=== PATIENT | female | born 1975 | race Caucasian/White ===

== ENCOUNTER 2016-07-14 13:02 | Inpatient (IN) | payer OTHER ==
[~2016-07-14] VITALS: Ht 170.2 cm; Wt 59.0 kg
[~2016-07-14 13:02] MED LIST: CALCTAB68 PO; CARA1TAB2 PO; COLA100C PO; KLON0.5T PO; MULTCAP PO; OXYC1TAB23 PO; OXYC30TA84 PO; PEPC1TAB2 PO; PERC10TA17 PO; PERC5TAB6 PO; PHEN1SUP6 PO; PRENTAB9 PO; PROT1TAB2 PO; VITA10002 PO; VITAMIN B12 INJ; ZOFR20TA PO; percocet
[2016-07-14 14:23] LABS: CONTROL LINE HCG INT CTR LINE PRESENT
[2016-07-14 14:31] LABS: ALBUMIN 3.7 GM/DL (3.2-5.2); ALBUMIN/GLOBULIN RATIO 1.42 (1.00-1.93); ALKALINE PHOSPHATASE 66 U/L (45-117); ALT/SGPT 23 U/L (12-78); ANION GAP 6 MEQ/L (8-16); AST/SGOT 17 U/L (15-37); BASO % 0.5 % (0.0-1.0); BILIRUBIN,DIRECT < 0.1 MG/DL (0.0-0.2); BILIRUBIN,TOTAL 0.3 MG/DL (0.2-1.0); BLOOD UREA NITROGEN 10 MG/DL (7-18); CALCIUM LEVEL 8.8 MG/DL (8.5-10.1); CARBON DIOXIDE LEVEL 28 MEQ/L (21-32); CHLORIDE LEVEL 107 MEQ/L (98-107); CREATININE FOR GFR 0.51 MG/DL (0.55-1.02); EOS # 0.1 K/mm3 (0.0-0.50); EOS % 1.5 % (0.0-3.0); GLOMERULAR FILTRATION RATE > 60.0 (>58); GLUCOSE, FASTING 102 MG/DL (70-105); LARGE UNSTAINED CELL # 0.1 K/mm3 (0.0-0.4); LARGE UNSTAINED CELL % 1.5 % (0.0-4.0); LYMPH # 1.3 K/mm3 (1.5-4.5); LYMPH % 22.8 % (24.0-44.0); MEAN CORPUSCULAR HEMOGLOBIN 29.4 pg (27.0-33.0); MEAN CORPUSCULAR HGB CONC 33.1 g/dl (32.0-36.5); MEAN CORPUSCULAR VOLUME 88.9 fl (80.0-96.0); MONO # 0.3 K/mm3 (0.0-0.8); MONO % 4.8 % (0.0-5.0); NEUTROPHILS # 3.6 K/mm3 (1.8-7.7); NEUTROPHILS % 68.8 % (36.0-66.0); PLATELET COUNT, AUTOMATED 277 k/mm3 (150-450); RED CELL DISTRIBUTION WIDTH 14.7 % (11.5-14.5); SODIUM LEVEL 141 MEQ/L (136-145); TOTAL PROTEIN 6.3 GM/DL (6.4-8.2); WHITE BLOOD COUNT 5.2 K/mm3 (4.0-10.0)
[2016-07-14] MEDS ORDERED: MORPHINE 2 MG/ML 1ML SYRINGE As Ordered ONE ×5 (14:36→19:56)
[2016-07-14] MEDS ORDERED: ONDANSETRON 4MG/2ML VIAL (J2405) As Ordered ONE ×2 (14:36→15:33)
--- NOTE | 2016-07-14 14:48 | REP ---
PA and lateral chest: Comparisons 05/03/2016. The lung lehman are clear. The cardiac size is normal The layne, mediastinum, and bony thorax are unremarkable. Impression: Negative PA and lateral chest. Signed by Harvey Willis MD 07/14/2016 02:39 P
[2016-07-14] MEDS ORDERED: GASTROGRAFIN SOLUTION 30ML (Q9963) As Ordered ONE (15:08)
[2016-07-14] MEDS ORDERED: ISOVUE-370 76% 100ML VIAL (Q9967) As Ordered ONE (17:11)
[2016-07-14] MEDS ORDERED: diphenhydrAMINE INJ 50MG/ML VIAL (J1200) As Ordered ONE (17:23)
[2016-07-14] MEDS ORDERED: methylPREDNISolone INJ 125 MG/2 ML VIAL (J2930) As Ordered ONE (17:23)
--- NOTE | 2016-07-14 19:50 | REPUSA ---
CLINICAL HISTORY: Abdominal pain. TECHNIQUE: Multiple axial, sagittal and coronal CT images were obtained through the abdomen and pelvi s after administration of oral and intravenous contrast material. COMMENTS: The liver is of uniform attenuation without mass or defect. There is no intra or extrahepatic biliary ductal dilatation. The spleen is normal. The gallbladder is surgically absent.. The pancreas is of n ormal contour and attenuation characteristics. There is no evidence of adrenal mass. Both kidneys demonstrate prompt and equal nephrograms. The kidneys are normal in size, shape and conf iguration. There is no evidence of renal or ureteral mass. No renal or ureteral calculi are identifie d. There is no hydroureter or hydronephrosis. Status post appendectomy. History of gastric bypass. There is no bowel wall thickening. No evidence for small or large bowel obstruction. There is no evidence of abdominal ascites or lymphadenopathy. There is no evidence of intrinsic or extrinsic bladder mass. There is no pelvic ascites or lymphadeno franck. Images of the lung bases show no evidence of pleural or parenchymal mass. There are no pleural effusi ons. The bony structures are free of lytic or blastic lesions. IMPRESSION: No evidence of acute abdominal or pelvic pathology. Thank you for your kind referral of this patient.
[2016-07-14] MEDS ORDERED: HYDROmorphone HCL 1 MG/ML SYRINGE (J1170) As Ordered ONE (20:00)
[2016-07-14] MEDS ORDERED: KLON0.5T PO (20:06)
[2016-07-14] MEDS ORDERED: BENA25CA4 PO (20:06)
[2016-07-14] MEDS ORDERED: HYDROmorphone HCL 1 MG/ML SYRINGE (J1170) IV PRN (22:15)
[2016-07-14] MEDS ORDERED: ACETAMINOPHEN TAB 650MG DOSE (2X325MG) PO PRN (22:15)
[2016-07-14] MEDS ORDERED: ONDANSETRON 4MG/2ML VIAL (J2405) IV PRN (22:15)
[2016-07-14] MEDS ORDERED: PERCOCET 5MG/325MG TAB PO PRN ×2 (22:15)
--- NOTE | 2016-07-14 22:33 | HPEPDOC ---
Medical History and Physical Date of Admission 07/14/16 History and Physical DATE OF SERVICE: 07/14/16 PRIMARY CARE PROVIDER: Elizabeth Ferrer CHIEF COMPLAINT: Abdominal pain HISTORY OF PRESENT ILLNESS: Patient is a 41-year-old female who presents with a chief complaint of abdominal pain. Patient states that she had a gastric bypass performed 2-1/2 years ago in [place] and has had multiple complications since that time. She had revision done in 09/17. She presents today complaining of losing weight, inability to eat, passing out and abdominal pain. Patient says that she has been passing out over the last 2 weeks and has been found on the floor a few times. She is complaining of epigastric abdominal pain without radiation, currently rates her pain 7-8/10 and describes pain as stabbing. She is complaining of nausea, vomiting, vomit is described as "very little, more like dry heaves," denies hematemesis. Patient tells me that she saw gastroenterology yesterday in [place] and that she was scheduled to have further evaluation with endoscopy tomorrow. ALLERGIES: BenGay, NSAIDs (secondary to gastric bypass), IV dye (hives) PAST MEDICAL HISTORY: None PAST SURGICAL HISTORY: Appendectomy, gastric bypass, cholecystectomy, , gastric bypass revision SOCIAL HISTORY: Patient smokes approximately 1 to 2 packs of cigarettes per week, denies any alcohol or recreational drug use. She lives at home with her fianc and children REVIEW OF SYSTEMS: Constitutional: Positive for recent weight loss, denies fevers, chills, night sweats. HEENT: Head: Positive for headaches, dizziness, passing out Eyes: denies blurry vision, double vision. Ears: Positive for tinnitus for episodes of syncope. Nose : denies sinus pain, pressure, rhinorrhea, postnasal drip. Throat: denies sore throat, cough, difficulty swallowing Cardiovascular: denies chest discomfort/pain, palpitations Respiratory: denies shortness of breath, difficulty breathing Gastrointestinal: Positive for abdominal pain, nausea, vomiting as described above, irregular bowel movements status post gastric bypass : Positive for vaginal bleeding (patient two and a half months ) Musculoskeletal: Positive for diffuse weakness Neurological: denies numbness, tingling, paresthesias Integumentary: Positive for bruising in the legs from a passing out Endocrine: Positive for cold intolerance, denies polyuria, polydipsia. Psychiatric: Positive for history of anxiety and depression PHYSICAL EXAMINATION: Vitals: Temperature 97.0, pulse 48, respiratory rate 18, blood pressure 133/62, pulse ox 98% on room air General: Patient awake and stretcher, alert and oriented, verbal and able to answer questions appropriately. HEENT: Head: normocephalic, atraumatic. Eyes: pupils equally reactive to light , conjunctiva are pink, sclera are nonicteric. Throat: buccal mucosa is pink and moist with no lesions in the oropharynx Respiratory: clear to auscultation bilaterally with no wheezes, rales, or rhonchi. Cardiovascular: Bradycardic. No murmurs, rubs, clicks or gallops Abdomen: Active bowel sounds, soft, epigastric tenderness to palpation, no masses to palpation Extremities: 5/5 strength in upper and lower extremities bilaterally, no swelling in either lower extremity bilaterally Neurological: sensation intact and symmetrical in upper and lower extremities bilaterally Integumentary: One bruise present over right knee, one bruise present over left knee, one bruise present over the left altamirano. All bruises are small measuring approximately 1 x 1 cm Vascular: pulses palpable and symmetrical in upper and lower extremities bilaterally LABORATORY DATA: CBC: White blood cells 5.2, H&H 12.8/38.7, platelets 277 Chemistry: Sodium 141, potassium 4.0, chloride 107, carbon dioxide 28, BUN is 10 , creatinine 0.51, glucose 102, calcium 8.8 Liver profile: AST 17, ALT 23, alkaline phosphatase 66, total protein 6.3, albumin 3.7, total bilirubin 0.3, direct bilirubin <0.1 Lipase 125 HCG negative ELECTROCARDIOGRAM: Sinus bradycardia at rate of 56 bpm RADIOLOGY: Chest x-ray: Negative PA and lateral chest Abdomen and pelvis CT with contrast: No evidence of acute abdominal or pelvic pathology ASSESSMENT: Patient is a 41-year-old female with uncontrolled abdominal pain. Patient will require admission for pain control PLAN: #1: Abdominal pain: Admit patient to PCU under hospitalist service. Orders placed for pain medication: Hydromorphone 1 mg IV every 6 hours when necessary, Percocet 1-2 tabs every 4 hours by mouth when necessary. Order placed for Zofran 4 mg IV every 6 hours when necessary. Patient's emergency department evaluation was unremarkable including CBC, BMP, lipase, CT of abdomen and pelvis. At this time it is uncertain the cause of the patient's abdominal pain. Patient will likely require outpatient follow-up for further evaluation. Endurance to patient's outpatient workup will be pain management, patient will likely require pain management consult for further evaluation and assistance with pain control. #2: Reported syncope: Etiology unknown at this time. Patient will be admitted to PCU for telemetry monitoring. #3: : Order placed for home dose of vitamin 1 tablet by mouth twice a day #4: DVT prophylaxis: Order placed for Lovenox 40 mg subcutaneously daily My preceptor for this patient encounter was physically present in the building during the encounter and was fully available. As needed, all aspects of the patient interview, examination, medical decision making process, and medical care plan development were reviewed and approved by the preceptor. Preceptor is aware and concurs with the plan as stated in the body of this note and will attest to such by his/her cosignature. Vital Signs Temperature 97.0, pulse 48, respiratory rate 18, blood pressure 133/62, pulse ox 98% on room air Home Medications Scheduled Multivitamins/ ( 27-0.8 mg) 1 Tab Tab 1 TAB PO BID Scheduled PRN Clonazepam (Klonopin) 0.5 Mg Tab 0.5 MG PO PRN ANXIETY Diphenhydramine HCl (Benadryl Allergy) 25 Mg Cap 25 MG PO PRN SLEEP Allergies Coded Allergies: Camphor (Verified Allergy, Unknown, 09/20/13) TOPICAL PAIN MEDS Carboxymethylcellulose (Verified Allergy, Unknown, 09/20/13) TOPICAL PAIN MEDS Contrast Media (Unverified Allergy, Unknown, RASH, 07/14/16) Iodine (Verified Allergy, Unknown, 09/20/13) Menthol (Verified Allergy, Unknown, 09/20/13) TOPICAL PAIN MEDS Methyl Salicylate (Verified Allergy, Unknown, 09/20/13) TOPICAL PAIN MEDS NSAIDs (Unverified Adverse Reaction, Unknown, AVOIDS, GASTRIC BYPASS, ) INES ALEXANDER DO Jul 14, 2016 22:33
--- NOTE | 2016-07-14 23:08 | EDDOCDS ---
Physician Documentation [facility] Name: Nathalie Retana Age: 41 yrs Sex: Female : 1975 Arrival Date: 07/14/2016 Time: 13:02 Bed 13 Private MD: Elizabeth [facility] [place] Disposition: 07/14/16 22:52 Hospitalization ordered by Gordo Robledo for Inpatient Admission. Preliminary diagnosis is Generalized abdominal pain. - Bed requested for M PCU. - Status is Inpatient Admission. titi - Condition is Stable. - Problem is new. - Symptoms are unchanged. - Notes: You were seen in the ED for abdominal pain and were admitted for further care by Dr. Robledo of [facility]. You have now elected to leave against medical advice before receiving counselling on this decision by your admitting doctor and before receivng instructions on further care. Please seek care with a doctor of your choosing as soon as possible and return to the ED at any time if you change your mind or your symptoms worsen. Historical: - Allergies: bengay; NSAIDS (due to gastric bypass); IV Dye (Hives); - Home Meds: 1. Vitamin Oral once daily (Last dose: 07/13/2016) - PMHx: none; - PSHx: Appendectomy; Gastric Bypass; Cholecystectomy (August 14, 2014); ; - Social history: Smoking status: Patient uses tobacco products, current every day smoker. No barriers to communication noted, Speaks appropriately for age. - Family history: Not pertinent. - : The pt / caregiver states he / she is not on anticoagulants. Home medication list is obtained from the patient. - Exposure Risk Screening:: None identified. 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 7 in. (170.18 cm) (R); Pain 10/10; 14:07 BP 120 / 73 RA Supine (auto/); Pulse 60; srm 14:07 BP 109 / 65 RA Sitting (auto/); Pulse 73; srm 14:07 BP 107 / 75 RA Standing (auto/); Pulse 83; srm 14:23 Pulse 56 MON; Pulse Ox 97% ; srm 14:24 BP 128 / 65 (auto/); srm 14:40 Pulse 52 MON; Pulse Ox 98% ; srm 14:40 BP 123 / 70 (auto/); srm 15:10 BP 114 / 66 (auto/); srm 15:10 Pulse 50 MON; Resp 18; Pulse Ox 97% ; srm 15:34 Pulse 46 MON; Pulse Ox 99% ; srm 15:34 BP 117 / 76 (auto/); srm 15:40 Pulse 46 MON; Pulse Ox 98% ; srm 15:40 BP 128 / 73 (auto/); srm 16:06 BP 143 / 79 (auto/); srm 16:08 Pulse 48 MON; Resp 18; Pulse Ox 100% ; srm 16:10 Pulse 50 MON; Pulse Ox 99% ; srm 16:10 BP 143 / 67 (auto/); srm 16:40 BP 122 / 57 (auto/); srm 16:40 Pulse 44 MON; Pulse Ox 99% ; srm 17:10 Pulse 50 MON; Pulse Ox 100% ; srm 17:10 BP 131 / 70 (auto/); srm 17:40 Pulse 44 MON; Pulse Ox 98% ; srm 17:40 BP 130 / 60 (auto/); srm 18:16 BP 134 / 63 (auto/); srm 18:17 Pulse 48 MON; Pulse Ox 100% ; srm 18:40 Pulse 48 MON; Pulse Ox 96% ; srm 18:40 BP 130 / 60 (auto/); srm 19:01 Pulse 48 MON; Resp 18; Pulse Ox 98% ; srm 19:07 BP 133 / 62 (auto/); af2 19:09 Pulse 48 MON; Resp 18 S; Pulse Ox 98% on R/A; af2 20:15 BP 139 / 65 Sitting (auto/); Pulse 51; Resp 18 S; Pulse Ox 97% on R/A; Pain 5/10; af2 13:05 Body Mass Index 20.36 (58.97 kg, 170.18 cm) gr2 MDM: 13:37 ECG WITH READING ER PHYS+CARDIAG ordered. EDMS 13:47 IV Saline Lock ordered. br1 13:48 Orthostatic VS ordered. br1 13:48 Pharmacy Technician Trainee/Pulse Ox/q 30 min VS ordered. br1 13:48 CBC with Diff Ordered. EDMS 13:48 BMP Ordered. EDMS 13:48 Liver Profile Ordered. EDMS 13:48 Lipase Ordered. EDMS 13:50 HCG,Serum Qualitative Ordered. EDMS 14:23 NS 0.9% 1000 ml IV at 150 mL/hr continuous ordered. br1 14:23 morphine 2 mg IVP once ordered. br1 14:23 Ondansetron 4 mg IVP once ordered. br1 14:25 Chest, 2 View (pa\E\lat) Ordered. EDMS 14:49 Financial registration complete. lg 15:02 morphine 2 mg IVP once ordered. br1 15:02 CBC with Diff Reviewed. br1 15:02 HCG,Serum Qualitative Reviewed. br1 15:02 Chest, 2 View (pa\E\lat) Reviewed. br1 15:03 [facility] Payment Agreement was scanned into [employer] and attached to record. lg 15:03 CT ABD & PELVIS: IV and Oral Contrast Ordered. EDMS 15:04 BMP Reviewed. br1 15:04 Liver Profile Reviewed. br1 15:04 Lipase Reviewed. br1 15:04 TROPONIN Reviewed. br1 15:08 Ondansetron 4 mg IVP once ordered. br1 15:18 Diatrizoate Meglumine & Sodium Liquid 10 ml PO once; mix in 290cc of water ordered. srm 15:18 Diatrizoate Meglumine & Sodium Liquid 10 ml PO once; mix in 290cc of water ordered. srm 16:03 morphine 2 mg IVP once ordered. br1 17:19 Solu-MEDROL 125 mg IVP once ordered. br1 17:19 diphenhydrAMINE 50 mg IVP once ordered. br1 18:18 morphine 2 mg IVP once ordered. srm 19:45 morphine 2 mg IVP once ordered. br1 19:53 BED REQUEST+ADM ordered. EDMS 19:59 Dilaudid - HYDROmorphone 1 mg IVP once ordered. br1 22:08 Admission / Observation Status ordered. EDMS 22:13 REGULAR DIET ordered. EDMS 22:13 COMPLETE BLOOD COUNT Ordered. EDMS 22:13 BASIC METABOLIC PROFILE Ordered. EDMS 22:44 ED course: Patient was seen and admitted by hospitalist service. Inpatient orders were br1 written and patient is holding in ED for bed. Informed by nursing staff patient has now signed out AMA as an inpatient lan. Nursing has made inpatient team aware. Patient has chosen to leave prior to be counseled on further care by her admitting physician. Disposition changed to AMA for software logistics reasons only (patient was admitted from the ED).. Administered Medications: 14:40 Drug: NS 0.9% 1000 ml [sodium chloride 0.9 % intravenous solution] Route: IV; Rate: 150 srm mL/hr; Site: right antecubital; 14:40 Drug: Ondansetron 4 mg [ondansetron HCl 2 mg/mL intravenous solution (2 mL)] Route: srm IVP; Site: right antecubital; 14:41 Drug: morphine 2 mg [morphine 2 mg/mL intravenous cartridge (1 mL)] Route: IVP; Site: [facility] right antecubital; 20:17 Follow up: Response: No significant change. af2 15:13 Drug: morphine 2 mg [morphine 2 mg/mL intravenous cartridge (1 mL)] Route: IVP; Site: [facility] right antecubital; 15:18 Drug: Diatrizoate Meglumine & Sodium 10 ml [diatrizoate meglumine and diat.sodium 66 srm %-10 % oral solution (10 mL)] Route: PO; 20:16 Follow up: Response: No significant change. af2 15:35 Drug: Ondansetron 4 mg [ondansetron HCl 2 mg/mL intravenous solution (2 mL)] Route: srm IVP; Site: right antecubital; 20:16 Follow up: Response: No Adverse Reaction af2 16:00 Drug: Diatrizoate Meglumine & Sodium 10 ml [diatrizoate meglumine and diat.sodium 66 srm %-10 % oral solution (10 mL)] Route: PO; 20:16 Follow up: Response: No significant change. af2 16:08 Drug: morphine 2 mg [morphine 2 mg/mL intravenous cartridge (1 mL)] Route: IVP; Site: [facility] right antecubital; 16:43 Follow up: Response: No significant change.; see trends for vs srm 17:26 Drug: Solu-MEDROL 125 mg [Solu-Medrol 500 mg intravenous solution (125 mg)] Route: IVP; srm Site: right antecubital; 20:16 Follow up: Response: No significant change. af2 17:28 Drug: diphenhydrAMINE 50 mg [diphenhydramine 50 mg/mL injection solution (1 mL)] Route: srm IVP; Site: right antecubital; 20:15 Follow up: Response: No significant change. af2 18:22 Drug: morphine 2 mg [morphine 2 mg/mL intravenous cartridge (1 mL)] Route: IVP; Site: srm right antecubital; 20:15 Follow up: Response: Pain is unchanged, physician notified af2 19:59 Not Given (Patient Refused): morphine 2 mg IVP once br1 20:05 Drug: Dilaudid - HYDROmorphone 1 mg [hydromorphone 1 mg/mL injection syringe (1 mL)] af2 Route: IVP; Site: right antecubital; 20:15 Follow up: BP 139 / 65 Sitting Left Arm Auto; Pulse 51 bpm; Resp 18 bpm Spontaneous; af2 Pulse Ox 97% RA; Pain 5/10 Adult; Response: Pain is decreased Signatures: Dispatcher [employer] EDMS Daniela Christine RN RN [facility] [place], Ritu Wright, RN Richard Billings, Reg Reg lg Herbert Nash MD MD br1 Donna Vargas RN RN dsf Dorinda Moyer RN RN [id number] Cherise Roach RN af2 The chart was reviewed and I authenticate all verbal orders and agree with the evaluation and treatment provided.Corrections: (The following items were deleted from the chart) 14:47 14:44 TROPONIN+LAB ordered. EDMS EDMS 18:37 13:26 Allergies: NSAIDS; dsf [facility] Attachments: 15:03 [facility] [place] Payment Agreement lg MTDD
--- NOTE | 2016-07-14 23:09 | EDDOCDS ---
Nurse's Notes [employer] Name: Nathalie Retana Age: 41 yrs Sex: Female : 1975 Arrival Date: 07/14/2016 Time: 13:02 Bed 13 Private MD: Elizabeth [facility] Diagnosis: Generalized abdominal pain Presentation: 07/14 13:23 Presenting complaint: Patient states: abdominal pain that started 1 week ago and the dsf pain is getting worse. Pt reports passing out through out the week. Pt reports loosing weight and having no energy. Pt is suppose to have an endoscopy tomorrow in [place]. pt has had gastric bypass 2 years ago. Risk factors: the patient reports no vaginal bleeding. Adult Sepsis Screening: The patient does not have new or worsening altered mentation. Patient's respiratory rate is less than 22. Systolic blood pressure is greater than 100. Patient has a qSOFA score of 0- Negative Sepsis Screen. Suicide/Homicide risk assessment- the patient denies having any suicidal and/or homicidal ideations and does not present with any other emotional, behavioral or mental health complaints. Status: The patient is a dependent. Transition of care: patient was not received from another setting of care. 13:23 Method Of Arrival: Walkin/Carried/Asstd dsf 13:23 Acuity: JEAN Level 2 dsf Triage Assessment: 13:26 General: Appears uncomfortable, Behavior is appropriate for age, cooperative. Pain: dsf Location: epigastric area Pain currently is 10 out of 10 on a pain scale. Pain does not radiate. Quality of pain is described as sharp, Pain began 7 days ago. HIV screening NA for this visit Offered previously. GI: Reports epigastric pain, nausea, vomiting. 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 Vitamin Oral once daily (Last dose: 07/13/2016) - PMHx: none; - PSHx: Appendectomy; Gastric Bypass; Cholecystectomy (August 14, 2014); ; - Social history: Smoking status: Patient uses tobacco products, current every day smoker. No barriers to communication noted, Speaks appropriately for age. - Family history: Not pertinent. - : The pt / caregiver states he / she is not on anticoagulants. Home medication list is obtained from the patient. - Exposure Risk Screening:: None identified. Screenin:26 Screening information is obtained from the patient. Fall risk: No risks identified. af2 Assistance ADL's: requires no assistance with activities of daily living. Abuse/DV Screen: The patient / caregiver reports he/she is: not in a situation that causes fear, pain or injury. Nutritional screening: No deficits noted. Advance Directives: Currently, there is no health care proxy. home support is adequate. Assessment: 13:46 General: Appears distressed, uncomfortable. General: pt states she had a C section 2 mk4 1/2 months ago for twins , felt "pretty good" for about 2 weeks then started to not feel well, has been anorexic , states "severe" weight loss, the past 2 months with the abd pain starting within the past few days , pt states she has " woken up on the floor" several times states " passing out" . Pain: Location: abdomen, upper mid abdomen, pt states in "her pouch". Neurological: Level of Consciousness is awake, Oriented to person, place, time. Respiratory: Airway is patent Respiratory effort is even, unlabored, Respiratory pattern is regular. GI: Abdomen is obese, Abd is soft and non tender X 4 quads. Derm: Skin is intact, is healthy with good turgor, Skin is pale. 14:07 General: Appears uncomfortable, Behavior is appropriate for age, cooperative. GI: Bowel srm sounds present X 4 quads. Abd is soft and non tender X 4 quads. Reports epigastric pain. 15:19 General: pt took one sip of contrast and spit it out. denies nausea but she states she srm wont be ABLE to drink it and doesn't want the pain to return. ND aware. 15:42 General: pt drank first cup of contrast then c/o nausea- zofran given. pt states " that srm pain medicine didn't do kvng shit". . 16:01 General: pt oob to br gait steady. c/o mid upper abd pain still MD aware. srm 16:46 General: pt states morphine doesn't take care of the pain but " makes my stomach feel srm empty like" . 17:30 General: Appears in no apparent distress, Behavior is appropriate for age, cooperative. srm Cardiovascular: No deficits noted. Rhythm is sinus bradycardia. Respiratory: No deficits noted. GI: Reports epigastric pain. 19:16 General: Appears in no apparent distress, Behavior is cooperative, assumed care of pt af2 at this time, pt lying on stretcher and states "how long will all this take?" pt updated regarding plan of care at this time. . Neurological: Level of Consciousness is awake, Oriented to person, place, time. Cardiovascular: Rhythm is sinus bradycardia No ectopy. Respiratory: Airway is patent Respiratory effort is even, unlabored. Derm: Skin is intact, is healthy with good turgor, Skin is pink, warm & dry. 20:17 General: Appears in no apparent distress, Behavior is appropriate for age, cooperative, af2 fluids infusing per order. pt lying on stretcher resting quietly. reports pain is now tolerable, 5/10 after receiving pain medication. will continue to monitor. pt awaiting exam from hospitalist.. GI: Reports upper abdominal pain. Derm: Skin is pink, warm & dry. 21:13 General: Appears in no apparent distress, Behavior is anxious, cooperative, pt states af2 anxiety and that pain is increasing. resp easy and unlabored. updated regarding plan of care on admission. skin w/d/i. . 22:00 General: Appears in no apparent distress, Behavior is fussy, uncooperative, pt requests af2 additional pain medication, this ticket writer informed pt that pain medication ordered- Dilaudid 1mg- can only be given every six hours and pt has only reached about 2 hour vishal and cannot have medication again at this time. pt becomes angry and begins shouting and rips monitor off. pt requests to speak with hospitalist at bedside, states "this isn't gonna cut it for me, I need him down here right now." this ticket writer paged hospitalist and let him know pt would like him to come down and speak with her. hospitalist to come down when he is available.. 22:15 General: Appears in no apparent distress, Behavior is uncooperative, this ticket writer af2 updated pt that hospitalist will be down when he is available, pt angry that hospitalist is not coming down immediately and she does not have an exact time for when he will be down. pt states to "I am going to punch somebody in the face." pt informed that this is unacceptable, charge nurse to bedside. pt requests information regarding hospitalist resident care supervisor to call, provided information for pt advocate. . 22:48 General: Appears in no apparent distress, Behavior is uncooperative, this ticket writer and af2 charge nurse entered room to have pt sign AMA paperwork. pt seated in upright position on chair completely dressed, hospital gown and PIV and monitor equipment found lying on the floor. this ticket writer provided pt with bandaid. pt signed AMA paperwork, spouse at bedside. pt encouraged to keep appointment in [place] tomorrow as previously scheduled. . Vital Signs: 13:05 BP 107 / 73; Pulse 79; Resp 18 S; Temp 97.7(O); Pulse Ox 99% on R/A; Weight 58.97 kg gr2 (R); Height 5 ft. 7 in. (170.18 cm) (R); Pain 10/10; 14:07 BP 120 / 73 RA Supine (auto/); Pulse 60; srm 14:07 BP 109 / 65 RA Sitting (auto/); Pulse 73; srm 14:07 BP 107 / 75 RA Standing (auto/); Pulse 83; srm 14:23 Pulse 56 MON; Pulse Ox 97% ; srm 14:24 BP 128 / 65 (auto/); srm 14:40 Pulse 52 MON; Pulse Ox 98% ; srm 14:40 BP 123 / 70 (auto/); srm 15:10 BP 114 / 66 (auto/); srm 15:10 Pulse 50 MON; Resp 18; Pulse Ox 97% ; srm 15:34 Pulse 46 MON; Pulse Ox 99% ; srm 15:34 BP 117 / 76 (auto/); srm 15:40 Pulse 46 MON; Pulse Ox 98% ; srm 15:40 BP 128 / 73 (auto/); srm 16:06 BP 143 / 79 (auto/); srm 16:08 Pulse 48 MON; Resp 18; Pulse Ox 100% ; srm 16:10 Pulse 50 MON; Pulse Ox 99% ; srm 16:10 BP 143 / 67 (auto/); srm 16:40 BP 122 / 57 (auto/); srm 16:40 Pulse 44 MON; Pulse Ox 99% ; srm 17:10 Pulse 50 MON; Pulse Ox 100% ; srm 17:10 BP 131 / 70 (auto/); srm 17:40 Pulse 44 MON; Pulse Ox 98% ; srm 17:40 BP 130 / 60 (auto/); srm 18:16 BP 134 / 63 (auto/); srm 18:17 Pulse 48 MON; Pulse Ox 100% ; srm 18:40 Pulse 48 MON; Pulse Ox 96% ; srm 18:40 BP 130 / 60 (auto/); srm 19:01 Pulse 48 MON; Resp 18; Pulse Ox 98% ; srm 19:07 BP 133 / 62 (auto/); af2 19:09 Pulse 48 MON; Resp 18 S; Pulse Ox 98% on R/A; af2 20:15 BP 139 / 65 Sitting (auto/); Pulse 51; Resp 18 S; Pulse Ox 97% on R/A; Pain 5/10; af2 13:05 Body Mass Index 20.36 (58.97 kg, 170.18 cm) gr2 Vitals: 13:05 Log In Time: July 14, 2016 at 13:05. gr2 ED Course: 13:04 Patient visited by Kerri Cohen. gr2 13:04 [facility] is Private Physician. gr2 13:04 Patient moved to Waiting gr2 13:06 Patient visited by Kerri Cohen. gr2 13:06 Patient moved to Pre RCE gr2 13:26 Triage Initiated dsf 13:30 Patient moved to 13 mdr 13:39 Patient visited by Dorinda Moyer RN. mk4 13:47 Herbert Nash MD is Attending Physician. br1 13:47 Patient visited by Madison Nava. dem1 13:47 EKG done. (by ED staff). Reviewed by Herbert Nash MD. dem1 14:06 HCG,Serum Qualitative Sent. srm 14:06 Lipase Sent. srm 14:06 Liver Profile Sent. srm 14:06 BMP Sent. srm 14:06 CBC with Diff Sent. srm 14:07 The patient / caregiver is instructed regarding the plan of care and ED course. srm Accompanied by Significant Other, Patient has correct armband on for positive identification. Placed in gown. Bed in low position. Call light in reach. solar electric/photovoltaic installer on. Pulse ox on. NIBP on. 14:07 Inserted saline lock: 20 gauge in right antecubital area and blood collected. The [facility] patient tolerated the procedure well. 14:09 Patient visited by Daniela Christine RN. srm 14:20 Patient visited by Herbert Nash MD. br1 14:43 Patient visited by Daniela Christine RN. srm 14:55 Chest, 2 View (pa\\E\\lat) Returned. EDMS 15:03 [facility] Payment Agreement was scanned into [employer] and attached to record. lg 15:19 Patient visited by Daniela Christine RN. srm 16:02 Patient visited by Daniela Christine RN. srm 16:17 Patient visited by Daniela Christine RN. srm 16:47 Patient visited by Daniela Christine RN. srm 17:31 Patient visited by Daniela Christine RN. srm 18:32 Patient visited by Daniela Christine RN. srm 18:37 Patient visited by Daniela Christine RN. srm 19:03 Report given to a Nivia ALVAREZ. srm 19:15 Cherise Roach RN is Primary Nurse. af2 19:16 Patient visited by Cherise Roach RN. af2 19:26 Patient visited by Cherise Roach RN. af2 20:05 Patient visited by Cherise Roach RN. af2 20:14 CT ABD & PELVIS: IV and Oral Contrast Returned. EDMS 20:18 Patient visited by Cherise Raoch RN. af2 21:03 Patient visited by Cherise Roach RN. af2 21:04 Gordo Robledo is Hospitalizing Provider. br1 22:52 Gordo Robledo is Hospitalizing Provider. br1 Administered Medications: 14:40 Drug: NS 0.9% 1000 ml [sodium chloride 0.9 % intravenous solution] Route: IV; Rate: 150 srm mL/hr; Site: right antecubital; 14:40 Drug: Ondansetron 4 mg [ondansetron HCl 2 mg/mL intravenous solution (2 mL)] Route: srm IVP; Site: right antecubital; 14:41 Drug: morphine 2 mg [morphine 2 mg/mL intravenous cartridge (1 mL)] Route: IVP; Site: [facility] right antecubital; 20:17 Follow up: Response: No significant change. af2 15:13 Drug: morphine 2 mg [morphine 2 mg/mL intravenous cartridge (1 mL)] Route: IVP; Site: [facility] right antecubital; 15:18 Drug: Diatrizoate Meglumine & Sodium 10 ml [diatrizoate meglumine and diat.sodium 66 srm %-10 % oral solution (10 mL)] Route: PO; 20:16 Follow up: Response: No significant change. af2 15:35 Drug: Ondansetron 4 mg [ondansetron HCl 2 mg/mL intravenous solution (2 mL)] Route: srm IVP; Site: right antecubital; 20:16 Follow up: Response: No Adverse Reaction af2 16:00 Drug: Diatrizoate Meglumine & Sodium 10 ml [diatrizoate meglumine and diat.sodium 66 srm %-10 % oral solution (10 mL)] Route: PO; 20:16 Follow up: Response: No significant change. af2 16:08 Drug: morphine 2 mg [morphine 2 mg/mL intravenous cartridge (1 mL)] Route: IVP; Site: [facility] right antecubital; 16:43 Follow up: Response: No significant change.; see trends for vs srm 17:26 Drug: Solu-MEDROL 125 mg [Solu-Medrol 500 mg intravenous solution (125 mg)] Route: IVP; srm Site: right antecubital; 20:16 Follow up: Response: No significant change. af2 17:28 Drug: diphenhydrAMINE 50 mg [diphenhydramine 50 mg/mL injection solution (1 mL)] Route: srm IVP; Site: right antecubital; 20:15 Follow up: Response: No significant change. af2 18:22 Drug: morphine 2 mg [morphine 2 mg/mL intravenous cartridge (1 mL)] Route: IVP; Site: srm right antecubital; 20:15 Follow up: Response: Pain is unchanged, physician notified af2 19:59 Not Given (Patient Refused): morphine 2 mg IVP once br1 20:05 Drug: Dilaudid - HYDROmorphone 1 mg [hydromorphone 1 mg/mL injection syringe (1 mL)] af2 Route: IVP; Site: right antecubital; 20:15 Follow up: BP 139 / 65 Sitting Left Arm Auto; Pulse 51 bpm; Resp 18 bpm Spontaneous; af2 Pulse Ox 97% RA; Pain 5/10 Adult; Response: Pain is decreased Intake: Order Results: Lab Order: CBC with Diff; SPEC'M 07/14/16 14:04 Test: WHITE BLOOD COUNT; Value: 5.2; Range: 4.0-10.0; Units: K/mm3; Status: F Test: RED BLOOD COUNT; Value: 4.35; Range: 4.00-5.40; Units: M/mm3; Status: F Test: HEMOGLOBIN; Value: 12.8; Range: 12.0-16.0; Units: g/dl; Status: F Test: HEMATOCRIT; Value: 38.7; Range: 36.0-47.0; Units: %; Status: F Test: MEAN CORPUSCULAR VOLUME; Value: 88.9; Range: 80.0-96.0; Units: fl; Status: F Test: MEAN CORPUSCULAR HEMOGLOBIN; Value: 29.4; Range: 27.0-33.0; Units: pg; Status: F Test: MEAN CORPUSCULAR HGB CONC; Value: 33.1; Range: 32.0-36.5; Units: g/dl; Status: F Test: RED CELL DISTRIBUTION WIDTH; Value: 14.7; Range: 11.5-14.5; Abnormal: Above high normal; Units: %; Status: F Test: PLATELET COUNT, AUTOMATED; Value: 277; Range: 150-450; Units: k/mm3; Status: F Test: NEUTROPHILS %; Value: 68.8; Range: 36.0-66.0; Abnormal: Above high normal; Units: %; Status: F Test: LYMPH %; Value: 22.8; Range: 24.0-44.0; Abnormal: Below low normal; Units: %; Status: F Test: MONO %; Value: 4.8; Range: 0.0-5.0; Units: %; Status: F Test: EOS %; Value: 1.5; Range: 0.0-3.0; Units: %; Status: F Test: BASO %; Value: 0.5; Range: 0.0-1.0; Units: %; Status: F Test: LARGE UNSTAINED CELL %; Value: 1.5; Range: 0.0-4.0; Units: %; Status: F Test: NEUTROPHILS #; Value: 3.6; Range: 1.8-7.7; Units: K/mm3; Status: F Test: LYMPH #; Value: 1.3; Range: 1.5-4.5; Abnormal: Below low normal; Units: K/mm3; Status: F Test: MONO #; Value: 0.3; Range: 0.0-0.8; Units: K/mm3; Status: F Test: EOS #; Value: 0.1; Range: 0.0-0.50; Units: K/mm3; Status: F Test: BASO #; Value: 0.0; Range: 0.0-0.2; Units: K/mm3; Status: F Test: LARGE UNSTAINED CELL #; Value: 0.1; Range: 0.0-0.4; Units: K/mm3; Status: F Lab Order: [facility]; SPEC'M 07/14/16 14:04 Test: GLUCOSE, FASTING; Value: 102; Range: 70-105; Units: MG/DL; Status: F Test: BLOOD UREA NITROGEN; Value: 10; Range: 7-18; Units: MG/DL; Status: F Test: CREATININE FOR GFR; Value: 0.51; Range: 0.55-1.02; Abnormal: Below low normal; Units: MG/DL; Status: F Test: GLOMERULAR FILTRATION RATE; Value: > 60.0; Range: >58; Status: F Test: SODIUM LEVEL; Value: 141; Range: 136-145; Units: MEQ/L; Status: F Test: POTASSIUM SERUM; Value: 4.0; Range: 3.5-5.1; Units: MEQ/L; Status: F Test: CHLORIDE LEVEL; Value: 107; Range: 98-107; Units: MEQ/L; Status: F Test: CARBON DIOXIDE LEVEL; Value: 28; Range: 21-32; Units: MEQ/L; Status: F Test: ANION GAP; Value: 6; Range: 8-16; Abnormal: Below low normal; Units: MEQ/L; Status: F Test: CALCIUM LEVEL; Value: 8.8; Range: 8.5-10.1; Units: MG/DL; Status: F Test Note: ; Units are mL/min/1.73 m2 Chronic Kidney Disease Staging per NKF: Stage I & II GFR >=60 Normal to Mildly Decreased Stage III GFR 30-59 Moderately Decreased Stage IV GFR 15-29 Severely Decreased Stage V GFR <15 Very Little GFR Left ESRD GFR <15 on SERVICENOW ADMINISTRATOR Lab Order: Liver Profile; SPEC'M 07/14/16 14:04 Test: AST/SGOT; Value: 17; Range: 15-37; Units: U/L; Status: F Test: ALT/SGPT; Value: 23; Range: 12-78; Units: U/L; Status: F Test: ALKALINE PHOSPHATASE; Value: 66; Range: 45-117; Units: U/L; Status: F Test: BILIRUBIN,TOTAL; Value: 0.3; Range: 0.2-1.0; Units: MG/DL; Status: F Test: BILIRUBIN,DIRECT; Value: < 0.1; Range: 0.0-0.2; Units: MG/DL; Status: F Test: TOTAL PROTEIN; Value: 6.3; Range: 6.4-8.2; Abnormal: Below low normal; Units: GM/DL; Status: F Test: ALBUMIN; Value: 3.7; Range: 3.2-5.2; Units: GM/DL; Status: F Test: ALBUMIN/GLOBULIN RATIO; Value: 1.42; Range: 1.00-1.93; Status: F Lab Order: Lipase; [facility] 07/14/16 14:04 Test: LIPASE; Value: 125; Range: 73-393; Units: U/L; Status: F Lab Order: HCG,Serum Qualitative; SPEC' 07/14/16 14:04 Test: HCG, SERUM QUALITATIVE; Value: NEGATIVE; Range: NEGATIVE; Status: F Lab Order: TROPONIN; [facility] 07/14/16 14:04 Test: TROPONIN I; Value: < 0.02; Range: < 0.10; Units: NG/ML; Status: F Test Note: ; Troponin I Reference Interval for [employer] LOCI: 99th Percentile= 0.00-0.045 ng/ml Risk Stratification: <= 0.10 ng/ml Decreased Risk for Adverse Clinical Events. 0.10-1.50 ng/ml Increased Risk for Adverse Clinical Events. Evaluation of additional criterion and/or repeat testing in 2-6 hours is suggested to rule out myocardial damage. >= 1.50 ng/ml Indicative of Myocardial Injury. Radiology Order: Chest, 2 View (pa\\E\\lat) Test: Chest, 2 View (pa\\E\\lat) REASON FOR EXAMINATION: Syncope; PA and lateral chest:; ; Comparisons 05/03/2016.; ; The lung lehman are clear. The cardiac size is normal; ; The layne, mediastinum, and bony thorax are unremarkable.; ; Impression:; ; Negative PA and lateral chest.; ; ; Signed by; Harvey Willis MD 07/14/2016 02:39 P; Radiology Order: CT ABD & PELVIS: IV and Oral Contrast Test: CT ABD & PELVIS: IV and Oral Contrast REASON FOR EXAMINATION: Abdomen Pain; ; CLINICAL HISTORY: Abdominal pain.; TECHNIQUE: Multiple axial, sagittal and coronal CT images were obtained through the abdomen and pelvi; s after administration of oral and intravenous contrast material.; COMMENTS:; The liver is of uniform attenuation without mass or defect. There is no intra or extrahepatic biliary; ductal dilatation. The spleen is normal. The gallbladder is surgically absent.. The pancreas is of n; ormal contour and attenuation characteristics. There is no evidence of adrenal mass.; Both kidneys demonstrate prompt and equal nephrograms. The kidneys are normal in size, shape and conf; iguration. There is no evidence of renal or ureteral mass. No renal or ureteral calculi are identifie; d. There is no hydroureter or hydronephrosis.; Status post appendectomy. History of gastric bypass. There is no bowel wall thickening. No evidence; for small or large bowel obstruction. There is no evidence of abdominal ascites or lymphadenopathy.; There is no evidence of intrinsic or extrinsic bladder mass. There is no pelvic ascites or lymphadeno; franck.; Images of the lung bases show no evidence of pleural or parenchymal mass. There are no pleural effusi; ons.; The bony structures are free of lytic or blastic lesions.; IMPRESSION:; No evidence of acute abdominal or pelvic pathology.; Thank you for your kind referral of this patient.; ; Outcome: 21:04 Decision to Hospitalize by Provider. br1 22:44 The patient is leaving AMA: Other patient has chosen to leave AMA at this time, pt not titi willing to stay for Dr Robledo to come to this department to explain risks and benefits of staying. Dr Robledo has been notified of patient request to speak with him. 22:48 Patient left against medical advice. br1 22:52 Decision to Hospitalize by Provider. br1 23:04 Admitted to PCU Other patient was admitted to PCU status and decided to leave AMA titi before transfer to floor. 23:08 Patient left the ED. titi Signatures: Dispatcher [employer] EDMS Daniela Christine, RN RN comfort Limon, ANTONIO Gutierrez RN, LoriLee, Reg Reg lg Herbert Nash MD MD br1 Donna Vargas RN RN Madison Black1 Kerri Cohen gr2 Dorinda Moyer RN RN latha4 Chreise RoachRN RN af2 Maximo Tsai PCA TREE PLANTER mdr Corrections: (The following items were deleted from the chart) 13:31 13:23 Acuity: JEAN Level 3 dsf dsf 18:37 13:26 Allergies: NSAIDS; dsf srm MTDD
[2016-07-15] MEDS ORDERED: ENOXAPARIN 40 MG/0.4 ML SYRINGE (J1650) SC SCH (09:00)
[2016-07-15] MEDS ORDERED: PRENATAL VITAMIN TAB PO SCH (09:00)
--- NOTE | 2016-07-15 21:05 | ECGEPIP ---
Stationary ECG Study [facility] - ED Test Date: 2016-07-14 Pat Name: THOMAS COOK Department: Room: - Gender: F [address]: ginger : 1975 Requested By: CARMEL Martin Order Number: [id number] Reading MD: Cara Augustine Measurements Intervals [place] Rate: 56 P: 52 ID: [id number] QRS: 73 QRSD: 97 T: 66 QT: 407 QTc: 394 Interpretive Statements SINUS BRADYCARDIA WITH SHORT ID INTERVAL NSTTW ABNORMALITY DECREASED RATE 10/07/14 Electronically Signed On 07-15-2016 21:05:12 EST by Caar Augustine
--- NOTE | 2016-07-17 00:09 | EDDOCDS ---
Physician Documentation [facility] Name: Nathalie Retana Age: 41 yrs Sex: Female : 1975 Arrival Date: 07/14/2016 Time: 13:02 Bed 13 Private MD: [place] [facility] [place]: 07/14/16 22:52 Hospitalization ordered by Gorod Robledo for Inpatient Admission. Preliminary diagnosis is Generalized abdominal pain. - Bed requested for M PCU. - Status is Inpatient Admission. titi - Condition is Stable. - Problem is new. - Symptoms are unchanged. - Notes: You were seen in the ED for abdominal pain and were admitted for further care by Dr. Robledo of [facility]. You have now elected to leave against medical advice before receiving counselling on this decision by your admitting doctor and before receivng instructions on further care. Please seek care with a doctor of your choosing as soon as possible and return to the ED at any time if you change your mind or your symptoms worsen. Historical: - Allergies: bengay; NSAIDS (due to gastric bypass); IV Dye (Hives); - Home Meds: 1. Vitamin Oral once daily (Last dose: 07/13/2016) - PMHx: none; - PSHx: Appendectomy; Gastric Bypass; Cholecystectomy (August 14, 2014); ; - Social history: Smoking status: Patient uses tobacco products, current every day smoker. No barriers to communication noted, Speaks appropriately for age. - Family history: Not pertinent. - : The pt / caregiver states he / she is not on anticoagulants. Home medication list is obtained from the patient. - Exposure Risk Screening:: None identified. 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 7 in. (170.18 cm) (R); Pain 10/10; 14:07 BP 120 / 73 RA Supine (auto/); Pulse 60; srm 14:07 BP 109 / 65 RA Sitting (auto/); Pulse 73; srm 14:07 BP 107 / 75 RA Standing (auto/); Pulse 83; srm 14:23 Pulse 56 MON; Pulse Ox 97% ; srm 14:24 BP 128 / 65 (auto/); srm 14:40 Pulse 52 MON; Pulse Ox 98% ; srm 14:40 BP 123 / 70 (auto/); srm 15:10 BP 114 / 66 (auto/); srm 15:10 Pulse 50 MON; Resp 18; Pulse Ox 97% ; srm 15:34 Pulse 46 MON; Pulse Ox 99% ; srm 15:34 BP 117 / 76 (auto/); srm 15:40 Pulse 46 MON; Pulse Ox 98% ; srm 15:40 BP 128 / 73 (auto/); srm 16:06 BP 143 / 79 (auto/); srm 16:08 Pulse 48 MON; Resp 18; Pulse Ox 100% ; srm 16:10 Pulse 50 MON; Pulse Ox 99% ; srm 16:10 BP 143 / 67 (auto/); srm 16:40 BP 122 / 57 (auto/); srm 16:40 Pulse 44 MON; Pulse Ox 99% ; srm 17:10 Pulse 50 MON; Pulse Ox 100% ; srm 17:10 BP 131 / 70 (auto/); srm 17:40 Pulse 44 MON; Pulse Ox 98% ; srm 17:40 BP 130 / 60 (auto/); srm 18:16 BP 134 / 63 (auto/); srm 18:17 Pulse 48 MON; Pulse Ox 100% ; srm 18:40 Pulse 48 MON; Pulse Ox 96% ; srm 18:40 BP 130 / 60 (auto/); srm 19:01 Pulse 48 MON; Resp 18; Pulse Ox 98% ; srm 19:07 BP 133 / 62 (auto/); af2 19:09 Pulse 48 MON; Resp 18 S; Pulse Ox 98% on R/A; af2 20:15 BP 139 / 65 Sitting (auto/); Pulse 51; Resp 18 S; Pulse Ox 97% on R/A; Pain 5/10; af2 13:05 Body Mass Index 20.36 (58.97 kg, 170.18 cm) gr2 MDM: 13:37 ECG WITH READING ER PHYS+CARDIAG ordered. EDMS 13:47 IV Saline Lock ordered. br1 13:48 Orthostatic VS ordered. 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 br1 13:48 CBC with Diff Ordered. EDMS 13:48 BMP Ordered. EDMS 13:48 Liver Profile Ordered. EDMS 13:48 Lipase Ordered. EDMS 13:50 HCG,Serum Qualitative Ordered. EDMS 14:23 NS 0.9% 1000 ml IV at 150 mL/hr continuous ordered. br1 14:23 morphine 2 mg IVP once ordered. br1 14:23 Ondansetron 4 mg IVP once ordered. br1 14:25 Chest, 2 View (pa\E\lat) Ordered. EDMS 14:49 Financial registration complete. lg 15:02 morphine 2 mg IVP once ordered. br1 15:02 CBC with Diff Reviewed. br1 15:02 HCG,Serum Qualitative Reviewed. br1 15:02 Chest, 2 View (pa\E\lat) Reviewed. br1 15:03 [facility] Payment Agreement was scanned into [employer] and attached to record. lg 15:03 CT ABD & PELVIS: IV and Oral Contrast Ordered. EDMS 15:04 BMP Reviewed. br1 15:04 Liver Profile Reviewed. br1 15:04 Lipase Reviewed. br1 15:04 TROPONIN Reviewed. br1 15:08 Ondansetron 4 mg IVP once ordered. br1 15:18 Diatrizoate Meglumine & Sodium Liquid 10 ml PO once; mix in 290cc of water ordered. srm 15:18 Diatrizoate Meglumine & Sodium Liquid 10 ml PO once; mix in 290cc of water ordered. srm 16:03 morphine 2 mg IVP once ordered. br1 17:19 Solu-MEDROL 125 mg IVP once ordered. br1 17:19 diphenhydrAMINE 50 mg IVP once ordered. br1 18:18 morphine 2 mg IVP once ordered. srm 19:45 morphine 2 mg IVP once ordered. br1 19:53 BED REQUEST+ADM ordered. EDMS 19:59 Dilaudid - HYDROmorphone 1 mg IVP once ordered. br1 22:08 Admission / Observation Status ordered. EDMS 22:13 REGULAR DIET ordered. EDMS 22:13 COMPLETE BLOOD COUNT Ordered. EDMS 22:13 BASIC METABOLIC PROFILE Ordered. EDMS 22:44 ED course: Patient was seen and admitted by hospitalist service. Inpatient orders were br1 written and patient is holding in ED for bed. Informed by nursing staff patient has now signed out AMA as an inpatient lan. Nursing has made inpatient team aware. Patient has chosen to leave prior to be counseled on further care by her admitting physician. Disposition changed to AMA for software logistics reasons only (patient was admitted from the ED).. 07/15 10:54 Refusal of Services was scanned into [employer] and attached to record. gb 10:54 T-Sheet-- Draft Copy was scanned into [employer] and attached to record. gb 10:54 ECG/EKG was scanned into [employer] and attached to record. gb 10:55 Radiology Report was scanned into [employer] and attached to record. gb 19:31 COMPLETE BLOOD COUNT Ordered. EDMS 19:32 BASIC METABOLIC PROFILE Ordered. EDMS 07/16 19:30 COMPLETE BLOOD COUNT Ordered. EDMS 19:30 BASIC METABOLIC PROFILE Ordered. EDMS Administered Medications: 07/14 14:40 Drug: NS 0.9% 1000 ml [sodium chloride 0.9 % intravenous solution] Route: IV; Rate: 150 srm mL/hr; Site: right antecubital; 14:40 Drug: Ondansetron 4 mg [ondansetron HCl 2 mg/mL intravenous solution (2 mL)] Route: srm IVP; Site: right antecubital; 14:41 Drug: morphine 2 mg [morphine 2 mg/mL intravenous cartridge (1 mL)] Route: IVP; Site: [facility] right antecubital; 20:17 Follow up: Response: No significant change. af2 15:13 Drug: morphine 2 mg [morphine 2 mg/mL intravenous cartridge (1 mL)] Route: IVP; Site: [facility] right antecubital; 15:18 Drug: Diatrizoate Meglumine & Sodium 10 ml [diatrizoate meglumine and diat.sodium 66 srm %-10 % oral solution (10 mL)] Route: PO; 20:16 Follow up: Response: No significant change. af2 15:35 Drug: Ondansetron 4 mg [ondansetron HCl 2 mg/mL intravenous solution (2 mL)] Route: srm IVP; Site: right antecubital; 20:16 Follow up: Response: No Adverse Reaction af2 16:00 Drug: Diatrizoate Meglumine & Sodium 10 ml [diatrizoate meglumine and diat.sodium 66 srm %-10 % oral solution (10 mL)] Route: PO; 20:16 Follow up: Response: No significant change. af2 16:08 Drug: morphine 2 mg [morphine 2 mg/mL intravenous cartridge (1 mL)] Route: IVP; Site: srm right antecubital; 16:43 Follow up: Response: No significant change.; see trends for vs srm 17:26 Drug: Solu-MEDROL 125 mg [Solu-Medrol 500 mg intravenous solution (125 mg)] Route: IVP; srm Site: right antecubital; 20:16 Follow up: Response: No significant change. af2 17:28 Drug: diphenhydrAMINE 50 mg [diphenhydramine 50 mg/mL injection solution (1 mL)] Route: srm IVP; Site: right antecubital; 20:15 Follow up: Response: No significant change. af2 18:22 Drug: morphine 2 mg [morphine 2 mg/mL intravenous cartridge (1 mL)] Route: IVP; Site: srm right antecubital; 20:15 Follow up: Response: Pain is unchanged, physician notified af2 19:59 Not Given (Patient Refused): morphine 2 mg IVP once br1 20:05 Drug: Dilaudid - HYDROmorphone 1 mg [hydromorphone 1 mg/mL injection syringe (1 mL)] af2 Route: IVP; Site: right antecubital; 20:15 Follow up: BP 139 / 65 Sitting Left Arm Auto; Pulse 51 bpm; Resp 18 bpm Spontaneous; af2 Pulse Ox 97% RA; Pain 5/10 Adult; Response: Pain is decreased Signatures: Dispatcher [employer] EDMS Daniela Christine RN RN [facility] Braxton, Ritu Wright RN Mary Barrios, Reg Reg Richard Curry, Reg Reg lg Herbert Nash MD MD br1 Donna Vargas RN RN dsf Dorinda Moyer RN RN [id number] [place], Amber RN af2 The chart was reviewed and I authenticate all verbal orders and agree with the evaluation and treatment provided.Corrections: (The following items were deleted from the chart) 14:47 14:44 TROPONIN+LAB ordered. EDMS EDMS 18:37 13:26 Allergies: NSAIDS; dsf srm Attachments: 15:03 [facility] [place] Payment Agreement lg 10:54 T-Sheet-- Draft Copy gb 10:54 ECG/EKG gb Chart Complete MTDD
--- NOTE | 2016-07-17 00:09 | EDDOCDS ---
Nurse's Notes [facility] Name: Thomas Retana Age: 41 yrs Sex: Female : 1975 Arrival Date: 07/14/2016 Time: 13:02 Bed 13 Private MD: Elizabeth [facility] Diagnosis: Generalized abdominal pain Presentation: 07/14 13:23 Presenting complaint: Patient states: abdominal pain that started 1 week ago and the dsf pain is getting worse. Pt reports passing out through out the week. Pt reports loosing weight and having no energy. Pt is suppose to have an endoscopy tomorrow in [place]. pt has had gastric bypass 2 years ago. Risk factors: the patient reports no vaginal bleeding. Adult Sepsis Screening: The patient does not have new or worsening altered mentation. Patient's respiratory rate is less than 22. Systolic blood pressure is greater than 100. Patient has a qSOFA score of 0- Negative Sepsis Screen. Suicide/Homicide risk assessment- the patient denies having any suicidal and/or homicidal ideations and does not present with any other emotional, behavioral or mental health complaints. Status: The patient is a dependent. Transition of care: patient was not received from another setting of care. 13:23 Method Of Arrival: Walkin/Carried/Asstd dsf 13:23 Acuity: JEAN Level 2 dsf Triage Assessment: 13:26 General: Appears uncomfortable, Behavior is appropriate for age, cooperative. Pain: dsf Location: epigastric area Pain currently is 10 out of 10 on a pain scale. Pain does not radiate. Quality of pain is described as sharp, Pain began 7 days ago. HIV screening NA for this visit Offered previously. GI: Reports epigastric pain, nausea, vomiting. 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 Vitamin Oral once daily (Last dose: 07/13/2016) - PMHx: none; - PSHx: Appendectomy; Gastric Bypass; Cholecystectomy (August 14, 2014); ; - Social history: Smoking status: Patient uses tobacco products, current every day smoker. No barriers to communication noted, Speaks appropriately for age. - Family history: Not pertinent. - : The pt / caregiver states he / she is not on anticoagulants. Home medication list is obtained from the patient. - Exposure Risk Screening:: None identified. Screenin:26 Screening information is obtained from the patient. Fall risk: No risks identified. af2 Assistance ADL's: requires no assistance with activities of daily living. Abuse/DV Screen: The patient / caregiver reports he/she is: not in a situation that causes fear, pain or injury. Nutritional screening: No deficits noted. Advance Directives: Currently, there is no health care proxy. home support is adequate. Assessment: 13:46 General: Appears distressed, uncomfortable. General: pt states she had a C section 2 mk4 1/2 months ago for twins , felt "pretty good" for about 2 weeks then started to not feel well, has been anorexic , states "severe" weight loss, the past 2 months with the abd pain starting within the past few days , pt states she has " woken up on the floor" several times states " passing out" . Pain: Location: abdomen, upper mid abdomen, pt states in "her pouch". Neurological: Level of Consciousness is awake, Oriented to person, place, time. Respiratory: Airway is patent Respiratory effort is even, unlabored, Respiratory pattern is regular. GI: Abdomen is obese, Abd is soft and non tender X 4 quads. Derm: Skin is intact, is healthy with good turgor, Skin is pale. 14:07 General: Appears uncomfortable, Behavior is appropriate for age, cooperative. GI: Bowel srm sounds present X 4 quads. Abd is soft and non tender X 4 quads. Reports epigastric pain. 15:19 General: pt took one sip of contrast and spit it out. denies nausea but she states she srm wont be ABLE to drink it and doesn't want the pain to return. ND aware. 15:42 General: pt drank first cup of contrast then c/o nausea- zofran given. pt states " that srm pain medicine didn't do kvng shit". . 16:01 General: pt oob to br gait steady. c/o mid upper abd pain still MD aware. srm 16:46 General: pt states morphine doesn't take care of the pain but " makes my stomach feel srm empty like" . 17:30 General: Appears in no apparent distress, Behavior is appropriate for age, cooperative. srm Cardiovascular: No deficits noted. Rhythm is sinus bradycardia. Respiratory: No deficits noted. GI: Reports epigastric pain. 19:16 General: Appears in no apparent distress, Behavior is cooperative, assumed care of pt af2 at this time, pt lying on stretcher and states "how long will all this take?" pt updated regarding plan of care at this time. . Neurological: Level of Consciousness is awake, Oriented to person, place, time. Cardiovascular: Rhythm is sinus bradycardia No ectopy. Respiratory: Airway is patent Respiratory effort is even, unlabored. Derm: Skin is intact, is healthy with good turgor, Skin is pink, warm & dry. 20:17 General: Appears in no apparent distress, Behavior is appropriate for age, cooperative, af2 fluids infusing per order. pt lying on stretcher resting quietly. reports pain is now tolerable, 5/10 after receiving pain medication. will continue to monitor. pt awaiting exam from hospitalist.. GI: Reports upper abdominal pain. Derm: Skin is pink, warm & dry. 21:13 General: Appears in no apparent distress, Behavior is anxious, cooperative, pt states af2 anxiety and that pain is increasing. resp easy and unlabored. updated regarding plan of care on admission. skin w/d/i. . 22:00 General: Appears in no apparent distress, Behavior is fussy, uncooperative, pt requests af2 additional pain medication, this typewriter aligner informed pt that pain medication ordered- Dilaudid 1mg- can only be given every six hours and pt has only reached about 2 hour vishal and cannot have medication again at this time. pt becomes angry and begins shouting and rips monitor off. pt requests to speak with hospitalist at bedside, states "this isn't gonna cut it for me, I need him down here right now." this typewriter aligner paged hospitalist and let him know pt would like him to come down and speak with her. hospitalist to come down when he is available.. 22:15 General: Appears in no apparent distress, Behavior is uncooperative, this typewriter aligner af2 updated pt that hospitalist will be down when he is available, pt angry that hospitalist is not coming down immediately and she does not have an exact time for when he will be down. pt states to "I am going to punch somebody in the face." pt informed that this is unacceptable, charge nurse to bedside. pt requests information regarding hospitalist want ad supervisor to call, provided information for pt advocate. . 22:48 General: Appears in no apparent distress, Behavior is uncooperative, this typewriter aligner and af2 charge nurse entered room to have pt sign AMA paperwork. pt seated in upright position on chair completely dressed, hospital gown and PIV and monitor equipment found lying on the floor. this typewriter aligner provided pt with bandaid. pt signed AMA paperwork, spouse at bedside. pt encouraged to keep appointment in [place] tomorrow as previously scheduled. . Vital Signs: 13:05 BP 107 / 73; Pulse 79; Resp 18 S; Temp 97.7(O); Pulse Ox 99% on R/A; Weight 58.97 kg gr2 (R); Height 5 ft. 7 in. (170.18 cm) (R); Pain 10/10; 14:07 BP 120 / 73 RA Supine (auto/); Pulse 60; srm 14:07 BP 109 / 65 RA Sitting (auto/); Pulse 73; srm 14:07 BP 107 / 75 RA Standing (auto/); Pulse 83; srm 14:23 Pulse 56 MON; Pulse Ox 97% ; srm 14:24 BP 128 / 65 (auto/); srm 14:40 Pulse 52 MON; Pulse Ox 98% ; srm 14:40 BP 123 / 70 (auto/); srm 15:10 BP 114 / 66 (auto/); srm 15:10 Pulse 50 MON; Resp 18; Pulse Ox 97% ; srm 15:34 Pulse 46 MON; Pulse Ox 99% ; srm 15:34 BP 117 / 76 (auto/); srm 15:40 Pulse 46 MON; Pulse Ox 98% ; srm 15:40 BP 128 / 73 (auto/); srm 16:06 BP 143 / 79 (auto/); srm 16:08 Pulse 48 MON; Resp 18; Pulse Ox 100% ; srm 16:10 Pulse 50 MON; Pulse Ox 99% ; srm 16:10 BP 143 / 67 (auto/); srm 16:40 BP 122 / 57 (auto/); srm 16:40 Pulse 44 MON; Pulse Ox 99% ; srm 17:10 Pulse 50 MON; Pulse Ox 100% ; srm 17:10 BP 131 / 70 (auto/); srm 17:40 Pulse 44 MON; Pulse Ox 98% ; srm 17:40 BP 130 / 60 (auto/); srm 18:16 BP 134 / 63 (auto/); srm 18:17 Pulse 48 MON; Pulse Ox 100% ; srm 18:40 Pulse 48 MON; Pulse Ox 96% ; srm 18:40 BP 130 / 60 (auto/); srm 19:01 Pulse 48 MON; Resp 18; Pulse Ox 98% ; srm 19:07 BP 133 / 62 (auto/); af2 19:09 Pulse 48 MON; Resp 18 S; Pulse Ox 98% on R/A; af2 20:15 BP 139 / 65 Sitting (auto/); Pulse 51; Resp 18 S; Pulse Ox 97% on R/A; Pain 5/10; af2 13:05 Body Mass Index 20.36 (58.97 kg, 170.18 cm) gr2 Vitals: 13:05 Log In Time: July 14, 2016 at 13:05. gr2 ED Course: 13:04 Patient visited by Kerri Cohen. gr2 13:04 Elizabeth [facility] is Private Physician. gr2 13:04 Patient moved to Waiting gr2 13:06 Patient visited by Kerri Cohen. gr2 13:06 Patient moved to Pre RCE gr2 13:26 Triage Initiated dsf 13:30 Patient moved to 13 mdr 13:39 Patient visited by Dorinda Moyer RN. mk4 13:47 Carmel Nash MD is Attending Physician. br1 13:47 Patient visited by Madison Nava. dem1 13:47 EKG done. (by ED staff). Reviewed by Carmel Nash MD. dem1 14:06 HCG,Serum Qualitative Sent. srm 14:06 Lipase Sent. srm 14:06 Liver Profile Sent. srm 14:06 BMP Sent. srm 14:06 CBC with Diff Sent. srm 14:07 The patient / caregiver is instructed regarding the plan of care and ED course. srm Accompanied by Significant Other, Patient has correct armband on for positive identification. Placed in gown. Bed in low position. Call light in reach. satellite project site monitor on. Pulse ox on. NIBP on. 14:07 Inserted saline lock: 20 gauge in right antecubital area and blood collected. The [facility] patient tolerated the procedure well. 14:09 Patient visited by Emmett, Daniela, RN. srm 14:20 Patient visited by Carmel Nash MD. br1 14:43 Patient visited by Daniela Christine RN. srm 14:55 Chest, 2 View (pa\\E\\lat) Returned. EDMS 15:03 [facility] Payment Agreement was scanned into [employer] and attached to record. lg 15:19 Patient visited by Daniela Christine RN. srm 16:02 Patient visited by Daniela Christine RN. srm 16:17 Patient visited by Daniela Christine RN. srm 16:47 Patient visited by Daniela Christine RN. srm 17:31 Patient visited by Daniela Christine RN. srm 18:32 Patient visited by Daniela Christine RN. srm 18:37 Patient visited by Daniela Christine RN. srm 19:03 Report given to a Nivia ALVAREZ. srm 19:15 Cherise Roach RN is Primary Nurse. af2 19:16 Patient visited by Cherise Roach RN. af2 19:26 Patient visited by Cherise Roach RN. af2 20:05 Patient visited by Cherise Roach RN. af2 20:14 CT ABD & PELVIS: IV and Oral Contrast Returned. EDMS 20:18 Patient visited by Cherise Roach RN. af2 21:03 Patient visited by Cherise Roach RN. af2 21:04 Gordo Robledo is Hospitalizing Provider. br1 22:52 Gordo Robledo is Hospitalizing Provider. br1 07/15 10:54 Refusal of Services was scanned into [employer] and attached to record. gb 10:54 T-Sheet-- Draft Copy was scanned into [employer] and attached to record. gb 10:54 ECG/EKG was scanned into [employer] and attached to record. gb 10:55 Radiology Report was scanned into [employer] and attached to record. gb 21:17 EKG-ADULT Returned. EDMS Administered Medications: 07/14 14:40 Drug: NS 0.9% 1000 ml [sodium chloride 0.9 % intravenous solution] Route: IV; Rate: 150 srm mL/hr; Site: right antecubital; 14:40 Drug: Ondansetron 4 mg [ondansetron HCl 2 mg/mL intravenous solution (2 mL)] Route: srm IVP; Site: right antecubital; 14:41 Drug: morphine 2 mg [morphine 2 mg/mL intravenous cartridge (1 mL)] Route: IVP; Site: [facility] right antecubital; 20:17 Follow up: Response: No significant change. af2 15:13 Drug: morphine 2 mg [morphine 2 mg/mL intravenous cartridge (1 mL)] Route: IVP; Site: [facility] right antecubital; 15:18 Drug: Diatrizoate Meglumine & Sodium 10 ml [diatrizoate meglumine and diat.sodium 66 srm %-10 % oral solution (10 mL)] Route: PO; 20:16 Follow up: Response: No significant change. af2 15:35 Drug: Ondansetron 4 mg [ondansetron HCl 2 mg/mL intravenous solution (2 mL)] Route: srm IVP; Site: right antecubital; 20:16 Follow up: Response: No Adverse Reaction af2 16:00 Drug: Diatrizoate Meglumine & Sodium 10 ml [diatrizoate meglumine and diat.sodium 66 srm %-10 % oral solution (10 mL)] Route: PO; 20:16 Follow up: Response: No significant change. af2 16:08 Drug: morphine 2 mg [morphine 2 mg/mL intravenous cartridge (1 mL)] Route: IVP; Site: [facility] right antecubital; 16:43 Follow up: Response: No significant change.; see trends for vs srm 17:26 Drug: Solu-MEDROL 125 mg [Solu-Medrol 500 mg intravenous solution (125 mg)] Route: IVP; srm Site: right antecubital; 20:16 Follow up: Response: No significant change. af2 17:28 Drug: diphenhydrAMINE 50 mg [diphenhydramine 50 mg/mL injection solution (1 mL)] Route: srm IVP; Site: right antecubital; 20:15 Follow up: Response: No significant change. af2 18:22 Drug: morphine 2 mg [morphine 2 mg/mL intravenous cartridge (1 mL)] Route: IVP; Site: [facility] right antecubital; 20:15 Follow up: Response: Pain is unchanged, physician notified af2 19:59 Not Given (Patient Refused): morphine 2 mg IVP once br1 20:05 Drug: Dilaudid - HYDROmorphone 1 mg [hydromorphone 1 mg/mL injection syringe (1 mL)] af2 Route: IVP; Site: right antecubital; 20:15 Follow up: BP 139 / 65 Sitting Left Arm Auto; Pulse 51 bpm; Resp 18 bpm Spontaneous; af2 Pulse Ox 97% RA; Pain 10/12 Adult; Response: Pain is decreased Attachments: 07/15 10:54 Refusal of Services gb Intake: Order Results: Lab Order: CBC with Diff; SPEC'M 07/14/16 14:04 Test: WHITE BLOOD COUNT; Value: 5.2; Range: 4.0-10.0; Units: K/mm3; Status: F Test: RED BLOOD COUNT; Value: 4.35; Range: 4.00-5.40; Units: M/mm3; Status: F Test: HEMOGLOBIN; Value: 12.8; Range: 12.0-16.0; Units: g/dl; Status: F Test: HEMATOCRIT; Value: 38.7; Range: 36.0-47.0; Units: %; Status: F Test: MEAN CORPUSCULAR VOLUME; Value: 88.9; Range: 80.0-96.0; Units: fl; Status: F Test: MEAN CORPUSCULAR HEMOGLOBIN; Value: 29.4; Range: 27.0-33.0; Units: pg; Status: F Test: MEAN CORPUSCULAR HGB CONC; Value: 33.1; Range: 32.0-36.5; Units: g/dl; Status: F Test: RED CELL DISTRIBUTION WIDTH; Value: 14.7; Range: 11.5-14.5; Abnormal: Above high normal; Units: %; Status: F Test: PLATELET COUNT, AUTOMATED; Value: 277; Range: 150-450; Units: k/mm3; Status: F Test: NEUTROPHILS %; Value: 68.8; Range: 36.0-66.0; Abnormal: Above high normal; Units: %; Status: F Test: LYMPH %; Value: 22.8; Range: 24.0-44.0; Abnormal: Below low normal; Units: %; Status: F Test: MONO %; Value: 4.8; Range: 0.0-5.0; Units: %; Status: F Test: EOS %; Value: 1.5; Range: 0.0-3.0; Units: %; Status: F Test: BASO %; Value: 0.5; Range: 0.0-1.0; Units: %; Status: F Test: LARGE UNSTAINED CELL %; Value: 1.5; Range: 0.0-4.0; Units: %; Status: F Test: NEUTROPHILS #; Value: 3.6; Range: 1.8-7.7; Units: K/mm3; Status: F Test: LYMPH #; Value: 1.3; Range: 1.5-4.5; Abnormal: Below low normal; Units: K/mm3; Status: F Test: MONO #; Value: 0.3; Range: 0.0-0.8; Units: K/mm3; Status: F Test: EOS #; Value: 0.1; Range: 0.0-0.50; Units: K/mm3; Status: F Test: BASO #; Value: 0.0; Range: 0.0-0.2; Units: K/mm3; Status: F Test: LARGE UNSTAINED CELL #; Value: 0.1; Range: 0.0-0.4; Units: K/mm3; Status: F Lab Order: [facility]; SPEC'M 07/14/16 14:04 Test: GLUCOSE, FASTING; Value: 102; Range: 70-105; Units: MG/DL; Status: F Test: BLOOD UREA NITROGEN; Value: 10; Range: 7-18; Units: MG/DL; Status: F Test: CREATININE FOR GFR; Value: 0.51; Range: 0.55-1.02; Abnormal: Below low normal; Units: MG/DL; Status: F Test: GLOMERULAR FILTRATION RATE; Value: > 60.0; Range: >58; Status: F Test: SODIUM LEVEL; Value: 141; Range: 136-145; Units: MEQ/L; Status: F Test: POTASSIUM SERUM; Value: 4.0; Range: 3.5-5.1; Units: MEQ/L; Status: F Test: CHLORIDE LEVEL; Value: 107; Range: 98-107; Units: MEQ/L; Status: F Test: CARBON DIOXIDE LEVEL; Value: 28; Range: 21-32; Units: MEQ/L; Status: F Test: ANION GAP; Value: 6; Range: 8-16; Abnormal: Below low normal; Units: MEQ/L; Status: F Test: CALCIUM LEVEL; Value: 8.8; Range: 8.5-10.1; Units: MG/DL; Status: F Test Note: ; Units are mL/min/1.73 m2 Chronic Kidney Disease Staging per NKF: Stage I & II GFR >=60 Normal to Mildly Decreased Stage III GFR 30-59 Moderately Decreased Stage IV GFR 15-29 Severely Decreased Stage V GFR <15 Very Little GFR Left ESRD GFR <15 on SOFTWARE ANALYST Lab Order: Liver Profile; 07/14/16 14:04 Test: AST/SGOT; Value: 17; Range: 15-37; Units: U/L; Status: F Test: ALT/SGPT; Value: 23; Range: 12-78; Units: U/L; Status: F Test: ALKALINE PHOSPHATASE; Value: 66; Range: 45-117; Units: U/L; Status: F Test: BILIRUBIN,TOTAL; Value: 0.3; Range: 0.2-1.0; Units: MG/DL; Status: F Test: BILIRUBIN,DIRECT; Value: < 0.1; Range: 0.0-0.2; Units: MG/DL; Status: F Test: TOTAL PROTEIN; Value: 6.3; Range: 6.4-8.2; Abnormal: Below low normal; Units: GM/DL; Status: F Test: ALBUMIN; Value: 3.7; Range: 3.2-5.2; Units: GM/DL; Status: F Test: ALBUMIN/GLOBULIN RATIO; Value: 1.42; Range: 1.00-1.93; Status: F Lab Order: Lipase; 07/14/16 14:04 Test: LIPASE; Value: 125; Range: 73-393; Units: U/L; Status: F Lab Order: HCG,Serum Qualitative; 07/14/16 14:04 Test: HCG, SERUM QUALITATIVE; Value: NEGATIVE; Range: NEGATIVE; Status: F Lab Order: TROPONIN; 07/14/16 14:04 Test: TROPONIN I; Value: < 0.02; Range: < 0.10; Units: NG/ML; Status: F Test Note: ; Troponin I Reference Interval for [employer] LOCI: 99th Percentile= 0.00-0.045 ng/ml Risk Stratification: <= 0.10 ng/ml Decreased Risk for Adverse Clinical Events. 0.10-1.50 ng/ml Increased Risk for Adverse Clinical Events. Evaluation of additional criterion and/or repeat testing in 2-6 hours is suggested to rule out myocardial damage. >= 1.50 ng/ml Indicative of Myocardial Injury. 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 The cardiac size is normal; ; The layne, mediastinum, and bony thorax are unremarkable.; ; Impression:; ; Negative PA and lateral chest.; ; ; Signed by; Harvey Willis MD 07/14/2016 02:39 P; Radiology Order: CT ABD & PELVIS: IV and Oral Contrast Test: CT ABD & PELVIS: IV and Oral Contrast REASON FOR EXAMINATION: Abdomen Pain; ; CLINICAL HISTORY: Abdominal pain.; TECHNIQUE: Multiple axial, sagittal and coronal CT images were obtained through the abdomen and pelvi; s after administration of oral and intravenous contrast material.; COMMENTS:; The liver is of uniform attenuation without mass or defect. There is no intra or extrahepatic biliary; ductal dilatation. The spleen is normal. The gallbladder is surgically absent.. The pancreas is of n; ormal contour and attenuation characteristics. There is no evidence of adrenal mass.; Both kidneys demonstrate prompt and equal nephrograms. The kidneys are normal in size, shape and conf; iguration. There is no evidence of renal or ureteral mass. No renal or ureteral calculi are identifie; d. There is no hydroureter or hydronephrosis.; Status post appendectomy. History of gastric bypass. There is no bowel wall thickening. No evidence; for small or large bowel obstruction. There is no evidence of abdominal ascites or lymphadenopathy.; There is no evidence of intrinsic or extrinsic bladder mass. There is no pelvic ascites or lymphadeno; franck.; Images of the lung bases show no evidence of pleural or parenchymal mass. There are no pleural effusi; ons.; The bony structures are free of lytic or blastic lesions.; IMPRESSION:; No evidence of acute abdominal or pelvic pathology.; Thank you for your kind referral of this patient.; ; Outcome: 07/14 21:04 Decision to Hospitalize by Provider. br1 22:44 The patient is leaving AMA: Other patient has chosen to leave AMA at this time, pt not titi willing to stay for Dr Robledo to come to this department to explain risks and benefits of staying. Dr Robledo has been notified of patient request to speak with him. 22:48 Patient left against medical advice. br1 22:52 Decision to Hospitalize by Provider. br1 23:04 Admitted to PCU Other patient was admitted to PCU status and decided to leave AMA titi before transfer to floor. 23:08 Patient left the ED. titi Signatures: Dispatcher [employer] EDMS Daniela Christine, RN Ritu Alanis RN RN jan Barnhardt, Gloria, Reg Reg gb Richard Zambrano, Reg Reg lg Carmel Nash MD MD br1 Donna Vargas RN RN dsf Madison Nava dem1 Kerri Cohen gr2 Dorinda Moyer RN RN mk4 Cherise Roach RN RN af2 Maximo Tsai, STEPHAN MASTER PILOT mdr Corrections: (The following items were deleted from the chart) 13:31 13:23 Acuity: JEAN Level 3 dsf dsf 18:37 13:26 Allergies: NSAIDS; dsf srm Chart Complete MTDD
--- NOTE | 2016-07-17 00:09 | EDDOCDS ---
Physician Documentation [facility] Name: Nathalie Retana Age: 41 yrs Sex: Female : 1975 Arrival Date: 07/14/2016 Time: 13:02 Bed 13 Private MD: [place] [facility] [place]: 07/14/16 22:52 Hospitalization ordered by Gordo Robledo for Inpatient Admission. Preliminary diagnosis is Generalized abdominal pain. - Bed requested for M PCU. - Status is Inpatient Admission. titi - Condition is Stable. - Problem is new. - Symptoms are unchanged. - Notes: You were seen in the ED for abdominal pain and were admitted for further care by Dr. Robledo of [facility]. You have now elected to leave against medical advice before receiving counselling on this decision by your admitting doctor and before receivng instructions on further care. Please seek care with a doctor of your choosing as soon as possible and return to the ED at any time if you change your mind or your symptoms worsen. Historical: - Allergies: bengay; NSAIDS (due to gastric bypass); IV Dye (Hives); - Home Meds: 1. Vitamin Oral once daily (Last dose: 07/13/2016) - PMHx: none; - PSHx: Appendectomy; Gastric Bypass; Cholecystectomy (August 14, 2014); ; - Social history: Smoking status: Patient uses tobacco products, current every day smoker. No barriers to communication noted, Speaks appropriately for age. - Family history: Not pertinent. - : The pt / caregiver states he / she is not on anticoagulants. Home medication list is obtained from the patient. - Exposure Risk Screening:: None identified. 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 7 in. (170.18 cm) (R); Pain 10/10; 14:07 BP 120 / 73 RA Supine (auto/); Pulse 60; srm 14:07 BP 109 / 65 RA Sitting (auto/); Pulse 73; srm 14:07 BP 107 / 75 RA Standing (auto/); Pulse 83; srm 14:23 Pulse 56 MON; Pulse Ox 97% ; srm 14:24 BP 128 / 65 (auto/); srm 14:40 Pulse 52 MON; Pulse Ox 98% ; srm 14:40 BP 123 / 70 (auto/); srm 15:10 BP 114 / 66 (auto/); srm 15:10 Pulse 50 MON; Resp 18; Pulse Ox 97% ; srm 15:34 Pulse 46 MON; Pulse Ox 99% ; srm 15:34 BP 117 / 76 (auto/); srm 15:40 Pulse 46 MON; Pulse Ox 98% ; srm 15:40 BP 128 / 73 (auto/); srm 16:06 BP 143 / 79 (auto/); srm 16:08 Pulse 48 MON; Resp 18; Pulse Ox 100% ; srm 16:10 Pulse 50 MON; Pulse Ox 99% ; srm 16:10 BP 143 / 67 (auto/); srm 16:40 BP 122 / 57 (auto/); srm 16:40 Pulse 44 MON; Pulse Ox 99% ; srm 17:10 Pulse 50 MON; Pulse Ox 100% ; srm 17:10 BP 131 / 70 (auto/); srm 17:40 Pulse 44 MON; Pulse Ox 98% ; srm 17:40 BP 130 / 60 (auto/); srm 18:16 BP 134 / 63 (auto/); srm 18:17 Pulse 48 MON; Pulse Ox 100% ; srm 18:40 Pulse 48 MON; Pulse Ox 96% ; srm 18:40 BP 130 / 60 (auto/); srm 19:01 Pulse 48 MON; Resp 18; Pulse Ox 98% ; srm 19:07 BP 133 / 62 (auto/); af2 19:09 Pulse 48 MON; Resp 18 S; Pulse Ox 98% on R/A; af2 20:15 BP 139 / 65 Sitting (auto/); Pulse 51; Resp 18 S; Pulse Ox 97% on R/A; Pain 5/10; af2 13:05 Body Mass Index 20.36 (58.97 kg, 170.18 cm) gr2 MDM: 13:37 ECG WITH READING ER PHYS+CARDIAG ordered. EDMS 13:47 IV Saline Lock ordered. br1 13:48 Orthostatic VS ordered. br1 13:48 Senior Net Developer/Pulse Ox/q 30 min VS ordered. br1 13:48 CBC with Diff Ordered. EDMS 13:48 BMP Ordered. EDMS 13:48 Liver Profile Ordered. EDMS 13:48 Lipase Ordered. EDMS 13:50 HCG,Serum Qualitative Ordered. EDMS 14:23 NS 0.9% 1000 ml IV at 150 mL/hr continuous ordered. br1 14:23 morphine 2 mg IVP once ordered. br1 14:23 Ondansetron 4 mg IVP once ordered. br1 14:25 Chest, 2 View (pa\E\lat) Ordered. EDMS 14:49 Financial registration complete. lg 15:02 morphine 2 mg IVP once ordered. br1 15:02 CBC with Diff Reviewed. br1 15:02 HCG,Serum Qualitative Reviewed. br1 15:02 Chest, 2 View (pa\E\lat) Reviewed. br1 15:03 [facility] Payment Agreement was scanned into [employer] and attached to record. lg 15:03 CT ABD & PELVIS: IV and Oral Contrast Ordered. EDMS 15:04 BMP Reviewed. br1 15:04 Liver Profile Reviewed. br1 15:04 Lipase Reviewed. br1 15:04 TROPONIN Reviewed. br1 15:08 Ondansetron 4 mg IVP once ordered. br1 15:18 Diatrizoate Meglumine & Sodium Liquid 10 ml PO once; mix in 290cc of water ordered. srm 15:18 Diatrizoate Meglumine & Sodium Liquid 10 ml PO once; mix in 290cc of water ordered. srm 16:03 morphine 2 mg IVP once ordered. br1 17:19 Solu-MEDROL 125 mg IVP once ordered. br1 17:19 diphenhydrAMINE 50 mg IVP once ordered. br1 18:18 morphine 2 mg IVP once ordered. srm 19:45 morphine 2 mg IVP once ordered. br1 19:53 BED REQUEST+ADM ordered. EDMS 19:59 Dilaudid - HYDROmorphone 1 mg IVP once ordered. br1 22:08 Admission / Observation Status ordered. EDMS 22:13 REGULAR DIET ordered. EDMS 22:13 COMPLETE BLOOD COUNT Ordered. EDMS 22:13 BASIC METABOLIC PROFILE Ordered. EDMS 22:44 ED course: Patient was seen and admitted by hospitalist service. Inpatient orders were br1 written and patient is holding in ED for bed. Informed by nursing staff patient has now signed out AMA as an inpatient lan. Nursing has made inpatient team aware. Patient has chosen to leave prior to be counseled on further care by her admitting physician. Disposition changed to AMA for software logistics reasons only (patient was admitted from the ED).. 07/15 10:54 Refusal of Services was scanned into [employer] and attached to record. gb 10:54 T-Sheet-- Draft Copy was scanned into [employer] and attached to record. gb 10:54 ECG/EKG was scanned into [employer] and attached to record. gb 10:55 Radiology Report was scanned into [employer] and attached to record. gb 19:31 COMPLETE BLOOD COUNT Ordered. EDMS 19:32 BASIC METABOLIC PROFILE Ordered. EDMS 07/16 19:30 COMPLETE BLOOD COUNT Ordered. EDMS 19:30 BASIC METABOLIC PROFILE Ordered. EDMS Administered Medications: 07/14 14:40 Drug: NS 0.9% 1000 ml [sodium chloride 0.9 % intravenous solution] Route: IV; Rate: 150 srm mL/hr; Site: right antecubital; 14:40 Drug: Ondansetron 4 mg [ondansetron HCl 2 mg/mL intravenous solution (2 mL)] Route: srm IVP; Site: right antecubital; 14:41 Drug: morphine 2 mg [morphine 2 mg/mL intravenous cartridge (1 mL)] Route: IVP; Site: [facility] right antecubital; 20:17 Follow up: Response: No significant change. af2 15:13 Drug: morphine 2 mg [morphine 2 mg/mL intravenous cartridge (1 mL)] Route: IVP; Site: [facility] right antecubital; 15:18 Drug: Diatrizoate Meglumine & Sodium 10 ml [diatrizoate meglumine and diat.sodium 66 srm %-10 % oral solution (10 mL)] Route: PO; 20:16 Follow up: Response: No significant change. af2 15:35 Drug: Ondansetron 4 mg [ondansetron HCl 2 mg/mL intravenous solution (2 mL)] Route: srm IVP; Site: right antecubital; 20:16 Follow up: Response: No Adverse Reaction af2 16:00 Drug: Diatrizoate Meglumine & Sodium 10 ml [diatrizoate meglumine and diat.sodium 66 srm %-10 % oral solution (10 mL)] Route: PO; 20:16 Follow up: Response: No significant change. af2 16:08 Drug: morphine 2 mg [morphine 2 mg/mL intravenous cartridge (1 mL)] Route: IVP; Site: srm right antecubital; 16:43 Follow up: Response: No significant change.; see trends for vs srm 17:26 Drug: Solu-MEDROL 125 mg [Solu-Medrol 500 mg intravenous solution (125 mg)] Route: IVP; srm Site: right antecubital; 20:16 Follow up: Response: No significant change. af2 17:28 Drug: diphenhydrAMINE 50 mg [diphenhydramine 50 mg/mL injection solution (1 mL)] Route: srm IVP; Site: right antecubital; 20:15 Follow up: Response: No significant change. af2 18:22 Drug: morphine 2 mg [morphine 2 mg/mL intravenous cartridge (1 mL)] Route: IVP; Site: srm right antecubital; 20:15 Follow up: Response: Pain is unchanged, physician notified af2 19:59 Not Given (Patient Refused): morphine 2 mg IVP once br1 20:05 Drug: Dilaudid - HYDROmorphone 1 mg [hydromorphone 1 mg/mL injection syringe (1 mL)] af2 Route: IVP; Site: right antecubital; 20:15 Follow up: BP 139 / 65 Sitting Left Arm Auto; Pulse 51 bpm; Resp 18 bpm Spontaneous; af2 Pulse Ox 97% RA; Pain 5/10 Adult; Response: Pain is decreased Signatures: Dispatcher [employer] EDMS Daniela Christine RN RN [facility] Braxton, Ritu Wright RN Mary Barrios, Reg Reg Richard Curry, Reg Reg lg Herbert Nash MD MD br1 Donna Vargas RN RN dsf Dorinda Moyre RN RN mk4 [place], Amber RN af2 The chart was reviewed and I authenticate all verbal orders and agree with the evaluation and treatment provided.Corrections: (The following items were deleted from the chart) 14:47 14:44 TROPONIN+LAB ordered. EDMS EDMS 18:37 13:26 Allergies: NSAIDS; dsf srm Attachments: 15:03 [place] [place] Payment Agreement lg 10:54 T-Sheet-- Draft Copy gb 10:54 ECG/EKG gb Chart Complete MTDD
== END 2016-07-14 23:08 | disposition left against medical advice (07) | DRG 392 ==
LOC: M ED 13:02 → M ED INP 22:06
PROVIDERS: ADMIT Internal Medicine; ATTEND Internal Medicine
DX: R10.13 Epigastric pain (principal); F17.210 Nicotine dependence, cigarettes, uncomplicated; Z79.899 Other long term (current) drug therapy; Z88.8 Allergy status to other drugs, medicaments and biological substances; Z91.041 Radiographic dye allergy status

== ENCOUNTER → 2016-07-22 | Outpatient (CLI) | payer OTHER ==
[~2016-07-22] MED LIST changes: +BENA25CA4 PO; +E-Z PAQUE 60% w/v SUSP 355ML BOTTLE As Ordered ONE; +E-Z-GAS II EFFERVESCENT PACKET (SODIUM BICARB./CITRIC ACID/SIMETHICONE) As Ordered ONE; +E-Z-HD 98% w/w 340GM SUSP BTL As Ordered ONE
--- NOTE | 2016-07-25 07:52 | REP ---
Clinical: Epigastric pain. Technique: Single contrast examination using barium substrates. Findings: The esophagus demonstrates normal mucosal outline and motility without polyps, ulcerations, phasic or extrinsic abnormalities and no evidence for stricture or stenosis. No gastric reflux was noted during examination. The patient is status post gastric bypass and contrast flows normally through the residual gastric pouch into small bowel in the left upper quadrant. There is no evidence for stenosis, delayed transit time or obvious motility abnormality. Total fluoroscopic time 2 minutes. Impression: Normal esophagram and modified upper GI demonstrating prior gastric bypass surgery. Signed by Alonzo Collins MD 07/25/2016 07:43 A
== END ==
LOC: M RAD 09:37
PROVIDERS: ATTEND Student in an Organized Health Care Education/Training Program
DX: R10.13 Epigastric pain (principal)

== ENCOUNTER 2016-11-21 09:41 | Emergency (ER) | payer OTHER ==
[2016-11-21 09:41] VITALS: BP 108/67
[~2016-11-21 09:41] MED LIST changes: -COLA100C PO; +COLA100C3 PO; -E-Z PAQUE 60% w/v SUSP 355ML BOTTLE As Ordered ONE; -E-Z-GAS II EFFERVESCENT PACKET (SODIUM BICARB./CITRIC ACID/SIMETHICONE) As Ordered ONE; -E-Z-HD 98% w/w 340GM SUSP BTL As Ordered ONE
== END 2016-11-21 10:39 | disposition left against medical advice (07) ==
LOC: M ED 10:36
DX: R10.9 Unspecified abdominal pain (principal); Z53.21 Procedure and treatment not carried out due to patient leaving prior to being seen by health care provider

== ENCOUNTER 2017-01-10 06:06 | Inpatient (IN) | payer OTHER ==
[2017-01-10] VITALS (7 sets, daily range): BP systolic 101–138; BP diastolic 56–96
[~2017-01-10] VITALS: Ht 165.1 cm; Wt 58.5 kg
[~2017-01-10 06:06] MED LIST changes: -CARA1TAB2 PO; +CARA1TAB6 PO; -COLA100C3 PO; +COLA100C5 PO; -PERC10TA17 PO; +PERC10TA26 PO; +PERC5TAB12 PO; -PERC5TAB6 PO
[2017-01-10] MEDS ORDERED: LR 1,000 ML IV SCH ×2 (06:30→10:45)
[2017-01-10] MEDS ORDERED: LR 1,000 ML IV ONE (06:30)
[2017-01-10 06:33] LABS: MEAN CORPUSCULAR HGB CONC 33.6 g/dl (32.0-36.5); MEAN CORPUSCULAR VOLUME 92.2 fl (80.0-96.0); RED CELL DISTRIBUTION WIDTH 14.1 % (11.5-14.5); WHITE BLOOD COUNT 4.2 K/mm3 (4.0-10.0)
[2017-01-10 06:49] LABS: CONTROL LINE HCG INT CTR LINE PRESENT
[2017-01-10] MEDS ORDERED: MIDAZOLAM INJ 2 MG/2 ML VIAL (J2250) As Ordered ONE (07:03)
[2017-01-10] MEDS ORDERED: fentaNYL 100 MCG/2 ML INJECTION (J3010) As Ordered ONE ×3 (07:04→08:23)
[2017-01-10] MEDS ORDERED: dexameTHASONE 4 MG/ML 1ML VIAL (J1100) As Ordered ONE ×2 (07:53→11:12)
[2017-01-10] MEDS ORDERED: ONDANSETRON 4MG/2ML VIAL (J2405) As Ordered ONE ×2 (07:53→11:17)
[2017-01-10] MEDS ORDERED: BUPIVACAINE/EPIN 0.5% 30 ML VIAL As Ordered ONE (07:56)
[2017-01-10] MEDS ORDERED: GLYCOPYRROLATE INJ 0.2 MG/ML 2 ML VIAL As Ordered ONE (08:10)
[2017-01-10] MEDS ORDERED: ROCURONIUM BROMIDE 50 MG/5 ML VIAL/SYRINGE As Ordered ONE ×2 (08:16→11:16)
[2017-01-10] MEDS ORDERED: ePHEDrine SULFATE 25 MG/5 ML(5MG/ML) SYRINGE As Ordered ONE (08:16)
[2017-01-10] MEDS ORDERED: PROPOFOL 200 MG/20 ML VIAL As Ordered ONE ×2 (08:16→11:16)
[2017-01-10] MEDS ORDERED: KETOROLAC 60 MG/2 ML VIAL (J1885) As Ordered ONE ×2 (08:17→11:17)
[2017-01-10] MEDS ORDERED: LIDOCAINE 2% INJ 100 MG/5 ML SDV (FOR ANES.) As Ordered ONE ×2 (08:17→11:17)
[2017-01-10] MEDS ORDERED: VECURONIUM BROMIDE 10 MG VIAL As Ordered ONE (08:18)
[2017-01-10] MEDS ORDERED: NEOSTIGMINE 1MG/ML 5 ML SYRINGE (J2710) As Ordered ONE (09:56)
[2017-01-10] MEDS ORDERED: HYDROmorphone HCL 2 MG/ML 1ML VIAL (J1170) As Ordered ONE (10:02)
[2017-01-10] MEDS ORDERED: MORPHINE 10 MG/ML 1ML VIAL As Ordered ONE (10:24)
[2017-01-10] MEDS: MORPHINE 2 MG/ML 1ML SYRINGE IV PRN ×5 (10:27→10:48)
[2017-01-10] MEDS ORDERED: ONDANSETRON 4MG/2ML VIAL (J2405) IV PRN ×4 (10:30→17:00)
[2017-01-10] MEDS ORDERED: MORPHINE 1MG/ML IN 0.9% NACL 100ML IV BAG As Ordered ONE (10:40)
[2017-01-10] MEDS ORDERED: fentaNYL 100 MCG/2 ML INJECTION (J3010) IV PRN (10:45)
[2017-01-10] MEDS ORDERED: NALOXONE INJ 0.4 MG/1 ML VIAL (J2310) IV PRN ×2 (11:00→17:00)
[2017-01-10] MEDS ORDERED: EPIDURAL/PCA KEYS XX PRN ×2 (11:00→17:00)
[2017-01-10] MEDS ORDERED: diphenhydrAMINE INJ 50MG/ML VIAL (J1200) IV PRN ×2 (11:00→17:00)
[2017-01-10] MEDS ORDERED: NALBUPHINE HCL 10 MG/ML AMP (J2300) IV PRN ×2 (11:00→17:00)
[2017-01-10] MEDS ORDERED: MORPHINE 1MG/ML IN 0.9% NACL 100ML IV BAG IV PRN ×2 (11:00→17:00)
[2017-01-10] MEDS ORDERED: HYDROmorphone HCL 1 MG/ML SYRINGE (J1170) As Ordered ONE (11:10)
[2017-01-10] MEDS: HYDROmorphone HCL 1 MG/ML SYRINGE (J1170) IV PRN ×5 (11:10→11:30)
[2017-01-10] MEDS ORDERED: KETOROLAC 30 MG/ML VIAL (J1885) IV SCH (14:00)
[2017-01-10] MEDS: LR 1,000 ML IV SCH ×2 (14:52→21:14)
[2017-01-10] MEDS: NICOTINE 21MG/24HR 1 EA TRANSDERMAL TD SCH (14:52)
[2017-01-10] MEDS: KETOROLAC 30 MG/ML VIAL (J1885) IV SCH ×2 (16:10→23:34)
[2017-01-10] MEDS ORDERED: HYDROmorphone HCL 1 MG/ML SYRINGE (J1170) IV PRN (16:15)
--- NOTE | 2017-01-10 16:32 | IPNPDOC ---
Text Note Date of Service The patient was seen on 01/10/17. NOTE S/P LAVH, bilat salpingectomy Vitals stable all afternoon Significant issues with pain control all afternoon needing 2 doses 4 mg IV Morphine and most recent plans for PRN IV Dilaudid, however after we started to institute this, now wants to stick with the IV MAGAZINE KEEPER morphine, getting relief now which she could not get prior. Also in the PACU urine was dark perry colored and she has been leaking around her Lopez. Lopez was changed by myself in case of malplacement, it seemed normal and the second lopez went in w/o issues. Throughout the afternoon her urine has also become normal colored, is now yellow with no significant heme noted. Has had no N/V, will adv diet to reg for dinner. If tolerates her dinner can transition to PO Percocet, up to her. She may want to stick with the MAGAZINE KEEPER overnight, up to her. She will let her nursing team know. Small hematoma noted in the midline (uncommon), leaking from her infraumbilical incision, no significant induration noted, tissue is not taut. Placed a few ABD pads and an abdominal wall binder, pt states this actually helps her pain as well. Plan d/w nursing team Sessions VS,Hilda, I+O Hilda SPICER I+O Laboratory Tests 01/10/17 06:19 Red Blood Count 4.00, Mean Corpuscular Volume 92.2, Mean Corpuscular Hemoglobin 31.0, Mean Corpuscular Hemoglobin Concent 33.6, Red Cell Distribution Width 14.1 Vital Signs Date Time Temp Pulse Resp B/P (MAP) Pulse Ox O2 Delivery O2 Flow Rate FiO2 01/10/17 15:00 98.3 64 20 101/56 (71) 98 Room Air 01/10/17 11:45 2 SESSIONS,ELISSA Nazario MD Jan 10, 2017 16:32
[2017-01-10] MEDS ORDERED: PERCOCET 5MG/325MG TAB PO PRN ×2 (16:45)
[2017-01-10] MEDS: DOCUSATE SODIUM 100 MG CAP PO SCH (21:13)
--- NOTE | 2017-01-10 23:57 | RO ---
DATE OF PROCEDURE: 01/10/2017 PREOPERATIVE DIAGNOSIS: Dyspareunia and heavy regular bleeding. POSTOPERATIVE DIAGNOSIS: Dyspareunia and heavy regular bleeding. OPERATIVE PROCEDURE: Laparoscopic bilateral salpingectomy followed by laparoscopic-assisted vaginal hysterectomy. SURGEON: Dr. Harvey Meade TELECOMMUNICATIONS CONSULTANT: Dr. Jordan Gonzalez ANESTHESIA: General endotracheal. ESTIMATED BLOOD LOSS: 400 mL. DRAINS: 200 in the Smith catheter. FLUID REPLACED: 2 liters of lactated Ringer's. PREOPERATIVE ANTIBIOTICS: Ancef 2 grams IV. SPECIMENS REMOVED: Bilateral fallopian tubes and uterus/cervix. INDICATIONS: Please see the history and physical. DESCRIPTION OF PROCEDURE: Patient was taken to the operating room with an IV in place where she was induced with general anesthesia without difficulty. She was then placed in the low lithotomy position without difficulty. I did an exam under anesthesia, which was unremarkable. She was then prepped and draped in normal sterile fashion. A speculum was placed into the vagina. A tenaculum was placed at the anterior lip of the cervix. Patient was dilated just enough to fit the VCare uterine manipulator, which was placed into the uterus to the fundus with the balloon insufflated, and a stitch was placed at 11- o'clock position on the cervix, passed through the green cervical cup of the VCare uterine manipulator, which was advanced to cup the entire cervix and fastened in place. With 0.5% Marcaine, I injected just under the umbilicus. Made a 5 mm incision, and placed an Optiview trocar into the abdomen under direct visualization. CO2 gas was started after intra-abdominal access was confirmed visually, and the pneumoperitoneum was easily obtained. We then placed a right lower quadrant and left lower quadrant trocar in exactly the same fashion under direct visualization. The right fallopian was addressed primarily with a grasper placed through the left port. We easily removed the right entire fallopian tube using the Harmonic scalpel. This was then repeated in exactly the same fashion contralaterally. There was no significant scar tissue at the anterior uterus, and the vesicouterine peritoneum was normal. Therefore, we decided to do simply a laparoscopic-assisted vaginal hysterectomy. The utero-ovarian ligaments were then transected bilaterally down to just above the uterine arteries. A quick look at the upper abdomen revealed normal appearing liver edge and stomach edge. Just prior to moving to the vaginal procedure, I grasped both fallopian tubes with a Wave grasper and retracted the laparoscopic instrument to the level of the trocar. This was done so we would be able to advance it and place the tubes through the vaginal cuff after the uterus was removed. Dr. Gonzalez and I both then moved vaginally and grasped the cervix anteriorly with the tenaculum and posteriorly with the tenaculum. I then injected 10 mL of Marcaine with epinephrine circumferentially at the cervix, avoiding any intravascular injection. I circumferentially incised the cervix, identified the posterior peritoneal cavity, incised this with Billings scissors, and placed an Auvard weighted retractor into the posterior cul-de-sac. I then took one single bite with the Marge clamp on the patient's left, which was then cut medially and Marge suture ligated without difficulty. This was repeated on the patient's right without difficulty. We then isolated the anterior reflection of the anterior cul-de-sac, grasped it with pickups with teeth and incised it with Metzenbaum scissors, gaining access anteriorly without difficulty. A retractor was then placed into this space as well. With successive Marge clamps, cutting with the Billings, and suture ligating with a Marge stitch, we then marched up both sides of the uterus, including the cardinal ligament, uterine artery, and uterosacral ligament bilaterally. The uterus was then removed without difficulty, and the vaginal cuff was closed with a series of interrupted figure-of-8 stitches, starting from the patient's left and moving to the patient's right, incorporating peritoneum whenever possible. After the cuff was closed, good union of vaginal mucosa was noted with no sources of granulation in between the sutures. I then changed my other gloves and re-insufflated the abdomen, inserting the camera, and confirming a normal closure of the vaginal cuff. There was a small area of bleeding peritoneal edge, which I cauterized with the LigaSure. Copious irrigation was performed, and each pedicle was followed bilaterally to ensure hemostasis of all surgical edges. Both ureters were noted to be vermiculating in a normal fashion, both prior to starting the procedure and after the uterus was removed. Dr. Gonzalez then inserted a cystoscope into the bladder, at which time there was a small amount of trauma noted to the trigone from the cystoscope proper. Both ureteral orifices were noted to be normal and both noted to have normal ureteral jets bilaterally. The cystoscope was removed, Smith catheter was replaced, and as much of the perry-colored cystoscopy fluid as possible was allowed to be drained through the Smith, which was then emptied in the operating room so this did not count with her intake and output. Of note, the fluid remained perry colored until approximately 2 hours after the procedure in the postanesthesia care unit (PACU), at which time the urine was noted to be clearing to straw color. My suspicion for a bladder injury was very, very low throughout, and I believe that she was bleeding simply from the traumatic entry of the cystoscope. All counts were correct, and the patient was awakened from general anesthesia and transferred to the PACU in stable condition. VITALIY
[2017-01-11] VITALS (8 sets, daily range): BP systolic 86–135; BP diastolic 49–69
[2017-01-11] MEDS ORDERED: LORazepam 0.5 MG TAB PO ONE ×2 (05:30→06:00)
[2017-01-11] MEDS: KETOROLAC 30 MG/ML VIAL (J1885) IV SCH ×2 (05:31→10:05)
[2017-01-11] MEDS ORDERED: oxyCODONE 5MG TAB PO PRN ×2 (06:00)
--- NOTE | 2017-01-11 06:49 | IPNPDOC ---
Text Note Date of Service The patient was seen on 01/11/17. NOTE POD1 LAVH/bilat salpingectomy/cystoscopy c/b a small hematoma noted yest afternoon at her midline umbilical incision treated with an abdominal binder/ abd pad and also resolving hematuria as of yest evening when I left. This AM, Nathalie continues to c/o pain 8-03/14. 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 Also self d/c'd her nicotine patch yesterday due to burning/ skin irritation. Refuses nicotine gum as well. No other options per Pharmacy. No VB/LP/SOB/CP. Refuses to wear her SCD's. VSSAF overnight UO adequate, 650 since 0100 Lower inc's X2 both OK, upper inc with expanded hematoma present, now under slight tension that was not present yesterday, abd o/w soft with approp tenderness Hermaturia also noted to be not alexander blood/clot but heme definitely present, worse than when I left yesterday Signed out AMA just now to go smoke, is wheeling her to the curb and they will come right back (IV d/c'd and will get a new IV on return with 125/ hr LR) a/p: Plan is NPO with plans for return to the OR this AM (ate at 0400) to address the hematoma and also a laparoscopy/cystoscopy to find a bladder/ureter injury if it is present, although I do not have a high suspicion of a urinary tract injury. Prior to going to the OR will get a CT cystogram with IV contrast and will be premedicated with steroids/benadryl, d/w Dr Thapa, Urology general surgeon, who will be happy to assist in the OR if a urinary tract injury is present. Sessions Hilda VELIZ, I+O Hilda SPICER I+O Laboratory Tests 01/10/17 06:19 Red Blood Count 4.00, Mean Corpuscular Volume 92.2, Mean Corpuscular Hemoglobin 31.0, Mean Corpuscular Hemoglobin Concent 33.6, Red Cell Distribution Width 14.1 Vital Signs Date Time Temp Pulse Resp B/P (MAP) Pulse Ox O2 Delivery O2 Flow Rate FiO2 8/9/17 05:44 98.9 69 20 128/68 (88) 96 Room Air 01/10/17 11:45 2 I&O- Last 24 Hours up to 6 AM 01/11/17 06:00 Intake Total 5520 ml Output Total 4275 ml Balance 1245 ml DAYANA,ELISSA Nazario MD Jan 11, 2017 06:49
[2017-01-11 07:02] LABS: BASO % 0.2 % (0.0-1.0); EOS # 0.1 K/mm3 (0.0-0.50); EOS % 2.6 % (0.0-3.0); LARGE UNSTAINED CELL # 0.1 K/mm3 (0.0-0.4); LARGE UNSTAINED CELL % 1.5 % (0.0-4.0); LYMPH # 1.1 K/mm3 (1.5-4.5); LYMPH % 19.9 % (24.0-44.0); MEAN CORPUSCULAR HEMOGLOBIN 31.2 pg (27.0-33.0); MEAN CORPUSCULAR HGB CONC 33.6 g/dl (32.0-36.5); MONO # 0.3 K/mm3 (0.0-0.8); MONO % 5.3 % (0.0-5.0); NEUTROPHILS # 3.7 K/mm3 (1.8-7.7); NEUTROPHILS % 70.5 % (36.0-66.0); PLATELET COUNT, AUTOMATED 200 k/mm3 (150-450); RED CELL DISTRIBUTION WIDTH 14.1 % (11.5-14.5); WHITE BLOOD COUNT 5.3 K/mm3 (4.0-10.0)
[2017-01-11] MEDS ORDERED: predniSONE 50 MG TAB PO ONE ×3 (08:00→13:00)
[2017-01-11] MEDS: DOCUSATE SODIUM 100 MG CAP PO SCH ×2 (08:04→21:00)
[2017-01-11] MEDS: NICOTINE 21MG/24HR 1 EA TRANSDERMAL TD SCH (08:04)
[2017-01-11] MEDS: LR 1,000 ML IV SCH ×2 (08:37→16:30)
[2017-01-11] MEDS ORDERED: ONDANSETRON 4MG/2ML VIAL (J2405) IV PRN (11:00)
[2017-01-11] MEDS ORDERED: MORPHINE 1MG/ML IN 0.9% NACL 100ML IV BAG IV PRN (11:00)
[2017-01-11] MEDS ORDERED: NALOXONE INJ 0.4 MG/1 ML VIAL (J2310) IV PRN (11:00)
[2017-01-11] MEDS ORDERED: NALBUPHINE HCL 10 MG/ML AMP (J2300) IV PRN (11:00)
[2017-01-11] MEDS ORDERED: EPIDURAL/PCA KEYS XX PRN (11:00)
[2017-01-11] MEDS ORDERED: diphenhydrAMINE INJ 50MG/ML VIAL (J1200) IV PRN (11:00)
[2017-01-11] MEDS ORDERED: diphenhydrAMINE INJ 50MG/ML VIAL (J1200) IV ONE (13:00)
[2017-01-11] MEDS ORDERED: ISOVUE-370 76% 100ML VIAL (Q9967) As Ordered ONE ×2 (13:55→16:27)
[2017-01-11] MEDS ORDERED: diphenhydrAMINE 50 MG CAP As Ordered ONE (16:06)
[2017-01-11] MEDS ORDERED: diphenhydrAMINE 50 MG CAP PO ONE (16:15)
[2017-01-11] MEDS ORDERED: CYSTO-CONRAY II 17.2% 250ML VIAL (Q9958) As Ordered ONE (16:59)
--- NOTE | 2017-01-11 17:03 | REP ---
CT ABDOMEN AND PELVIS WITH AND WITHOUT IV CONTRAST: TECHNIQUE: Axial noncontrast images through the abdomen followed by contrast-enhanced images through the abdomen and pelvis using 100 mL Isovue 370 intravenous contrast material, with coronal and sagittal reformations. The patient is one day status post hysterectomy. A small amount of scattered free intraperitoneal air is present as expected. There appears to be mild left basilar atelectasis. Tiny cyst is seen in the liver. The patient appears to have had a prior cholecystectomy. There are also surgical sutures in the left upper quadrant of the abdomen. The spleen, adrenals, pancreas, and kidneys appear essentially normal. Symmetrical nephrograms are seen without hydronephrosis bilaterally. Abdominal aorta is normal in caliber. I see no adenopathy. No definite bowel abnormality is seen. Delayed images of the abdomen and pelvis are performed with the bladder filled with contrast material. There does appear to be extraluminal contrast along the posterior wall of the bladder compatible with bladder wall disruption. That portion of the bladder wall is somewhat irregular. There are somewhat curvilinear filling defects in the right side of the bladder probably representing blood clots. Small amount of air is also seen in the bladder as well as a Smith catheter. Distal left ureter inserts normally into the bladder. The distal right ureter is not opacified or visualized, but again, there are symmetrical nephrograms with no hydronephrosis and therefore ureteral injury is unlikely. IMPRESSION: Small amount of extraluminal contrast just posterior to the bladder on delayed postcontrast imaging is compatible with an area of disruption of the posterior bladder wall. There is no evidence for ureteral injury. Simth catheter is seen in the bladder. Signed by Harvey Eason MD 01/12/2017 01:28 P
--- NOTE | 2017-01-11 18:30 | REP ---
CYSTOGRAM: Upon my arrival to the fluoroscopy suite, the patient's urinary bladder was already catheterized with a Smith balloon. Installation of approximately 200 mL of Cysto-Conray showed a rent in the posterior urinary bladder wall possibly just to the left of midline. Contrast was seen extravasating into the pelvis. 1 minute 19 seconds of fluoroscopy time was utilized for the exam. IMPRESSION: Urinary bladder rent as described above. Signed by Seymour Dasilva DO 01/11/2017 06:59 P
--- NOTE | 2017-01-11 19:24 | IPNPDOC ---
Text Note Date of Service The patient was seen on 01/11/17. NOTE PM note: The pt has been maintained all day on NPO status and in the late AM was transitioned to IV LINEN CHECKER for purposes of oncall to OR status. Pain has been intermittently controlled with her biggest complaint intermittent pain from the lopez catheter. Her hematoma has resolved since this AM and is no longer palpable nor does the pt have any pt tenderness over this specific area and there is also no longer any drainage on her abd pad since this AM, therefore will not address this surgically. Has smoked X2 outside, both times with AMA paperwork signed (this AM and a few hours ago). The pt demands to go outside to do so, with her and also with a staff member due to the pt having a saline lock in place. Dr Thapa reviewed the images of the CT as per below and also wanted a cystogram, both reads are below. Plan is to go to the OR within a few hours and primarily repair the cystotomy through a miniPfannensteil then d/c when appropriate with a legbag for minimum 10 days with f/u with myself and Dr Thapa. Vitals have been stable throughout the day. CT ABDOMEN AND PELVIS WITH AND WITHOUT IV CONTRAST: TECHNIQUE: Axial noncontrast images through the abdomen followed by contrast-enhanced images through the abdomen and pelvis using 100 mL Isovue 370 intravenous contrast material, with coronal and sagittal reformations. The patient is one day status post hysterectomy. A small amount of scattered free intraperitoneal air is present as expected. There appears to be mild left basilar atelectasis. Tiny cyst is seen in the liver. The patient appears to have had a prior cholecystectomy. There are also surgical sutures in the left upper quadrant of the abdomen. The spleen, adrenals, pancreas, and kidneys appear essentially normal. Symmetrical nephrograms are seen without hydronephrosis bilaterally. Abdominal aorta is normal in caliber. I see no adenopathy. No definite bowel abnormality is seen. Delayed images of the abdomen and pelvis are performed with the bladder filled with contrast material. There does appear to be extraluminal contrast along the posterior wall of the bladder compatible with bladder wall disruption. That portion of the bladder wall is somewhat irregular. There are somewhat curvilinear filling defects in the right side of the bladder probably representing blood clots. Small amount of air is also seen in the bladder as well as a Lopez catheter. Distal left ureter inserts normally into the bladder. The distal right ureter is not opacified or visualized, but again, there are symmetrical nephrograms with no hydronephrosis and therefore ureteral injury is unlikely. IMPRESSION: Small amount of extraluminal contrast just posterior to the bladder on delayed postcontrast imaging is compatible with an area of disruption of the posterior bladder wall. There is no evidence for ureteral injury. Lopez catheter is seen in the bladder. CYSTOGRAM: Upon my arrival to the fluoroscopy suite, the patient's urinary bladder was already catheterized with a Lopez balloon. Installation of approximately 200 mL of Cysto-Conray showed a rent in the posterior urinary bladder wall possibly just to the left of midline. Contrast was seen extravasating into the pelvis. 1 minute 19 seconds of fluoroscopy time was utilized for the exam. IMPRESSION: Urinary bladder rent as described above. Sessions VS,Hilda, I+O VS, Hilda I+O Laboratory Tests 01/11/17 06:41 Red Blood Count 3.26 L, Mean Corpuscular Volume 93.0, Mean Corpuscular Hemoglobin 31.2, Mean Corpuscular Hemoglobin Concent 33.6, Red Cell Distribution Width 14.1, Neutrophils (%) (Auto) 70.5 H, Lymphocytes (%) (Auto) 19.9 L, Monocytes (%) (Auto) 5.3 H, Eosinophils (%) (Auto) 2.6, Basophils (%) ( Auto) 0.2, Neutrophils # (Auto) 3.7, Lymphocytes # (Auto) 1.1 L, Monocytes # ( Auto) 0.3, Eosinophils # (Auto) 0.1, Basophils # (Auto) 0.0 Vital Signs Date Time Temp Pulse Resp B/P (MAP) Pulse Ox O2 Delivery O2 Flow Rate FiO2 01/11/17 13:57 98.4 67 18 109/55 (73) 01/11/17 12:57 99 Room Air 01/10/17 11:45 2 I&O- Last 24 Hours up to 6 AM 01/11/17 06:00 Intake Total 5520 ml Output Total 4275 ml Balance 1245 ml SESSIONS,ELISSA Nazario MD Jan 11, 2017 19:24
[2017-01-11] MEDS ORDERED: ceFAZolin 2 GM/D5W 50 ML IV BAG (J0690) As Ordered ONE (19:53)
[2017-01-11] MEDS ORDERED: MIDAZOLAM INJ 2 MG/2 ML VIAL (J2250) As Ordered ONE (20:20)
[2017-01-11] MEDS ORDERED: ONDANSETRON 4MG/2ML VIAL (J2405) As Ordered ONE (20:20)
[2017-01-11] MEDS ORDERED: fentaNYL 100 MCG/2 ML INJECTION (J3010) As Ordered ONE (20:20)
[2017-01-11] MEDS ORDERED: PROPOFOL 200 MG/20 ML VIAL As Ordered ONE (20:20)
[2017-01-11] MEDS ORDERED: LIDOCAINE 2% INJ 100 MG/5 ML SDV (FOR ANES.) As Ordered ONE (20:20)
[2017-01-11] MEDS ORDERED: CONRAY-60 60% 50ML VIAL (Q9961) As Ordered ONE (20:54)
[2017-01-11] MEDS ORDERED: BUPIVACAINE HCL 0.25% 10 ML VIAL As Ordered ONE (20:54)
[2017-01-11] MEDS ORDERED: ROCURONIUM BROMIDE 50 MG/5 ML VIAL/SYRINGE As Ordered ONE (22:04)
[2017-01-11] MEDS ORDERED: HYDROmorphone HCL 2 MG/ML 1ML VIAL (J1170) As Ordered ONE (22:55)
[2017-01-11] MEDS ORDERED: NEOSTIGMINE 1MG/ML 5 ML SYRINGE (J2710) As Ordered ONE (23:26)
[2017-01-11] MEDS ORDERED: GLYCOPYRROLATE INJ 0.2 MG/ML 2 ML VIAL As Ordered ONE (23:26)
[2017-01-11] MEDS ORDERED: LR 1,000 ML IV SCH (23:48)
[2017-01-12] MEDS ORDERED: HYDROmorphone HCL 1 MG/ML SYRINGE (J1170) As Ordered ONE (00:06)
[2017-01-12] MEDS ORDERED: MORPHINE 1MG/ML IN 0.9% NACL 100ML IV BAG As Ordered ONE (00:06)
[2017-01-12] MEDS: HYDROmorphone HCL 1 MG/ML SYRINGE (J1170) IV PRN ×2 (00:09→00:15)
[2017-01-12] MEDS ORDERED: fentaNYL 100 MCG/2 ML INJECTION (J3010) IV PRN (00:30)
[2017-01-12] MEDS ORDERED: NALOXONE INJ 0.4 MG/1 ML VIAL (J2310) IV PRN (00:30)
[2017-01-12] MEDS ORDERED: LR 1,000 ML IV SCH (00:30)
[2017-01-12] MEDS ORDERED: MORPHINE 1MG/ML IN 0.9% NACL 100ML IV BAG IV PRN (00:30)
[2017-01-12] MEDS ORDERED: NALBUPHINE HCL 10 MG/ML AMP (J2300) IV PRN (00:30)
[2017-01-12] MEDS ORDERED: ONDANSETRON 4MG/2ML VIAL (J2405) IV PRN ×3 (00:30)
[2017-01-12] MEDS ORDERED: diphenhydrAMINE INJ 50MG/ML VIAL (J1200) IV PRN (00:30)
[2017-01-12] MEDS ORDERED: EPIDURAL/PCA KEYS XX PRN (00:30)
[2017-01-12 01:00] VITALS: BP 123/63
[2017-01-12 01:30] VITALS: BP 120/61
[2017-01-12 02:46] VITALS: BP 104/57
[2017-01-12 04:00] VITALS: BP 107/55
[2017-01-12 05:48] VITALS: BP 109/57
[2017-01-12 07:05] LABS: MEAN CORPUSCULAR HEMOGLOBIN 31.4 pg (27.0-33.0); MEAN CORPUSCULAR HGB CONC 33.6 g/dl (32.0-36.5); MEAN CORPUSCULAR VOLUME 93.5 fl (80.0-96.0); RED CELL DISTRIBUTION WIDTH 13.7 % (11.5-14.5); WHITE BLOOD COUNT 9.4 K/mm3 (4.0-10.0)
[2017-01-12] MEDS ORDERED: oxyCODONE 5MG TAB PO PRN ×2 (07:15)
[2017-01-12] MEDS ORDERED: PERCOCET 5MG/325MG TAB PO PRN (07:15)
[2017-01-12 07:34] LABS: ANION GAP 6 MEQ/L (8-16); BLOOD UREA NITROGEN 5 MG/DL (7-18); CALCIUM LEVEL 8.1 MG/DL (8.5-10.1); CARBON DIOXIDE LEVEL 28 MEQ/L (21-32); CHLORIDE LEVEL 107 MEQ/L (98-107); CREATININE FOR GFR 0.64 MG/DL (0.55-1.02); GLOMERULAR FILTRATION RATE > 60.0 (>58); GLUCOSE, FASTING 151 MG/DL (70-105); POTASSIUM SERUM 3.2 MEQ/L (3.5-5.1); SODIUM LEVEL 141 MEQ/L (136-145)
--- NOTE | 2017-01-12 07:34 | IPNPDOC ---
Text Note Date of Service The patient was seen on 01/12/17. 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 No N/V/CP/LP/SOB, has tolerated a slow diet advance w/o issues. Passing gas. VSS LUCIA o/p was negligible overnight due to no suction and a significant amt leakage from the drain site noted, therefore a very small amt suction placed on the LUCIA and has drained/emptied 50 thus far UOP 850 since surgery, straw colored (nl) Pfannensteil inc CDI with steri's, abd soft almost no tenderness comparative to yest's exam LUCIA drain in place with abd pads surrounding, a loose abd binder holding these in place. CTAB RRR Ext no CCE CBC and Chem pending from this AM a/p: Doing much better and is very motivated to go home this afternoon. Leg bag ordered to be in the room, if transitions to PO pain meds successfully (D/C TRACER BULLET SECTION SUPERVISOR) today will be able to go home as is already meeting other d/c criteria ( ambulatory and tolerating food/liquids) with the LUCIA and leg bag in place, if d/c 'd I will see her on MON for likely LUCIA removal. Will also d/w Dr Thapa. Sessions Hilda VELIZ, I+O Hilda SPICER I+O Laboratory Tests 01/12/17 06:38 Red Blood Count 3.25 L, Mean Corpuscular Volume 93.5, Mean Corpuscular Hemoglobin 31.4, Mean Corpuscular Hemoglobin Concent 33.6, Red Cell Distribution Width 13.7 Vital Signs Date Time Temp Pulse Resp B/P (MAP) Pulse Ox O2 Delivery O2 Flow Rate FiO2 01/12/17 05:48 99.0 71 18 109/57 (74) 01/12/17 02:46 99 Room Air 01/10/17 11:45 2 I&O- Last 24 Hours up to 6 AM 01/12/17 06:00 Intake Total 2950 ml Output Total 3650 ml Balance -700 ml SESSIONS,ELISSA Nazario MD Jan 12, 2017 07:34
[2017-01-12] MEDS: PERCOCET 5MG/325MG TAB PO PRN ×2 (08:00→12:12)
[2017-01-12] MEDS ORDERED: DOCUSATE SODIUM 100 MG CAP PO SCH (09:00)
[2017-01-12 10:23] VITALS: BP 104/59
--- NOTE | 2017-01-12 17:10 | DS.PDOC ---
Discharge Summary General Date of Admission Jan 10, 2017 at 06:06 Date of Discharge [id number] Discharge Summary PROCEDURES PERFORMED DURING STAY: Day 1: Laparsocopic-assisted vaginal hysterectomy and bilateral salpingectomy with cystoscopy Day 2: CT A/P with and w/o IV contrast, Cystogram, all followed by open bladder repair of a posterior bladder wall rent with the assistance of Dr Thapa, Urology ADMITTING DIAGNOSIS: 1. See H&P DISCHARGE DIAGNOSES: 1. S/P LAVH/salpingectomy complicated by a posterior bladder wall rent which was closed primarily HOSPITAL COURSE: Underwent an at the time uncomplicated and straight forward hysterectomy followed by a routine normal cystoscopy which confirmed normal ureteral jets bilat, see op note. Had persistent hematuria throughout the day which had cleared significantly but returned the next morning. Underwent the above procedures which showed normal ureters but an abnormal posterior bladder. After consultation with Dr Thapa she agreed to assist me in closure of the bladder rent. This was done through a Pfannensteil incision and completed without incident, see op note. Of note, the patient was very rude to the nursing and hospital staff throughout her stay and also checked herself out AMA X3 to go smoke. She also required a significantly higher than normal amount of pain medicines throughout her stay. On HD3 she met discharge criteria other than my and Dr Thapa's recommendation that she stay one more night to watch for fever, post-operative infections, etc but she demanded to be discharged from the hospital. She was sent home with a leg bag lopez and a RLQ LUCIA drain with instructions on how to empty both and strict return precautions (fever, pain, drain issues, etc) with plans for close followup in 3-4 days to likely remove the LUCIA drain. The lopez will remain in place for 10 days postop at which time if a Cystogram confirms bladder integrity the Lopez will be removed. DISCHARGE MEDICATIONS: Colace, Percocet, Zofran, Bactrim Physical exam: see note from this morning LABORATORY DATA: Please see below. ACTIVITY: as tolerated. Nothing in vagina for 6 weeks. DIET: regular DISPOSITION:stable TIME SPENT ON DISCHARGE: Greater than 15 minutes. Sessions Vital Signs/I&Os Vital Signs Date Time Temp Pulse Resp B/P (MAP) Pulse Ox O2 Delivery O2 Flow Rate FiO2 01/12/17 10:23 98.5 68 16 104/59 (74) 98 Room Air 01/10/17 11:45 2 I&O- Last 24 Hours up to 6 AM 01/12/17 06:00 Intake Total 2950 ml Output Total 3650 ml Balance -700 ml Laboratory Data Labs 24H Laboratory Tests 2 01/12/17 06:39: Anion Gap 6L, Glomerular Filtration Rate > 60.0, Blood Urea Nitrogen 5L, Creatinine 0.64, Sodium Level 141, Potassium Level 3.2L, Chloride Level 107, Carbon Dioxide Level 28, Calcium Level 8.1L CBC/BMP Laboratory Tests 01/12/17 06:38 Red Blood Count 3.25 L, Mean Corpuscular Volume 93.5, Mean Corpuscular Hemoglobin 31.4, Mean Corpuscular Hemoglobin Concent 33.6, Red Cell Distribution Width 13.7 01/12/17 06:39 Calcium Level 8.1 L Discharge Medications Scheduled Multivitamins/ ( 27-0.8 mg) 1 Tab Tab, 1 TAB PO BID, (Reported) Scheduled PRN Clonazepam (Klonopin) 0.5 Mg Tab, 0.5 MG PO for ANXIETY, (Reported) Diphenhydramine HCl (Benadryl Allergy) 25 Mg Cap, 25 MG PO for SLEEP, (Reported) Allergies Coded Allergies: Contrast Media (Unverified Allergy, Unknown, RASH/hives, 01/06/17) Iodine (Verified Allergy, Unknown, 01/06/17) Camphor (Verified Adverse Reaction, Unknown, chemical burn, 01/06/17) topical analgesic Carboxymethylcellulose (Verified Adverse Reaction, Unknown, 01/06/17) TOPICAL PAIN MEDS Menthol (Verified Adverse Reaction, Unknown, 01/06/17) TOPICAL PAIN MEDS Methyl Salicylate (Verified Adverse Reaction, Unknown, 01/06/17) TOPICAL PAIN MEDS NSAIDs (Unverified Adverse Reaction, Unknown, AVOIDS, GASTRIC BYPASS, ) SESSIONS,ELISSA Nazario MD Jan 12, 2017 17:10
--- NOTE | 2017-01-12 20:45 | IPN ---
DATE: 01/12/2017 Ms. Retana is feeling much better this morning and all she talks about from the time I walk into the room is that she is leaving now. She did not want to answer any questions and just told me that Dr. Meade said it is fine for her to go home. PHYSICAL EXAMINATION: She was afebrile at 04:00 a.m. at 99.6 and is now 98.5. Her abdomen had a binder on with the LUCIA drain in place and it had drained 50 mL overnight. She has Steri-Strips over her Pfannenstiel incision and her abdomen was soft and diffusely tender. Her extremities showed no significant cyanosis, clubbing or edema. LABORATORY DATA: White blood count is 9.1, her hemoglobin and hematocrit is 10.2 over 30.4 which is stable from yesterday. Her creatinine is 0.64 and her potassium is slightly low at 3.2. DISCUSSION: I discussed with Ms. Retana that my recommendations were that she stay at least 24 hours post procedurally to make sure that there is no breakdown of any of her incisions, to watch for septicemia, to watch for blood clots, and to provide support. She refused to stay and also did not want to listen to what I had to say about post-procedurally what things she should look for, if she issues in order to give us a call. IMPRESSION: 1. Postoperative day #1 major repair of a bladder leakage and exploratory mini laparotomy last night. 2. Postoperative day #2 laparoscopic-assisted vaginal hysterectomy. PLAN: 1. Recommend continuing Smith catheter for a minimum of 10 days and doing a cystogram before it is removed. 2. Recommend continuing LUCIA drainage until at 30 mL or less and I would prefer that she stay in the hospital until this is removed. 3. Continue sequential compression devices and ambulation. 4. Watch the patient's bowel movements and laboratory data.
--- NOTE | 2017-01-12 21:17 | CR ---
DATE OF CONSULTATION: 01/11/2017 Ms. Retana is a 41-year-old female who had a laparoscopic assisted vaginal hysterectomy done yesterday by Dr. Meade for abnormal vaginal bleeding and dyspareunia. I was called because there is gross hematuria and a hematoma. My recommendations were a CT urogram and CT cystogram prior to the patient going to the OR to have some idea of the injuries. The CT urogram showed no ureteral injury with good nephrograms but on delayed images of the abdomen and pelvis, the bladder filled with contrast and there was extraluminal contrast compatible with a bladder wall disruption. A cystogram was also done and this showed extravasation of contrast in the pelvis consistent with a bladder injury. Nathalie denies any history of gross hematuria or kidney stones. She did have chronic urinary tract infections (UTIs) since childhood and had been hospitalized with fever but had never been diagnosed with vesicoureteral reflux as far as she knows and never had any previous genitourinary () intervention. She does get a few infections yearly now and her complaints are pain with urination, low grade fever, and urgency. She did have a recent Escherichia (E) coli infection. She normally feels like she empties her bladder completely and denies any significant urinary urgency or frequency. PAST MEDICAL HISTORY: Dyspareunia and abnormal bleeding. PAST SURGICAL HISTORY: Gastric bypass surgery, appendectomy, cholecystectomy, section and removal of a right ganglion cyst. MEDICATIONS: vitamins. ALLERGIES: She is allergic to nonsteroidal anti-inflammatory drugs (NSAIDs). SOCIAL HISTORY: She is . She does smoke one-third of a pack of cigarettes a day. She denies any significant drug or alcohol use. FAMILY HISTORY: She has an aunt with blood cancer. REVIEW OF SYSTEMS: Prior to her surgery yesterday, this seemed fairly noncontributory. She did have twins 8 months ago. PHYSICAL EXAMINATION: This is a woman who I am meeting for the first time in the preoperative area and she is writhing in a hospital bed in pain. She is alert and oriented times three, although she is not very happy about answering questions. Her head is normocephalic, atraumatic. She is wearing dentures. Her eyes are pupils equal, round, and reactive to light and extraocular movements are intact. Her neck is supple, there is no significant supraclavicular adenopathy. Heart has a regular rate and rhythm, but she is quite tachycardiac right now. Her lungs are clear to auscultation and percussion, but she does have some decreased breath sounds at the bases and may be some very minimal rales. She has no CVA tenderness. Her abdomen is exquisitely tender with some rebound and guarding. Her extremities show no cyanosis, clubbing or edema. Smith catheter is in place now draining fairly clear urine. DISCUSSION: I have discussed these findings at length with Nathalie and her significant other at the bedside. Dr. Meade is going to plan on doing an exploratory laparotomy and I will explore the bladder and fix any abnormalities seen. We will also plan on looking at the ureters, although the CT scan appears to have no ureteral injuries. We discussed exactly how we were going to do things and that a Smith catheter would need to be left in for a minimum of 10 days post procedurally until a repeat cystogram could be done. All different options, alternatives, risks, and benefits were discussed and informed consent was obtained in both verbal and written form. LABORATORY DATA: Her white blood count today was 5.3 and her hemoglobin and hematocrit was 10.2 over 30.3. IMPRESSION: Most likely a bladder perforation status post a laparoscopic assisted vaginal hysterectomy yesterday for dyspareunia and abnormal menstrual bleeding. PLAN: Exploratory laparotomy now with Dr. Meade and most likely a bladder repair.
--- NOTE | 2017-01-12 21:36 | RO ---
DATE OF PROCEDURE: 01/11/2017 PREOPERATIVE DIAGNOSIS: Bladder injury during a laparoscopic assisted vaginal hysterectomy. POSTOPERATIVE DIAGNOSIS: Bladder injury during a laparoscopic assisted vaginal hysterectomy. PROCEDURE: Open repair of bladder injury. SURGEON: Dr. Karley Thapa PSYCHIATRIC TECHNICIAN ASSISTANT: Dr. Meade ANESTHESIA: General. MEDICATIONS: Ancef 2 grams preoperatively. DRAINS: 10-Ukrainian LUCIA tube and 20-Ukrainian Smith catheter. FINDINGS: Large perforation and the posterior bladder with both ureteral orifices intact with good efflux of urine. ESTIMATED BLOOD LOSS: 50 mL INDICATIONS FOR PROCEDURE: The patient is postop day #1 a laparoscopic-assisted vaginal hysterectomy for heavy bleeding and dyspareunia. Post procedurally the patient was noted to have a unusual suprapubic hematoma and also gross hematuria in the catheter. Dr. Meade called to discuss this and I have recommended a CT urogram and cystogram which showed extraluminal contrast posteriorly in the pelvis from the bladder and there was no evidence of ureteral injury. It was decided to bring the patient emergently to the operating room for a combined surgical procedure. PROCEDURE: The patient was in the operating room and sequential compression devices were in place. Preoperative antibiotics had been given and general anesthesia was induced. She was placed in the frog-leg position and a full vaginal prep and abdominal prep was done. She was then prepped and draped in the usual fashion. Dr. Meade then began with a Pfannenstiel incision and when we opened the peritoneum there was a significant amount of urine and fluid which was drained. He did an exploration and there was no significant hematoma appreciated and no evidence of bowel injury. At this point we saw that the bladder, had been completely sewn to the posterior bladder wall. I opened the bladder at the dome and there was a large suture and structure from the hysterectomy inside of the bladder lumen. At this point that suture was cut and the cuff of the bladder was also cut off of the posterior bladder, but unfortunately this was attached the entire wall so there was a large defect measuring at least 4 cm. Both ureteral orifices were seen and there was excellent efflux through both of them. I was able to place a open-ended ureteral catheter easily through the right orifice all the way up but the left orifice was smaller and I was unable to position it to go up but it did not appear to have any injury since there was such go Efflux. At this point the posterior bladder wall was closed to in a three layer closure with mucosa detrusor and then the overlying fascia. Where I opened the bladder at the dome was also closed in three layer closure. At this point a 20-Ukrainian Smith catheter was placed from below and this was filled with 300 mL of normal saline and there was no leakage seen through the bladder and there was excellent expansion of the bladder which appeared to be completely normal. At this point to 20-Ukrainian Smith catheter was left in place with 10 mL in the balloon. A 10-Ukrainian LUCIA drain was placed posterior to the bladder and brought through a separate incision on the patient's right side. Dr. Meade then put a few sutures into the vaginal cuff and completed closure which he will dictate separately. The patient was returned to the recovery room in stable condition.
--- NOTE | 2017-01-12 21:53 | RO ---
DATE OF PROCEDURE: 01/11/2017 PREPROCEDURE DIAGNOSIS: Bladder defect status post hysterectomy the day prior based on persistent hematuria and a CT of the abdomen and pelvis with and without intravenous (IV) contrast and a retrograde cystogram. POSTPROCEDURE DIAGNOSIS: Bladder defect status post hysterectomy the day prior based on persistent hematuria and a CT of the abdomen and pelvis with and without intravenous (IV) contrast and a retrograde cystogram. FINDINGS: Posterior defect approximately 3-4 cm in the midline, which was repaired primarily after the bladder dome was opened, which was also repaired. Normal ureteral floor/trigone/ureters bilaterally. PROCEDURE: Primary bladder repair via Pfannenstiel incision skin incision. SURGEON: Dr. Harvey Meade MEAT SERVICE TEAM MEMBER: Dr. Karley Thapa, Urology ANESTHESIA: General endotracheal. ESTIMATED BLOOD LOSS: 50 mL. DRAINS: Smith catheter and LUCIA drain. FLUIDS REPLACED: 1700 mL of lactated Ringer's. PREOPERATIVE ANTIBIOTICS: Ancef 2 grams IV. SPECIMENS A small portion of what looked like possible ureter sent to pathology ; however, confident it is not ureter, likely just a loose pedicle. DESCRIPTION OF PROCEDURE: The patient was taken to the operating room from the brito after persistent hematuria noted and both imaging studies as above showed a posterior wall bladder defect. Informed consent was obtained on the brito, and the patient agreed to the procedure. The hematoma that we had been previously worried about earlier in the day has disappeared and now stabilized. However, we retained the possibility of needing to surgically repair this; therefore, see below for exam intraoperatively for the specific finding. The patient underwent anesthesia induction without difficulty via general endotracheal anesthesia after being positioned in the supine position with the legs frogged only. No Trevon stirrups were used. She was prepped and draped in the normal sterile fashion, including a vaginal prep. A Pfannenstiel skin incision over her prior Pfannenstiel from her 9 months ago was carried down to the layer of fascia, which was then nicked in the midline and extended bilaterally. Tess clamps were used to grasp the superior aspect of the fascial incision and the underlying rectus muscles were dissected off sharply. This was repeated inferiorly without difficulty. The rectus muscles were in the midline, the peritoneum was found, tented up and entered sharply with Metzenbaum scissors. This was extended superiorly and inferiorly to create an adequate peritoneal window. The bowel was packed away and a Kyleigh self-retaining retractor was used to obtain excellent visualization. Please see Dr. Thapa's dictation for the findings of the posterior bladder wall , the primary repair and the testing of the repair. After the bladder repair was performed to its satisfactory completion, the peritoneum was grasped with three Kellys, tented up and sewn shut with a #2-0 Vicryl from inferior to superior. All rectus bellies were noted to be hemostatic. The fascia was then closed from right to left without difficulty with a running suture of #0 Vicryl. The subcutaneous tissue was copiously irrigated, made to be hemostatic, although there was very little bleeding noted and #2-0 Vicryl was used to close off this potential space. Monocryl was then used to close the skin from right to left without difficulty using a subcuticular stitch. Steri-Strips were placed over the incision and a speculum was used to inspect the vaginal cuff, which closure was noted to be intact despite the few stitches that were removed internally that were obviously involving the posterior bladder wall. See Dr. Thapa's dictation for that portion of the procedure. The patient was awakened from general anesthesia, taken to the post-anesthesia care unit (PACU) in stable condition at which time her pain was controlled and the urine in the Smith was noted to be normal yellow color. All counts were correct during the case, all done prior to any closure of any cavity and at the end of the case including sponge, needle and instruments. Please see Dr. Thapa's dictation for the bladder repair portion of the surgery. VITALIY
== END 2017-01-12 13:00 | disposition home or self-care (01) | DRG 742 ==
LOC: M OR 06:06 → M PED 12:20 → M OBS 01-11 00:09
PROVIDERS: ADMIT Obstetrics & Gynecology; ATTEND Obstetrics & Gynecology
PROC: 0UT74ZZ Resection of Bilateral Fallopian Tubes, Percutaneous Endoscopic Approach (ICD-10-PCS; 2017-01-10)
PROC: 0UTC8ZZ Resection of Cervix, Via Natural or Artificial Opening Endoscopic (ICD-10-PCS; 2017-01-10)
PROC: 0TJB8ZZ Inspection of Bladder, Via Natural or Artificial Opening Endoscopic (ICD-10-PCS; 2017-01-10)
PROC: 0UT98ZZ Resection of Uterus, Via Natural or Artificial Opening Endoscopic (ICD-10-PCS; principal; 2017-01-10 07:30)
PROC: 0TQB0ZZ Repair Bladder, Open Approach (ICD-10-PCS; 2017-01-11)
DX: N94.10 Unspecified dyspareunia (principal); N99.71 Accidental puncture and laceration of a genitourinary system organ or structure during a genitourinary system procedure; N92.0 Excessive and frequent menstruation with regular cycle; Z98.84 Bariatric surgery status; Z88.6 Allergy status to analgesic agent; F17.210 Nicotine dependence, cigarettes, uncomplicated; Y73.3 Surgical instruments, materials and gastroenterology and urology devices (including sutures) associated with adverse incidents

== ENCOUNTER 2017-01-14 12:22 | Emergency (ER) | payer OTHER ==
[~2017-01-14] VITALS: Ht 170.2 cm; Wt 56.8 kg
[2017-01-14] MEDS ORDERED: PERC10TA26 (12:32)
[2017-01-14] MEDS ORDERED: PERC10TA26 PO ×2 (12:32→17:35)
[2017-01-14] MEDS ORDERED: SULFAMETHOXAZOLE-TMP (12:32)
[2017-01-14] MEDS ORDERED: NS 1,000 ML IV SCH (12:50)
[2017-01-14] MEDS ORDERED: NS 1,000 ML IV ONE (13:00)
[2017-01-14] MEDS: MORPHINE 2 MG/ML 1ML SYRINGE IV PRN ×4 (13:12→14:33)
[2017-01-14 13:24] LABS: CALCIUM OXALATE CRYSTALS SMALL; INR 0.89
[2017-01-14 13:29] LABS: BASO % 0.4 % (0.0-1.0); EOS # 0.1 K/mm3 (0.0-0.50); EOS % 3.2 % (0.0-3.0); LARGE UNSTAINED CELL # 0.1 K/mm3 (0.0-0.4); LARGE UNSTAINED CELL % 1.4 % (0.0-4.0); LYMPH # 0.7 K/mm3 (1.5-4.5); MEAN CORPUSCULAR HEMOGLOBIN 30.8 pg (27.0-33.0); MEAN CORPUSCULAR HGB CONC 33.1 g/dl (32.0-36.5); MEAN CORPUSCULAR VOLUME 93.1 fl (80.0-96.0); MONO # 0.3 K/mm3 (0.0-0.8); MONO % 6.7 % (0.0-5.0); NEUTROPHILS # 3.3 K/mm3 (1.8-7.7); NEUTROPHILS % 73.4 % (36.0-66.0); PLATELET COUNT, AUTOMATED 282 k/mm3 (150-450); RED CELL DISTRIBUTION WIDTH 14.1 % (11.5-14.5); WHITE BLOOD COUNT 4.5 K/mm3 (4.0-10.0)
[2017-01-14 13:39] LABS: ALBUMIN/GLOBULIN RATIO 0.94 (1.00-1.93); ALKALINE PHOSPHATASE 58 U/L (45-117); ALT/SGPT 17 U/L (12-78); AMYLASE 16 U/L (25-115); ANION GAP 5 MEQ/L (8-16); AST/SGOT 11 U/L (15-37); BILIRUBIN,DIRECT 0.2 MG/DL (0.0-0.2); BILIRUBIN,TOTAL 0.5 MG/DL (0.2-1.0); BLOOD UREA NITROGEN 7 MG/DL (7-18); CALCIUM LEVEL 8.5 MG/DL (8.5-10.1); CARBON DIOXIDE LEVEL 29 MEQ/L (21-32); CHLORIDE LEVEL 105 MEQ/L (98-107); CREATININE FOR GFR 0.53 MG/DL (0.55-1.02); GLOMERULAR FILTRATION RATE > 60.0 (>58); GLUCOSE, FASTING 93 MG/DL (70-105); MAGNESIUM LEVEL 2.2 MG/DL (1.8-2.4); TOTAL PROTEIN 6.2 GM/DL (6.4-8.2)
[2017-01-14 13:50] LABS: POTASSIUM SERUM 3.8 MEQ/L (3.5-5.1); SODIUM LEVEL 140 MEQ/L (136-145)
--- NOTE | 2017-01-14 13:59 | REP ---
CT abdomen pelvis without IV and oral contrast: Comparison is 01/11/2017. On the comparison study, the patient was 1 day post hysterectomy. The patient is approximate 4 days post hysterectomy today. There has been interval placement of a pelvic surgical drain. There are bubbles of free air in the pelvis anterior to the bladder. The number of free air bubbles has increased. There are bubbles of free air in the anterior abdominal wall of the pelvis. This has also increased. There is edema throughout the pelvic fat planes. I do not identify a focal fluid collection to suggest abscess. The kennedy of the bladder are poorly defined. There is a Smith catheter in the bladder. The visualized lung lehman are unremarkable. The unenhanced hepatic parenchyma, gallbladder, pancreas and spleen are unremarkable. There are left upper quadrant surgical staple lines compatible with bariatric surgery, unchanged. The adrenals are unremarkable. No hydronephrosis. No ascites or bowel distension. The margins of the vaginal cuff are poorly defined. There are phleboliths in the pelvis. Impression: The number of air bubbles indicating free intraperitoneal air anterior to the bladder have increased. The number of free air bubbles in the anterior abdominal wall and increase. There has been interim placement of a pelvic surgical drain. The pelvic fat planes are edematous. No focal fluid collection is identified to suggest abscess. Signed by Harvey Willis MD 01/14/2017 01:51 P
[2017-01-14] MEDS ORDERED: HYDROmorphone HCL 1 MG/ML SYRINGE (J1170) IV ONE (14:30)
[2017-01-14] MEDS ORDERED: FLEET OIL RETENTION ENEMA PR ONE (14:30)
[2017-01-14] MEDS ORDERED: MAGNESIUM CITRATE 300 ML BTL PO ONE (14:30)
[2017-01-14] MEDS ORDERED: MIRALAX *UNIT DOSE* 17GM PACKET PO ONE (14:30)
[2017-01-14] MEDS ORDERED: PIPERACILLIN/TAZOBACTAM SOD 4.5 GM in D5W MINI-BAG PLUS 50 ML IV ONE (15:00)
[2017-01-14 17:34] VITALS: BP 113/70
[2017-01-14] MEDS ORDERED: SENN1TAB2 PO (17:35)
== END 2017-01-14 17:41 | disposition home or self-care (01) ==
LOC: M ED 12:22
DX: K59.00 Constipation, unspecified (principal); Z72.0 Tobacco use; Z98.84 Bariatric surgery status
CPT/HCPCS: 74176; 80048; 80076; 81001; 82150; 83605; 83690; 83735; 85025; 85610; 85730; 86140; 86850; 86900; 86901; 87040; 87086; 93041; 96361; 96365; 96375; 99285; J2543

== ENCOUNTER → 2017-01-23 | Outpatient (CLI) | payer OTHER ==
[~2017-01-23] MED LIST changes: +CYSTO-CONRAY II 17.2% 250ML VIAL (Q9958) As Ordered ONE; +PERC10TA26; +SENN1TAB2 PO; +SULFAMETHOXAZOLE-TMP
--- NOTE | 2017-01-23 12:14 | REP ---
Cystogram: Six views. History: Hysterectomy with bladder cystotomy. Question bladder disruption. Smith catheter in place. 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 Bowel gas pattern is normal. 100 ml of Cysto-Conray was initially infused and AP and lateral views of the bladder were obtained. These views demonstrate no evidence of bladder disruption or extravasation. An additional 100 ml was instilled and the views were repeated. The patient relayed that she could not tolerate any more filling. No evidence of extravasation or rupture. Bladder kennedy are fairly smooth. Postvoid image with Smith catheter in place shows complete emptying and still no evidence of extravasation. Impression: The urinary bladder appears intact. Signed by Aaron De Leon MD 01/23/2017 12:39 P
== END | disposition home or self-care (01) ==
LOC: M RADPRO 10:22
PROVIDERS: ATTEND Obstetrics & Gynecology
DX: S37.20XD Unspecified injury of bladder, subsequent encounter (principal); X58.XXXA Exposure to other specified factors, initial encounter; Y92.89 Other specified places as the place of occurrence of the external cause; Y93.89 Activity, other specified; Y99.8 Other external cause status; Z96.0 Presence of urogenital implants; Z90.710 Acquired absence of both cervix and uterus
CPT/HCPCS: 51600; 74430; Q9958

== ENCOUNTER → 2017-02-25 | Outpatient (REF) | payer OTHER ==
[~2017-02-25] MED LIST changes: -CYSTO-CONRAY II 17.2% 250ML VIAL (Q9958) As Ordered ONE
== END ==
LOC: M SFHCLERA 17:09
PROVIDERS: ATTEND Physician Assistant
DX: J06.9 Acute upper respiratory infection, unspecified (principal)

== ENCOUNTER → 2017-02-27 | Outpatient (REF) | payer OTHER ==
[2017-02-27 21:40] LABS: BACTERIA, URINE MOD AMOUNT; CALCIUM OXALATE CRYSTALS,URINE LARGE AMOUNT /hpf; RBC, URINE 0-1 /hpf (0-3); SQUAMOUS EPITHELIAL CELL URINE MOD AMOUNT /hpf (SMALL AMT)
[2017-02-27 21:41] LABS: HYALINE CAST, URINE NONE SEEN /lpf (0-1); MICROSCOPIC EXAM PERFORMED
[2017-03-02 10:14] LABS: Candida species Negative (Negative); Gardnerella vaginalis Positive (Negative); Trichamonas vaginalis Negative (Negative)
== END ==
LOC: M SMT 17:09
PROVIDERS: ATTEND Specialist
DX: N89.8 Other specified noninflammatory disorders of vagina (principal); N32.89 Other specified disorders of bladder

== ENCOUNTER → 2017-08-02 | Outpatient (CLI) | payer OTHER ==
[2017-08-02 09:28] LABS: HEMATOCRIT 36.5 % (36.0-47.0); HEMOGLOBIN 11.8 g/dl (12.0-16.0); MEAN CORPUSCULAR HEMOGLOBIN 29.3 pg (27.0-33.0); MEAN CORPUSCULAR HGB CONC 32.3 g/dl (32.0-36.5); MEAN CORPUSCULAR VOLUME 90.6 fl (80.0-96.0); PLATELET COUNT, AUTOMATED 398 10^3/uL (150-450); RED BLOOD COUNT 4.03 10^6/uL (4.00-5.40); RED CELL DISTRIBUTION WIDTH 12.9 % (11.5-14.5); WHITE BLOOD COUNT 4.5 10^3/uL (4.0-10.0)
[2017-08-02 09:48] LABS: ALBUMIN 4.1 GM/DL (3.2-5.2); ALBUMIN/GLOBULIN RATIO 1.52 (1.00-1.93); ALKALINE PHOSPHATASE 76 U/L (45-117); ALT/SGPT 22 U/L (12-78); ANION GAP 5 MEQ/L (8-16); AST/SGOT 15 U/L (7-37); BILIRUBIN,TOTAL 0.4 MG/DL (0.2-1.0); BLOOD UREA NITROGEN 13 MG/DL (7-18); CARBON DIOXIDE LEVEL 30 MEQ/L (21-32); CHLORIDE LEVEL 106 MEQ/L (98-107); CHOLESTEROL LEVEL 164 MG/DL (<200); CHOLESTEROL RISK RATIO 2.376 (<5); CREATININE FOR GFR 0.59 MG/DL (0.55-1.30); GLOMERULAR FILTRATION RATE > 60.0 (>58); GLUCOSE, FASTING 90 MG/DL (70-100); HDL CHOLESTEROL 69 MG/DL (>40); IRON (FE) 66 UG/DL (50-170); LDL CHOLESTEROL 78.4 MG/DL (<100); MAGNESIUM LEVEL 2.2 MG/DL (1.8-2.4); NON-HDL-C 95 MG/DL; PERCENT SATURATION 15.5 % (13.2-45.0); POTASSIUM SERUM 4.2 MEQ/L (3.5-5.1); SODIUM LEVEL 141 MEQ/L (136-145); THYROID STIMULATING HORMONE 0.102 uIU/ML (0.358-3.740); TOTAL IRON BINDING CAPACITY 425 UG/DL (250-450); TOTAL PROTEIN 6.8 GM/DL (6.4-8.2); TRIGLYCERIDES LEVEL 83 MG/DL (<150)
[2017-08-02 09:58] LABS: TOTAL 25(OH) VITAMIN D 21.5 NG/ML (30.0-100.0); VITAMIN B12 LEVEL 309 PG/ML (247-911)
[2017-08-02 10:07] LABS: ESTIMATED AVERAGE GLUCOSE 100 MG/DL (60-110); HEMOGLOBIN A1c 5.1 %
== END ==
LOC: M LAB 08:37
DX: D64.9 Anemia, unspecified (principal); R53.83 Other fatigue

== ENCOUNTER → 2017-08-30 | Outpatient (CLI) | payer OTHER ==
[~2017-08-30] MED LIST changes: -BENA25CA4 PO; -CALCTAB68 PO; -CARA1TAB6 PO; -COLA100C5 PO; +E-Z-GAS II EFFERVESCENT PACKET (SODIUM BICARB./CITRIC ACID/SIMETHICONE) As Ordered; +E-Z-HD 98% w/w 340GM SUSP BTL As Ordered; +E-Z-PAQUE 96% w/w SUSP 176GM BTL As Ordered; -KLON0.5T PO; -MULTCAP PO; -OXYC1TAB23 PO; -OXYC30TA84 PO; -PEPC1TAB2 PO; -PERC10TA26; -PERC10TA26 PO; -PERC5TAB12 PO; -PHEN1SUP6 PO; -PRENTAB9 PO; -PROT1TAB2 PO; -SENN1TAB2 PO; -SULFAMETHOXAZOLE-TMP; -VITA10002 PO; -VITAMIN B12 INJ; -ZOFR20TA PO; -percocet
== END ==
LOC: M RAD 10:34
DX: R10.13 Epigastric pain (principal); R22.2 Localized swelling, mass and lump, trunk
CPT/HCPCS: 76536

== ENCOUNTER → 2017-09-22 | Outpatient (REF) | payer OTHER ==
[2017-09-22 13:48] LABS: APPEARANCE, URINE CLEAR (CLEAR); BACTERIA, URINE AUTO NEGATIVE (NEGATIVE); BILIRUBIN, URINE AUTO NEGATIVE (NEGATIVE); BLOOD, URINE BLOOD NEGATIVE (NEGATIVE); COLOR, URINE YELLOW (YELLOW); GLUCOSE, URINE (UA) AUTO NEGATIVE (NEGATIVE); KETONE, URINE AUTO NEGATIVE (NEGATIVE); LEUKOCYTE ESTERASE, URINE AUTO NEGATIVE (NEGATIVE); MUCUS, URINE SMALL (NEGATIVE); NITRITE, URINE AUTO NEGATIVE (NEGATIVE); PROTEIN, URINE AUTO NEGATIVE (NEGATIVE); RBC, URINE AUTO 1 /HPF (0-3); SPECIFIC GRAVITY URINE AUTO 1.017 (1.002-1.035); SQUAMOUS EPITHELIAL CELL UR AU 1 /HPF (0-6); UROBILINOGEN, URINE AUTO 0.2 mg/dL (0.0-2.0); WBC, URINE AUTO 2 /HPF (0-3)
== END ==
LOC: M SMT 13:12
DX: R30.0 Dysuria (principal)

== ENCOUNTER → 2017-09-22 | Outpatient (REF) | payer OTHER ==
[2017-09-24 00:06] LABS: Candida species Negative (Negative); Gardnerella vaginalis Positive (Negative); Trichamonas vaginalis Negative (Negative)
== END ==
LOC: M SMT 13:17
DX: R30.0 Dysuria (principal)

== ENCOUNTER → 2017-12-04 | Outpatient (REF) | payer OTHER ==
[2017-12-04 16:12] LABS: THYROID PEROXIDASE ANTIBODY < 28.0 U/ML (<60.0)
[2017-12-04 16:15] LABS: TOTAL T3 79.4 NG/DL (60.0-181.0)
[2017-12-05 16:02] LABS: FREE T4 0.88 NG/DL (0.76-1.46)
[2017-12-08 00:09] LABS: THYROID STIMULATING IMMUNOGLOB <0.10 IU/L (0.00-0.55)
== END ==
LOC: M LABDRAW1 14:18
DX: E05.90 Thyrotoxicosis, unspecified without thyrotoxic crisis or storm (principal)

== ENCOUNTER → 2018-03-19 | Outpatient (REF) | payer OTHER ==
[2018-03-19 22:07] LABS: APPEARANCE, URINE HAZY (CLEAR); BACTERIA, URINE AUTO NEGATIVE (NEGATIVE); BILIRUBIN, URINE AUTO NEGATIVE (NEGATIVE); BLOOD, URINE BLOOD NEGATIVE (NEGATIVE); CALCIUM OXALATE CRYSTALS LARGE; COLOR, URINE YELLOW (YELLOW); GLUCOSE, URINE (UA) AUTO NEGATIVE (NEGATIVE); KETONE, URINE AUTO NEGATIVE (NEGATIVE); LEUKOCYTE ESTERASE, URINE AUTO TRACE (NEGATIVE); MUCUS, URINE SMALL (NEGATIVE); NITRITE, URINE AUTO NEGATIVE (NEGATIVE); PROTEIN, URINE AUTO NEGATIVE (NEGATIVE); RBC, URINE AUTO 1 /HPF (0-3); SPECIFIC GRAVITY URINE AUTO 1.021 (1.002-1.035); SQUAMOUS EPITHELIAL CELL UR AU 2 /HPF (0-6); WBC, URINE AUTO 11 /HPF (0-3)
== END ==
LOC: M LAB REF 21:41
DX: N39.0 Urinary tract infection, site not specified (principal)

== ENCOUNTER 2018-09-12 22:33 | Emergency (ER) | payer OTHER ==
[~2018-09-12] VITALS: Ht 170.2 cm; Wt 80.9 kg
[~2018-09-12 22:33] MED LIST changes: +BENA25CA4 PO; +CALCTAB68 PO; +CARA1TAB6 PO; +COLA100C5 PO; -E-Z-GAS II EFFERVESCENT PACKET (SODIUM BICARB./CITRIC ACID/SIMETHICONE) As Ordered; -E-Z-HD 98% w/w 340GM SUSP BTL As Ordered; -E-Z-PAQUE 96% w/w SUSP 176GM BTL As Ordered; +KLON0.5T PO; +MULTCAP PO; +OXYC1TAB23 PO; +OXYC30TA84 PO; +PEPC40TA12 PO; +PERC10TA26; +PERC10TA26 PO; +PERC5TAB12 PO; +PHEN1SUP6 PO; +PRENTAB9 PO; +PROT1TAB2 PO; +SENN1TAB40 PO; +SULFAMETHOXAZOLE-TMP; +VITA10002 PO; +VITAMIN B12 INJ; +ZOFR4TAB16 PO; +percocet
[2018-09-12] MEDS ORDERED: diphenhydrAMINE INJ 50MG/ML VIAL (J1200) IM ONE (23:15)
[2018-09-12] MEDS ORDERED: HALOPERIDOL 5 MG/ML VIAL (J1630) IM ONE (23:15)
[2018-09-12] MEDS ORDERED: LORazepam 2 MG/ML VIAL (J2060) IM ONE (23:15)
[2018-09-13 00:31] LABS: HEMATOCRIT 36.4 % (36.0-47.0); HEMOGLOBIN 12.1 g/dl (12.0-15.5); MEAN CORPUSCULAR HEMOGLOBIN 31.6 pg (27.0-33.0); MEAN CORPUSCULAR HGB CONC 33.2 g/dl (32.0-36.5); PLATELET COUNT, AUTOMATED 290 10^3/uL (150-450); RED BLOOD COUNT 3.83 10^6/uL (4.00-5.40); WHITE BLOOD COUNT 10.2 10^3/uL (4.0-10.0)
[2018-09-13 00:54] LABS: HCG, SERUM QUALITATIVE NEGATIVE (NEGATIVE)
[2018-09-13 00:56] LABS: AMPHETAMINES LEVEL URINE NEGATIVE (NEGATIVE); BARBITURATES URINE NEGATIVE (NEGATIVE); BENZODIAZEPINES URINE NEGATIVE (NEGATIVE); CANNABINOIDS URINE NEGATIVE (NEGATIVE); COCAINE METABOLITE URINE POSITIVE (NEGATIVE); METHADONE URINE NEGATIVE (NEGATIVE); OPIATES URINE NEGATIVE (NEGATIVE); PHENCYCLIDINE URINE NEGATIVE (NEGATIVE)
[2018-09-13 01:08] LABS: ACETAMINOPHEN LEVEL < 2.0 UG/ML (10.0-30.0); ALBUMIN 3.9 GM/DL (3.2-5.2); ALT/SGPT 23 U/L (12-78); BILIRUBIN,DIRECT 0.1 MG/DL (0.0-0.2); BILIRUBIN,TOTAL 0.3 MG/DL (0.2-1.0); BLOOD UREA NITROGEN 9 MG/DL (7-18); CALCIUM LEVEL 8.4 MG/DL (8.5-10.1); CARBON DIOXIDE LEVEL 25 MEQ/L (21-32); CHLORIDE LEVEL 109 MEQ/L (98-107); CREATININE FOR GFR 0.41 MG/DL (0.55-1.30); ETHYL ALCOHOL (ETHANOL) 0.101 % (0.000-0.010); GLOMERULAR FILTRATION RATE > 60.0 (>58); GLUCOSE, FASTING 70 MG/DL (70-100); POTASSIUM SERUM 3.6 MEQ/L (3.5-5.1); SALICYLATE LEVEL 3.1 MG/DL (5.0-30.0); SODIUM LEVEL 144 MEQ/L (136-145); THYROID STIMULATING HORMONE 0.354 uIU/ML (0.358-3.740); TOTAL PROTEIN 6.7 GM/DL (6.4-8.2)
[2018-09-13 09:36] VITALS: BP 91/53
== END 2018-09-13 09:38 | disposition home or self-care (01) ==
LOC: M ED 22:33
DX: F10.10 Alcohol abuse, uncomplicated (principal); F14.10 Cocaine abuse, uncomplicated; Y90.0 Blood alcohol level of less than 20 mg/100 ml; Z87.19 Personal history of other diseases of the digestive system; Z98.84 Bariatric surgery status
CPT/HCPCS: 36415; 80048; 80076; 80307; 84443; 84703; 85027; 96372; 99285; G0480; J1200; J1630; J2060

== ENCOUNTER 2019-01-21 02:16 | Emergency (ER) | payer OTHER ==
[~2019-01-21] VITALS: Ht 170.2 cm; Wt 61.4 kg
[2019-01-21 02:16] VITALS: BP 163/90
[~2019-01-21 02:16] MED LIST changes: +CYAN100049 PO; -VITA10002 PO
[2019-01-21] MEDS ORDERED: GABA-843 PO (02:49)
--- NOTE | 2019-01-21 04:29 | ED PDOC ---
Post-Departure Follow-Up I WENT TO SEE PATIENT AND SHE HAD ELOPED. PATIENT LEFT WITHOUT BEING SEEN. KAILEY COOL, DO Jan 21, 2019 04:29
[2019-01-21] MEDS ORDERED: TRUVTAB PO (08:06)
[2019-01-21] MEDS ORDERED: RALT40TA PO (08:06)
== END 2019-01-21 04:30 | disposition left against medical advice (07) ==
LOC: M ED 02:16
DX: Z53.21 Procedure and treatment not carried out due to patient leaving prior to being seen by health care provider (principal)

== ENCOUNTER 2019-01-21 04:39 | Emergency (ER) | payer OTHER ==
[~2019-01-21] VITALS: Ht 170.2 cm; Wt 61.4 kg
[~2019-01-21 04:39] MED LIST changes: +GABA-843 PO; +SENN-53 PO; -SENN1TAB40 PO
[2019-01-21] MEDS ORDERED: cefTRIAXone SOD 250 MG VIAL (J0696) IM ONE (06:00)
[2019-01-21] MEDS ORDERED: PERCOCET 5MG/325MG TAB PO ONE (06:00)
[2019-01-21] MEDS ORDERED: EXPOSURE KIT-ADULT 7 DAY SUPPLY PO ONE (06:00)
[2019-01-21] MEDS ORDERED: metroNIDAZOLE (FLAGYL) 500 MG TAB PO ONE (06:00)
[2019-01-21] MEDS ORDERED: LIDOCAINE 1% SDV 5 ML VIAL DILUENT ONE (06:00)
[2019-01-21] MEDS ORDERED: AZITHROMYCIN 250 MG TAB PO ONE (06:00)
[2019-01-21] MEDS ORDERED: ONDANSETRON 4 MG ORAL DISINTEGRATING TAB (Q0162 PER 1MG) PO ONE (06:15)
[2019-01-21 07:33] LABS: BASO % 0.5 % (0.0-1.0); EOS # 0.1 10^3/uL (0.0-0.50); EOS % 1.1 % (0.0-3.0); HEMOGLOBIN 12.7 g/dl (12.0-15.5); LYMPH # 1.4 10^3/uL (1.5-4.5); LYMPH % 15.8 % (24.0-44.0); MEAN CORPUSCULAR HEMOGLOBIN 30.6 pg (27.0-33.0); MEAN CORPUSCULAR HGB CONC 32.6 g/dl (32.0-36.5); MONO # 0.5 10^3/uL (0.0-0.8); MONO % 5.8 % (0.0-5.0); NEUTROPHILS # 6.5 10^3/uL (1.8-7.7); NEUTROPHILS % 76.7 % (36.0-66.0); PLATELET COUNT, AUTOMATED 372 10^3/uL (150-450); RED BLOOD COUNT 4.15 10^6/uL (4.00-5.40); WHITE BLOOD COUNT 8.5 10^3/uL (4.0-10.0)
[2019-01-21 07:35] VITALS: BP 159/85
[2019-01-21 07:40] LABS: CHLAMYDIA DNA AMPLIFICATION NEGATIVE (NEGATIVE); GC DNA AMPLIFICATION NEGATIVE (NEGATIVE)
[2019-01-21 07:57] LABS: ALBUMIN 3.7 GM/DL (3.2-5.2); ALT/SGPT 54 U/L (12-78); BILIRUBIN,TOTAL 0.2 MG/DL (0.2-1.0); BLOOD UREA NITROGEN 9 MG/DL (7-18); CALCIUM LEVEL 9.1 MG/DL (8.5-10.1); CARBON DIOXIDE LEVEL 30 MEQ/L (21-32); CHLORIDE LEVEL 104 MEQ/L (98-107); CREATININE FOR GFR 0.59 MG/DL (0.55-1.30); GLOMERULAR FILTRATION RATE > 60.0 (>58); GLUCOSE, FASTING 135 MG/DL (70-100); POTASSIUM SERUM 3.8 MEQ/L (3.5-5.1); SODIUM LEVEL 138 MEQ/L (136-145); TOTAL PROTEIN 7.1 GM/DL (6.4-8.2)
[2019-01-21] MEDS ORDERED: TRUVTAB PO (08:06)
[2019-01-21] MEDS ORDERED: RALT40TA PO (08:06)
--- NOTE | 2019-01-21 08:14 | REP ---
Right ribs four views: No rib fracture or other rib abnormality are identified. PA chest: Comparison is 07/14/2016. There is no pneumothorax, hemothorax or pulmonary contusion. There is no pleural thickening. The lung lehman are clear. Cardiac size is normal. The layne, mediastinum, skeletal structures are unremarkable. Impression: Negative PA chest. There is no interval change. Electronically Signed by Harvey Willis MD 01/21/2019 08:06 A
[2019-01-21 11:04] LABS: HEPATITIS B SURFACE ANTIBODY NEGATIVE (POSITIVE)
[2019-01-21 11:07] LABS: HEPATITIS B SURFACE ANTIGEN NEGATIVE (NEGATIVE)
[2019-01-21 11:43] LABS: HIV 1&2 SCREEN CENTAUR NEGATIVE (NEGATIVE)
[2019-03-11] MEDS ORDERED: OMEP40CA97 PO (09:51)
[2019-04-29] MEDS ORDERED: OMEP1CAP73 PO (18:22)
== END 2019-01-21 08:18 | disposition home or self-care (01) ==
LOC: M ED 04:39
DX: T76.21XA Adult sexual abuse, suspected, initial encounter (principal); Z79.899 Other long term (current) drug therapy; Z88.5 Allergy status to narcotic agent; Z88.8 Allergy status to other drugs, medicaments and biological substances; Z91.041 Radiographic dye allergy status; Z91.048 Other nonmedicinal substance allergy status
CPT/HCPCS: 71101; 80053; 85025; 86706; 86803; 87340; 87389; 87491; 87591; 96372; 99283; J0696; Q0162

== ENCOUNTER → 2019-03-05 | Outpatient (REF) | payer OTHER ==
[~2019-03-05] MED LIST changes: +ABIL1TAB11 PO; +C 50TAB PO; +GABA600T4 PO; +NICO21PAT TD; +OMEP40CA2 PO; +RALT40TA PO; -SENN-53 PO; +SENN1TAB40 PO; +SUCR1TAB56 PO; +TRUVTAB PO; +VITA100018 PO
[2019-03-05 22:52] LABS: CHLAMYDIA DNA AMPLIFICATION NEGATIVE (NEGATIVE); GC DNA AMPLIFICATION NEGATIVE (NEGATIVE)
== END ==
LOC: M LAB REF 09:59
PROVIDERS: ATTEND Physician Assistant
DX: R30.0 Dysuria (principal)

== ENCOUNTER 2019-03-10 20:42 | Inpatient (IN) | payer OTHER ==
[~2019-03-10] VITALS: Ht 170.2 cm; Wt 64.8 kg
[~2019-03-10 20:42] MED LIST changes: -ABIL1TAB11 PO; -C 50TAB PO; -GABA600T4 PO; -NICO21PAT TD; -OMEP40CA2 PO; -SUCR1TAB56 PO; -VITA100018 PO
[2019-03-10] MEDS ORDERED: NICOTINE 21MG/24HR 1 EA TRANSDERMAL TD ONE (21:00)
[2019-03-10 21:05] LABS: HEMATOCRIT 43.1 % (36.0-47.0); HEMOGLOBIN 13.9 g/dl (12.0-15.5); MEAN CORPUSCULAR HEMOGLOBIN 29.2 pg (27.0-33.0); MEAN CORPUSCULAR HGB CONC 32.3 g/dl (32.0-36.5); MEAN CORPUSCULAR VOLUME 90.5 fl (80.0-96.0); PLATELET COUNT, AUTOMATED 383 10^3/uL (150-450); RED BLOOD COUNT 4.76 10^6/uL (4.00-5.40)
[2019-03-10] MEDS ORDERED: NS 1,000 ML IV ONE (21:15)
[2019-03-10 21:32] LABS: HCG, SERUM QUALITATIVE NEGATIVE (NEGATIVE)
[2019-03-10 21:36] LABS: ACETAMINOPHEN LEVEL 32.3 UG/ML (10.0-30.0); ALBUMIN 4.1 GM/DL (3.2-5.2); ALT/SGPT 25 U/L (12-78); BILIRUBIN,DIRECT 0.1 MG/DL (0.0-0.2); BILIRUBIN,TOTAL 0.3 MG/DL (0.2-1.0); BLOOD UREA NITROGEN 8 MG/DL (7-18); CALCIUM LEVEL 8.8 MG/DL (8.5-10.1); CARBON DIOXIDE LEVEL 30 MEQ/L (21-32); CHLORIDE LEVEL 106 MEQ/L (98-107); ETHYL ALCOHOL (ETHANOL) 0.243 % (0.000-0.010); GLOMERULAR FILTRATION RATE > 60.0 (>58); GLUCOSE, FASTING 85 MG/DL (70-100); POTASSIUM SERUM 3.7 MEQ/L (3.5-5.1); SALICYLATE LEVEL 3.4 MG/DL (5.0-30.0); SODIUM LEVEL 141 MEQ/L (136-145); TOTAL PROTEIN 7.7 GM/DL (6.4-8.2)
[2019-03-10 21:40] LABS: AMPHETAMINES LEVEL URINE NEGATIVE (NEGATIVE); BARBITURATES URINE NEGATIVE (NEGATIVE); BENZODIAZEPINES URINE NEGATIVE (NEGATIVE); CANNABINOIDS URINE NEGATIVE (NEGATIVE); COCAINE METABOLITE URINE POSITIVE (NEGATIVE); METHADONE URINE NEGATIVE (NEGATIVE); OPIATES URINE POSITIVE (NEGATIVE); PHENCYCLIDINE URINE NEGATIVE (NEGATIVE)
[2019-03-10] MEDS ORDERED: diphenhydrAMINE INJ 50MG/ML VIAL (J1200) IM ONE (22:15)
[2019-03-10] MEDS ORDERED: HALOPERIDOL 5 MG/ML VIAL (J1630) IM ONE (22:15)
[2019-03-10] MEDS ORDERED: LORazepam 2 MG/ML VIAL (J2060) IM ONE (22:15)
--- NOTE | 2019-03-11 00:24 | ECGEPIP ---
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
[2019-03-11] MEDS ORDERED: GABA600T4 PO (09:51)
[2019-03-11] MEDS ORDERED: VITA100018 PO (09:51)
[2019-03-11] MEDS ORDERED: C 50TAB PO (09:51)
[2019-03-11] MEDS ORDERED: OMEP40CA2 PO (09:51)
[2019-03-11] MEDS ORDERED: SUCR1TAB56 PO (09:51)
[2019-03-11] MEDS ORDERED: LORazepam 2 MG TAB PO STA (10:47)
[2019-03-11] MEDS ORDERED: MAALOX 30 ML SUSP *UDC PO PRN (15:00)
[2019-03-11] MEDS ORDERED: MOM 30ML SUSPENSION UDC PO PRN (15:00)
[2019-03-11] MEDS ORDERED: IBUPROFEN 400 MG TAB PO PRN (15:00)
[2019-03-11] MEDS ORDERED: MULTIVITAMINS/MINERALS THERAP 1 TAB PO SCH (16:00)
[2019-03-11] MEDS ORDERED: GABAPENTIN 300 MG CAP PO SCH (16:00)
[2019-03-11] MEDS: FOLIC ACID 1 MG TAB PO SCH (17:57)
[2019-03-11] MEDS: THIAMINE 100 MG TAB PO SCH ×2 (17:57→19:36)
[2019-03-11] MEDS: NICOTINE 21MG/24HR 1 EA TRANSDERMAL TD SCH (18:05)
[2019-03-11] MEDS: ACETAMINOPHEN TAB 650MG DOSE (2X325MG) PO PRN ×2 (18:05→19:38)
[2019-03-11] MEDS: OMEPRAZOLE 20 MG CAP PO SCH (19:35)
[2019-03-11] MEDS: SUCRALFATE 1 GM TAB PO SCH (19:36)
[2019-03-11] MEDS: GABAPENTIN 300 MG CAP PO SCH (19:36)
[2019-03-11] MEDS: NITROFURANTOIN (MACROBID) 100 MG CAP PO SCH (19:36)
[2019-03-11] MEDS: QUEtiapine FUMARATE 100 MG TAB PO SCH (19:36)
[2019-03-11] MEDS: traZODone 50 MG TAB PO PRN (20:49)
[2019-03-11 21:30] VITALS: BP 112/63
[2019-03-11] MEDS: LORazepam 2 MG TAB PO PRN (21:37)
[2019-03-12] MEDS: NITROFURANTOIN (MACROBID) 100 MG CAP PO SCH ×2 (08:20→20:06)
[2019-03-12] MEDS: PRENATAL VITAMINS CHEWABLE TABLET PO SCH (08:20)
[2019-03-12] MEDS: NICOTINE 21MG/24HR 1 EA TRANSDERMAL TD SCH (08:20)
[2019-03-12] MEDS: GABAPENTIN 300 MG CAP PO SCH ×4 (08:20→20:06)
[2019-03-12] MEDS: ASCORBIC ACID 500 MG TAB PO SCH (08:20)
[2019-03-12] MEDS: CYANOCOBALAMIN 500 MCG TAB PO SCH (08:20)
[2019-03-12] MEDS: THIAMINE 100 MG TAB PO SCH ×2 (08:20→20:07)
[2019-03-12] MEDS: FOLIC ACID 1 MG TAB PO SCH (08:20)
[2019-03-12 08:45] VITALS: BP 122/78
[2019-03-12] MEDS: LORazepam 2 MG TAB PO PRN ×2 (08:47→12:42)
[2019-03-12] MEDS ORDERED: NITROFURANTOIN (MACROBID) 100 MG CAP PO SCH (09:00)
[2019-03-12 10:35] VITALS: BP 114/79
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
[2019-03-12] MEDS: cloNIDine 0.1 MG TAB PO PRN ×2 (12:43→21:30)
[2019-03-12 12:44] VITALS: BP 143/85
--- NOTE | 2019-03-12 14:25 | HPEPDOC ---
General Date of Admission Mar 11, 2019 at 14:54 Date of Service: Mar 12, 2019 Attending Physician: JEFF PRINCE MD Chief Complaint The patient is a 43-year-old female admitted with a reason for visit of Unspecified Depressive Disorder. Source: Patient, RN/, Old records Exam Limitations: No limitations Timing/Duration: Changing over time Severity: Mild Associated Symptoms: Headaches, Nausea, Other (Anxiety) History of Present Illness Medical Consultation 43 year old female is being seen today for medical clearance as she was brought into [facility] for SI tendency, ETOH intoxication with polysubstance abuse. She has complaints of anxiety, nausea, back pain, weakness, insomnia and depression today and recent infection for trichomonas for which she was taking Metronidazole 500 mg po twice a day.She has significant medical history of gastric bypass with recent revision, bipolar disorder, hypoglycemia, anxiety, depression, homelessness. Her urine toxicology was positive for cocaine and ethyl alcohol. She reports she is a mother of 5 with one 10 year son who has bipolar disorder, ODD, OCD in CPS custody and 3 year old twins who are with their biological dad. She is concerned about where she will live when she is discharged from [facility] as she has no place to live but wants go gain possession of her son from [facility]. Home Medications Scheduled Aripiprazole (Aripiprazole) 10 Mg Tablet, 0.5 TAB PO DAILY for mood Ascorbic Acid (Vitamin C) 500 Mg Tablet, 1,000 MG PO DAILY, (Reported) Ascorbic Acid (Vitamin C) 500 Mg Tablet, 1,000 MG PO DAILY for vitamin Cyanocobalamin (Vitamin B-12) (Vitamin B-12) 1,000 Mcg Tablet, 1,000 MCG PO DAILY, (Reported) Cyanocobalamin (Vitamin B-12) (Vitamin B-12) 500 Mcg Tablet, 1,000 MCG PO DAILY for vitamin Folic Acid (Folic Acid) 1 Mg Tablet, 1 MG PO DAILY for vitamin Gabapentin (Gabapentin) 600 Mg Tablet, 600 MG PO TID, (Reported) Gabapentin (Gabapentin) 300 Mg Capsule, 600 MG PO QID for pain Nicotine (Nicotine Patch) 21 Mg Patch.td24, 1 PATCH TD DAILY for tobacco Omeprazole (Omeprazole) 40 Mg Capsule.dr, 40 MG PO QHS, (Reported) Omeprazole (Omeprazole) 20 Mg Capsule.dr, 40 MG PO QHS for GERD Pnv No.118/Iron Fumarate/FA ( 19 Chewable Tablet) 1 Each Tab.chew, 2 TAB PO DAILY for vitamin Sucralfate (Sucralfate) 1 Gm Tablet, 1 GM PO QHS, (Reported) Sucralfate (Sucralfate) 1 Gm Tablet, 1 GM PO QHS for Gi Thiamine Hcl (Vitamin B-1) 100 Mg Tablet, 100 MG PO BID for vitamin Scheduled PRN Clonidine Hcl (Clonidine HCl) 0.1 Mg Tablet, 0.5 MG PO TIDP PRN for WITHDRAWAL SYMPTOMS Allergies Coded Allergies: Contrast Media (Unverified Allergy, Unknown, RASH/hives, 01/21/19) codeine (Verified Allergy, Unknown, RASH, 01/21/19) RASH iodine (Verified Allergy, Unknown, 01/21/19) menthol (Verified Allergy, Unknown, chemical burn, 01/21/19) methyl salicylate (Verified Allergy, Unknown, chemical burn, 01/21/19) NSAIDS (Non-Steroidal Anti-Inflamma (Unverified Adverse Reaction, Unknown, avoids, gastric bypass, 01/21/19) camphor (Verified Adverse Reaction, Unknown, from bengay patch, chemical burn, 01/21/19) carboxymethylcellulose sodium (Verified Adverse Reaction, Unknown, carboxymethylcellulose listed as having an adverse reaction, 01/21/19) Past Medical History Medical History See HPI Surgical History Gastric bypass with recent revision, Hysterectomy, Bladder resection Family History Significant Family History: Diabetes, Hypertension Social History * Smoker: current smoker, greater than 1 pack/day Alcohol: heavy Drugs: cocaine, prescription drugs (not taking as she has no insurance, was taking abilify, seroquel, gabapentin) Recent Travel/Sick Contacts: Denies: Recent travel, Recent sick contacts Psychosocial History: Anxiety, Bipolar, Decreased mood, Jay SI and HI, Depression, Emotional problems, PTSD (?), Loose associations A-FIB/CHADSVASC A-FIB History Current/History of A-Fib/PAF?: No Review of Systems Constitutional: Reports: Weakness, Fatigue, Weight Loss Eyes: Reports: Pain (back) ENT: Reports: Head Aches Skin: Denies: Rash, Lesions, Jaundice, Bruising, Itching, Dry, Breakdown, Nail Changes, Other Pulmonary: Denies: Dyspnea, Cough, Pleuritic Chest Pain, Other Symptoms Cardiovascular: Reports: Palpitations Gastrointestinal: Reports: Nausea (compazine working) Genitourinary: Reports: Dysuria, Frequency, Other Symptoms (finished medication for STD Trich on Monday) Hematologic: Denies: Bruising, Bleeding Excessively, Petecchia, Purpura, Enla rged Lymph Nodes, Other Hematologic Endocrine: Reports: Polyuria (on macrobid) Musculoskeletal: Reports: Back Pain, Joint Pain Neurological: Reports: Weakness, Incoordination (stumble gait intermittently) Psych: Reports: Anxiety, Depression Physical Examination General Exam: Positive: Alert, Cooperative, Moderate Distress (when discussing her health, son, ) Eye Exam: Positive: PERRLA, Conjunctiva & lids normal ENT Exam: Positive: Atraumatic, Mucous membr. moist/pink, Pharynx Normal, Tongue Midline, Other ENT (teeth missing, dentures not in) Neck Exam: Positive: Supple, +2 carotid pulse wo bruit Chest Exam: Positive: Clear to auscultation, Normal air movement Heart Exam: Positive: Rate Normal, Normal S1, Normal S2 Abdomen Exam: Positive: Normal bowel sounds, Soft Extremity Exam: Positive: Normal pulses Neuro Exam: Positive: Normal Gait, Strength at 5/5 X4 ext, Cranial Nerves 3-12 NL Psych Exam: Positive: Anxiety, Oriented x 3 (Mood fluctuates from anxiety to depression, intermittently cryiing during physical examination questions, ) Vital Signs Vital Signs Date Time Temp Pulse Resp B/P (MAP) Pulse Ox O2 Delivery O2 Flow Rate FiO2 03/12/19 12:43 148/90 03/12/19 10:35 97.6 76 16 99 03/11/19 17:37 Room Air Laboratory Data Labs 24H Laboratory Tests 2 03/11/19 19:52: Bedside Glucose (Misc Panel) 75 03/12/19 09:35: Bedside Glucose (Misc Panel) 86 Assessment/Plan 43 year old female who was admitted to [facility] Inpatient Mental Health Unit for ETOH Intoxication presents today for medical consult with complaints of weakness, palpations, recurrent episodes of hypoglycemia, multiple episodes of nausea, back pain that is worsening and not controlled on her current medication of Gabapentin. She is admitted in patient at [facility] for SI. She has past medical history of Gastric Bypass with recent revision needing to consume food and or liquids every 2 hours due to her protein requirements, smaller stomach size, increase nausea, a dietary consult/manage is needed. She has a significant medical history of Plan Check labs: Vitamins A, B6, B12, Folate, Iron Panel Complete, Vitamin D Iron Deficiency Anemia-Acute Ferrous Sulfate-325 mg 1 po daily with Cloud Juice Follow up with PCP upon discharge Outpatient Vitamin D Deficiency-Acute Vitamin D-22.4 -Start Cholecalciferol+ Calcium 400-600mg 1 po bid Chronic Back Pain-Chronic X-ray: Thoracic-Stable, no changes Lumbar: normal, no fractures or stenosis Sacral-normal, no fractures or stenosis SI/Depression/Bipolar-Chronic Continue to follow up with Mental Health Unit Prognosis: Fair DVT Prophylaxis: low patient ambulatory Discharge: Pending Inpatient Mental Health Unit Problems (1) Anemia Status: Acute Response to Treatment: Uncontrolled Discussed With: Patient Problem Specific Plan: Monitor Clinically (2) Thoracic spinal stenosis Permanent Comment: Pain management Last Edited By: NAE Payne on Mar 13, 2019 13:28 Status: Chronic Response to Treatment: Stable Discussed With: Patient Problem Specific Plan: Monitor Clinically Plan / VTE VTE Prophylaxis Ordered?: No VTE Exclusion Mechanical Proph: Low Risk for VTE VTE Exclusion Pharmacological: At Low Risk for VTE Plan Diet: Continue Current Activity: Continue Current Medications: Increase Pain Meds (increase gabapentin), Other Med: (Referr to pain managment) Diagnostics: Check Labs NICK BAL Mar 12, 2019 14:25
[2019-03-12] MEDS ORDERED: ABIL1TAB11 PO (14:28)
[2019-03-12] MEDS ORDERED: NICO21PAT TD (14:28)
[2019-03-12] MEDS ORDERED: BUPRENORPHINE/NALOXONE 2-0.5MG SUBLINGUAL TABLET(SUBOXONE) SL ONE (15:00)
[2019-03-12 15:17] LABS: BASO # 0.1 10^3/uL (0.0-0.2); BASO % 1.1 % (0.0-1.0); EOS # 0.1 10^3/uL (0.0-0.5); EOS % 1.1 % (0.0-3.0); HEMATOCRIT 34.8 % (36.0-47.0); LYMPH # 1.1 10^3/uL (1.5-5.0); LYMPH % 25.1 % (24.0-44.0); MEAN CORPUSCULAR HEMOGLOBIN 30.5 pg (27.0-33.0); MEAN CORPUSCULAR VOLUME 92.3 fl (80.0-96.0); MONO # 0.5 10^3/uL (0.0-0.8); MONO % 10.8 % (0.0-5.0); NEUTROPHILS # 2.8 10^3/uL (1.5-8.5); NEUTROPHILS % 61.7 % (36.0-66.0); PLATELET COUNT, AUTOMATED 238 10^3/uL (150-450); RED BLOOD COUNT 3.77 10^6/uL (4.00-5.40); WHITE BLOOD COUNT 4.6 10^3/uL (4.0-10.0)
[2019-03-12 15:32] LABS: HEMOGLOBIN 11.5 g/dl (12.0-15.5)
[2019-03-12 15:43] LABS: PERCENT SATURATION 6.1 % (13.2-45.0)
[2019-03-12 15:52] LABS: TOTAL 25(OH) VITAMIN D 22.4 NG/ML (30.0-100.0)
[2019-03-12] MEDS: NICOTINE POLACRILEX 2 MG GUM PO PRN ×3 (17:11→23:42)
--- NOTE | 2019-03-12 17:29 | REP ---
Sacrum and coccyx: Three views. History: Pain. Comparison radiographs January 23, 2017. Comparison CT study January 23, 2017. Findings: Sacroiliac joints and symphysis pubis are intact. No bony destructive lesion is seen. Presacral soft tissues are not widened. No sacral or coccygeal displacement is appreciated. No fracture is seen. Impression: Negative radiographs of the sacrum and coccyx. Electronically Signed by Aaron De Leon MD 03/13/2019 09:16 A
--- NOTE | 2019-03-12 17:30 | REP ---
Lumbar spine series: Five views. History: Pain. Comparison radiographs May 14, 2013. Findings: There are bilateral pars interarticularis defects again noted at L5 with subtle 2 to 3 mm grade 1 L5-S1 spondylolisthesis, unchanged. Pedicles and posterior elements are otherwise intact. There is minimal narrowing of the L4-5 disc. Disc spaces are otherwise preserved. Psoas margins are symmetric. Facet joints are unremarkable. Impression: Bilateral L5 pars defects with 2-3 mm grade 1 stable spondylolisthesis at L5-S1. Minimal disc space narrowing at L4-5. Otherwise negative. Electronically Signed by Aaron De Leon MD 03/13/2019 09:17 A
--- NOTE | 2019-03-12 17:33 | REP ---
Thoracic spine series: Three views. History: Pain. Findings: Thoracic vertebral body heights are preserved. Disc spaces are maintained. Alignment is normal. Pedicles and posterior elements appear intact. No paravertebral soft-tissue mass is seen. There are surgical sutures in the left upper quadrant of the abdomen. Impression: Negative radiographs of the thoracic spine. Electronically Signed by Aaron De Leon MD 03/13/2019 09:17 A
[2019-03-12 17:59] VITALS: BP 107/67
[2019-03-12 20:00] VITALS: BP 89/50
[2019-03-12] MEDS ORDERED: LORazepam 1 MG TAB PO ONE (20:00)
[2019-03-12] MEDS: OMEPRAZOLE 20 MG CAP PO SCH (20:06)
[2019-03-12] MEDS: SUCRALFATE 1 GM TAB PO SCH (20:06)
[2019-03-12] MEDS: QUEtiapine FUMARATE 100 MG TAB PO SCH (20:07)
[2019-03-12] MEDS: traZODone 50 MG TAB PO PRN (23:10)
[2019-03-12] MEDS: PROCHLORPERAZINE 5 MG TAB (S0183) PO PRN (23:12)
[2019-03-13 06:30] VITALS: BP 102/55
[2019-03-13 06:41] VITALS: BP 102/55
[2019-03-13] MEDS: THIAMINE 100 MG TAB PO SCH (08:07)
[2019-03-13] MEDS: GABAPENTIN 300 MG CAP PO SCH ×2 (08:07→12:45)
[2019-03-13] MEDS: NICOTINE 21MG/24HR 1 EA TRANSDERMAL TD SCH (08:08)
[2019-03-13] MEDS: CYANOCOBALAMIN 500 MCG TAB PO SCH (08:08)
[2019-03-13] MEDS: NITROFURANTOIN (MACROBID) 100 MG CAP PO SCH (08:08)
[2019-03-13] MEDS: ASCORBIC ACID 500 MG TAB PO SCH (08:08)
[2019-03-13] MEDS: PRENATAL VITAMINS CHEWABLE TABLET PO SCH (08:08)
[2019-03-13] MEDS: FOLIC ACID 1 MG TAB PO SCH (08:08)
[2019-03-13] MEDS: PROCHLORPERAZINE 5 MG TAB (S0183) PO PRN (08:09)
[2019-03-13] MEDS: LORazepam 2 MG TAB PO PRN (08:44)
[2019-03-13] MEDS ORDERED: INFLUENZA QUADRIVALENT PF VACCINE 0.5ML SYRINGE (90686) IM ONE (09:00)
[2019-03-13 12:51] VITALS: BP 105/59
[2019-03-13] MEDS: cloNIDine 0.1 MG TAB PO PRN (12:51)
[2019-03-13] MEDS ORDERED: LIDOCAINE 5% (LIDODERM) PATCH TD ONE (13:00)
[2019-03-13] MEDS ORDERED: FOLI1TAB11 PO (13:10)
[2019-03-13] MEDS ORDERED: PRENCHW PO (13:10)
[2019-03-13] MEDS ORDERED: VITA500T40 PO (13:10)
[2019-03-13] MEDS ORDERED: ASCO50TA PO (13:10)
[2019-03-13] MEDS ORDERED: ARIP1TAB PO (13:10)
[2019-03-13] MEDS ORDERED: OMEP-218 PO (13:10)
[2019-03-13] MEDS ORDERED: SUCR1TA PO (13:10)
[2019-03-13] MEDS ORDERED: THIA100TA PO (13:10)
[2019-03-13] MEDS ORDERED: GABA-843 PO (13:10)
[2019-03-13] MEDS ORDERED: CLONI1TA PO (13:10)
--- NOTE | 2019-03-13 13:11 | MHDSPDOC ---
[facility] Discharge Summary Discharge Summary DATE OF ADMISSION: Mar 11, 2019 at 14:54 DATE OF DISCHARGE: 03/13/19 Discharge Nathalie Retana MRN: N/[id number] Date of : N/A Date of Service: 03/13/2019 Diagnoses Unspecified depressive disorder. Highly likely to be substance induced. Alcohol use disorder, severe. Opioid use disorder, severe. Tobacco use disorder, severe. Unspecified trauma stress-related disorder. Rule out substance induced. Unspecified bipolar disorder. Rule out substance induced from stimulant misuse, which is highly likely. Borderline personality disorder. History of Present Illness The patient, a 43-year-old woman with significant polysubstance use, presents to [facility]. She reports significant depression in the context of multiple psychosocial stressors, but had denied any suicidality. She reported being amenable to inpatient admission and thus was admitted for further workup and clarification. Per the original assessment notes in the ER, she reportedly was brought in by the [place] [employer], as she was highly intoxicated, reporting suicidal ideation with a friend at that time. When the patient was met with, she states that she is not suicidal at this time and would never commit suicide. She does report having a low mood, difficulty with anxiety and erratic appetite, and feeling hopeless at times, as well as having poor sleep. She reports being addicted to alcohol, opioids, and a number of other substances. She denied any daily use of alcohol; however, she does report self-medicating with it. She reports that she's had multiple stressors and that her stressors have gotten worse and that she is currently homeless. Consultants Involved Hospitalist/PCP screening Treatment and Progress On The Unit The patient was met with on the unit. She was very med seeking and attempted to have opioids, gabapentin, and other addictive medications increased. She generally was difficult to interview as she consistently focused on housing and generally demonstrated traits of being severely addicted. She was given a short buprenorphine detox about one tablet of 2 mg of which she then attempted to split staff to get more of. Over the evening on the day of discharge she had requested to go as she "want to smoke a cigarette." She did not meet involuntary criteria for extension of her admission as she was not demonstrating any suicidal or homicidal ideation throughout her stay and had been able to advocate and attend to her needs on the unit, not impaired by any significant mental illness, thus not wanting to be further on a voluntary admission, the patient was discharged. Discharge Assessment The patient, a 43-year-old woman with past trauma, as well as, significant substance use presents after reportedly making statements while intoxicated. Mental Status Examination General: Well dressed with good hygiene Speech: Spontaneous and fluid Thought processes: Linear and logical MSK: Smooth and coordinated gait, no signs of tremors or involuntary orofacial movements Thought content: Future orientated Abstract reasoning, and computation: Intact Description of associations: Intact Description of abnormal or psychotic thoughts: Denies any suicidal or homicidal ideation. Denies any auditory or visual hallucinations. Does not appear to be responding to internal stimuli. Does not appear to be endorsing any bizarre or paranoid ideation. Judgment: Limited. Insight: Limited. Orientation: Alert and orientated 3 Cognition: Grossly normal Recent and remote memory: Intact Attention span and concentration: Intact Fund of knowledge: Adequate Mood: "okay" Affect: Euthymic with a full range Follow Up The social work team worked during the predischarge meeting in order to evaluate for further issues of lethality address them fully before discharge. They worked on safety planning with the patient's family members in order to ensure that the patient will have a safe and effective discharge. Time Spent The amount of time spent in the coordination of care for this patient was approximately 30 minutes. Monday Vital Signs/I&Os Vital Signs Date Time Temp Pulse Resp B/P (MAP) Pulse Ox O2 Delivery O2 Flow Rate FiO2 03/13/19 12:51 105/59 03/13/19 06:41 71 03/13/19 06:30 98.4 12 03/12/19 12:44 100 03/11/19 17:37 Room Air Laboratory Data Labs 24H Laboratory Tests 2 03/12/19 14:32: Immature Granulocyte % (Auto) 0.2, White Blood Count 4.6, Red Blood Count 3.77L, Hemoglobin 11.5#L, Hematocrit 34.8L, Mean Corpuscular Volume 92.3, Mean Corpuscular Hemoglobin 30.5, Mean Corpuscular Hemoglobin Concent 33.0, Red Cell Distribution Width 14.0, Platelet Count 238, Neutrophils (%) (Auto) 61.7, Lymphocytes (%) (Auto) 25.1, Monocytes (%) (Auto) 10.8H, Eosinophils (%) (Auto) 1.1, Basophils (%) (Auto) 1.1H, Neutrophils # (Auto) 2.8, Lymphocytes # (Auto) 1.1L, Monocytes # (Auto) 0.5, Eosinophils # (Auto) 0.1, Basophils # (Auto) 0.1, Nucleated Red Blood Cells % (auto) 0.0, Iron Level 24L, Total Iron Binding Capacity 394, Transferrin % Saturation 6.1L, Ferritin 19, Vitamin B12 Level 346, 25-Hydroxy Vitamin D Total 22.4L 03/13/19 08:28: CBC/BMP Laboratory Tests 03/12/19 14:32 Red Blood Count 3.77 L, Mean Corpuscular Volume 92.3, Mean Corpuscular Hemoglobin 30.5, Mean Corpuscular Hemoglobin Concent 33.0, Red Cell Distribution Width 14.0, Neutrophils (%) (Auto) 61.7, Lymphocytes (%) (Auto) 25.1, Monocytes (%) (Auto) 10.8 H, Eosinophils (%) (Auto) 1.1, Basophils (%) (Auto) 1.1 H, Neutrophils # (Auto) 2.8, Lymphocytes # (Auto) 1.1 L, Monocytes # (Auto) 0.5, Eosinophils # (Auto) 0.1, Basophils # (Auto) 0.1 Medications Scheduled Aripiprazole (Aripiprazole) 10 Mg Tablet, 0.5 TAB PO DAILY for mood for 7 Days, #7 Ascorbic Acid (Vitamin C) 500 Mg Tablet, 1,000 MG PO DAILY, (Reported) Ascorbic Acid (Vitamin C) 500 Mg Tablet, 1,000 MG PO DAILY for vitamin for 30 Days, #30 Calcium Carbonate/Vitamin D3 (Calcium 600 + Vit D 400 Softgl) 1 Each Capsule, 1 CAP PO BID for Vitamin D for 30 Days, #60 Cyanocobalamin (Vitamin B-12) (Vitamin B-12) 1,000 Mcg Tablet, 1,000 MCG PO DAILY, (Reported) Cyanocobalamin (Vitamin B-12) (Vitamin B-12) 500 Mcg Tablet, 1,000 MCG PO DAILY for vitamin for 30 Days, #30 Ferrous Sulfate (Ferrous Sulfate) 325 Mg Tablet, 1 TAB PO DAILY for iron deficiency anemia for 30 Days, #30 Folic Acid (Folic Acid) 1 Mg Tablet, 1 MG PO DAILY for vitamin for 30 Days, #30 Gabapentin (Gabapentin) 600 Mg Tablet, 600 MG PO TID, (Reported) Gabapentin (Gabapentin) 300 Mg Capsule, 600 MG PO QID for pain for 7 Days, #56 Nicotine (Nicotine Patch) 21 Mg Patch.td24, 1 PATCH TD DAILY for tobacco for 30 Days, #30 Omeprazole (Omeprazole) 40 Mg Capsule.dr, 40 MG PO QHS, (Reported) Omeprazole (Omeprazole) 20 Mg Capsule.dr, 40 MG PO QHS for GERD for 30 Days, #60 Pnv No.118/Iron Fumarate/FA ( 19 Chewable Tablet) 1 Each Tab.chew, 2 TAB PO DAILY for vitamin for 30 Days, #60 Sucralfate (Sucralfate) 1 Gm Tablet, 1 GM PO QHS, (Reported) Sucralfate (Sucralfate) 1 Gm Tablet, 1 GM PO QHS for Gi for 30 Days, #30 Thiamine Hcl (Vitamin B-1) 100 Mg Tablet, 100 MG PO BID for vitamin for 30 Days, #30 Scheduled PRN Aluminum/Magnesium/Simeth (Mag-Al Plus Suspension) 30 Ml Oral.susp, 30 ML PO Q4HP PRN for HEARTBURN/INDIGESTION for 30 Days, #30 Clonidine Hcl (Clonidine HCl) 0.1 Mg Tablet, 0.5 MG PO TIDP PRN for WITHDRAWAL SYMPTOMS for 7 Days, #7 Allergies Coded Allergies: Contrast Media (Unverified Allergy, Unknown, RASH/hives, 01/21/19) codeine (Verified Allergy, Unknown, RASH, 01/21/19) RASH iodine (Verified Allergy, Unknown, 01/21/19) menthol (Verified Allergy, Unknown, chemical burn, 01/21/19) methyl salicylate (Verified Allergy, Unknown, chemical burn, 01/21/19) NSAIDS (Non-Steroidal Anti-Inflamma (Unverified Adverse Reaction, Unknown, avoids, gastric bypass, 01/21/19) camphor (Verified Adverse Reaction, Unknown, from bengay patch, chemical burn, 01/21/19) carboxymethylcellulose sodium (Verified Adverse Reaction, Unknown, carboxymethylcellulose listed as having an adverse reaction, 01/21/19) VERITO CONNOLLY DO Mar 13, 2019 13:11
[2019-03-13] MEDS ORDERED: MYLASSUD PO (13:33)
[2019-03-13] MEDS ORDERED: CALCCAP4 PO (13:33)
[2019-03-13] MEDS ORDERED: FERR1TAB8 PO (13:35)
--- NOTE | 2019-03-13 19:53 | IPNPDOC ---
Subjective Date Seen The patient was seen on 03/13/19 for follow-up on her complaints of back pain, lab test and imaging results. Subjective Chief Complaint/HPI Back pain, Plan for success and review lab & imaging results General: Reports: Fatigue, Malaise Constitutional: Denies: Chills, Fever, Malaise, Night Sweats, Weakness, Fatigue, Weight Loss, Lethargy, Other Eyes: Reports: Pain ENT: Denies: Head Aches, Ear Pain, Dysphagia, Sinus Congestion, Post Nasal Drip, Sore Throat, Epistaxis, Other Symptoms Skin: Denies: Rash, Lesions, Jaundice, Bruising, Itching, Dry, Breakdown, Nail Changes, Other Pulmonary: Denies: Dyspnea, Cough, Pleuritic Chest Pain, Other Symptoms Cardiovascular: Denies: Chest Pain, Palpitations, Orthopnea, Paroxysmal Noc. Dyspnea, Edema, Lt Headedness, Other Symptoms Gastrointestinal: Denies: Nausea, Vomiting, Abdominal Pain, Diarrhea, Constipation, Melena, Hematochezia, Other Symptoms Genitourinary: Denies: Dysuria, Frequency, Incontinence, Hematuria, Retention, Other Symptoms Hematologic: Denies: Bruising, Bleeding Excessively, Petecchia, Purpura, Enlarged Lymph Nodes, Other Hematologic Endocrine: Denies: Polydipsia, Polyphagia, Polyuria, Heat Intolerance, Cold Intolerance, Other Endocrine Sx Musculoskeletal: Reports: Back Pain Neurological: Denies: Weakness, Numbness, Incoordination, Change in speech, Con fusion, Seizures, Other Symptoms Psych: Reports: Depression (wanting to do better when getting out, increase medication gabapentin, get increase of Suboxone) Objective Physical Examination General Exam: Positive: Alert, Cooperative, Moderate Distress (when discussing her health, son, ) Eye Exam: Positive: PERRLA, Conjunctiva & lids normal ENT Exam: Positive: Atraumatic, Mucous membr. moist/pink, Pharynx Normal, Tongue Midline, Other ENT (teeth missing, dentures not in) Neck Exam: Positive: Supple, +2 carotid pulse wo bruit Chest Exam: Positive: Clear to auscultation, Normal air movement Heart Exam: Positive: Rate Normal, Normal S1, Normal S2 Abdomen Exam: Positive: Normal bowel sounds, Soft Extremity Exam: Positive: Normal pulses Neuro Exam: Positive: Normal Gait, Strength at 5/5 X4 ext, Cranial Nerves 3-12 NL Psych Exam: Positive: Anxiety, Oriented x 3 (Mood fluctuates from anxiety to depression, intermittently cryiing during physical examination questions, ) Assessment /Plan Problems (1) Thoracic spinal stenosis Permanent Comment: Pain management Last Edited By: NAE Payne on Mar 13, 2019 13:28 Status: Chronic Response to Treatment: Stable (stenosis is not worsening on x ray filmed, need MRI to determine further in outpatient setting with PCP), Uncontrolled (pain is uncontrolled) Discussed With: Patient Problem Text: Continue taking Gabapentin. Follow up with Pain management. Patient referred yesterday and will see pain management latter today. (2) Anemia Status: Acute Discussed With: Patient Problem Specific Plan: Monitor Clinically Problem Text: 43 year old female is being seen today for medical clearance as she was brought into [facility] for SI tendency, ETOH intoxication with polysubstance abuse. She has complaints of anxiety, nausea, back pain, weakness, insomnia and depression today. Reviewed lab results with patient and discussed medications she will be receiving upon her discharge from In patient mental health unit. Anemia Plan Vitamin D Deficiency-Acute on Chronic Vitamin D 25-OH 22.4 (normal 30-100) Take Vitamin D with Calcium 400-600 mg 1 tab by mouth twice a day (do not take with Iron supplements as it blocks the absorption). Iron Deficiency Anemia-Acute Ferrous Sulfate 325 mg po Daily take with orange juice Indigestion/GERD-Acute on Chronic Chronic Low Back Pain-Chronic Continue taking Gabapentin 600 mg TID Follow up with PCP in 1-2 weeks and Substance abuse clinic. Find a sponsor (3) Anemia, iron deficiency Status: Acute Response to Treatment: Worse Discussed With: Patient (4) Vitamin D deficiency Status: Acute Response to Treatment: Worse Discussed With: Patient Problem Specific Plan: Monitor Clinically (5) Heartburn Status: Acute Response to Treatment: Improving Discussed With: Patient Problem Specific Plan: Monitor Clinically Plan/VTE VTE Prophylaxis Ordered?: No VTE Exclusion Mechanical Proph: Other (Beind discharged) VTE Exclusion Pharmacological: Other (Being discharged) Plan Diet: Continue Current Activity: Continue Current Medications: Other Med: (Medications discussed for discharged (to outpatient facility)) Diagnostics: Check Labs, Xrays (Reviewed with patient) Anticipated Discharge: Psych Disposition PCP to follow up on anemia. Need inpatient care and drug rehab/detox. She is in active detox/withdrawal Patient is homeless VS, I&O, 24H, Fishbone Vital Signs/I&O Laboratory Tests 03/12/19 14:32 Red Blood Count 3.77 L, Mean Corpuscular Volume 92.3, Mean Corpuscular Hemoglobin 30.5, Mean Corpuscular Hemoglobin Concent 33.0, Red Cell Distribution Width 14.0, Neutrophils (%) (Auto) 61.7, Lymphocytes (%) (Auto) 25.1, Monocytes (%) (Auto) 10.8 H, Eosinophils (%) (Auto) 1.1, Basophils (%) (Auto) 1.1 H, Neutrophils # (Auto) 2.8, Lymphocytes # (Auto) 1.1 L, Monocytes # (Auto) 0.5, Eosinophils # (Auto) 0.1, Basophils # (Auto) 0.1 Vital Signs Date Time Temp Pulse Resp B/P (MAP) Pulse Ox O2 Delivery O2 Flow Rate FiO2 03/13/19 12:51 105/59 03/13/19 06:41 71 03/13/19 06:30 98.4 12 03/12/19 12:44 100 03/11/19 17:37 Room Air Laboratory Data 24H LABS Laboratory Tests 2 03/13/19 08:28: CBC/BMP Laboratory Tests 03/12/19 14:32 Red Blood Count 3.77 L, Mean Corpuscular Volume 92.3, Mean Corpuscular Hemoglobin 30.5, Mean Corpuscular Hemoglobin Concent 33.0, Red Cell Distribution Width 14.0, Neutrophils (%) (Auto) 61.7, Lymphocytes (%) (Auto) 25.1, Monocytes (%) (Auto) 10.8 H, Eosinophils (%) (Auto) 1.1, Basophils (%) (Auto) 1.1 H, Neutrophils # (Auto) 2.8, Lymphocytes # (Auto) 1.1 L, Monocytes # (Auto) 0.5, E osinophils # (Auto) 0.1, Basophils # (Auto) 0.1 [facility] Mar 13, 2019 19:53
[2019-03-14] MEDS ORDERED: **NOTE PATIENT COMMENT** MISC XX SCH (01:00)
[2019-03-18 00:06] LABS: VITAMIN B6,PYRIDOXAL PHOSPHATE 53.4 ug/L (2.0-32.8)
== END 2019-03-13 14:10 | disposition home or self-care (01) | DRG 881 ==
LOC: M ED 20:42 → M ED INP 03-11 14:54 → M PSY 03-11 17:15
PROVIDERS: ADMIT Psychiatry & Neurology Addiction Medicine; ATTEND Psychiatry & Neurology Addiction Medicine
DX: F32.9 Major depressive disorder, single episode, unspecified (principal); F10.220 Alcohol dependence with intoxication, uncomplicated; F11.24 Opioid dependence with opioid-induced mood disorder; F17.200 Nicotine dependence, unspecified, uncomplicated; F15.14 Other stimulant abuse with stimulant-induced mood disorder; F43.9 Reaction to severe stress, unspecified; F60.3 Borderline personality disorder; Z79.899 Other long term (current) drug therapy; Z88.4 Allergy status to anesthetic agent; Z88.5 Allergy status to narcotic agent; Z88.8 Allergy status to other drugs, medicaments and biological substances; Z98.84 Bariatric surgery status; Z90.79 Acquired absence of other genital organ(s); M54.5 Low back pain; D50.9 Iron deficiency anemia, unspecified; E55.9 Vitamin D deficiency, unspecified; M48.04 Spinal stenosis, thoracic region; K21.9 Gastro-esophageal reflux disease without esophagitis; Z59.0 Homelessness; Z63.0 Problems in relationship with spouse or partner

== ENCOUNTER 2019-04-29 11:16 | Inpatient (IN) | payer OTHER ==
[~2019-04-29] VITALS: Ht 170.2 cm; Wt 54.5 kg
[~2019-04-29 11:16] MED LIST changes: +ABIL1TAB11 PO; +ARIP1TAB PO; +ASCO50TA PO; +C 50TAB PO; +CALCCAP4 PO; +CLONI1TA PO; +FERR1TAB8 PO; +FOLI1TAB11 PO; +GABA600T4 PO; +MYLASSUD PO; +NICO21PAT TD; +OMEP-218 PO; +OMEP40CA97 PO; +PRENCHW PO; +SENN-53 PO; -SENN1TAB40 PO; +SUCR1TA PO; +SUCR1TAB56 PO; +THIA100TA PO; +VITA100018 PO; +VITA500T40 PO
[2019-04-29 12:33] LABS: HEMATOCRIT 38.8 % (36.0-47.0); HEMOGLOBIN 12.3 g/dl (12.0-15.5); MEAN CORPUSCULAR HEMOGLOBIN 28.6 pg (27.0-33.0); MEAN CORPUSCULAR HGB CONC 31.7 g/dl (32.0-36.5); MEAN CORPUSCULAR VOLUME 90.2 fl (80.0-96.0); PLATELET COUNT, AUTOMATED 301 10^3/uL (150-450); WHITE BLOOD COUNT 6.5 10^3/uL (4.0-10.0)
[2019-04-29] MEDS ORDERED: ONDANSETRON 4MG/2ML VIAL (J2405) As Ordered ONE (12:42)
[2019-04-29] MEDS ORDERED: ONDANSETRON 4MG/2ML VIAL (J2405) IV ONE (12:45)
[2019-04-29 12:57] LABS: HCG, SERUM QUALITATIVE NEGATIVE (NEGATIVE)
[2019-04-29 13:12] LABS: ACETAMINOPHEN LEVEL < 2.0 UG/ML (10.0-30.0); ALBUMIN 3.2 GM/DL (3.2-5.2); ALT/SGPT 19 U/L (12-78); AMYLASE 53 U/L (25-115); BILIRUBIN,DIRECT < 0.1 MG/DL (0.0-0.2); BILIRUBIN,TOTAL 0.3 MG/DL (0.2-1.0); BLOOD UREA NITROGEN 12 MG/DL (7-18); CALCIUM LEVEL 8.1 MG/DL (8.5-10.1); CARBON DIOXIDE LEVEL 27 MEQ/L (21-32); CHLORIDE LEVEL 107 MEQ/L (98-107); CK-MB VALUE MASS < 1.0 NG/ML (<3.6); CPK CREATINE PHOSPHOKINASE 35 U/L (26-192); CREATININE FOR GFR 0.53 MG/DL (0.55-1.30); ETHYL ALCOHOL (ETHANOL) < 0.003 % (0.000-0.010); GLOMERULAR FILTRATION RATE > 60.0 (>58); GLUCOSE, FASTING 70 MG/DL (70-100); LIPASE 308 U/L (73-393); MB/CK RELATIVE INDEX 2.86 (< OR =4); POTASSIUM SERUM 4.4 MEQ/L (3.5-5.1); SODIUM LEVEL 139 MEQ/L (136-145); THYROID STIMULATING HORMONE 0.234 uIU/ML (0.358-3.740); TOTAL PROTEIN 6.2 GM/DL (6.4-8.2); TROPONIN I < 0.02 NG/ML (< 0.10)
[2019-04-29] MEDS ORDERED: ACETAMINOPHEN TAB 650MG DOSE (2X325MG) PO PRN (16:15)
[2019-04-29] MEDS ORDERED: MAALOX 30 ML SUSP *UDC PO PRN (16:15)
[2019-04-29] MEDS ORDERED: MOM 30ML SUSPENSION UDC PO PRN (16:15)
[2019-04-29 18:14] LABS: AMPHETAMINES LEVEL URINE NEGATIVE (NEGATIVE); BARBITURATES URINE NEGATIVE (NEGATIVE); BENZODIAZEPINES URINE NEGATIVE (NEGATIVE); CANNABINOIDS URINE NEGATIVE (NEGATIVE); COCAINE METABOLITE URINE POSITIVE (NEGATIVE); METHADONE URINE NEGATIVE (NEGATIVE); OPIATES URINE NEGATIVE (NEGATIVE); PHENCYCLIDINE URINE NEGATIVE (NEGATIVE)
[2019-04-29] MEDS ORDERED: SUCR1TAB56 PO (18:22)
[2019-04-29] MEDS ORDERED: NICO21DI38 TOP (18:22)
[2019-04-29] MEDS ORDERED: CALC600T18 PO (18:22)
[2019-04-29] MEDS ORDERED: VITA-158 PO (18:22)
[2019-04-29] MEDS ORDERED: FERR1TAB8 PO (18:22)
[2019-04-29] MEDS ORDERED: OMEP20CA4 PO (18:22)
[2019-04-29] MEDS ORDERED: TRUVTAB PO (18:22)
[2019-04-29] MEDS ORDERED: VITA500T41 PO (18:22)
[2019-04-29] MEDS ORDERED: CLON-412 PO (18:22)
[2019-04-29] MEDS ORDERED: VITA100T89 PO (18:22)
[2019-04-29] MEDS ORDERED: FOLI1TAB11 PO (18:22)
[2019-04-29] MEDS ORDERED: PREN1TAB11 PO (18:22)
[2019-04-29] MEDS ORDERED: GABA600T4 PO (18:22)
[2019-04-29] MEDS ORDERED: PATIENT COMMENT (18:24)
--- NOTE | 2019-04-29 19:48 | ECGEPIP ---
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
[2019-04-29 19:56] VITALS: BP 112/65
[2019-04-29] MEDS: SUCRALFATE 1 GM TAB PO SCH (21:00)
[2019-04-29] MEDS ORDERED: OLANZapine ORAL DISINTEGRATING TAB 5MG PO STA (21:01)
[2019-04-29] MEDS: traZODone 50 MG TAB PO PRN (21:30)
[2019-04-29] MEDS ORDERED: diphenhydrAMINE 50 MG CAP PO ONE (22:00)
[2019-04-29] MEDS ORDERED: cloNIDine 0.05MG PER 1/2 TABLET PO PRN (22:15)
[2019-04-29] MEDS ORDERED: GABAPENTIN 300 MG CAP PO ONE (22:30)
[2019-04-29] MEDS: OMEPRAZOLE 20 MG CAP PO SCH (22:38)
[2019-04-29] MEDS ORDERED: LORazepam 0.5 MG TAB PO ONE (23:00)
[2019-04-30 06:31] VITALS: BP 135/76
[2019-04-30] MEDS: PRENATAL VITAMINS CHEWABLE TABLET PO SCH ×2 (09:00→12:05)
[2019-04-30] MEDS: CYANOCOBALAMIN 500 MCG TAB PO SCH ×2 (09:00→12:05)
[2019-04-30] MEDS: FERROUS SULFATE 325MG TAB PO SCH ×2 (09:00→12:05)
[2019-04-30] MEDS: GABAPENTIN 300 MG CAP PO SCH ×4 (09:00→20:52)
[2019-04-30] MEDS: ASCORBIC ACID 500 MG TAB PO SCH ×2 (09:00→12:05)
[2019-04-30] MEDS: CALCIUM/VITAMIN D 500 MG TAB PO SCH ×3 (09:00→20:52)
[2019-04-30] MEDS: THIAMINE 100 MG TAB PO SCH ×3 (09:00→20:52)
[2019-04-30] MEDS: FOLIC ACID 1 MG TAB PO SCH ×2 (09:00→12:08)
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
[2019-04-30] MEDS: OLANZapine ORAL DISINTEGRATING TAB 5MG PO PRN ×2 (12:05→20:54)
[2019-04-30 16:29] VITALS: BP 102/63
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
[2019-04-30] MEDS: SUCRALFATE 1 GM TAB PO SCH (20:52)
[2019-04-30] MEDS: OMEPRAZOLE 20 MG CAP PO SCH (20:52)
[2019-04-30] MEDS: traZODone 50 MG TAB PO PRN (20:53)
[2019-05-01 07:04] VITALS: BP 108/69
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
[2019-05-01] MEDS: CYANOCOBALAMIN 500 MCG TAB PO SCH (09:00)
[2019-05-01] MEDS: FOLIC ACID 1 MG TAB PO SCH (09:00)
[2019-05-01] MEDS: FERROUS SULFATE 325MG TAB PO SCH (09:00)
[2019-05-01] MEDS: CALCIUM/VITAMIN D 500 MG TAB PO SCH (09:00)
[2019-05-01] MEDS: THIAMINE 100 MG TAB PO SCH (09:00)
[2019-05-01] MEDS: ASCORBIC ACID 500 MG TAB PO SCH (09:00)
[2019-05-01] MEDS: PRENATAL VITAMINS CHEWABLE TABLET PO SCH (09:00)
[2019-05-01] MEDS: GABAPENTIN 300 MG CAP PO SCH (09:29)
== END 2019-05-01 11:14 | disposition home or self-care (01) | DRG 898 ==
LOC: M ED 11:16 → M ED INP 16:08 → M PSY 19:49
PROVIDERS: ADMIT Psychiatry & Neurology Psychiatry; ATTEND Psychiatry & Neurology Psychiatry
DX: F14.24 Cocaine dependence with cocaine-induced mood disorder (principal); F11.21 Opioid dependence, in remission; F10.20 Alcohol dependence, uncomplicated; Z76.5 Malingerer [conscious simulation]; Z59.0 Homelessness; F60.3 Borderline personality disorder; Z91.410 Personal history of adult physical and sexual abuse; G89.29 Other chronic pain; M54.9 Dorsalgia, unspecified; Z98.84 Bariatric surgery status; Z90.49 Acquired absence of other specified parts of digestive tract; Z81.8 Family history of other mental and behavioral disorders; F17.210 Nicotine dependence, cigarettes, uncomplicated; Z62.810 Personal history of physical and sexual abuse in childhood; Z62.811 Personal history of psychological abuse in childhood; Z79.899 Other long term (current) drug therapy; K21.9 Gastro-esophageal reflux disease without esophagitis; Z88.6 Allergy status to analgesic agent; Z91.041 Radiographic dye allergy status; Z88.8 Allergy status to other drugs, medicaments and biological substances; Z91.09 Other allergy status, other than to drugs and biological substances

== ENCOUNTER 2019-07-03 14:47 | Inpatient (IN) | payer OTHER, MEDICAID ==
[~2019-07-03] VITALS: Ht 170.2 cm; Wt 65.1 kg
[2019-07-03] MEDS: THIAMINE 100 MG TAB PO SCH (00:05)
[~2019-07-03 14:47] MED LIST changes: +CALC600T18 PO; +CLON-412 PO; +NICO21DI38 TOP; +OMEP1CAP73 PO; +PATIENT COMMENT; +PREN1TAB11 PO; +VITA-158 PO; +VITA100T89 PO; +VITA500T41 PO
[2019-07-03] MEDS ORDERED: VENL1TAB35 PO (14:58)
[2019-07-03] MEDS ORDERED: QUET5TAB PO (14:58)
[2019-07-03 15:44] LABS: BASO # 0.1 10^3/uL (0.0-0.2); BASO % 2.2 % (0.0-1.0); EOS # 0.1 10^3/uL (0.0-0.5); EOS % 1.6 % (0.0-3.0); HEMATOCRIT 37.2 % (36.0-47.0); LYMPH % 32.7 % (24.0-44.0); MEAN CORPUSCULAR HEMOGLOBIN 28.2 pg (27.0-33.0); MEAN CORPUSCULAR HGB CONC 32.3 g/dl (32.0-36.5); MEAN CORPUSCULAR VOLUME 87.3 fl (80.0-96.0); MONO # 0.3 10^3/uL (0.0-0.8); MONO % 9.7 % (0.0-5.0); NEUTROPHILS # 1.7 10^3/uL (1.5-8.5); NEUTROPHILS % 53.5 % (36.0-66.0); PLATELET COUNT, AUTOMATED 437 10^3/uL (150-450); RED BLOOD COUNT 4.26 10^6/uL (4.00-5.40); WHITE BLOOD COUNT 3.2 10^3/uL (4.0-10.0)
[2019-07-03] MEDS ORDERED: ONDANSETRON 4MG/2ML VIAL (J2405) IV ONE (15:45)
[2019-07-03] MEDS ORDERED: MORPHINE 4 MG/ML 1ML VIAL/SYRINGE (J2270) IV ONE ×2 (15:45→16:45)
--- NOTE | 2019-07-03 15:46 | REP ---
CHEST, SINGLE VIEW: There is no evidence of acute infiltrate. No pleural effusion is seen. The heart is normal in size. The mediastinal silhouette is unremarkable. The visualized osseous structures are intact. IMPRESSION: No acute pulmonary disease. Electronically Signed by Harvey Eason MD 07/04/2019 07:57 P
[2019-07-03 15:55] LABS: INR 0.99; PROTHROMBIN TIME 12.8 SECONDS (11.8-14.0)
[2019-07-03 15:57] LABS: D-DIMER QUANT 630.74 ng/ml (<500)
[2019-07-03 16:23] LABS: ALBUMIN 3.3 GM/DL (3.2-5.2); ALT/SGPT 42 U/L (12-78); BILIRUBIN,DIRECT 0.2 MG/DL (0.0-0.2); BILIRUBIN,TOTAL 0.4 MG/DL (0.2-1.0); BLOOD UREA NITROGEN 9 MG/DL (7-18); CALCIUM LEVEL 8.5 MG/DL (8.5-10.1); CARBON DIOXIDE LEVEL 28 MEQ/L (21-32); CHLORIDE LEVEL 108 MEQ/L (98-107); CK-MB VALUE MASS < 1.0 NG/ML (<3.6); CPK CREATINE PHOSPHOKINASE 31 U/L (26-192); CREATININE FOR GFR 0.59 MG/DL (0.55-1.30); GLOMERULAR FILTRATION RATE > 60.0 (>58); GLUCOSE, FASTING 89 MG/DL (70-100); LIPASE 131 U/L (73-393); MAGNESIUM LEVEL 2.4 MG/DL (1.8-2.4); MB/CK RELATIVE INDEX 3.23 (< OR =4); NT-PRO BNP 43 PG/ML (<125); POTASSIUM SERUM 4.6 MEQ/L (3.5-5.1); SODIUM LEVEL 140 MEQ/L (136-145); THYROID STIMULATING HORMONE 0.091 uIU/ML (0.358-3.740); TOTAL PROTEIN 6.3 GM/DL (6.4-8.2); TROPONIN I < 0.02 NG/ML (< 0.10)
--- NOTE | 2019-07-03 18:03 | REPVR ---
PROCEDURE INFORMATION: Exam: US Duplex Lower Extremity Veins Exam date and time: 07/03/2019 5:48 PM Age: 44 years old Clinical indication: Condition or disease; Other: H/o pe; Additional info: Sob/ HX of pe; R/O dvt TECHNIQUE: Imaging protocol: Real-time duplex ultrasound of the Lower Extremities with 2-D sebastian scale, color Doppler flow and spectral waveform analysis with image documentation. Complete exam focused on the bilateral lower extremity veins. COMPARISON: No relevant prior studies available. FINDINGS: Right deep veins: Unremarkable. The common femoral, femoral, proximal profunda femoral and popliteal veins are patent without thrombus. Normal Doppler waveforms. Normal compressibility and/or augmentation response. Right superficial veins: Saphenofemoral junction is patent without thrombus. Left deep veins: Unremarkable. The common femoral, femoral, proximal profunda femoral and popliteal veins are patent without thrombus. Normal Doppler waveforms. Normal compressibility and/or augmentation response. Left superficial veins: Saphenofemoral junction is patent without thrombus. Soft tissues: Unremarkable. IMPRESSION: No acute findings. No evidence of deep vein thrombosis. Electronically signed by: Flaco Andrews On 07/03/2019 18:03:14 PM
[2019-07-03] MEDS ORDERED: oxyCODONE 5MG TAB PO ONE (18:30)
[2019-07-03] MEDS ORDERED: MAALOX 30 ML SUSP *UDC PO PRN (19:30)
[2019-07-03] MEDS ORDERED: ACETAMINOPHEN TAB 650MG DOSE (2X325MG) PO PRN (19:30)
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
[2019-07-03] MEDS ORDERED: ENOXAPARIN 60 MG/0.6 ML SYR (J1650) SC SCH (20:00)
[2019-07-03 20:35] LABS: HEMOGLOBIN A1c 5.6 %
[2019-07-03] MEDS ORDERED: VITA500T41 PO (20:45)
[2019-07-03] MEDS ORDERED: NIGH1CAP PO (20:45)
[2019-07-03] MEDS ORDERED: PRENTAB55 PO (20:45)
[2019-07-03] MEDS ORDERED: IRON325T9 PO (20:45)
[2019-07-03] MEDS ORDERED: VITA-158 PO (20:45)
[2019-07-03] MEDS ORDERED: VITA100054 PO (20:45)
[2019-07-03] MEDS ORDERED: ASCORBIC ACID 500 MG TAB PO SCH (21:00)
[2019-07-03] MEDS ORDERED: VENLAFAXINE 25 MG TAB PO SCH (21:00)
[2019-07-03] MEDS ORDERED: VITAMIN D 1,000 INTERNATIONAL UNITS TABLET PO SCH (21:00)
[2019-07-03] MEDS ORDERED: QUEtiapine FUMARATE 50 MG TAB PO SCH (21:00)
[2019-07-03] MEDS ORDERED: QUEtiapine FUMARATE 200 MG TAB PO SCH (21:00)
[2019-07-03] MEDS ORDERED: FERROUS SULFATE 325MG TAB PO SCH (21:00)
[2019-07-03] MEDS ORDERED: PRENATAL VITAMINS CHEWABLE TABLET PO SCH (21:00)
[2019-07-03] MEDS ORDERED: RAMELTEON 8 MG TAB (ROZEREM) PO SCH (21:00)
[2019-07-03 21:18] VITALS: BP 107/59
[2019-07-03 22:20] LABS: CHOLESTEROL LEVEL 147 MG/DL (<200); HDL CHOLESTEROL 44 MG/DL (>40); LDL CHOLESTEROL 76 MG/DL (<100); NON-HDL-C 103 MG/DL; NT-PRO BNP 35 PG/ML (<125); TRIGLYCERIDES LEVEL 133 MG/DL (<150); TROPONIN I < 0.02 NG/ML (< 0.10)
[2019-07-03] MEDS: ENOXAPARIN 80 MG/0.8 ML SYRINGE (J1650) SC SCH (22:39)
[2019-07-03] MEDS ORDERED: diphenhydrAMINE 25 MG CAP PO ONE (22:45)
[2019-07-03] MEDS: traMADol 50 MG TAB PO PRN (22:48)
[2019-07-03] MEDS ORDERED: LORazepam 2 MG TAB PO PRN (23:30)
[2019-07-04] MEDS ORDERED: CYANOCOBALAMIN 500 MCG TAB PO SCH (09:00)
[2019-07-04] MEDS ORDERED: MULTIVITAMINS/MINERALS THERAP 1 TAB PO SCH (09:00)
[2019-07-04] MEDS ORDERED: FOLIC ACID 1 MG TAB PO SCH (09:00)
[2019-07-04] MEDS ORDERED: GABAPENTIN 300 MG CAP PO ONE (10:00)
[2019-07-04] MEDS: THIAMINE 100 MG TAB PO SCH (10:09)
[2019-07-04] MEDS: ENOXAPARIN 80 MG/0.8 ML SYRINGE (J1650) SC SCH (10:09)
[2019-07-04] MEDS: traMADol 50 MG TAB PO PRN (10:11)
[2019-07-04] MEDS ORDERED: diphenhydrAMINE INJ 50MG/ML VIAL (J1200) IV ONE (10:15)
[2019-07-04] MEDS ORDERED: ONDANSETRON 4MG/2ML VIAL (J2405) IV PRN (10:15)
[2019-07-04] MEDS ORDERED: ONDANSETRON 4 MG ORAL DISINTEGRATING TAB (Q0162 PER 1MG) PO PRN ×2 (10:45→12:00)
--- NOTE | 2019-07-04 11:43 | REP ---
The attempted radionuclide pulmonary ventilation and perfusion scan: Comparison is the portable plain film study of the chest of 07/03/2019. Imaging is performed at with 1 mCi of technetium DTPA aerosol for the ventilation phase of the study. At the conclusion of the ventilation phase the patient refused further testing because of back pain, therefore, the perfusion phase of the study could not be performed. On the ventilation phase. There are no ventilation defects. There is precipitation radiotracer in the central airways compatible with chronic lung disease. Electronically Signed by Harvey Willis MD 07/04/2019 11:34 A
[2019-07-04] MEDS ORDERED: PERCOCET 5MG/325MG TAB PO ONE (12:45)
[2019-07-04 14:00] VITALS: BP_SYST 102; BP_SYST 120; BP_DIAS 59; BP_DIAS 80
[2019-07-04 14:00] LABS: HEMATOCRIT 37.4 % (36.0-47.0); HEMOGLOBIN 11.6 g/dl (12.0-15.5); MEAN CORPUSCULAR HEMOGLOBIN 27.5 pg (27.0-33.0); MEAN CORPUSCULAR VOLUME 88.6 fl (80.0-96.0); PLATELET COUNT, AUTOMATED 404 10^3/uL (150-450); RED BLOOD COUNT 4.22 10^6/uL (4.00-5.40); WHITE BLOOD COUNT 3.9 10^3/uL (4.0-10.0)
[2019-07-04] MEDS ORDERED: diphenhydrAMINE 25 MG CAP PO PRN (14:00)
[2019-07-04 14:07] VITALS: BP_SYST 102; BP_SYST 120; BP_DIAS 59; BP_DIAS 80
[2019-07-04 14:41] LABS: ALBUMIN 3.2 GM/DL (3.2-5.2); ALT/SGPT 38 U/L (12-78); BILIRUBIN,TOTAL 0.4 MG/DL (0.2-1.0); BLOOD UREA NITROGEN 10 MG/DL (7-18); CALCIUM LEVEL 8.1 MG/DL (8.5-10.1); CARBON DIOXIDE LEVEL 27 MEQ/L (21-32); CHLORIDE LEVEL 107 MEQ/L (98-107); CREATININE FOR GFR 0.54 MG/DL (0.55-1.30); FREE T3 1.9 PG/ML (2.2-4.0); FREE T4 1.02 NG/DL (0.76-1.46); GLOMERULAR FILTRATION RATE > 60.0 (>58); GLUCOSE, FASTING 116 MG/DL (70-100); POTASSIUM SERUM 4.5 MEQ/L (3.5-5.1); SODIUM LEVEL 138 MEQ/L (136-145); TOTAL PROTEIN 5.9 GM/DL (6.4-8.2); TOTAL T3 96.8 NG/DL (60.0-181.0); TROPONIN I < 0.02 NG/ML (< 0.10)
--- NOTE | 2019-07-04 16:25 | REP ---
Radionuclide lung perfusion scan: The study is correlated with the radionuclide lung ventilation scan earlier today. The perfusion scan cannot be performed at the time of the ventilation scan because of patient back pain. The patient has been medicated and returns for the perfusion phase of the study. The study is performed with 5.5 mCi of technetium 99m MAA intravenously. There are no perfusion defects. On the previous ventilation scan there were no ventilation defects. Impression: There are no perfusion defects. There are no ventilation defects. Normal radionuclide pulmonary ventilation / perfusion scan. No evidence of pulmonary emboli. Electronically Signed by Harvey Willis MD 07/04/2019 04:17 P
--- NOTE | 2019-07-04 16:29 | IPNPDOC ---
Subjective Date Seen The patient was seen on 07/04/19. Subjective Chief Complaint/HPI Nathalie has been very difficult to deal with as a patient, she has been vulgar to the staff, and her roomate who promptly asked to be discharged this morning. She's c/o chest pain, and wanting to take percocets only, she refused tramadol + tylenol. She only completed the ventilation portion of her vq scan before deciding not to proceed further with testing. Objective Physical Examination General Exam: Positive: Alert, Cooperative, No Acute Distress Eye Exam: Negative: Sclera icteric Neck Exam: Positive: Supple Chest Exam: Positive: Clear to auscultation Heart Exam: Positive: Rate Normal, Regular Rhythm Telemetry: Positive: No significant arrhythmia Abdomen Exam: Positive: Normal bowel sounds Extremity Exam: Negative: Clubbing, Cyanosis, Edema Psych Exam: Positive: Other (angry) Assessment /Plan Assessment # Atypical chest pain - trops x 2 negative - recommend stress test as outpatient - added Neurontin 600 mg x 1 # Elevated d-dimer - IV contrast dye allergy - awaiting VQ test results for discharge disposition - continue empiric Lovenox # Polysubstance abuse - urine drug screen pending - will not prescribe narcotics for her at discharge # Dispo: Home once vq scan results back Plan/VTE VTE Prophylaxis Ordered?: Yes VS, I&O, 24H, Fishbone Vital Signs/I&O Vital Signs Date Time Temp Pulse Resp B/P (MAP) Pulse Ox O2 Delivery O2 Flow Rate FiO2 07/04/19 14:07 70 102/59 07/04/19 14:06 16 07/04/19 14:00 98 Room Air 07/03/19 21:18 99.0 I&O- Last 24 Hours up to 6 AM 07/04/19 06:00 Intake Total 0 ml Output Total 0 ml Balance 0 ml Laboratory Data 24H LABS Laboratory Tests 2 07/03/19 21:46: Troponin I < 0.02, DL-Vgs-W-Type Natriuretic Peptide 35, Triglycerides Level 133, Total Cholesterol 147, LDL Cholesterol 76, Non-HDL Cholesterol (LDL + VLDL) 103, Total HDL Cholesterol 44, Cholesterol/HDL Ratio 3.340 07/04/19 13:41: Troponin I < 0.02, Nucleated Red Blood Cells % (auto) 0.0, Anion Gap 4L, Glomerular Filtration Rate > 60.0, Calcium Level 8.1L, Total Bilirubin 0.4, Aspartate Amino Transf (AST/SGOT) 27, Alanine Aminotransferase (ALT/SGPT) 38, Alkaline Phosphatase 118H, Total Protein 5.9L, Albumin 3.2, Albumin/Globulin Ratio 1.19, Free Thyroxine 1.02, Free Triiodothyronine 1.9L, Total Triiodothyronine 96.8 CBC/BMP Laboratory Tests 07/04/19 13:41 OSMAN SLADE MD Jul 04, 2019 16:29
[2019-07-04] MEDS ORDERED: NEUR600T PO (17:15)
[2019-07-05 10:26] LABS: HEPATITIS B SURFACE ANTIGEN NEGATIVE (NEGATIVE)
[2019-07-05 10:53] LABS: HEPATITIS C VIRUS ABY INDEX < 0.0 INDEX (<0.8)
[2019-07-05 10:54] LABS: HEPATITIS B CORE ANTIBODY IGM NEGATIVE (NEGATIVE)
[2019-07-05 10:56] LABS: HEPATITIS A ANTIBODY IGM NEGATIVE (NEGATIVE)
--- NOTE | 2019-07-05 13:01 | ECGEPIP ---
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
--- NOTE | 2019-07-05 23:23 | DSES ---
DATE OF ADMISSION: 07/03/2019 DATE OF DISCHARGE: 07/04/2019 DISCHARGE DIAGNOSES: 1. Atypical chest pain. 2. Elevated D-dimer of unclear significance. 3. Polysubstance abuse. 4. Pain medication seeking behavior. PROCEDURES PERFORMED DURING THIS HOSPITALIZATION: None. CONSULTANTS ON THE CASE: None. DISPOSITION: The patient was discharged home with instructions to followup with her primary care provider (PCP). IMAGING: Imaging studies completed during this hospital stay were a chest x-ray, which showed no acute pathology, bilateral lower extremity venous Duplex ultrasound did not show any evidence of deep venous thromboses. The V/Q scan was low probability for pulmonary embolism. LABORATORY: Relevant labs were the following: White count 3.2, hemoglobin was 12, hematocrit 37.2, platelet count was 437. D-dimer was 630. Sodium was 138, potassium 4.5, chloride 107, bicarbonate was 27, anion gap was 4, BUN was 10, creatinine 0.54, glucose was 116, alkaline phosphatase was 118, total protein 5.9, TSH was 0.09 with a free T4 of 1.02, free T3 of 1.9 and a total T3 of 96.8, cholesterol was 147, LDL was 76, non-HDL was 103, lipase was 131. Troponin markers times two were negative. Hemoglobin A1c was 5.6%. Urine drug screen is still pending at the time of discharge. Hepatitis panel was negative. HOSPITAL COURSE: Ms. Retana is a 44-year-old woman who has a history of polysubstance abuse. She had presented to the hospital with atypical chest pain described as stabbing involving her left side, which was ongoing for the last 2 days and 10/10 in severity. The symptoms were worsened by movement. In the emergency room (ER) department, she was found to have a slightly elevated D-Dimer for age adjusted value. The patient has an allergy to contrast media. Therefore, she was admitted to the hospitalist service for rule out atypical chest pain and pulmonary embolism. She was empirically placed on weight-based dosing for Lovenox. Serial troponin markers were negative. She was noted to have mildly elevated liver enzymes on admission. Hepatitis panel was checked, which was negative. The patient was very difficult to deal with in this hospital; she was demanding pain medications and was quite nasty to the staff, as well as her roommate who decided to abruptly leave the hospital. A V/Q scan was ordered for the patient; however, she initially refused unless she got pain medication. She was started on Neurontin. She went down for her study and only completed the initial ventilatory phase and declined to proceed any further. She was subsequently brought back to her room where she was agreeable to going back down for the perfusion portion of her V/Q scan, which she completed. This did not show any evidence of mismatch, and the patient was subsequently discharged home in stable condition. A total of 30 minutes was spent completing all the discharge paperwork.
== END 2019-07-04 17:45 | disposition home or self-care (01) | DRG 313 ==
LOC: M ED 14:47 → M ED INP 19:27 → ENRESERV 20:24 → M MSPAV 21:15
PROVIDERS: ADMIT Internal Medicine; ATTEND Internal Medicine
DX: R07.89 Other chest pain (principal); F32.9 Major depressive disorder, single episode, unspecified; D72.819 Decreased white blood cell count, unspecified; M54.9 Dorsalgia, unspecified; R74.8 Abnormal levels of other serum enzymes; Z98.84 Bariatric surgery status; Z90.49 Acquired absence of other specified parts of digestive tract; Z79.899 Other long term (current) drug therapy; Z88.6 Allergy status to analgesic agent; Z88.8 Allergy status to other drugs, medicaments and biological substances; Z76.5 Malingerer [conscious simulation]

== ENCOUNTER 2019-07-18 12:20 | Emergency (ER) | payer OTHER, MEDICAID ==
[~2019-07-18] VITALS: Ht 170.2 cm; Wt 66.2 kg
[~2019-07-18 12:20] MED LIST changes: +IRON325T9 PO; +NEUR600T PO; +NIGH1CAP PO; +PRENTAB55 PO; +QUET5TAB PO; +VENL1TAB35 PO; +VITA100054 PO
[2019-07-18 12:21] VITALS: BP 157/96
[2019-07-18] MEDS ORDERED: ONDANSETRON 4 MG ORAL DISINTEGRATING TAB (Q0162 PER 1MG) PO ONE (13:00)
[2019-07-18 14:26] LABS: BASO # 0.1 10^3/uL (0.0-0.2); BASO % 0.9 % (0.0-1.0); EOS # 0.1 10^3/uL (0.0-0.5); EOS % 2.5 % (0.0-3.0); HEMATOCRIT 39.5 % (36.0-47.0); HEMOGLOBIN 13.1 g/dl (12.0-15.5); LYMPH # 1.2 10^3/uL (1.5-5.0); LYMPH % 21.6 % (24.0-44.0); MEAN CORPUSCULAR HEMOGLOBIN 28.3 pg (27.0-33.0); MEAN CORPUSCULAR HGB CONC 33.2 g/dl (32.0-36.5); MEAN CORPUSCULAR VOLUME 85.3 fl (80.0-96.0); MONO # 0.7 10^3/uL (0.0-0.8); MONO % 11.9 % (0.0-5.0); NEUTROPHILS # 3.5 10^3/uL (1.5-8.5); NEUTROPHILS % 62.9 % (36.0-66.0); PLATELET COUNT, AUTOMATED 354 10^3/uL (150-450); RED BLOOD COUNT 4.63 10^6/uL (4.00-5.40); WHITE BLOOD COUNT 5.6 10^3/uL (4.0-10.0)
[2019-07-18 14:26] LABS: INFLUENZA A AMPLIFICATION NEGATIVE (NEGATIVE); INFLUENZA B AMPLIFICATION NEGATIVE (NEGATIVE)
[2019-07-18 14:43] LABS: BLOOD UREA NITROGEN 15 MG/DL (7-18); CALCIUM LEVEL 9.7 MG/DL (8.5-10.1); CARBON DIOXIDE LEVEL 25 MEQ/L (21-32); CHLORIDE LEVEL 97 MEQ/L (98-107); CREATININE FOR GFR 0.55 MG/DL (0.55-1.30); GLOMERULAR FILTRATION RATE > 60.0 (>58); GLUCOSE, FASTING 85 MG/DL (70-100); POTASSIUM SERUM 4.1 MEQ/L (3.5-5.1); SODIUM LEVEL 132 MEQ/L (136-145)
--- NOTE | 2019-07-19 04:58 | ECGEPIP ---
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
== END 2019-07-18 14:41 | disposition left against medical advice (07) ==
LOC: M ED 12:20
DX: Z53.21 Procedure and treatment not carried out due to patient leaving prior to being seen by health care provider (principal)

== ENCOUNTER 2019-09-04 13:58 | Emergency (ER) | payer OTHER, MEDICAID ==
[~2019-09-04] VITALS: Ht 170.2 cm; Wt 60.3 kg
[2019-09-04] MEDS ORDERED: NORCO, ANEXSIA 5/325MG TABLET (HYDROcodone/ACETAMINOPHEN) PO ONE (15:15)
[2019-09-04] MEDS ORDERED: NORC1TAB7 PO (15:30)
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
[2019-09-04 15:32] VITALS: BP 139/93
== END 2019-09-04 15:37 | disposition home or self-care (01) ==
LOC: M ED 13:58
DX: S00.83XA Contusion of other part of head, initial encounter (principal); Y04.8XXA Assault by other bodily force, initial encounter; Y07.9 Unspecified perpetrator of maltreatment and neglect; Y92.018 Other place in single-family (private) house as the place of occurrence of the external cause; F31.9 Bipolar disorder, unspecified; Z79.899 Other long term (current) drug therapy; Z88.5 Allergy status to narcotic agent; Z88.8 Allergy status to other drugs, medicaments and biological substances; Z91.041 Radiographic dye allergy status

== ENCOUNTER 2019-09-11 11:34 | Emergency (ER) | payer OTHER, MEDICAID ==
[~2019-09-11] VITALS: Ht 170.2 cm; Wt 120.0 kg
[~2019-09-11 11:34] MED LIST changes: +NORC1TAB7 PO
[2019-09-11 11:42] VITALS: BP 157/99
== END 2019-09-11 12:18 | disposition home or self-care (01) ==
LOC: M ED 11:34
DX: F43.20 Adjustment disorder, unspecified (principal); G89.29 Other chronic pain; Z79.899 Other long term (current) drug therapy; Z98.84 Bariatric surgery status; Z88.5 Allergy status to narcotic agent; Z88.8 Allergy status to other drugs, medicaments and biological substances; Z91.041 Radiographic dye allergy status; F17.210 Nicotine dependence, cigarettes, uncomplicated

== ENCOUNTER 2019-11-04 09:13 | Emergency (ER) | payer OTHER, MEDICAID ==
[~2019-11-04 09:13] MED LIST changes: +OXYC30TA PO; -OXYC30TA84 PO
== END 2019-11-04 09:45 | disposition left against medical advice (07) ==
LOC: M ED 09:13 → EDBD 09:13 → M ED 09:45
DX: M54.9 Dorsalgia, unspecified (principal); R10.9 Unspecified abdominal pain; F32.9 Major depressive disorder, single episode, unspecified; F17.200 Nicotine dependence, unspecified, uncomplicated; Z98.84 Bariatric surgery status; Z88.3 Allergy status to other anti-infective agents; Z88.5 Allergy status to narcotic agent; Z88.6 Allergy status to analgesic agent; Z88.8 Allergy status to other drugs, medicaments and biological substances; Z91.041 Radiographic dye allergy status; Z79.899 Other long term (current) drug therapy

== ENCOUNTER 2019-11-05 16:28 | Emergency (ER) | payer OTHER, MEDICAID ==
[~2019-11-05] VITALS: Ht 170.2 cm; Wt 54.5 kg
[2019-11-05 16:29] VITALS: BP 124/78
[2019-11-05] MEDS ORDERED: ONDANSETRON 4MG/2ML VIAL IV ONE (17:30)
[2019-11-05] MEDS ORDERED: KETOROLAC 30 MG/ML 1ML VIAL IV ONE (17:30)
[2019-11-05] MEDS ORDERED: KETOROLAC 60MG 2ML VIAL IM ONE (17:45)
[2019-11-05 18:08] LABS: BASO % 0.8 % (0.0-1.0); EOS % 0.6 % (0.0-3.0); HEMATOCRIT 41.2 % (36.0-47.0); HEMOGLOBIN 14.3 g/dl (12.0-15.5); LYMPH # 1.3 10^3/uL (1.5-5.0); LYMPH % 26.3 % (24.0-44.0); MEAN CORPUSCULAR HEMOGLOBIN 29.5 pg (27.0-33.0); MEAN CORPUSCULAR HGB CONC 34.7 g/dl (32.0-36.5); MEAN CORPUSCULAR VOLUME 84.9 fl (80.0-96.0); MONO # 0.5 10^3/uL (0.0-0.8); MONO % 9.7 % (0.0-5.0); NEUTROPHILS # 3.1 10^3/uL (1.5-8.5); NEUTROPHILS % 62.4 % (36.0-66.0); PLATELET COUNT, AUTOMATED 452 10^3/uL (150-450); RED BLOOD COUNT 4.85 10^6/uL (4.00-5.40)
[2019-11-05 18:28] LABS: ALBUMIN 3.3 GM/DL (3.2-5.2); BILIRUBIN,DIRECT 0.2 MG/DL (0.0-0.2); BILIRUBIN,TOTAL 0.6 MG/DL (0.2-1.0); TOTAL PROTEIN 7.6 GM/DL (6.4-8.2)
== END 2019-11-05 18:10 | disposition left against medical advice (07) ==
LOC: M ED 16:28
DX: R10.9 Unspecified abdominal pain (principal); R11.10 Vomiting, unspecified; R31.9 Hematuria, unspecified; Z88.4 Allergy status to anesthetic agent; Z88.5 Allergy status to narcotic agent; Z88.8 Allergy status to other drugs, medicaments and biological substances
CPT/HCPCS: 36415; 80047; 80076; 81001; 83690; 85025; 87086; 96372; 99283; J1885

== ENCOUNTER 2020-01-08 20:47 | Emergency (ER) | payer OTHER, MEDICAID | END 2020-01-08 23:35 | disposition home or self-care (01) | LOC: M ED 20:47 | DX: R45.851 Suicidal ideations (principal); F11.10 Opioid abuse, uncomplicated; F33.9 Major depressive disorder, recurrent, unspecified; Z98.84 Bariatric surgery status; Z79.899 Other long term (current) drug therapy; Z88.5 Allergy status to narcotic agent; Z88.8 Allergy status to other drugs, medicaments and biological substances; F17.210 Nicotine dependence, cigarettes, uncomplicated ==

== ENCOUNTER 2020-07-03 02:46 | Emergency (ER) | payer OTHER, MEDICAID ==
[~2020-07-03] VITALS: Ht 170.2 cm; Wt 57.7 kg
[~2020-07-03 02:46] MED LIST changes: +GABA-282 PO; -GABA-843 PO
[2020-07-03 02:47] VITALS: BP 137/84
--- OUTSIDE RECORDS SUMMARY | 2020-07-03 02:55 | CCD ---
Author Author Nathalie Gusman Organization Unknown Address [address] [place] [address] Phone Care Team Providers Care Manifest Clerk Name Role Phone Jim Gusman PCP Allergies, Adverse Reactions, Alerts No Data in Section Problem List Concept Problem Description Status Start Date Created Date Resolv ed Date Snomed Code F31.9 Unspecified Bipolar and Related Disorder Active 05/06/2020 F11.10 Opioid Use Disorder, Mild Active 05/06/2020 F17.200 Tobacco Use Disorder, Moderate Active 0 F10.20 Alcohol Use Disorder, Moderate Active 0 Medications No Data in Section Social History Social History Element Description Concept Effective Date Smoking Status Unknown if ever smoked [id number] Immunizations No Data in Section Vital Signs No Data in Section Procedures Date Concept Id Description Targeted Site Concept Targeted Site Concept Type 05/06/2020 69639 Extended Individual Psychotherapy - 45 min CPT Patient has no history of implantable de vices Encounters Encounter Start Date End Date Encounter Type Description Diagnosis Di agnosis Desc Location Author First Name Author Last Name Npid Taxonomy Cod e Taxonomy Desc Phone Number Location Addr1 Location Addr2 Location [facility] Location [facility] Location [facility] [place] [id number] 05/06/2020 05/06/2020 [id number] Extended Individual Psych otherapy - 45 min F31.9 Bipolar disorder, unspecified [facility] Naseem Jim [phone] [id number] Hosiery Mater [phone] [address] [facility] [address] [facility] [address] Plan of Treatment No Data in Section Lab Results No Data in Section Instructions No Data in Section Insurance Providers Insurance Id Policy Effective Date Policy Thru Date Company N erick [id number] 2019 [employer] [place] [id number] 2019 MEDICAID
--- OUTSIDE RECORDS SUMMARY | 2020-07-03 02:55 | CCD ---
Author Author [facility] Organization [facility] Address Unknown Phone Unavailable Support Name Relationship Address Phone LIBAN PECK Next Of Kin [address] [place] [id number] JW LUPE [place] [address] GOLD MAGAÑ[place] [address] [place] [address] - ST Next Of Kin Unknown Unavailable UN Next Of Kin Unknown Unavailable GOLD BATRES Next Of Kin [address] [place] [address] GOLD GAN Next Of Kin [address] [place] [facility] [place] [address] MICHAEL COOK Next Of Kin [id number] [place] [id number] UE Next Of Kin Unknown Unavailable MICHAEL COOK Next Of Kin [address] [place] [address] GOLD BATRES [facility] [address] [place] [address] Unavailable Care Team Providers Care Online Advertising Director Name Role Phone SANTANATRENA Unavailable Unavailable Joe Pickett Unavailable Kindra C Chadwick Unavailable Unavailable Kindra, C Chadwick Unavailable Unavailable Madison, C Chadwick Unavailable Unavailable Kindra, C Chadwick Unavailable Unavailable Madison, C Chadwick Unavailable Unavailable Madison, C Chadwick Unavailable Unavailable Kindra, C Chadwick Unavailable Unavailable Gregorio, Gary Unavailable Unavailable Gregorio, Gary Unavailable Unavailable Gregorio, Gary Unavailable Unavailable Gregorio, Gary Unavailable Unavailable Gregorio, Gary Unavailable Unavailable Gregorio, Gary Unavailable Unavailable Gregorio, Gary Unavailable Unavailable Gregorio, Gary Unavailable Unavailable Gregorio, Gary Unavailable Unavailable Gregorio, Gary Unavailable Unavailable Gregorio, Gary Unavailable Unavailable Gregorio, Gary Unavailable Unavailable Gregorio, Gary Unavailable Unavailable Gregorio, Gary Unavailable Unavailable Gregorio, Gary Unavailable Unavailable Gregorio, Gary Unavailable Unavailable Gregorio, Gary Unavailable Unavailable Gregorio, Gary Unavailable Unavailable Gregorio, Gary Unavailable Unavailable Gregorio, Gary Unavailable Unavailable Gregorio, Gary Unavailable Unavailable Gregorio, Gary Unavailable Unavailable Gregorio, Gary Unavailable Unavailable Gregorio, Gary Unavailable Unavailable Gregorio, Gary Unavailable Unavailable Gregorio, Gary Unavailable Unavailable Gregorio, Gary Unavailable Unavailable Gregorio, Gary Unavailable Unavailable Gregorio, Gary Unavailable Unavailable Gregorio, Gary Unavailable Unavailable Gregorio, Gary Unavailable Unavailable Gregorio, Gary Unavailable Unavailable Gregorio, Gary Unavailable Unavailable Gregorio, Gary Unavailable Unavailable Gregorio, Gary Unavailable Unavailable Gregorio, Gary Unavailable Unavailable Gregorio, Gary Unavailable Unavailable Gregorio, Gary Unavailable Unavailable Gregorio, Gary Unavailable Unavailable Gregorio, Gary Unavailable Unavailable Gregorio, Gary Unavailable Unavailable Gregorio, Gary Unavailable Unavailable Gregorio, Gary Unavailable Unavailable Gregorio, Gary Unavailable Unavailable Gansevoort, K Lashonda [facility]-TELECOMMUNICATIONS SUPPORT Unavailable Unavailable Summer, K Lashonda PMH-TELECOMMUNICATIONS SUPPORT Unavailable Unavailable Summer, K Lashonda PM[facility]-TELECOMMUNICATIONS SUPPORT Unavailable Unavailable Summer, K Lashonda PMH-TELECOMMUNICATIONS SUPPORT Unavailable Unavailable Gansevoort, K Lashonda PMH-TELECOMMUNICATIONS SUPPORT Unavailable Unavailable Summer, K Lashonda PM[facility]-TELECOMMUNICATIONS SUPPORT Unavailable Unavailable Valeria Mcpherson Unavailable Naseem, Jim Unavailable Naseem, Jim Unavailable KeMelissa biswas Unavailable DarylLuci ho Unavailable Re-disclosure Warning The records that you are about to access may contain information from federally-assisted alcohol or drug abuse programs. If such information is present, then the following federally mandated warning applies: This information has been disclosed to you from records protected by federal confidentiality rules (42 CFR part 2). The federal rules prohibit you from making any further disclosure of this information unless further disclosure is expressly permitted by the written consent of the person to whom it pertains or as otherwise permitted by 42 CFR part 2. A general authorization for the release of medical or other information is NOT sufficient for this purpose. The Federal rules restrict any use of the information to criminally investigate or prosecute any alcohol or drug abuse patient.The records that you are about to access may contain highly sensitive health information, the redisclosure of which is protected by Article 27-F of the [facility] Public Health law. If you continue you may have access to information: Regarding HIV / AIDS; Provided by facilities licensed or operated by the [facility] Office of Mental Health; or Provided by the [facility] Office for People With Developmental Disabilities. If such information is present, then the following [facility] mandated warning applies: This information has been disclosed to you from confidential records which are protected by state law. State law prohibits you from making any further disclosure of this information without the specific written consent of the person to whom it pertains, or as otherwise permitted by law. Any unauthorized further disclosure in violation of state law may result in a fine or longterm sentence or both. A general authorization for the release of medical or other information is NOT sufficient authorization for further disc losure. Allergies and Adverse Reactions Type Description Substance Reaction Status Data Source(s ) Food allergy CODIENE CODIENE [facility] Drug allergy IODINE IODINE [facility] Family History Family Member Name Family Member Gender Family Member Status Date o f Status Description Data Source(s) Unknown Male Problem [facility] ([facility]) Encounters Encounter Providers Location Date Indications Data Source(s ) Extended Individual Psychotherapy - 45 min Attender: Osvaldo khalil [facility] 05/22/2020 09:00:00 AM EST - 05/22/2020 09:00:00 AM EST [facility] ([facility]) Attender: Jim Gusman 05/22/2020 12:00:00 AM EST [facility] ([facility]) Extended Individual Psychotherapy - 45 min Attender: Osvaldo khalil [facility] 05/12/2020 10:00:00 AM EST - 05/12/2020 10:00:00 AM EST [facility] ([facility]) Attender: Jim Gusman 05/12/2020 12:00:00 AM EST [facility] ([facility]) Extended Individual Psychotherapy - 45 min Attender: Osvaldo [facility] 05/06/2020 05:00:00 AM EST - 05/06/2020 05:00:00 AM EST [facility] ([facility]) Attender: Jim Gusman 05/06/2020 12:00:00 AM EST [facility] ([facility]) Psychiatric Diagnostic Evaluation (Non-Medical) Attender: Ken Gusman [facility] 04/15/2020 06:30:00 AM EST - 04/15/2020 06:30:00 AM EST [facility] ([facility]) Attender: Jim Gusman 04/15/2020 12:00:00 AM EST [facility] ([facility]) Extended Individual Psychotherapy - 45 min Attender: Lory Mcpherson [facility] 04/03/2020 01:30:00 AM EDT - 04/03/2020 01:30:00 AM EDT [facility] ([facility]) Attender: Valeria Mcpherson 04/03/2020 12:00:00 AM EDT [facility] ([facility]) TEMPMHCTelemed 30" Psychotherapy Attender: Melissa Sierra [facility] 11/29/2019 01:00:00 AM EDT - 11/29/2019 01:00:00 AM EDT [facility] ([facility]) Attender: Melissa Wilhelm 11/29/2019 12:00:0 0 AM EDT [facility] ([facility]) [id number]"Psychotherapy Attender: Melissa Wilhelm [facility] 11/14/2019 02:30:00 AM EDT - 11/14/2019 02:30:00 AM EDT [facility] ([facility]) Attender: Melissa Wilhelm 11/14/2019 12:00:0 0 AM EDT [facility] ([facility]) Outpatient Attender: Lashonda Wheeler [facility] 11/06/2019 04:00:00 AM EDT - 11/06/2019 04:00:00 AM EDT [facility] ([facility]) Attender: Lashonda MATA 11/06/2019 12: 00:00 AM EDT [facility] ([facility]) TEMPMHCTelemed 30" Psychotherapy Attender: Melissa dunn [facility] 10/25/2019 01:00:00 AM EDT - 10/25/2019 01:00:00 AM EDT [facility] ([facility]) Attender: Melissa Wilhelm 10/25/2019 12:00:0 0 AM EDT [facility] ([facility]) [id number]"Psychotherapy Attender: Melissa Wilhelm [facility] 10/10/2019 10:45:00 AM EDT - 10/10/2019 10:45:00 AM EDT [facility] ([facility]) Attender: Melissa Wilhelm 10/10/2019 12:00:0 0 AM EDT [facility] ([facility]) Outpatient Referrer: Gary Gregorio 09/26/2019 05:38:00 AM E DT [facility] Outpatient Attender: Lashonda Wheeler [facility] 09/25/2019 08:30:00 AM EDT - 09/25/2019 08:30:00 AM EDT [facility] ([facility]) Attender: Lashonda Wheeler [facility] 09/25/2019 12: 00:00 AM EDT [facility] ([facility]) TEMPMHCTelemed 30" Psychotherapy Attender: Melissa Sierra [facility] 09/24/2019 12:00:00 PM EDT - 09/24/2019 12:00:00 PM EDT [facility] ([facility]) Attender: Melissa Wilhelm 09/24/2019 12:00:0 0 AM EDT [facility] ([facility]) [facility] 09/18/2019 05:06:00 PM EDT [facility] 09/18/2019 12:00:33 AM EDT [facility]: [facility] 09/17/2019 03:28:02 PM EDT [facility] Outpatient Attender: TRENA [facility] 09/17/2019 03:24:00 PM EDT [facility] Outpatient Attender: [facility] 09/17/2019 03:21:00 PM EDT [facility] 03:09:00 PM EDT [facility] Outpatient Attender: [facility] 09/17/2019 03:05:01 PM EDT [facility] Outpatient Attender: [facility] 09/17/2019 02:23:00 PM EDT [facility] Outpatient Attender: [facility] 09/17/2019 12:32:01 PM EDT [facility] TEMPMHCTelemed 30" Psychotherapy Attender: Melissa dunn [facility] 09/05/2019 02:45:00 AM EDT - 09/05/2019 02:45:00 AM EDT [facility] ([facility]) Attender: Melissa Wilhelm 09/05/2019 12:00:0 0 AM EDT [facility] ([facility]) Extended Individual Psychotherapy - 45 min Attender: Silvia Wilhelm [facility] 07/25/2019 03:15:00 AM EST - 07/25/2019 03:15:00 AM EST [facility] ([facility]) Attender: Melissa Wilhelm 07/25/2019 12:00:0 0 AM EST [facility] ([facility]) Outpatient Attender: Chadwick Arguelles [facility] 0 07/18/2019 03:00:00 AM EST - 07/18/2019 03:00:00 AM EST [facility] ([facility] Attender: Chadwick Arguelles 07/18/2019 12:00:00 AM EST [facility] ([facility]) Outpatient Referrer: Gary Gregorio 07/15/2019 04:11:[address] [facility] Referrer: Gary Gregorio 07/10/2019 09:23:[address] [facility] Extended Individual Psychotherapy - 45 min Attender: Silvia Wilhelm [facility] 07/09/2019 12:00:00 PM EST - 07/09/2019 12:00:00 PM EST [facility] ([facility]) Attender: Melissa Wilhelm 07/09/2019 12:00:0 0 AM EST [facility] ([facility]) Extended Individual Psychotherapy - 45 min Attender: Silviageovani Wilhelm [facility] 07/02/2019 10:00:00 AM EST - 07/02/2019 10:00:00 AM EST [facility] ([facility]) Attender: Melissa Wilhelm 07/02/2019 12:00:0 0 AM EST [facility] ([facility]) Psychiatric Diagnostic Evaluation with Medical Service s Attender: Chadwick [facility] 06/28/2019 11:00:00 AM EST - 06/28/2019 11 :00:00 AM EST [facility] ([facility]) Attender: Chadwick Madison 06/28/2019 12:00:00 AM EST [facility] ([facility]) Extended Individual Psychotherapy - 45 min [facility] 02:45:00 AM EST - 06/10/2019 02:45:00 AM EST [facility] ([facility]) Attender: Melissa Wilhelm 06/10/2019 12:00:0 0 AM EST [facility] ([facility]) Psychiatric Diagnostic Evaluation with Medical Service s Attender: Chadwick Pierceling [facility] 05/30/2019 03:30:00 AM EST - 05/30/2019 03 :30:00 AM EST [facility] ([facility]) Attender: Chadwick Arguelles 05/30/2019 12:00:00 AM EST [facility] ([facility]) Extended Individual Psychotherapy - 45 min [facility]2019 01:45:00 AM EST - 05/21/2019 01:45:00 AM EST [facility] ([facility]) Attender: Melissa Wilhelm 05/21/2019 12:00:0 0 AM EST [facility] ([facility]) Extended Individual Psychotherapy - 45 min [facility]13[facility] 10:00:00 AM EST - 05/13/2019 10:00:00 AM EST [facility] ([facility]) Health Monitoring - 30 Min Attender: Luci Friedman [facility] 05/13/2019 09:30:00 AM EST - 05/13/2019 09:30:00 AM EST [facility] ([facility]) Attender: Luci Friedman 05/13/2019 12:00:00 AM EST [facility] ([facility]) Attender: Melissa Wilhelm 05/13/2019 12:00:0 0 AM EST [facility] ([facility]) Psychiatric Diagnostic Evaluation (Non-Medical) Attender: Amanda Pickett [facility] 05/06/2019 09:00:00 AM EST - 05/06/2019 09:00:00 AM EST [facility] ([facility]) Attender: Joe Pickett 05/06/2019 12:00:[address] [facility] ([facility]) Functional Status Medications Medication Brand Name Start Date Product Form Dose Route Admi nistrative Instructions Pharmacy Instructions Status Indications Reaction Description Data Source(s) venlafaxine 50 MG Oral Tablet venlafaxine 11/06/2019 12:00:00 AM EDT 50 mg by mouth completed [id number] venlafaxine by mouth [id number] 11/0501/05/2020 once a day 30 50 mg tablet 41715 [id number] Horacio Wheeler [id number] [facility]Mental Health [facility]) quetiapine 100 MG Oral Tablet quetiapine 11/06/2019 12:00:00 AM EDT 100 mg by mouth completed [id number] quetiapine by mouth [id number] 201901/05/2020 at bedtime 30 100 mg tablet 47393 [id number] Marlo Wheeler [id number] Psychiatric/Mental Health [facility] ([facility]) venlafaxine 50 MG Oral Tablet venlafaxine 11/06/2019 12:00:00 AM EDT 50 mg by mouth completed [id number] venlafaxine by mouth [id number] 11/0501/05/2020 once a day 30 50 mg tablet 22547 [id number] Horacio hwanghilario Summer [id number] Psych[facility]Mental Health [facility]) quetiapine 100 MG Oral Tablet quetiapine 11/06/2019 12:00:00 AM EDT 100 mg by mouth completed [id number] quetiapine by mouth [id number] 201901/05/2020 at bedtime 30 100 mg tablet 16522 [id number] Albarosamigee hipolito Summer [id number] Psychiatric/Mental Health [facility] ([facility]) venlafaxine 50 MG Oral Tablet venlafaxine 09/25/2019 12:00:00 AM EDT 50 mg by mouth completed [id number] venlafaxine by mouth [id number] 09/2411/06/2019 twice a day 30 50 mg tablet 63011 [id number] Albaro lynnejames Wheeler [id number] Psych[facility]Mental Health [facility]) venlafaxine 50 MG Oral Tablet venlafaxine 09/13/2019 12:00:00 AM EDT 50 mg completed [id number] venlafaxine 09/13/2019 30 50 m g tablet 00295 [id number] Lashondahilario Wheeler [id number] Psychiatric/Mental Health [facility] ([facility]) quetiapine 200 MG Oral Tablet quetiapine 08/21/2019 12:00:00 AM EDT 200 mg by mouth completed [id number] quetiapine by mouth [id number] 201911/06/2019 at bedtime 30 200 mg tablet 41413 [id number] Marlo hipolito Summer [id number] Psychiatric[facility]Mental Health [facility] ([facility]) quetiapine 200 MG Oral Tablet [Seroquel] Seroquel 07/18/2019 12 :00:00 AM EST 200 mg by mouth completed [id number] Seroquel by mouth [id number] 8 07/18/2019 08/17/2019 at bedtime 30 200 mg tablet 86539 [id number] [facility] Kindra [id number] Psychiatric/Mental Health [facility]) quetiapine 200 MG Oral Tablet [Seroquel] Seroquel 07/18/2019 12 :00:00 AM EST 200 mg by mouth completed 138543 Seroquel by mouth C3828 8 07/18/2019 08/17/2019 at bedtime 30 200 mg tablet [id number] jo ann Arguelles [id number] Psych[facility] Health [facility]) Insurance Providers Payer name Policy type / Coverage type Policy ID Covered democrat ID Covered democrat's relationship to lan Policy Lan Plan Information EMEDNY [id number] SP [id number] [place] [id number] [facility] [id number] MEDICAID [id number] SP [id number] MEDICAID M [id number] S [id number] [place] [id number] S [id number] [place] P [id number] S [id number] Medicaid S [id number] MEDICAID [id number] SP [id number] [facility] OFFICE OF VICTIM SERVICES [id number] SP [id number] [place] [id number] 01 [id number] [place] [id number] 18 [id number] MEDICAID M [id number] Self [id number] U [id number] Self [id number] [place] [employer] - O/P [id number] 01 [id number] [place] [employer] [id number] [facility] [id number] [place] [id number] Self [id number] PGBA [place] [id number] [facility] [id number] [place] [id number] Self [id number] [place] [employer] [id number] [place] [employer] [id number] [facility] [id number] [place] [employer] [id number] [facility] [id number] N REGIONAL CLAIMS VIANNEY -O/P [id number] 01 [id number] [place] O [id number] S [id number] [place] [id number] [facility] [id number] PGBA [facility] [id number] HU2 [id number] PGBA [place] O [id number] P [id number] Spo [id number] [facility] [id number] Spo [id number] U [id number] Self [id number] U [id number] Spouse [id number] [facility] [employer] [facility] [id number] 0 [id number] [facility] [id number] Spo [id number] [facility] [id number] Spo [id number] [facility] AT [facility] [id number] 18 [id number] [facility] [id number] SP [id number] [facility] AT [facility] [id number] 18 [id number] [facility] AT [facility] [id number] 18 [id number] [facility] AT [facility] [id number] 01 [id number] [facility] P [id number] S [id number] Problems, Conditions, and Diagnoses Code Display Name Description Problem Type Effective Dates Data Source(s) F10.20 Alcohol dependence, uncomplicated Alcohol Use Di sorder, Moderate Condition 05/22/2020 12:00:00 AM EST [facility] ([facility]) F17.200 Nicotine dependence, unspecified, uncomp licated Tobacco Use Disorder, Moderate Condition 05/22/2020 12:00:00 AM EST [facility] ([facility]) F11.10 Opioid abuse, uncomplicated Opioid Use Disorder, Mild Condition 05/22/2020 12:00:00 AM EST [facility] ([facility]) F31.9 Bipolar disorder, unspecified Unspecified Bipola r and Related Disorder Condition 05/22/2020 12:00:00 AM EST [facility] ([facility]) 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 Postgastric surgery synd romes Condition 11/29/2019 12:00:00 AM EDT [facility] ([facility]) F60.3 Borderline personality disorder Borderline Personality Disorder Condition 11/29/2019 12:00:00 AM EDT [facility] ([facility]) F14.99 Cocaine use, unspecified with unspecifie d cocaine-induced disorder Unspecified Stimulant-Related Disorder: Cocaine Condition 2019 12:00:00 AM EDT [facility] ([facility]) F31.9 Bipolar disorder, unspecified Unspecified Bipola r and Related Disorder Condition 11/29/2019 12:00:00 AM EDT [facility] ([facility]) F43.10 Post-traumatic stress disorder, unspecif ied Posttraumatic Stress Disorder (includes Posttraumatic Stress Disorder for Children 6 Years and Younger) Condition 11/29/2019 12:00:00 AM EDT [facility] ([facility]) 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.10 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 extraction Teeth extraction 09/17/2019 03 :26:48 PM EDT [facility] F60.3 Borderline personality disorder Borderline Personality Disorder Condition 06/10/2019 12:00:00 AM EST [facility] ([facility]) F32.9 Major depressive disorder, single episod e, unspecified Unspecified depressive Disorder Condition 06/10/2019 12:00:00 AM EST [facility] ([facility]) Surgeries/Procedures Procedure Description Date Indications Data Source(s) Extended Individual Psychotherapy - 45 min 05/22/2020 12:00:00 AM EST - 05/22/2020 12:00:00 AM EST [facility] ([facility]) Extended Individual Psychotherapy - 45 min 0 12:00:00 AM EST [facility] ([facility]) Extended Individual Psychotherapy - 45 min 05/12/2020 12:00:00 AM EST - 05/12/2020 12:00:00 AM EST [facility] ([facility]) Extended Individual Psychotherapy - 45 min 0 12:00:00 AM EST [facility] ([facility]) Extended Individual Psychotherapy - 45 min 05/06/2020 12:00:00 AM EST - 05/06/2020 12:00:00 AM EST [facility] ([facility]) Extended Individual Psychotherapy - 45 min 0 12:00:00 AM EST [facility] ([facility]) Psychiatric Diagnostic Evaluation (Non-Medical) 04/15/2020 12:00:00 AM EST - 04/15/2020 12:00:00 AM EST [facility] ([facility]) Psychiatric Diagnostic Evaluation (Non-Medical) 2019 12:00:00 AM EST [facility] ([facility]) Extended Individual Psychotherapy - 45 min 04/03/2020 12:00:00 AM EDT - 04/03/2020 12:00:00 AM EDT [facility] ([facility]) Extended Individual Psychotherapy - 45 min 0 12:00:00 AM EDT [facility] ([facility]) TEMPMHCTelemed 30" Psychotherapy 020 12:00:00 AM EDT - 11/29/2019 12:00:00 AM EDT [facility] ([facility]) TEMPMHCTelemed 30" Psychotherapy 11/29/2019 12:00:00 A M EDT [facility] ([facility]) [id number]"Psychotherapy 0 12:00:00 AM EDT - 11/14/2019 12:00:00 AM EDT [facility] ([facility]) [id number]"Psychotherapy 11/14/2019 12:00:00 AM EDT [facility] ([facility]) MHC Telemed E/M Lvl 3--Est pt 11/06/2019 12:00:00 AM EDT - 11/06/2019 12:00:00 AM EDT [facility] ([facility]) Telemed A/O 30" 11/06/2019 12:00:00 AM EDT [facility] ([facility]) MHC Telemed E/M Lvl 3--Est pt 11/06/2019 12:00:00 AM E DT [facility] ([facility]) TEMPMHCTelemed 30" Psychotherapy 020 12:00:00 AM EDT - 10/25/2019 12:00:00 AM EDT [facility] ([facility]) TEMPMHCTelemed 30" Psychotherapy 10/25/2019 12:00:00 A M EDT [facility] ([facility]) [id number]"Psychotherapy 0 12:00:00 AM EDT - 10/10/2019 12:00:00 AM EDT [facility] [facility]) [id number]"Psychotherapy 10/10/2019 12:00:00 AM EDT [facility] ([facility]) MHC Telemed E/M Lvl 3--Est pt 09/25/2019 12:00:00 AM EDT - 09/25/2019 12:00:00 AM EDT [facility] ([facility]) Telemed A/O 30" 09/25/2019 12:00:00 AM EDT [facility] ([facility]) MHC Telemed E/M Lvl 3--Est pt 09/25/2019 12:00:00 AM E DT [facility] ([facility]) TEMPMHCTelemed 30" Psychotherapy 020 12:00:00 AM EDT - 09/24/2019 12:00:00 AM EDT [facility] ([facility]) TEMPMHCTelemed 30" Psychotherapy 09/24/2019 12:00:00 A M EDT [facility] ([facility]) TEMPMHCTelemed 30" Psychotherapy 020 12:00:00 AM EDT - 09/05/2019 12:00:00 AM EDT [facility] ([facility]) TEMPMHCTelemed 30" Psychotherapy 09/05/2019 12:00:00 A M EDT [facility] ([facility]) Extended Individual Psychotherapy - 45 min 07/25/2019 12:00:00 AM EST - 07/25/2019 12:00:00 AM EST [facility] ([facility]) Extended Individual Psychotherapy - 45 min 0 12:00:00 AM EST [facility] ([facility]) OFFICE OUTPATIENT VISIT 10 MINUTES 07/18 12:00:00 AM EST - 07/18/2019 12:00:00 AM EST [facility] ([facility]) OFFICE OUTPATIENT VISIT 10 MINUTES 07/18/2019 12:00:00 AM EST [facility] ([facility]) Extended Individual Psychotherapy - 45 min 07/09/2019 12:00:00 AM EST - 07/09/2019 12:00:00 AM EST [facility] ([facility]) Extended Individual Psychotherapy - 45 min 0 12:00:00 AM EST [facility] ([facility]) Extended Individual Psychotherapy - 45 min 07/02/2019 12:00:00 AM EST - 07/02/2019 12:00:00 AM EST [facility] ([facility]) Extended Individual Psychotherapy - 45 min 0 12:00:00 AM EST [facility] ([facility]) Psychiatric Diagnostic Evaluation with Medical Services 06/28/2019 12:00:00 AM EST - 06/28/2019 12:00:00 AM EST [facility] ([facility]) Psychiatric Diagnostic Evaluation with Medical Services 06/28/2019 12:00:00 AM EST [facility] ([facility]) Extended Individual Psychotherapy - 45 min 06/10/2019 12:00:00 AM EST - 06/10/2019 12:00:00 AM EST [facility] ([facility]) Extended Individual Psychotherapy - 45 min 0 12:00:00 AM EST [facility] ([facility]) Psychiatric Diagnostic Evaluation with Medical Services 05/30/2019 12:00:00 AM EST - 05/30/2019 12:00:00 AM EST [facility] ([facility]) Psychiatric Diagnostic Evaluation with Medical Services 05/30/2019 12:00:00 AM EST [facility] ([facility]) Extended Individual Psychotherapy - 45 min 05/21/2019 12:00:00 AM EST - 05/21/2019 12:00:00 AM EST [facility] ([facility]) Extended Individual Psychotherapy - 45 min 9 12:00:00 AM EST [facility] ([facility]) PREVENT MED LEAD ARCHITECT&/RISK FACTOR REDJ SPX 30 MIN 05/13/2019 12:00:00 AM EST - 05/13/2019 12:00:00 AM EST [facility] ([facility]) PREVENT MED LEAD ARCHITECT&/RISK FACTOR REDJ SPX 30 MIN 05/13 12:00:00 AM EST [facility] ([facility]) Extended Individual Psychotherapy - 45 min 05/13/2019 12:00:00 AM EST - 05/13/2019 12:00:00 AM EST [facility] ([facility]) Extended Individual Psychotherapy - 45 min 12:00:00 AM EST [facility] ([facility]) Psychiatric Diagnostic Evaluation (Non-Medical) 05/06/2019 12:00:00 AM EST - 05/06/2019 12:00:00 AM EST [facility] ([facility]) Psychiatric Diagnostic Evaluation (Non-Medical) 2018 12:00:00 AM EST [facility] ([facility]) Results ID Date Data Source [id number] 09/17/2019 02:21:21 PM EDT [facility] Current Problems: Teeth extraction (ICD- 525.10) ([id number])Current Allergies: * IODINE (Critical)* CODIENE (Critical) Dental Chart: Procedures:Type - CDT Code - Description B - (D0220) Intraoral, periapical, first radiographic image on Tooth # 11 (Performed by Patricia Rincon DDS) B - (D0140) Limited oral evaluation - problem focused on Tooth # 11 (Performed by Patricia Rincon DDS) Treatments:Type - CDT Code - Description T - (D7140) Extraction, erupted tooth or exposed root (elevation and/or forceps removal) on Tooth # 11 (Performed by Patricia Rincon DDS) T - (D7140) Extraction, erupted tooth or exposed root (elevation and/or forceps removal) on Tooth # 14 (Performed by Patricia Rincon DDS)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
--- OUTSIDE RECORDS SUMMARY | 2020-07-03 02:55 | CCD ---
Author Author Nathalie Gusman Organization Unknown Address [address] [place] [address] Phone Care Team Providers Care Skin Pass Operator Name Role Phone Jim Gusman PCP Allergies, Adverse Reactions, Alerts No Data in Section Problem List Concept Problem Description Status Start Date Created Date Resolv ed Date Snomed Code F31.9 Unspecified Bipolar and Related Disorder Active 05/22/2020 F11.10 Opioid Use Disorder, Mild Active 05/22/2020 F17.200 Tobacco Use Disorder, Moderate Active 0 F10.20 Alcohol Use Disorder, Moderate Active 0 Medications No Data in Section Social History Social History Element Description Concept Effective Date Smoking Status Unknown if ever smoked [id number] Immunizations No Data in Section Vital Signs No Data in Section Procedures Date Concept Id Description Targeted Site Concept Targeted Site Concept Type 05/22/2020 13629 Extended Individual Psychotherapy - 45 min CPT Patient has no history of implantable de vices Encounters Encounter Start Date End Date Encounter Type Description Diagnosis Di agnosis Desc Location Author First Name Author Last Name Npid Taxonomy Cod e Taxonomy Desc Phone Number Location Addr1 Location Addr2 Location [facility] [id number] 05/22/2020 05/22/2020 36973 Extended Individual Psych otherapy - 45 min F31.9 Bipolar disorder, unspecified [facility] Naseem Fernandez [phone] [id number] Gut Snatcher [phone] [address] [place] [facility] [address] Plan of Treatment No Data in Section Lab Results No Data in Section Instructions No Data in Section Insurance Providers Insurance Id Policy Effective Date Policy Thru Date Company N erick [id number] 2019 [employer] [place] [id number] 2019 MEDICAID
--- OUTSIDE RECORDS SUMMARY | 2020-07-03 02:55 | CCD ---
Author Author Nathalie Gusman Organization Unknown Address [address] [place] [address] Phone Care Team Providers Care Brand Protection Manager Name Role Phone NaseemOsvaldoto PCP Allergies, Adverse Reactions, Alerts No Data in Section Problem List Concept Problem Description Status Start Date Created Date Resolv ed Date Snomed Code F31.9 Unspecified Bipolar and Related Disorder Active 04/17/2020 F11.10 Opioid Use Disorder, Mild Active 04/17/2020 F17.200 Tobacco Use Disorder, Moderate Active 0 F10.20 Alcohol Use Disorder, Moderate Active 0 Medications No Data in Section Social History Social History Element Description Concept Effective Date Smoking Status Unknown if ever smoked [id number] Immunizations No Data in Section Vital Signs No Data in Section Procedures Date Concept Id Description Targeted Site Concept Targeted Site Concept Type 04/15/2020 48606 Psychiatric Diagnostic Evaluation (Non-Medical) CPT Patient has no history of implantable de vices Encounters Encounter Start Date End Date Encounter Type Description Diagnosis Di agnosis Desc Location Author First Name Author Last Name Npid Taxonomy Cod e Taxonomy Desc Phone Number Location Addr1 Location Addr2 Location [facility] Location [facility] Location [facility] [id number] 04/15/2020 04/15/2020 53287 Psychiatric Minerva gnostic Evaluation (Non-Medical) F31.9 Bipolar disorder, unspecified [facility] Naseem Jim [phone] [id number] 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
--- OUTSIDE RECORDS SUMMARY | 2020-07-03 02:55 | CCD ---
Author Author Claudio Gusmanher Jim Organization Unknown Address [address] [place] [address] Phone Care Team Providers Care Cutting Pressman Name Role Phone Jim Gusman PCP Allergies, Adverse Reactions, Alerts No Data in Section Problem List Concept Problem Description Status Start Date Created Date Resolv ed Date Snomed Code F31.9 Unspecified Bipolar and Related Disorder Active 05/12/2020 F11.10 Opioid Use Disorder, Mild Active 05/12/2020 F17.200 Tobacco Use Disorder, Moderate Active 0 F10.20 Alcohol Use Disorder, Moderate Active 0 Medications No Data in Section Social History Social History Element Description Concept Effective Date Smoking Status Unknown if ever smoked [id number] Immunizations No Data in Section Vital Signs No Data in Section Procedures Date Concept Id Description Targeted Site Concept Targeted Site Concept Type 05/12/2020 12253 Extended Individual Psychotherapy - 45 min CPT Patient has no history of implantable de vices Encounters Encounter Start Date End Date Encounter Type Description Diagnosis Di agnosis Desc Location Author First Name Author Last Name Npid Taxonomy Cod e Taxonomy Desc Phone Number Location Addr1 Location Addr2 Location [facility] [id number] 05/12/2020 05/12/2020 22255 Extended Individual Psych otherapy - 45 min F31.9 Bipolar disorder, unspecified [facility] Naseem Fernandez [phone] [id number] Directional Bore Operator [phone] [address] [facility] [address] Plan of Treatment No Data in Section Lab Results No Data in Section Instructions No Data in Section Insurance Providers Insurance Id Policy Effective Date Policy Thru Date Company N erick [id number] 2019 [employer] [place] [id number] 2019 MEDICAID
--- OUTSIDE RECORDS SUMMARY | 2020-07-03 04:14 | CCD ---
Author Author [facility] Organization [facility] Address Unknown Phone Unavailable Care Team Providers Care Forensic Toxicologist Name Role Phone SANTANATRENA Unavailable Unavailable Joe Pickett Unavailable Kindra C Chadwick Unavailable Unavailable Kindra, C Chadwick Unavailable Unavailable [place], C Chadwick Unavailable Unavailable Kindra, C Chadwick Unavailable Unavailable [place], C Chadwick Unavailable Unavailable [place], C Chadwick Unavailable Unavailable Kindra, C Chadwick Unavailable Unavailable Gregorio, Gary Unavailable Unavailable Gregoiro, Gary Unavailable Unavailable Gregorio, Gary Unavailable Unavailable Gregorio, Gary Unavailable Unavailable Gregorio, Gary Unavailable Unavailable Gregorio, Gary Unavailable Unavailable Gregorio, Gary Unavailable Unavailable Gregorio, Gary Unavailable Unavailable Gregorio, Gary Unavailable Unavailable Gregorio, Gary Unavailable Unavailable Gregorio, Gary Unavailable Unavailable Gregorio, Gary Unavailable Unavailable Gregorio, Agry Unavailable Unavailable Gregorio, Gary Unavailable Unavailable Gregorio, [...] Gary Unavailable Unavailable Gregorio, Gary Unavailable Unavailable [place], K Lashonda [facility] COORDINATOR Unavailable Unavailable Summer, K Lashonda PMH-[facility]ATER[facility]ED COORDINATOR Unavailable Unavailable Summer, K Lashonda [facility] COORDINATOR Unavailable Unavailable Summer, K Lashonda [facility] COORDINATOR Unavailable Unavailable [place], K Lashonda [facility] COORDINATOR Unavailable Unavailable Summer, K Lashonda [facility] COORDINATOR Unavailable Unavailable Valeria Mcpherson Unavailable Naseem, Jim [...] is protected by Article 27-F of the [facility] Public Health law. If you continue you may have access to information: Regarding HIV / AIDS; Provided by facilities licensed or operated by the [facility] Office of Mental Health; or Provided by the [facility] Office for People With Developmental Disabilities. If such information is present, then the following [facility] mandated warning applies: This information has been [...] law may result in a fine or prison sentence or both. A general authorization for the release of medical or other information is NOT sufficient authorization for further disc losure. Allergies and Adverse Reactions Type Description Substance Reaction Status Data Source(s ) Food allergy CODIENE CODIENE [facility] Drug allergy IODINE IODINE [facility] Family History Family Member Name Family Member Gender Family Member Status Date o f Status Description Data Source(s) Unknown Male Problem [facility] ([facility]) Encounters Encounter Providers Location Date Indications Data Source(s ) Extended Individual Psychotherapy - 45 min Attender: Osvaldo khalil [facility] 05/22/2020 09:00:00 AM EST - 05/22/2020 09:00:00 AM EST [facility] ([facility]) Attender: Jim Gusman 05/22/2020 12:00:00 AM EST [facility] ([facility]) Extended Individual Psychotherapy - 45 min Attender: Osvaldo khalil [facility] 05/12/2020 10:00:00 AM EST - 05/12/2020 10:00:00 AM EST [facility] ([facility]) Attender: Jim Gusman 05/12/2020 12:00:00 AM EST [facility] ([facility]) Extended Individual Psychotherapy - 45 min Attender: Osvaldo [facility] 05/06/2020 05:00:00 AM EST - 05/06/2020 05:00:00 AM EST [facility] ([facility]) Attender: Jim Gusman 05/06/2020 12:00:00 AM EST [facility] ([facility]) Psychiatric Diagnostic Evaluation (Non-Medical) Attender: Ken Gusman [facility] 04/15/2020 06:30:00 AM EST - 04/15/2020 06:30:00 AM EST [facility] ([facility]) Attender: Jim Gusman 04/15/2020 12:00:00 AM EST [facility] ([facility]) Extended Individual Psychotherapy - 45 min Attender: Lory Mcpherson [facility] 04/03/2020 01:30:00 AM EDT - 04/03/2020 01:30:00 AM EDT [facility] ([facility]) Attender: Valeria Mcpherson 04/03/2020 12:00:00 AM EDT [facility] ([facility]) TEMPMHCTelemed 30" Psychotherapy Attender: Melissa Sierra [facility] 11/29/2019 01:00:00 AM EDT - 11/29/2019 01:00:00 AM EDT [facility] ([facility]) Attender: Melissa Wilhelm 11/29/2019 12:00:0 0 AM EDT [facility] ([facility]) [id number]"Psychotherapy Attender: Melissa Wilhelm [facility] 11/14/2019 02:30:00 AM EDT - 11/14/2019 02:30:00 AM EDT [facility] ([facility]) Attender: Melissa Wilhelm 11/14/2019 12:00:0 0 AM EDT [facility] ([facility]) Outpatient Attender: Lashonda Wheeler [facility] 11/06/2019 04:00:00 AM EDT - 11/06/2019 04:00:00 AM EDT [facility] ([facility]) Attender: Lashonda MATA 11/06/2019 12: 00:00 AM EDT [facility] ([facility]) TEMPMHCTelemed 30" Psychotherapy Attender: Melissa dunn [facility] 10/25/2019 01:00:00 AM EDT - 10/25/2019 01:00:00 AM EDT [facility] ([facility]) Attender: Melissa Wilhelm 10/25/2019 12:00:0 0 AM EDT [facility] ([facility]) [id number]"Psychotherapy Attender: Melissa Wilhelm [facility] 10/10/2019 10:45:00 AM EDT - 10/10/2019 10:45:00 AM EDT [facility] ([facility]) Attender: Melissa Wilhelm 10/10/2019 12:00:0 0 AM EDT [facility] ([facility]) Outpatient Referrer: Gary Gregorio 09/26/2019 05:38:00 AM E DT [facility] Attender: Lashonda Wheeler [facility] 09/25/2019 08:30:00 AM EDT - 09/25/2019 08:30:00 AM EDT [facility] ([facility]) Attender: Lashonda Wheeler [facility] 09/25/2019 12: 00:00 AM EDT [facility] ([facility]) TEMPMHCTelemed 30" Psychotherapy Attender: Melissa Sierra [facility] 09/24/2019 12:00:00 PM EDT - 09/24/2019 12:00:00 PM EDT [facility] ([facility]) Attender: Melissa Wilhelm 09/24/2019 12:00:0 0 AM EDT [facility] ([facility]) Outpatient Attender: TRENA [facility] 09/18/2019 05:06:00 PM EDT [facility] Outpatient Attender: [facility] 09/18/2019 12:00:33 AM EDT [facility] Outpatient Attender: [facility] 09/17/2019 03:28:02 PM EDT [facility] Outpatient Attender: TRENA [facility] 09/17/2019 03:24:00 PM EDT [facility] Outpatient Attender: [facility]RENA [facility] 09/17/2019 03:21:00 PM EDT [facility] 03:09:00 PM EDT [facility] Outpatient Attender: TRENA [facility] 09/17/2019 03:05:01 PM EDT [facility] Outpatient Attender: TRENA [facility] 09/17/2019 02:23:00 PM EDT [facility] Outpatient Attender: TRENA [facility] 09/17/2019 12:32:01 PM EDT [facility] TEMPMHCTelemed 30" Psychotherapy Attender: Melissa dunn [facility] 09/05/2019 02:45:00 AM EDT - 09/05/2019 02:45:00 AM EDT [facility] ([facility]) Attender: Melissa Wilhelm 09/05/2019 12:00:0 0 AM EDT [facility] ([facility]) Extended Individual Psychotherapy - 45 min Attender: Silvia Wilhelm [facility] 07/25/2019 03:15:00 AM EST - 07/25/2019 03:15:00 AM EST [facility] ([facility]) Attender: Melissa Wilhelm 07/25/2019 12:00:0 0 AM EST [facility] ([facility]) Outpatient Attender: Chadwick Arguelles [facility] 0 07/18/2019 03:00:00 AM EST - 07/18/2019 03:00:00 AM EST [facility] Attender: Chadwick Arguelles 07/18/2019 12:00:00 AM EST [facility] ([facility]) Outpatient Referrer: Gary Gregorio 07/15/2019 04:11:[address] [facility] Referrer: Gary Gregorio 07/10/2019 09:23:[address] [facility] Extended Individual Psychotherapy - 45 min Attender: Silvia Wilhelm [facility] 07/09/2019 12:00:00 PM EST - 07/09/2019 12:00:00 PM EST [facility] ([facility]) Attender: Melissa Wilhelm 07/09/2019 12:00:0 0 AM EST [facility] ([facility]) Extended Individual Psychotherapy - 45 min Attender: Silviageovani Wilhelm [facility] 07/02/2019 10:00:00 AM EST - 07/02/2019 10:00:00 AM EST [facility] ([facility]) Attender: Melissa Wilhelm 07/02/2019 12:00:0 0 AM EST [facility] ([facility]) Psychiatric Diagnostic Evaluation with Medical Service s Attender: Chadwick [facility] 06/28/2019 11:00:00 AM EST - 06/28/2019 11 :00:00 AM EST [facility] ([facility]) Attender: Chadwick [place] 06/28/2019 12:00:00 AM EST [facility] ([facility]) Extended Individual Psychotherapy - 45 min [facility] 02:45:00 AM EST - 06/10/2019 02:45:00 AM EST [facility] ([facility]) Attender: Melissa Wilhelm 06/10/2019 12:00:0 0 AM EST [facility] ([facility]) Psychiatric Diagnostic Evaluation with Medical Service s Attender: Chadwick Pierceling [facility] 05/30/2019 03:30:00 AM EST - 05/30/2019 03 :30:00 AM EST [facility] ([facility]) Attender: Chadwick Arguelles 05/30/2019 12:00:00 AM EST [facility] ([facility]) Extended Individual Psychotherapy - 45 min [facility]/21/2019 01:45:00 AM EST - 05/21/2019 01:45:00 AM EST [facility] ([facility]) Attender: Melissa Wilhelm 05/21/2019 12:00:0 0 AM EST [facility] ([facility]) Extended Individual Psychotherapy - 45 min [facility] 10:00:00 AM EST - 05/13/2019 10:00:00 AM EST [facility] ([facility]) Health Monitoring - 30 Min Attender: Luci Friedman [facility] 05/13/2019 09:30:00 AM EST - 05/13/2019 09:30:00 AM EST [facility] ([facility]) Attender: Luci Friedman 05/13/2019 12:00:00 AM EST [facility] ([facility]) Attender: Melissa Wilhelm 05/13/2019 12:00:0 0 AM EST [facility] ([facility]) Psychiatric Diagnostic Evaluation (Non-Medical) Attender: Amanda Pickett [facility] 05/06/2019 09:00:00 AM EST - 05/06/2019 09:00:00 AM EST [facility] ([facility]) Attender: Joe Pickett 05/06/2019 12:00:[address] [facility] ([facility]) Functional Status Medications Medication Brand Name Start Date Product Form Dose Route Admi nistrative Instructions Pharmacy Instructions Status Indications Reaction Description Data Source(s) venlafaxine 50 MG Oral Tablet venlafaxine 11/06/2019 12:00:00 AM EDT 50 mg by mouth completed [id number] venlafaxine by mouth [id number] 11/0501/05/2020 once a day 30 50 mg tablet 89904 [id number] Horacio Wheeler [id number] [facility]) quetiapine 100 MG Oral Tablet quetiapine 11/06/2019 12:00:00 AM EDT 100 mg by mouth completed [id number] quetiapine by mouth [id number] 201901/05/2020 at bedtime 30 100 mg tablet 51709 [id number] Marlo Wheeler [id number] Psychiatric/Mental Health [facility] ([facility]) venlafaxine 50 MG Oral Tablet venlafaxine 11/06/2019 12:00:00 AM EDT 50 mg by mouth completed [id number] venlafaxine by mouth [id number] 11/0501/05/2020 once a day 30 50 mg tablet 80784 [id number] [id number] Horacio hwanghilario Summer [id number] Psych[facility]Mental Health [facility]) quetiapine 100 MG Oral Tablet quetiapine 11/06/2019 12:00:00 AM EDT 100 mg by mouth completed [id number] quetiapine by mouth [id number] 201901/05/2020 at bedtime 30 100 mg tablet 10408 [id number] Albarosamigee hipolito Summer [id number] Psychiatric/Mental Health [facility] ([facility]) venlafaxine 50 MG Oral Tablet venlafaxine 09/25/2019 12:00:00 AM EDT 50 mg by mouth completed [id number] venlafaxine by mouth [id number] 09/2411/06/2019 twice a day 30 50 mg tablet 47079 [id number] Albaro lynnejames Wheeler [id number] Psych[facility]Mental Health [facility] ([facility]) venlafaxine 50 MG Oral Tablet venlafaxine 09/13/2019 12:00:00 AM EDT 50 mg completed [id number] venlafaxine 09/13/2019 30 50 m g tablet 81890 [id number] Lashondahilario Wheeler [id number] [facility]Mental Health [facility]) quetiapine 200 MG Oral Tablet quetiapine 08/21/2019 12:00:00 AM EDT 200 mg by mouth completed [id number] quetiapine by mouth [id number] 201911/06/2019 at bedtime 30 200 mg tablet 93161 [id number] [id number] Marlo hipolito Summer [id number] Psychiatric/Mental Health [facility] ([facility]) quetiapine 200 MG Oral Tablet [Seroquel] Seroquel 07/18/2019 12 :00:00 AM EST 200 mg by mouth completed [id number] Seroquel by mouth [id number] 8 07/18/2019 08/17/2019 at bedtime 30 200 mg tablet 07703 [id number] [facility] Kindra [id number] Psychiatric/Mental Health [facility]) quetiapine 200 MG Oral Tablet [Seroquel] Seroquel 07/18/2019 12 :00:00 AM EST 200 mg by mouth completed [id number] Seroquel by mouth C3828 8 07/18/2019 08/17/2019 at bedtime 30 200 mg tablet 27442 [id number] jo ann Arguelles [id number] Psych[facility] Health [facility]) Insurance Providers Payer name Policy type / Coverage type Policy ID Covered republican ID Covered republican's relationship to lan Policy Lan Plan Information EMEDNY [id number] SP [id number] [place] [id number] [facility] [id number] MEDICAID [id number] SP [id number] MEDICAID M [id number] S [id number] [place] [id number] S [id number] [place] P [id number] S [id number] Medicaid S [id number] MEDICAID [id number] SP [id number] [facility] OFFICE OF VICTIM SERVICES [id number] SP [id number] [place] [id number] 01 [id number] [place] [id number] 18 [id number] MEDICAID M [id number] Self [id number] Self [id number] [place] - O/P [id number] 01 [id number] [place] [id number] [facility] [id number] [place] [id number] Self [id number] PGBA [place] [id number] [facility] [id number] [place] [id number] Self [id number] [place] [id number] [place] [id number] [facility] [id number] [place] [id number] [facility] [id number] N REGIONAL CLAIMS [place] -O/P [id number] 01 [id number] PGBA [place] [id number] S [id number] PGBA [place] [id number] [facility] [id number] PGBA [facility] [id number] HU2 [id number] PGBA [place] O [id number] P [id number] Spo [id number] [facility] [id number] Spo [id number] U [id number] Self [id number] U [id number] Spouse [id number] [employer] [facility] [id number] [id number] [facility] [id number] Spo [id number] [facility] [id number] Spo [id number] [facility] [id number] 18 [id number] [facility] [id number] SP [id number] [facility]P [id number] 18 [id number] [facility] [id number] 18 [id number] [facility] [id number] 01 [id number] [facility] P [id number] S [id number] Problems, Conditions, and Diagnoses Code Display Name Description Problem Type Effective Dates Data Source(s) F10.20 Alcohol dependence, uncomplicated Alcohol Use Di sorder, Moderate Condition 05/22/2020 12:00:00 AM EST [facility] ([facility]) F17.200 Nicotine dependence, unspecified, uncomp licated Tobacco Use Disorder, Moderate Condition 05/22/2020 12:00:00 AM EST [facility] ([facility]) F11.10 Opioid abuse, uncomplicated Opioid Use Disorder, Mild Condition 05/22/2020 12:00:00 AM EST [facility] ([facility]) F31.9 Bipolar disorder, unspecified Unspecified Bipola r and Related Disorder Condition 05/22/2020 12:00:00 AM EST [facility] ([facility]) 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 Postgastric surgery synd romes Condition 11/29/2019 12:00:00 AM EDT [facility] ([facility]) F60.3 Borderline personality disorder Borderline Personality Disorder Condition 11/29/2019 12:00:00 AM EDT [facility] ([facility]) F14.99 Cocaine use, unspecified with unspecifie d cocaine-induced disorder Unspecified Stimulant-Related Disorder: Cocaine Condition 2019 12:00:00 AM EDT [facility] ([facility]) F31.9 Bipolar disorder, unspecified Unspecified Bipola r and Related Disorder Condition 11/29/2019 12:00:00 AM EDT [facility] ([facility]) F43.10 Post-traumatic stress disorder, unspecif ied Posttraumatic Stress Disorder (includes Posttraumatic Stress Disorder for Children 6 Years and Younger) Condition 11/29/2019 12:00:00 AM EDT [facility] ([facility]) 525.10 Teeth extraction Teeth extraction 09/17/2019 03 :26:48 PM EDT [facility] F60.3 Borderline personality disorder Borderline Personality Disorder Condition 06/10/2019 12:00:00 AM EST [facility] ([facility]) F32.9 Major depressive disorder, single episod e, unspecified Unspecified depressive Disorder Condition 06/10/2019 12:00:00 AM EST [facility] ([facility]) Surgeries/Procedures Procedure Description Date Indications Data Source(s) Extended Individual Psychotherapy - 45 min 05/22/2020 12:00:00 AM EST - 05/22/2020 12:00:00 AM EST [facility] ([facility]) Extended Individual Psychotherapy - 45 min 0 12:00:00 AM EST [facility] ([facility]) Extended Individual Psychotherapy - 45 min 05/12/2020 12:00:00 AM EST - 05/12/2020 12:00:00 AM EST [facility] ([facility]) Extended Individual Psychotherapy - 45 min 0 12:00:00 AM EST [facility] ([facility]) Extended Individual Psychotherapy - 45 min 05/06/2020 12:00:00 AM EST - 05/06/2020 12:00:00 AM EST [facility] ([facility]) Extended Individual Psychotherapy - 45 min 0 12:00:00 AM EST [facility] ([facility]) Psychiatric Diagnostic Evaluation (Non-Medical) 04/15/2020 12:00:00 AM EST - 04/15/2020 12:00:00 AM EST [facility] ([facility]) Psychiatric Diagnostic Evaluation (Non-Medical) 2019 12:00:00 AM EST [facility] ([facility]) Extended Individual Psychotherapy - 45 min 04/03/2020 12:00:00 AM EDT - 04/03/2020 12:00:00 AM EDT [facility] ([facility]) Extended Individual Psychotherapy - 45 min 0 12:00:00 AM EDT [facility] ([facility]) TEMPMHCTelemed 30" Psychotherapy 020 12:00:00 AM EDT - 11/29/2019 12:00:00 AM EDT [facility] ([facility]) TEMPMHCTelemed 30" Psychotherapy 11/29/2019 12:00:00 A M EDT [facility] ([facility]) [id number]"Psychotherapy 0 12:00:00 AM EDT - 11/14/2019 12:00:00 AM EDT [facility] ([facility]) [id number]"Psychotherapy 11/14/2019 12:00:00 AM EDT [facility] ([facility]) MHC Telemed E/M Lvl 3--Est pt 11/06/2019 12:00:00 AM EDT - 11/06/2019 12:00:00 AM EDT [facility] ([facility]) Telemed A/O 30" 11/06/2019 12:00:00 AM EDT [facility] ([facility]) MHC Telemed E/M Lvl 3--Est pt 11/06/2019 12:00:00 AM E DT [facility] ([facility]) TEMPMHCTelemed 30" Psychotherapy 020 12:00:00 AM EDT - 10/25/2019 12:00:00 AM EDT [facility] ([facility]) TEMPMHCTelemed 30" Psychotherapy 10/25/2019 12:00:00 A M EDT [facility] ([facility]) [id number]"Psychotherapy 0 12:00:00 AM EDT - 10/10/2019 12:00:00 AM EDT [facility] ([facility]) [id number]"Psychotherapy 10/10/2019 12:00:00 AM EDT [facility] ([facility]) MHC Telemed E/M Lvl 3--Est pt 09/25/2019 12:00:00 AM EDT - 09/25/2019 12:00:00 AM EDT [facility] ([facility]) Telemed A/O 30" 09/25/2019 12:00:00 AM EDT [facility] ([facility]) MHC Telemed E/M Lvl 3--Est pt 09/25/2019 12:00:00 AM E DT [facility] ([facility]) TEMPMHCTelemed 30" Psychotherapy 020 12:00:00 AM EDT - 09/24/2019 12:00:00 AM EDT [facility] ([facility]) TEMPMHCTelemed 30" Psychotherapy 09/24/2019 12:00:00 A M EDT [facility] ([facility]) TEMPMHCTelemed 30" Psychotherapy 020 12:00:00 AM EDT - 09/05/2019 12:00:00 AM EDT [facility] ([facility]) TEMPMHCTelemed 30" Psychotherapy 09/05/2019 12:00:00 A M EDT [facility] ([facility]) Extended Individual Psychotherapy - 45 min 07/25/2019 12:00:00 AM EST - 07/25/2019 12:00:00 AM EST [facility] ([facility]) Extended Individual Psychotherapy - 45 min 0 12:00:00 AM EST [facility] ([facility]) OFFICE OUTPATIENT VISIT 10 MINUTES 07/18 12:00:00 AM EST - 07/18/2019 12:00:00 AM EST [facility] ([facility]) OFFICE OUTPATIENT VISIT 10 MINUTES 07/18/2019 12:00:00 AM EST [facility] ([facility]) Extended Individual Psychotherapy - 45 min 07/09/2019 12:00:00 AM EST - 07/09/2019 12:00:00 AM EST [facility] ([facility]) Extended Individual Psychotherapy - 45 min 0 12:00:00 AM EST [facility] ([facility]) Extended Individual Psychotherapy - 45 min 07/02/2019 12:00:00 AM EST - 07/02/2019 12:00:00 AM EST [facility] ([facility]) Extended Individual Psychotherapy - 45 min 0 12:00:00 AM EST [facility] ([facility]) Psychiatric Diagnostic Evaluation with Medical Services 06/28/2019 12:00:00 AM EST - 06/28/2019 12:00:00 AM EST [facility] ([facility] Psychiatric Diagnostic Evaluation with Medical Services 06/28/2019 12:00:00 AM EST [facility] ([facility]) Extended Individual Psychotherapy - 45 min 06/10/2019 12:00:00 AM EST - 06/10/2019 12:00:00 AM EST [facility] ([facility]) Extended Individual Psychotherapy - 45 min 0 12:00:00 AM EST [facility] ([facility]) Psychiatric Diagnostic Evaluation with Medical Services 05/30/2019 12:00:00 AM EST - 05/30/2019 12:00:00 AM EST [facility]) Psychiatric Diagnostic Evaluation with Medical Services 05/30/2019 12:00:00 AM EST [facility] ([facility]) Extended Individual Psychotherapy - 45 min 05/21/2019 12:00:00 AM EST - 05/21/2019 12:00:00 AM EST [facility] ([facility]) Extended Individual Psychotherapy - 45 min 9 12:00:00 AM EST [facility] ([facility]) PREVENT MED GRAB SETTER&/RISK FACTOR REDJ SPX 30 MIN 05/13/2019 12:00:00 AM EST - 05/13/2019 12:00:00 AM EST [facility] ([facility]) PREVENT MED GRAB SETTER&/RISK FACTOR REDJ SPX 30 MIN 05/13 12:00:00 AM EST [facility] ([facility]) Extended Individual Psychotherapy - 45 min 05/13/2019 12:00:00 AM EST - 05/13/2019 12:00:00 AM EST [facility] ([facility]) Extended Individual Psychotherapy - 45 min 12:00:00 AM EST [facility] ([facility]) Psychiatric Diagnostic Evaluation (Non-Medical) 05/06/2019 12:00:00 AM EST - 05/06/2019 12:00:00 AM EST [facility] ([facility]) Psychiatric Diagnostic Evaluation (Non-Medical) 2018 12:00:00 AM EST [facility] ([facility]) Results ID Date Data Source [id number] 09/17/2019 02:21:21 PM EDT [facility] Current Problems: Teeth extraction (ICD- 525.10) ([id number])Current Allergies: * IODINE (Critical)* CODIENE (Critical) Dental [...] on Tooth # 14 (Performed by Patricia Rincno DDS) Chart Notes:mina (Sep 17 2019 3:26PM): [...] Assessment & Plan Problems:Added: Teeth extraction (ICD-525.10) ([id number])Orders:Oral Surgery Referral [[id number]] Name Value Range Interpretation Code Description Data Antionette rce(s) Supporting Document(s) Procedure Social History Code Duration Value Status Description Data Source(s ) Smoking 05/22/2020 12:00:00 AM EST Unknown if ever smoked comp leted Unknown if ever smoked [facility] ([facility]) Smoking 05/12/2020 12:00:00 AM EST Unknown if ever smoked comp leted Unknown if ever smoked [facility] ([facility]) Smoking 05/06/2020 12:00:00 AM EST Unknown if ever smoked comp leted Unknown if ever smoked [facility] ([facility]) Smoking 04/15/2020 12:00:00 AM EST Unknown if ever smoked comp leted Unknown if ever smoked [facility] ([facility]) Smoking 04/03/2020 12:00:00 AM EDT Unknown if ever smoked comp leted Unknown if ever smoked [facility] ([facility]) Smoking 11/29/2019 12:00:00 AM EDT Unknown if ever smoked comp leted Unknown if ever smoked [facility] ([facility]) Smoking 11/14/2019 12:00:00 AM EDT Unknown if ever smoked comp leted Unknown if ever smoked [facility] ([facility]) Smoking 11/06/2019 12:00:00 AM EDT Unknown if ever smoked comp leted Unknown if ever smoked [facility] ([facility]) Smoking 10/25/2019 12:00:00 AM EDT Unknown if ever smoked comp leted Unknown if ever smoked [facility] ([facility]) Smoking 10/10/2019 12:00:00 AM EDT Unknown if ever smoked comp leted Unknown if ever smoked [facility] ([facility]) Smoking 09/25/2019 12:00:00 AM EDT Unknown if ever smoked comp leted Unknown if ever smoked [facility] ([facility]) Smoking 09/24/2019 12:00:00 AM EDT Unknown if ever smoked comp leted Unknown if ever smoked [facility] ([facility]) Smoking 09/05/2019 12:00:00 AM EDT Unknown if ever smoked comp leted Unknown if ever smoked [facility] ([facility]) Smoking 07/25/2019 12:00:00 AM EST Unknown if ever smoked comp leted Unknown if ever smoked [facility] ([facility]) Smoking 07/18/2019 12:00:00 AM EST Unknown if ever smoked comp leted Unknown if ever smoked [facility] ([facility]) Smoking 07/09/2019 12:00:00 AM EST Unknown if ever smoked comp leted Unknown if ever smoked [facility] ([facility]) Smoking 07/02/2019 12:00:00 AM EST Unknown if ever smoked comp leted Unknown if ever smoked [facility] ([facility]) Smoking 06/28/2019 12:00:00 AM EST Unknown if ever smoked comp leted Unknown if ever smoked [facility] ([facility]) Smoking 06/10/2019 12:00:00 AM EST Unknown if ever smoked comp leted Unknown if ever smoked [facility] ([facility]) Smoking 05/30/2019 12:00:00 AM EST Unknown if ever smoked comp leted Unknown if ever smoked [facility] ([facility]) Smoking 05/21/2019 12:00:00 AM EST Unknown if ever smoked comp leted Unknown if ever smoked [facility] ([facility]) Smoking 05/13/2019 12:00:00 AM EST Unknown if ever smoked comp leted Unknown if ever smoked [facility] ([facility]) Smoking 05/06/2019 12:00:00 AM EST Unknown if ever smoked comp leted Unknown if ever smoked [facility] ([facility]) Vital Signs ID Date Data Source UNK Name Value Range Interpretation Code Description Data Source(s) Diastolic blood pressure 0 mm[Hg] Normal (applies to non-numeric results) 0 mm[Hg] [facility] ([facility]) Systolic blood pressure 0 mm[Hg] Normal (applies t o non-numeric results) 0 mm[Hg] [facility] ([facility]) Body mass index (BMI) [Ratio] 0.00 kg/m2 No rmal (applies to non-numeric results) 0.00 kg/m2 [facility] ([facility]) Body weight Measured 0.00 lbs Normal (applies to n on-numeric results) 0.00 lbs [facility] ([facility]) Body height 0.00 in Normal (applies to non-numeric resu lts) 0.00 in [facility] ([facility]) Diastolic blood pressure 0 mm[Hg] Normal (applies to non-numeric results) 0 mm[Hg] [facility] ([facility]) Systolic blood pressure 0 mm[Hg] Normal (applies t o non-numeric results) 0 mm[Hg] [facility] ([facility]) Body mass index (BMI) [Ratio] 0.00 kg/m2 No rmal (applies to non-numeric results) 0.00 kg/m2 [facility] ([facility]) Body weight Measured 0.00 lbs Normal (applies to n on-numeric results) 0.00 lbs [facility] ([facility]) Body height 0.00 in Normal (applies to non-numeric resu lts) 0.00 in [facility] ([facility]) Diastolic blood pressure 0 mm[Hg] Normal (applies to non-numeric results) 0 mm[Hg] [facility] ([facility]) Systolic blood pressure 0 mm[Hg] Normal (applies t o non-numeric results) 0 mm[Hg] [facility] ([facility]) Body mass index (BMI) [Ratio] 0.00 kg/m2 No rmal (applies to non-numeric results) 0.00 kg/m2 [facility] ([facility]) Body weight Measured 0.00 lbs Normal (applies to n on-numeric results) 0.00 lbs [facility] ([facility]) Body height 0.00 in Normal (applies to non-numeric resu lts) 0.00 in [facility] ([facility]) Diastolic blood pressure 0 mm[Hg] Normal (applies to non-numeric results) 0 mm[Hg] [facility] ([facility]) Systolic blood pressure 0 mm[Hg] Normal (applies t o non-numeric results) 0 mm[Hg] [facility] ([facility]) Body mass index (BMI) [Ratio] 0.00 kg/m2 No rmal (applies to non-numeric results) 0.00 kg/m2 [facility] ([facility]) Body weight Measured 0.00 lbs Normal (applies to n on-numeric results) 0.00 lbs [facility] ([facility]) Body height 0.00 in Normal (applies to non-numeric resu lts) 0.00 in [facility] ([facility])
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
[2020-07-04] MEDS ORDERED: BACT800T5 PO (18:50)
== END 2020-07-03 04:16 | disposition left against medical advice (07) ==
LOC: M ED 02:46
DX: Z53.29 Procedure and treatment not carried out because of patient's decision for other reasons (principal)

== ENCOUNTER 2020-07-04 17:27 | Emergency (ER) | payer MEDICAID, OTHER ==
[~2020-07-04] VITALS: Ht 170.2 cm; Wt 59.7 kg
[2020-07-04 17:31] VITALS: BP 114/77
--- OUTSIDE RECORDS SUMMARY | 2020-07-04 17:37 | CCD ---
Author Author [facility] Organization [facility] Address Unknown Phone Unavailable Care Team Providers Care Critical Care Transport Nurse Name Role Phone SANTANATRENA Unavailable Unavailable Joe Pickett Unavailable Kindra C Chadwick Unavailable Unavailable Kindra, C Chadwick Unavailable Unavailable Beeson, C Chadwick Unavailable Unavailable Kindra, C Chadwick Unavailable Unavailable Beeson, C Chadwick Unavailable Unavailable Beeson, C Chadwick Unavailable Unavailable Kindra, C Chadwick [...] Gary Unavailable Unavailable Gregorio, Gary Unavailable Unavailable Richmond, K Lashonda PMH-HAIR SPECIALIST Unavailable Unavailable Summer, K Lashonda PMH-HAIR SPECIALIST Unavailable Unavailable Summer, K Lashonda PMH-HAIR SPECIALIST Unavailable Unavailable Summer, K Lashonda PMH-HAIR SPECIALIST Unavailable Unavailable Richmond, K Lashonda PMH-HAIR SPECIALIST Unavailable Unavailable Summer, K Lashonda PMH-HAIR SPECIALIST Unavailable Unavailable Valeria Mcpherson Unavailable Naseem, Jim [...] is protected by Article 27-F of the [facility] Public Health law. If you continue you may have access to information: Regarding HIV / AIDS; Provided by facilities licensed or operated by the [facility] Office of Mental Health; or Provided by the [facility] Office for People With Developmental Disabilities. If such information is present, then the following [facility] mandated warning applies: This information has [...] law may result in a fine or chcf sentence or both. A general authorization for the release of medical or other information is NOT sufficient authorization for further disc losure. Allergies and Adverse Reactions Type Description Substance Reaction Status Data Source(s ) Food allergy CODIENE CODIENE [facility] Drug allergy IODINE IODINE [facility] Family History Family Member Name Family Member Gender Family Member Status Date o f Status Description Data Source(s) Unknown Male Problem MEDENT ([facility]) Encounters Encounter Providers Location Date Indications Data Source(s ) Extended Individual Psychotherapy - 45 min Attender: Osvaldo khalil [facility] 05/22/2020 09:00:00 AM EST - 05/22/2020 09:00:00 AM EST [facility] ([facility]) Attender: Jim Gusman 05/22/2020 12:00:00 AM EST [facility] ([facility]) Extended Individual Psychotherapy - 45 min Attender: Osvaldo khalil [facility] 05/12/2020 10:00:00 AM EST - 05/12/2020 10:00:00 AM EST [facility] ([facility]) Attender: Jim Gusman 05/12/2020 12:00:00 AM EST [facility] ([facility]) Extended Individual Psychotherapy - 45 min Attender: Osvaldo [facility] 05/06/2020 05:00:00 AM EST - 05/06/2020 05:00:00 AM EST [facility] ([facility]) Attender: Jim Gusman 05/06/2020 12:00:00 AM EST [facility] ([facility]) Psychiatric Diagnostic Evaluation (Non-Medical) Attender: Ken Gusman [facility] 04/15/2020 06:30:00 AM EST - 04/15/2020 06:30:00 AM EST [facility] ([facility]) Attender: Jim Gusman 04/15/2020 12:00:00 AM EST [facility] ([facility]) Extended Individual Psychotherapy - 45 min Attender: Lory Mcpherson [facility] 04/03/2020 01:30:00 AM EDT - 04/03/2020 01:30:00 AM EDT [facility] ([facility]) Attender: Valeria Mcpherson 04/03/2020 12:00:00 AM EDT [facility] ([facility]) TEMPMHCTelemed 30" Psychotherapy Attender: Melissa Sierra [facility] 11/29/2019 01:00:00 AM EDT - 11/29/2019 01:00:00 AM EDT [facility] ([facility]) Attender: Melissa Wilhelm 11/29/2019 12:00:0 0 AM EDT [facility] ([facility]) [id number]"Psychotherapy Attender: Melissa Wilhelm [facility] 11/14/2019 02:30:00 AM EDT - 11/14/2019 02:30:00 AM EDT [facility] ([facility]) Attender: Melissa Wilhelm 11/14/2019 12:00:0 0 AM EDT [facility] ([facility]) Outpatient Attender: Lashonda Wheeler [facility] 11/06/2019 04:00:00 AM EDT - 11/06/2019 04:00:00 AM EDT [facility] ([facility]) Attender: Lashonda MATA 11/06/2019 12: 00:00 AM EDT [facility] ([facility]) TEMPMHCTelemed 30" Psychotherapy Attender: Melissa dunn [facility] 10/25/2019 01:00:00 AM EDT - 10/25/2019 01:00:00 AM EDT [facility] ([facility]) Attender: Melissa Wilhelm 10/25/2019 12:00:0 0 AM EDT [facility] ([facility]) [id number]"Psychotherapy Attender: Melissa Wilhelm [facility] 10/10/2019 10:45:00 AM EDT - 10/10/2019 10:45:00 AM EDT [facility] ([facility]) Attender: Melissa Wilhelm 10/10/2019 12:00:0 0 AM EDT [facility] ([facility]) Outpatient Referrer: Gary Gregorio 09/26/2019 05:38:00 AM E DT [facility] Outpatient Attender: Lashonda Wheeler [facility] 09/25/2019 08:30:00 AM EDT - 09/25/2019 08:30:00 AM EDT [facility] ([facility]) Attender: Lashonda Wheeler [facility] 09/25/2019 12: 00:00 AM EDT [facility] ([facility]) TEMPMHCTelemed 30" Psychotherapy Attender: Melissa Sierra [facility] 09/24/2019 12:00:00 PM EDT - 09/24/2019 12:00:00 PM EDT [facility] ([facility]) Attender: Melissa Wilhelm 09/24/2019 12:00:0 0 AM EDT [facility] ([facility]) Outpatient [facility] 09/18/2019 05:06:00 PM EDT [facility] 09/18/2019 12:00:33 AM EDT [facility]: [facility] 09/17/2019 03:28:02 PM EDT [facility] Outpatient Attender: TRENA [facility] 09/17/2019 03:24:00 PM EDT [facility] Outpatient Attender: TRENA [facility] 09/17/2019 03:21:00 PM EDT [facility] 03:09:00 PM EDT [facility] Outpatient Attender: TRENA [facility] 09/17/2019 03:05:01 PM EDT [facility] Outpatient Attender: TRENA [facility] 09/17/2019 02:23:00 PM EDT [facility] Outpatient Attender: TRENA [facility] 09/17/2019 12:32:01 PM EDT [facility] TEMPMHCTelemed 30" Psychotherapy Attender: Melissa dunn [facility] 09/05/2019 02:45:00 AM EDT - 09/05/2019 02:45:00 AM EDT [facility] ([facility]) Attender: Melissa Wilhelm 09/05/2019 12:00:0 0 AM EDT [facility] ([facility]) Extended Individual Psychotherapy - 45 min Attender: Silvia Wilhelm [facility] 07/25/2019 03:15:00 AM EST - 07/25/2019 03:15:00 AM EST [facility] ([facility]) Attender: Melissa Wilhelm 07/25/2019 12:00:0 0 AM EST [facility] ([facility]) Outpatient Attender: Chadwick Arguelles [facility] 0 07/18/2019 03:00:00 AM EST - 07/18/2019 03:00:00 AM EST [facility] Attender: Chadwick Arguelles 07/18/2019 12:00:00 AM EST [facility] ([facility]) Outpatient Referrer: Gary Gregorio 07/15/2019 04:11:[address] [facility] Out[facility] Referrer: Gary Gregorio 07/10/2019 09:23:[address] [facility] Extended Individual Psychotherapy - 45 min Attender: Silvia Wilhelm [facility] 07/09/2019 12:00:00 PM EST - 07/09/2019 12:00:00 PM EST [facility] ([facility]) Attender: Melissa Wilhelm 07/09/2019 12:00:0 0 AM EST [facility] ([facility]) Extended Individual Psychotherapy - 45 min Attender: Silviageovani Wilhelm [facility] 07/02/2019 10:00:00 AM EST - 07/02/2019 10:00:00 AM EST [facility] ([facility]) Attender: Melissa Wilhelm 07/02/2019 12:00:0 0 AM EST [facility] ([facility]) Psychiatric Diagnostic Evaluation with Medical Service s Attender: Chadwick [facility] 06/28/2019 11:00:00 AM EST - 06/28/2019 11 :00:00 AM EST [facility] ([facility]) Attender: Chadwick Beeson 06/28/2019 12:00:00 AM EST [facility] ([facility]) Extended Individual Psychotherapy - 45 min [facility]10[facility] 02:45:00 AM EST - 06/10/2019 02:45:00 AM EST [facility] ([facility]) Attender: Melissa Wilhelm 06/10/2019 12:00:0 0 AM EST [facility] ([facility]) Psychiatric Diagnostic Evaluation with Medical Service s Attender: Chadwick Pierceling [facility] 05/30/2019 03:30:00 AM EST - 05/30/2019 03 :30:00 AM EST [facility] ([facility]) Attender: Chadwick Arguelles 05/30/2019 12:00:00 AM EST [facility] ([facility]) Extended Individual Psychotherapy - 45 min [facility] 05/21/2019 01:45:00 AM EST - 05/21/2019 01:45:00 AM EST [facility] ([facility]) Attender: Melissa Wilhelm 05/21/2019 12:00:0 0 AM EST [facility] ([facility]) Extended Individual Psychotherapy - 45 min [facility] 05/13/2019 10:00:00 AM EST - 05/13/2019 10:00:00 AM EST [facility] ([facility]) Health Monitoring - 30 Min Attender: Luci Friedman [facility] 05/13/2019 09:30:00 AM EST - 05/13/2019 09:30:00 AM EST [facility] ([facility]) Attender: Luci Friedman 05/13/2019 12:00:00 AM EST [facility] ([facility]) Attender: Melissa Wilhelm 05/13/2019 12:00:0 0 AM EST [facility] ([facility]) Psychiatric Diagnostic Evaluation (Non-Medical) Attender: Amanda Pickett [facility] 05/06/2019 09:00:00 AM EST - 05/06/2019 09:00:00 AM EST [facility] ([facility]) Attender: Joe Pickett 05/06/2019 12:00:[address] [facility] ([facility]) Functional Status Medications Medication Brand Name Start Date Product Form Dose Route Admi nistrative Instructions Pharmacy Instructions Status Indications Reaction Description Data Source(s) venlafaxine 50 MG Oral Tablet venlafaxine 11/06/2019 12:00:00 AM EDT 50 mg by mouth completed [id number] venlafaxine by mouth [id number] 11/0501/05/2020 once a day 30 50 mg tablet 41180 [id number] Horacio Wheeler [id number] Psychiatric[facility]Mental Health [facility] ([facility]) quetiapine 100 MG Oral Tablet quetiapine 11/06/2019 12:00:00 AM EDT 100 mg by mouth completed [id number] quetiapine by mouth [id number] 201901/05/2020 at bedtime 30 100 mg tablet 41887 [id number] Marlo Wheeler [id number] Psychiatric/Mental Health [facility] ([facility]) venlafaxine 50 MG Oral Tablet venlafaxine 11/06/2019 12:00:00 AM EDT 50 mg by mouth completed [id number] venlafaxine by mouth [id number] 11/0501/05/2020 once a day 30 50 mg tablet 20248 [id number] Horacio hwanghilario Summer [id number] Psych[facility]Mental Health [facility] ([facility]) quetiapine 100 MG Oral Tablet quetiapine 11/06/2019 12:00:00 AM EDT 100 mg by mouth completed [id number] quetiapine by mouth [id number] 201901/05/2020 at bedtime 30 100 mg tablet 65543 [id number] Albarosamigee hipolito Summer [id number] Psychiatric/Mental Health [facility] ([facility]) venlafaxine 50 MG Oral Tablet venlafaxine 09/25/2019 12:00:00 AM EDT 50 mg by mouth completed [id number] venlafaxine by mouth [id number] 09/2411/06/2019 twice a day 30 50 mg tablet 16248 [id number] Albaro lynnejames Wheeler [id number] Psych[facility]Mental Health [facility] ([facility]) venlafaxine 50 MG Oral Tablet venlafaxine 09/13/2019 12:00:00 AM EDT 50 mg completed [id number] venlafaxine 09/13/2019 30 50 m g tablet 11050 [id number] Lashondahilario Wheeler [id number] Psychiatric[facility]Mental Health [facility] ([facility]) quetiapine 200 MG Oral Tablet quetiapine 08/21/2019 12:00:00 AM EDT 200 mg by mouth completed [id number] quetiapine by mouth [id number] 201911/06/2019 at bedtime 30 200 mg tablet 43434 [id number] Marlo hipolito Summer [id number] Psychiatric/Mental Health [facility] ([facility]) quetiapine 200 MG Oral Tablet [Seroquel] Seroquel 07/18/2019 12 :00:00 AM EST 200 mg by mouth completed [id number] Seroquel by mouth [id number] 8 07/18/2019 08/17/2019 at bedtime 30 200 mg tablet 10496 [id number] [facility] Kindra [id number] Psychiatric/Mental Health [facility] ([facility]) quetiapine 200 MG Oral Tablet [Seroquel] Seroquel 07/18/2019 12 :00:00 AM EST 200 mg by mouth completed [id number] Seroquel by mouth C3828 8 07/18/2019 08/17/2019 at bedtime 30 200 mg tablet 46136 [id number] jo ann Arguelles [id number] Psychiatric/Mental Health [facility] ([facility] Insurance Providers Payer name Policy type / Coverage type Policy ID Covered constitution party ID Covered constitution party's relationship to lan Policy Lan Plan Information EMEDNY [id number] SP [id number] [place] [id number] [facility] [id number] MEDICAID [id number] SP [id number] MEDICAID M [id number] S [id number] [place] [id number] S [id number] [place] P [id number] S [id number] Medicaid S [id number] S [id number] MEDICAID [id number] SP [id number] [facility] OFFICE OF VICTIM SERVICES [id number] SP [id number] [place] [id number] 01 [id number] [place] [id number] 18 [id number] MEDICAID M [id number] Self [id number] U [id number] Self [id number] [place] - O/P [id number] 01 [id number] [place] [id number] [facility] [id number] [place] [id number] Self [id number] PGBA PAW PAW REGION [id number] [facility] [id number] [place] [id number] Self [id number] [place] [id number] [place] [id number] [facility] [id number] [place] [id number] [facility] [id number] N REGIONAL CLAIMS VIANNEY -O/P [id number] 01 [id number] PGBA [place] [id number] S [id number] PGBA [place] [id number] [facility] [id number] PGBA [facility] [id number] HU2 [id number] PGBA PAW [place] O [id number] P [id number] Spo [id number] [facility] [id number] Spo [id number] U [id number] Self [id number] U [id number] Spouse [id number] Chat& (ChatAnd)[facility] [employer] [facility] [id number] 0 [id number] [facility] [id number] Spo [id number] [facility] [id number] Spo [id number] [facility] [id number] 18 [id number] [facility] [id number] SP [id number] [facility] [id number] 18 [id number] [facility] [id number] 18 [id number] [facility] [id number] 01 [id number] [facility] P [id number] S [id number] Problems, Conditions, and Diagnoses Code Display Name Description Problem Type Effective Dates Data Source(s) F10.20 Alcohol dependence, uncomplicated Alcohol Use Di sorder, Moderate Condition 05/22/2020 12:00:00 AM EST [facility] ([facility]) F17.200 Nicotine dependence, unspecified, uncomp licated Tobacco Use Disorder, Moderate Condition 05/22/2020 12:00:00 AM EST [facility] ([facility]) F11.10 Opioid abuse, uncomplicated Opioid Use Disorder, Mild Condition 05/22/2020 12:00:00 AM EST [facility] ([facility]) F31.9 Bipolar disorder, unspecified Unspecified Bipola r and Related Disorder Condition 05/22/2020 12:00:00 AM EST [facility] ([facility]) 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 Postgastric surgery synd romes Condition 11/29/2019 12:00:00 AM EDT [facility] ([facility]) F60.3 Borderline personality disorder Borderline Personality Disorder Condition 11/29/2019 12:00:00 AM EDT [facility] ([facility]) F14.99 Cocaine use, unspecified with unspecifie d cocaine-induced disorder Unspecified Stimulant-Related Disorder: Cocaine Condition 2019 12:00:00 AM EDT [facility] ([facility]) F31.9 Bipolar disorder, unspecified Unspecified Bipola r and Related Disorder Condition 11/29/2019 12:00:00 AM EDT [facility] ([facility]) F43.10 Post-traumatic stress disorder, unspecif ied Posttraumatic Stress Disorder (includes Posttraumatic Stress Disorder for Children 6 Years and Younger) Condition 11/29/2019 12:00:00 AM EDT [facility] ([facility]) 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 extraction Teeth extraction 09/17/2019 03 :26:48 PM EDT [facility] F60.3 Borderline personality disorder Borderline Personality Disorder Condition 06/10/2019 12:00:00 AM EST [facility] ([facility]) F32.9 Major depressive disorder, single episod e, unspecified Unspecified depressive Disorder Condition 06/10/2019 12:00:00 AM EST [facility] ([facility]) Surgeries/Procedures Procedure Description Date Indications Data Source(s) Extended Individual Psychotherapy - 45 min 05/22/2020 12:00:00 AM EST - 05/22/2020 12:00:00 AM EST [facility] ([facility]) Extended Individual Psychotherapy - 45 min 0 12:00:00 AM EST [facility] ([facility]) Extended Individual Psychotherapy - 45 min 05/12/2020 12:00:00 AM EST - 05/12/2020 12:00:00 AM EST [facility] ([facility]) Extended Individual Psychotherapy - 45 min 0 12:00:00 AM EST [facility] ([facility]) Extended Individual Psychotherapy - 45 min 05/06/2020 12:00:00 AM EST - 05/06/2020 12:00:00 AM EST [facility] ([facility]) Extended Individual Psychotherapy - 45 min 0 12:00:00 AM EST [facility] ([facility]) Psychiatric Diagnostic Evaluation (Non-Medical) 04/15/2020 12:00:00 AM EST - 04/15/2020 12:00:00 AM EST [facility] ([facility]) Psychiatric Diagnostic Evaluation (Non-Medical) 2019 12:00:00 AM EST [facility] ([facility]) Extended Individual Psychotherapy - 45 min 04/03/2020 12:00:00 AM EDT - 04/03/2020 12:00:00 AM EDT [facility] ([facility]) Extended Individual Psychotherapy - 45 min 0 12:00:00 AM EDT [facility] ([facility]) TEMPMHCTelemed 30" Psychotherapy 020 12:00:00 AM EDT - 11/29/2019 12:00:00 AM EDT [facility] ([facility]) TEMPMHCTelemed 30" Psychotherapy 11/29/2019 12:00:00 A M EDT [facility] ([facility]) [id number]"Psychotherapy 0 12:00:00 AM EDT - 11/14/2019 12:00:00 AM EDT [facility] ([facility]) [id number]"Psychotherapy 11/14/2019 12:00:00 AM EDT [facility] ([facility]) MHC Telemed E/M Lvl 3--Est pt 11/06/2019 12:00:00 AM EDT - 11/06/2019 12:00:00 AM EDT [facility] ([facility]) Telemed A/O 30" 11/06/2019 12:00:00 AM EDT [facility] ([facility]) MHC Telemed E/M Lvl 3--Est pt 11/06/2019 12:00:00 AM E DT [facility] ([facility]) TEMPMHCTelemed 30" Psychotherapy 020 12:00:00 AM EDT - 10/25/2019 12:00:00 AM EDT [facility] ([facility]) TEMPMHCTelemed 30" Psychotherapy 10/25/2019 12:00:00 A M EDT [facility] ([facility]) [id number]"Psychotherapy 0 12:00:00 AM EDT - 10/10/2019 12:00:00 AM EDT [facility] ([facility]) [id number]"Psychotherapy 10/10/2019 12:00:00 AM EDT [facility] ([facility]) MHC Telemed E/M Lvl 3--Est pt 09/25/2019 12:00:00 AM EDT - 09/25/2019 12:00:00 AM EDT [facility] ([facility]) Telemed A/O 30" 09/25/2019 12:00:00 AM EDT [facility] ([facility]) MHC Telemed E/M Lvl 3--Est pt 09/25/2019 12:00:00 AM E DT [facility] ([facility]) TEMPMHCTelemed 30" Psychotherapy 020 12:00:00 AM EDT - 09/24/2019 12:00:00 AM EDT [facility] ([facility]) TEMPMHCTelemed 30" Psychotherapy 09/24/2019 12:00:00 A M EDT [facility] ([facility]) TEMPMHCTelemed 30" Psychotherapy 020 12:00:00 AM EDT - 09/05/2019 12:00:00 AM EDT [facility] ([facility]) TEMPMHCTelemed 30" Psychotherapy 09/05/2019 12:00:00 A M EDT [facility] ([facility]) Extended Individual Psychotherapy - 45 min 07/25/2019 12:00:00 AM EST - 07/25/2019 12:00:00 AM EST [facility] ([facility]) Extended Individual Psychotherapy - 45 min 0 12:00:00 AM EST [facility] ([facility]) OFFICE OUTPATIENT VISIT 10 MINUTES 07/18 12:00:00 AM EST - 07/18/2019 12:00:00 AM EST [facility] ([facility] OFFICE OUTPATIENT VISIT 10 MINUTES 07/18/2019 12:00:00 AM EST [facility] ([facility] Extended Individual Psychotherapy - 45 min 07/09/2019 12:00:00 AM EST - 07/09/2019 12:00:00 AM EST [facility] ([facility]) Extended Individual Psychotherapy - 45 min 0 12:00:00 AM EST [facility] ([facility]) Extended Individual Psychotherapy - 45 min 07/02/2019 12:00:00 AM EST - 07/02/2019 12:00:00 AM EST [facility] ([facility]) Extended Individual Psychotherapy - 45 min 0 12:00:00 AM EST [facility] ([facility]) Psychiatric Diagnostic Evaluation with Medical Services 06/28/2019 12:00:00 AM EST - 06/28/2019 12:00:00 AM EST [facility] ([facility]) Psychiatric Diagnostic Evaluation with Medical Services 06/28/2019 12:00:00 AM EST [facility] ([facility]) Extended Individual Psychotherapy - 45 min 06/10/2019 12:00:00 AM EST - 06/10/2019 12:00:00 AM EST [facility] ([facility]) Extended Individual Psychotherapy - 45 min 0 12:00:00 AM EST [facility] ([facility]) Psychiatric Diagnostic Evaluation with Medical Services 05/30/2019 12:00:00 AM EST - 05/30/2019 12:00:00 AM EST [facility] ([facility]) Psychiatric Diagnostic Evaluation with Medical Services 05/30/2019 12:00:00 AM EST [facility] ([facility]) Extended Individual Psychotherapy - 45 min 05/21/2019 12:00:00 AM EST - 05/21/2019 12:00:00 AM EST [facility] ([facility]) Extended Individual Psychotherapy - 45 min 9 12:00:00 AM EST [facility] ([facility]) PREVENT MED BUTTON TACKER&/RISK FACTOR REDJ SPX 30 MIN 05/13/2019 12:00:00 AM EST - 05/13/2019 12:00:00 AM EST [facility] ([facility]) PREVENT MED BUTTON TACKER&/RISK FACTOR REDJ SPX 30 MIN 05/13 12:00:00 AM EST [facility] ([facility]) Extended Individual Psychotherapy - 45 min 05/13/2019 12:00:00 AM EST - 05/13/2019 12:00:00 AM EST [facility] Health) Extended Individual Psychotherapy - 45 min 12:00:00 AM EST [facility] ([facility]) Psychiatric Diagnostic Evaluation (Non-Medical) 05/06/2019 12:00:00 AM EST - 05/06/2019 12:00:00 AM EST [facility] ([facility]) Psychiatric Diagnostic Evaluation (Non-Medical) 2018 12:00:00 AM EST [facility] ([facility]) Results ID Date Data Source [id number] 09/17/2019 02:21:21 PM EDT [facility] Current Problems: Teeth extraction (ICD- 525.10) (UMD39-F86.499)Current Allergies: * IODINE (Critical)* CODIENE (Critical) Dental [...] Assessment & Plan Problems:Added: Teeth extraction (ICD-525.10) (LBQ10-D12.499)Orders:Oral Surgery Referral [CPT-83078] Name Value Range Interpretation Code Description Data Antionette rce(s) Supporting Document(s) Procedure Social History Code Duration Value Status Description Data Source(s ) Smoking 05/22/2020 12:00:00 AM EST Unknown if ever smoked comp leted Unknown if ever smoked [facility] ([facility]) Smoking 05/12/2020 12:00:00 AM EST Unknown if ever smoked comp leted Unknown if ever smoked [facility] ([facility]) Smoking 05/06/2020 12:00:00 AM EST Unknown if ever smoked comp leted Unknown if ever smoked [facility] ([facility]) Smoking 04/15/2020 12:00:00 AM EST Unknown if ever smoked comp leted Unknown if ever smoked [facility] ([facility]) Smoking 04/03/2020 12:00:00 AM EDT Unknown if ever smoked comp leted Unknown if ever smoked [facility] ([facility]) Smoking 11/29/2019 12:00:00 AM EDT Unknown if ever smoked comp leted Unknown if ever smoked [facility] ([facility]) Smoking 11/14/2019 12:00:00 AM EDT Unknown if ever smoked comp leted Unknown if ever smoked [facility] ([facility]) Smoking 11/06/2019 12:00:00 AM EDT Unknown if ever smoked comp leted Unknown if ever smoked [facility] ([facility]) Smoking 10/25/2019 12:00:00 AM EDT Unknown if ever smoked comp leted Unknown if ever smoked [facility] ([facility]) Smoking 10/10/2019 12:00:00 AM EDT Unknown if ever smoked comp leted Unknown if ever smoked [facility] ([facility]) Smoking 09/25/2019 12:00:00 AM EDT Unknown if ever smoked comp leted Unknown if ever smoked [facility] ([facility]) Smoking 09/24/2019 12:00:00 AM EDT Unknown if ever smoked comp leted Unknown if ever smoked [facility] ([facility]) Smoking 09/05/2019 12:00:00 AM EDT Unknown if ever smoked comp leted Unknown if ever smoked [facility] ([facility]) Smoking 07/25/2019 12:00:00 AM EST Unknown if ever smoked comp leted Unknown if ever smoked [facility] ([facility]) Smoking 07/18/2019 12:00:00 AM EST Unknown if ever smoked comp leted Unknown if ever smoked [facility] ([facility]) Smoking 07/09/2019 12:00:00 AM EST Unknown if ever smoked comp leted Unknown if ever smoked [facility] ([facility]) Smoking 07/02/2019 12:00:00 AM EST Unknown if ever smoked comp leted Unknown if ever smoked [facility] ([facility]) Smoking 06/28/2019 12:00:00 AM EST Unknown if ever smoked comp leted Unknown if ever smoked [facility] ([facility]) Smoking 06/10/2019 12:00:00 AM EST Unknown if ever smoked comp leted Unknown if ever smoked [facility] ([facility]) Smoking 05/30/2019 12:00:00 AM EST Unknown if ever smoked comp leted Unknown if ever smoked [facility] ([facility]) Smoking 05/21/2019 12:00:00 AM EST Unknown if ever smoked comp leted Unknown if ever smoked [facility] ([facility]) Smoking 05/13/2019 12:00:00 AM EST Unknown if ever smoked comp leted Unknown if ever smoked [facility] ([facility]) Smoking 05/06/2019 12:00:00 AM EST Unknown if ever smoked comp leted Unknown if ever smoked [facility] ([facility]) Vital Signs ID Date Data Source UNK Name Value Range Interpretation Code Description Data Source(s) Diastolic blood pressure 0 mm[Hg] Normal (applies to non-numeric results) 0 mm[Hg] [facility] ([facility]) Systolic blood pressure 0 mm[Hg] Normal (applies t o non-numeric results) 0 mm[Hg] [facility] ([facility]) Body mass index (BMI) [Ratio] 0.00 kg/m2 No rmal (applies to non-numeric results) 0.00 kg/m2 [facility] ([facility]) Body weight Measured 0.00 lbs Normal (applies to n on-numeric results) 0.00 lbs [facility] ([facility]) Body height 0.00 in Normal (applies to non-numeric resu lts) 0.00 in [facility] ([facility]) Diastolic blood pressure 0 mm[Hg] Normal (applies to non-numeric results) 0 mm[Hg] [facility] ([facility]) Systolic blood pressure 0 mm[Hg] Normal (applies t o non-numeric results) 0 mm[Hg] [facility] ([facility]) Body mass index (BMI) [Ratio] 0.00 kg/m2 No rmal (applies to non-numeric results) 0.00 kg/m2 [facility] ([facility]) Body weight Measured 0.00 lbs Normal (applies to n on-numeric results) 0.00 lbs [facility] ([facility]) Body height 0.00 in Normal (applies to non-numeric resu lts) 0.00 in [facility] ([facility]) Diastolic blood pressure 0 mm[Hg] Normal (applies to non-numeric results) 0 mm[Hg] [facility] ([facility]) Systolic blood pressure 0 mm[Hg] Normal (applies t o non-numeric results) 0 mm[Hg] [facility] ([facility]) Body mass index (BMI) [Ratio] 0.00 kg/m2 No rmal (applies to non-numeric results) 0.00 kg/m2 [facility] ([facility]) Body weight Measured 0.00 lbs Normal (applies to n on-numeric results) 0.00 lbs [facility] ([facility]) Body height 0.00 in Normal (applies to non-numeric resu lts) 0.00 in [facility] ([facility]) Diastolic blood pressure 0 mm[Hg] Normal (applies to non-numeric results) 0 mm[Hg] [facility] ([facility]) Systolic blood pressure 0 mm[Hg] Normal (applies t o non-numeric results) 0 mm[Hg] [facility] ([facility]) Body mass index (BMI) [Ratio] 0.00 kg/m2 No rmal (applies to non-numeric results) 0.00 kg/m2 [facility] ([facility]) Body weight Measured 0.00 lbs Normal (applies to n on-numeric results) 0.00 lbs [facility] ([facility]) Body height 0.00 in Normal (applies to non-numeric resu lts) 0.00 in [facility] ([facility])
[2020-07-04] MEDS ORDERED: BACT800T5 PO (18:50)
[2020-07-04] MEDS ORDERED: cefTRIAXone SOD 1GM VIAL (J0696 PER 250MG) IM ONE (19:00)
[2020-07-04] MEDS ORDERED: LIDOCAINE 1% SDV 5ML VIAL DILUENT ONE (19:00)
[2020-07-04] MEDS ORDERED: BACTRIM 160MG/800MG DS TAB PO ONE (19:00)
== END 2020-07-04 19:13 | disposition home or self-care (01) ==
LOC: M ED 17:27
DX: L02.414 Cutaneous abscess of left upper limb (principal); L03.114 Cellulitis of left upper limb; D50.9 Iron deficiency anemia, unspecified; Z88.5 Allergy status to narcotic agent; Z88.8 Allergy status to other drugs, medicaments and biological substances; Z91.041 Radiographic dye allergy status; F17.210 Nicotine dependence, cigarettes, uncomplicated; F11.10 Opioid abuse, uncomplicated
CPT/HCPCS: 10060; 87070; 87077; 87186; 96372; 99282; J0696

== ENCOUNTER 2020-12-03 16:27 | Emergency (ER) | payer OTHER, MEDICAID ==
[~2020-12-03] VITALS: Ht 170.2 cm; Wt 55.6 kg
[~2020-12-03 16:27] MED LIST changes: +BACT800T5 PO; +EMTR1TAB16 PO; +OMEP40CA4 PO; -OMEP40CA97 PO; +QUET50TA3 PO; -QUET5TAB PO; -TRUVTAB PO
[2020-12-03 17:05] VITALS: BP 137/82
== END 2020-12-03 17:15 | disposition left against medical advice (07) ==
LOC: M ED 16:27
DX: Z53.21 Procedure and treatment not carried out due to patient leaving prior to being seen by health care provider (principal)

== ENCOUNTER 2020-12-04 16:53 | Emergency (ER) | payer OTHER, MEDICAID ==
[~2020-12-04] VITALS: Ht 170.2 cm; Wt 47.7 kg
[2020-12-04 16:54] VITALS: BP 143/91
== END 2020-12-04 17:46 | disposition left against medical advice (07) ==
LOC: M ED 16:53
DX: Z53.21 Procedure and treatment not carried out due to patient leaving prior to being seen by health care provider (principal)

== ENCOUNTER 2021-02-23 15:46 | Emergency (ER) | payer OTHER, MEDICAID ==
[~2021-02-23] VITALS: Ht 167.6 cm; Wt 56.7 kg
[2021-02-23 15:46] VITALS: BP 144/88
[~2021-02-23 15:46] MED LIST changes: -QUET50TA3 PO; +QUET50TA4 PO
== END 2021-02-23 15:54 | disposition left against medical advice (07) ==
LOC: M ED 15:46
DX: Z53.29 Procedure and treatment not carried out because of patient's decision for other reasons (principal)

== ENCOUNTER 2021-03-15 13:53 | Inpatient (IN) | payer OTHER, MEDICAID ==
[~2021-03-15] VITALS: Ht 170.2 cm; Wt 61.4 kg
[2021-03-15] MEDS ORDERED: PERCOCET 5MG/325MG TAB PO ONE ×2 (14:55→20:05)
[2021-03-15 15:25] LABS: HEMATOCRIT 35.3 % (36.0-47.0); HEMOGLOBIN 11.2 g/dl (12.0-15.5); MEAN CORPUSCULAR HEMOGLOBIN 25.1 pg (27.0-33.0); MEAN CORPUSCULAR HGB CONC 31.7 g/dl (32.0-36.5); PLATELET COUNT, AUTOMATED 508 10^3/uL (150-450); RED BLOOD COUNT 4.47 10^6/uL (4.00-5.40); WHITE BLOOD COUNT 6.5 10^3/uL (4.0-10.0)
--- NOTE | 2021-03-15 15:26 | REP ---
INDICATION: lightheadedness COMPARISON: 07/03/2019 TECHNIQUE: PA and lateral. FINDINGS: The mediastinum and cardiac silhouette are normal. The lung lehman are clear and without acute consolidation, effusion, or pneumothorax. The skeletal structures are intact and normal. IMPRESSION: No acute cardiopulmonary process. <Electronically signed by Alonzo Collins > 03/15/21 [id number]
--- NOTE | 2021-03-15 15:28 | REP ---
INDICATION: trauma COMPARISON: None. TECHNIQUE: AP, lateral, bilateral oblique views right hand. FINDINGS: Osteopenia and degenerative changes are appreciated and limit evaluation. While no definite acute fractures appreciated, there is a subtle oblique lucency through the distal aspect of the 4th digit middle phalanx raising the possibility of nondisplaced fracture. Correlation with mechanism of injury and point of tenderness recommended. There also appears to be possible nondisplaced fracture through the visualized radial metaphysis. IMPRESSION: Limited by osteopenia and degenerative changes. As above. <Electronically signed by Alonzo Collins > 03/15/21 1521
--- NOTE | 2021-03-15 15:29 | REP ---
INDICATION: trauma COMPARISON: None. TECHNIQUE: AP, lateral, bilateral oblique views right wrist. FINDINGS: Evaluation is limited by osteopenia and degenerative changes. Very subtle nondisplaced fracture of the distal radial metaphysis cannot be excluded. IMPRESSION: Limited examination. Very subtle nondisplaced fracture of the distal radial metaphysis cannot be excluded. Consider presumptive treatment and re-evaluation in 3-5 days. <Electronically signed by Alonzo Collins > 03/15/21 [id number]
[2021-03-15 15:58] LABS: ACETAMINOPHEN LEVEL < 2.0 UG/ML (10.0-30.0); ALBUMIN 2.8 GM/DL (3.2-5.2); ALT/SGPT 103 U/L (12-78); BILIRUBIN,DIRECT 0.1 MG/DL (0.0-0.2); BILIRUBIN,TOTAL 0.4 MG/DL (0.2-1.0); BLOOD UREA NITROGEN 10 MG/DL (7-18); CARBON DIOXIDE LEVEL 26 MEQ/L (21-32); CHLORIDE LEVEL 106 MEQ/L (98-107); CK-MB VALUE MASS < 1.0 NG/ML (<3.6); CPK CREATINE PHOSPHOKINASE 30 U/L (26-192); CREATININE FOR GFR 0.41 MG/DL (0.55-1.30); ETHYL ALCOHOL (ETHANOL) < 0.003 % (0.000-0.010); GLOMERULAR FILTRATION RATE > 60.0 (>58); GLUCOSE, FASTING 91 MG/DL (70-100); MB/CK RELATIVE INDEX 3.33 (< OR =4); POTASSIUM SERUM 4.4 MEQ/L (3.5-5.1); SALICYLATE LEVEL 1.8 MG/DL (5.0-30.0); SODIUM LEVEL 137 MEQ/L (136-145); THYROID STIMULATING HORMONE 0.064 uIU/ML (0.358-3.740); TOTAL PROTEIN 6.8 GM/DL (6.4-8.2); TROPONIN I < 0.02 NG/ML (< 0.10)
[2021-03-15] MEDS ORDERED: ACETAMINOPHEN TAB 650MG DOSE (2X325MG) PO PRN (16:20)
[2021-03-15] MEDS ORDERED: LORazepam 1 MG TAB PO STA (17:36)
[2021-03-15] MEDS ORDERED: ONDANSETRON 4 MG ORAL DISINTEGRATING TAB PO ONE (17:40)
[2021-03-15 17:45] LABS: AMPHETAMINES LEVEL URINE NEGATIVE (NEGATIVE); BARBITURATES URINE NEGATIVE (NEGATIVE); BENZODIAZEPINES URINE NEGATIVE (NEGATIVE); CANNABINOIDS URINE NEGATIVE (NEGATIVE); COCAINE METABOLITE URINE NEGATIVE (NEGATIVE); METHADONE URINE NEGATIVE (NEGATIVE); OPIATES URINE NEGATIVE (NEGATIVE); PHENCYCLIDINE URINE NEGATIVE (NEGATIVE)
[2021-03-15] MEDS ORDERED: OLANZapine 10 MG TAB PO ONE (18:05)
--- NOTE | 2021-03-15 19:32 | ECGEPIP ---
[facility] - ED Test Date: 2021-03-15 Pat Name: THOMAS COOK Department: Room: - Gender: Female Manager Package: vicente : [id number] Requested By: CARMEL Martin Order Number: [id number] Reading MD: Gwendolyn Frost Measurements Intervals [place] Rate: 72 P: 80 IA: 108 QRS: 76 QRSD: 88 T: 58 QT: 412 QTc: 451 Interpretive Statements Sinus rhythm with short IA possibel LAE possible LVH Nonspecific ST T wave changes cw 07/18/[address] T wave changes Electronically Signed on 03-15-2021 19:31:50 EDT by Gwendolyn Frost
[2021-03-15] MEDS ORDERED: ACET-683 PO (19:58)
[2021-03-15] MEDS ORDERED: SUCR1TAB56 PO (19:58)
[2021-03-15] MEDS ORDERED: METO10TA2 PO (19:58)
[2021-03-15] MEDS ORDERED: OLAN1TAB20 PO (19:58)
[2021-03-15] MEDS ORDERED: GABA800T4 PO (19:58)
[2021-03-15] MEDS ORDERED: TRAM50TA2 PO (19:58)
[2021-03-15] MEDS ORDERED: GABAPENTIN 400MG CAP PO ONE (21:40)
[2021-03-15] MEDS ORDERED: OMEPRAZOLE 20 MG CAP PO ONE (21:50)
[2021-03-16] MEDS ORDERED: PERCOCET 5MG/325MG TAB PO ONE ×3 (01:00→12:15)
[2021-03-16] MEDS ORDERED: diphenhydrAMINE 50MG CAP PO ONE ×2 (01:00→16:15)
[2021-03-16] MEDS ORDERED: MELA10CA2 PO (08:25)
[2021-03-16] MEDS ORDERED: VITA200028 PO (08:25)
[2021-03-16] MEDS ORDERED: HOME MED LIST COMPLETE! XX SCH (08:30)
[2021-03-16] MEDS ORDERED: OLANZapine 10 MG TAB PO SCH (09:00)
[2021-03-16 09:45] LABS: RSV AMPLIFICATION NEGATIVE (NEGATIVE)
[2021-03-16] MEDS ORDERED: ONDANSETRON 4 MG ORAL DISINTEGRATING TAB PO ONE (12:40)
[2021-03-16] MEDS ORDERED: NICOTINE 21MG/24HR 1 EA TRANSDERMAL TD ONE (13:35)
[2021-03-16] MEDS ORDERED: LORazepam 2 MG/ML VIAL IM ONE (14:15)
[2021-03-16 14:19] VITALS: BP 110/68
[2021-03-16] MEDS ORDERED: LORazepam 1 MG TAB PO PRN (14:30)
[2021-03-16] MEDS ORDERED: MOM 30ML SUSPENSION UDC PO PRN (14:30)
--- NOTE | 2021-03-16 14:37 | MHCRPDOC ---
[facility] Consultation Consultation DATE OF CONSULTATION: 03/16/21 CONSULTATION REQUESTED BY: ED team REASON FOR CONSULTATION: Suicidal ideations RELEVANT HISTORY: Patient is a 45-year-old woman with 2 past admissions with [facility], history of adjustment disorder, malingering, depression, polysubstance abuse, borderline personality disorder, was brought to the ED by EMS following a fall and expressing suicidal ideation with plan to jump out of the window. Patient reports being depressed for months with worsening of mood, states she is unhappy with her housing and the pleasant and in [place], overall states that despite the housing situation overall feels she is unstable on her medications. Was made aware would not be prescribed controlled medications despite still feels her depression is crippling and needs to have treatment. PAST PSYCHIATRIC HISTORY: Several admissions to [facility], denies any outpatient provider or support, reports takes Zyprexa 10 mg nightly, gabapentin 800 mg 3 times daily prescribed by Dr. Smith outpatient, [facility], denies any suicidal attempts since teenage years PAST MEDICAL HISTORY: Polysubstance abuse, iron deficiency anemia, multiple C- sections, gastric bypass, cholecystectomy appendectomy, no head injuries or seizures FAMILY HISTORY: Noncontributory PERSONAL AND SOCIAL HISTORY: Lives in [facility] in [place], [place] Resides in: [place] Marital Status: D Children: 12 from different fathers Employment: Unemployed SUBSTANCE ABUSE HISTORY: Cocaine, opioids, nicotine LEGAL HISTORY: History of CPS involvement, driving without license MENTAL STATUS EXAMINATION: Patient is a 45-year old female, who is in no acute distress, calm, appears older than stated age, poor hygiene/unkempt, poor eye contact Speech is spontaneous, normal. Language skills are good Thought processes including: Linear and logical. Thought content: Reports suicidal ideation with intent to jump of a car which is similar to previous admissions. Abstract reasoning, and computation: Good. Description of associations: Good. Description of abnormal or psychotic thoughts: Denies. Judgment: Poor. Insight: Fair. Orientation to x3 Recent and remote memory: Intact. Attention span and concentration: Fair. Language: Haitian. Fund of knowledge: Below average based on interview. Mood: "Depressed" Affect: Dysthymic, constricted, withdrawn DIAGNOSIS: 1. Unspecified depressive disorder, rule out MDD, persistent depressive disorder, substance-induced mood disorder, factitious disorder or malingering PLAN: 1. Patient is criteria for involuntary admission, continue home medications Vital Signs Vital Signs Date Time Temp Pulse Resp B/P (MAP) Pulse Ox O2 Delivery O2 Flow Rate FiO2 03/16/21 12:58 18 03/16/21 09:33 98.0 78 110/68 (82) 98 Room Air Laboratory Data 24H Labs Laboratory Tests 2 03/15/21 15:07: Nucleated Red Blood Cells % (auto) 0.0, Anion Gap 5L, Glomerular Filtration Rate > 60.0, Calcium Level 9.0, Total Bilirubin 0.4, Direct Bilirubin 0.1, Aspartate Amino Transf (AST/SGOT) 81H, Alanine Aminotransferase (ALT/SGPT) 103H, Alkaline Phosphatase 113, Total Creatine Kinase 30, Creatine Kinase MB < 1.0, Creatine Kinase MB Relative Index 3.33, Troponin I < 0.02, Total Protein 6.8, Albumin 2.8L, Albumin/Globulin Ratio 0.7L, Thyroid Stimulating Hormone (TSH) 0.064L, Salicylates Level 1.8L, Acetaminophen Level < 2.0L, Ethyl Alcohol Level < 0.003 03/15/21 16:46: Urine Opiates Screen NEGATIVE, Urine Methadone Screen NEGATIVE, Urine Barbitur ates Screen NEGATIVE, Urine Phencyclidine Screen NEGATIVE, Urine Amphetamines Screen NEGATIVE, Urine Benzodiazepines Screen NEGATIVE, Urine Cocaine Metabolite Screen NEGATIVE, Urine Cannabinoids Screen NEGATIVE 03/16/21 08:39: Coronavirus (COVID-19)(PCR) NEGATIVE, Influenza Type A (RT-PCR) NEGATIVE, Influenza Type B (RT-PCR) NEGATIVE, Respiratory Syncytial Virus (PCR) NEGATIVE 03/16/21 11:05: Bedside Glucose (Misc Panel) 80 Home Medications Current Medications Current Medications Medications (Trade) Dose Ordered Sig/Chuckie Route PRN Reason Start Time Stop Time Status Last Admin Dose Admin Acetaminophen (Tylenol Tab) 650 mg Q4HP PRN PO PAIN LEVEL 4-7 03/15/21 16:20 Home Med (Home Med List Complete!) ASDIRECTED XX 03/16/21 08:30 03/16/21 08:30 DC Lorazepam (Ativan) 1 mg STAT STAT PO 03/15/21 17:36 03/15/21 17:37 DC 03/15/21 17:41 Scheduled Ergocalciferol (Vitamin D2) (Vitamin D2) 50 Mcg (2000 Unit) Tablet, 50 MCG PO DAILY, (Reported) Gabapentin (Gabapentin) 800 Mg Tablet, 800 MG PO TID, (Reported) Melatonin (Melatonin) 10 Mg Capsule, 10 MG PO QHS, (Reported) Metoclopramide HCl (Metoclopramide HCl) 10 Mg Tablet, 10 MG PO AC, (Reported) Olanzapine (Olanzapine) 10 Mg Tablet, 10 MG PO DAILY, (Reported) Sucralfate (Sucralfate) 1 Gm Tablet, 1 GM PO ACHS, (Reported) Scheduled PRN Acetaminophen (Acetaminophen) 500 Mg Tablet, 1,000 MG PO TID PRN for PAIN LEVEL 1-4, (Reported) Tramadol HCl (Tramadol HCl) 50 Mg Tablet, 50 MG PO Q6H PRN for PAIN LEVEL 3-5, (Reported) Allergies Coded Allergies: Contrast Media (Unverified Allergy, Intermediate, RASH/hives, 07/03/19) codeine (Verified Allergy, Mild, RASH, 07/03/19) RASH iodine (Verified Allergy, Unknown, 01/21/19) camphor (Verified Adverse Reaction, Mild, from bengay patch, chemical burn, 07/03/19) menthol (Verified Adverse Reaction, Mild, chemical burn, 07/03/19) methyl salicylate (Verified Adverse Reaction, Mild, chemical burn, 07/03/19) NSAIDS (Non-Steroidal Anti-Inflamma (Unverified Adverse Reaction, Unknown, avoids, gastric bypass, 01/21/19) carboxymethylcellulose sodium (Verified Adverse Reaction, Unknown, carboxymethylcellulose listed as having an adverse reaction, 01/21/19) EDI HUTCHISON MD Mar 16, 2021 14:37
[2021-03-16] MEDS: GABAPENTIN 400MG CAP PO SCH ×2 (16:00→20:08)
[2021-03-16] MEDS ORDERED: haloperidoL 5 MG TAB PO ONE (16:15)
[2021-03-16] MEDS ORDERED: diphenhydrAMINE 50MG/ML VIAL (J1200) IM PRN (16:25)
[2021-03-16] MEDS ORDERED: HALOPERIDOL 5MG/ML VIAL (J1630 PER 1) IM PRN (16:25)
[2021-03-16] MEDS: traMADol 50 MG TAB PO PRN (16:57)
[2021-03-16] MEDS: METOCLOPRAMIDE 10 MG TAB PO SCH (17:30)
[2021-03-16] MEDS: SUCRALFATE 1 GM TAB PO SCH ×2 (17:30→20:07)
[2021-03-17] MEDS: traMADol 50 MG TAB PO PRN ×4 (04:26→20:49)
[2021-03-17 06:41] VITALS: BP 90/52
[2021-03-17] MEDS: SUCRALFATE 1 GM TAB PO SCH ×5 (07:05→20:49)
[2021-03-17] MEDS: METOCLOPRAMIDE 10 MG TAB PO SCH ×4 (07:05→17:17)
[2021-03-17] MEDS ORDERED: PILL CUTTER 1 EACH XX PRN (08:20)
--- NOTE | 2021-03-17 08:21 | MHHPEPDOC ---
General Date Of Admission: Mar 16, 2021 Legal Status: 9.39 Chief Complaint "I was having suicidal thoughts". History of Present Illness HISTORY OF THE PRESENT ILLNESS: States has fallen 3 times in a week. States she was feeling weak, hadn't eaten since there's no food at her housing in [place], [place]. Was encouraged to eat adequate amounts of food and have available pain medications of tramadol, which was increased to 100 mg 4 times daily, made aware due to substance abuse history could not prescribe opioid pain medications will be evaluated by the medical team.This report was requested by: Edi Hutchison | Reference #: [id number], I stop was reviewed and showed only tramadol prescribed March 11. Per this job specification writer's consultation report: Patient is a 45-year-old woman with 2 past admissions with [facility], history of adjustment disorder, malingering, depression, polysubstance abuse, borderline personality disorder, was brought to the ED by EMS following a fall and expressing suicidal ideation with plan to jump out of the window. Patient reports being depressed for months with worsening of mood, states she is unhappy with her housing and the pleasant and in [place], overall states that despite the housing situation overall feels she is unstable on her medications. Was made aware would not be prescribed controlled medications despite still feels her depression is crippling and needs to have treatment. Toxicology screen was negative. Orts heroin use IV, last few months and methamphetamine use in the last few months which is "my drug of choice". Signs of jen or psychosis. Psychiatric Review of Systems Depression (2 or more weeks): depressed mood, anhedonia, insomnia/hypersomnia ("until last night"), feelings of worthlesness, decreased energy, appetite ch anges (increased appetite), suicidal thoughts ("I wanted to jump out the window because I don't like the place I'm living") Jen (4 or more days of): denies Psychosis: denies PTSD: history of trauma (all the above, my entire life), intrusive memories, hypervigilance, avoidance of triggers Anxiety: gen/non-specific anxiety ("I'm a worrier so I don't sleep"), other (social anxiety) Anxiety/ 6 months or more of: irritability, muscle tension, sleep disturbance, personality cluster A,BC ("I'm very gruff, had to be a fighter my whole life, pushes people away", denies self harming, ) Past Psychiatric History Previous Psychiatric Diagnosis: Borderline and bipolar tendencies Previous Psychiatric Admissions: . Inpatient rehab in [place], December, 1 month, 2020 Suicide Attempts: 1x at 13 Several admissions to [facility], denies any outpatient provider or support, reports takes Zyprexa 10 mg nightly, gabapentin 800 mg 3 times daily prescribed by Dr. Smith outpatient, [facility], denies any suicidal attempts since teenage years Past Medical History Medical Problems Polysubstance abuse, iron deficiency anemia, multiple C-sections, gastric bypass, cholecystectomy appendectomy, no head injuries or seizures Family Medical/Psychiatric HX Medical Problems non contributory Addiction History nicotine (smokes 1/2 ppd, vaping), alcohol (heavy use 7 years ago), cocaine (last use 1-2 years ago), ecstasy ("kip", tried some a week ago), methamphetamines ("was my drug of choice, months"), heroin (months ago, I.V) Social History PERSONAL AND SOCIAL HISTORY: Lives in [facility] housing in [place], [place], reports everybody she knew was in the drug room when she tried to move away from these people. Resides in: [place] Marital Status: Children: 12 from different fathers Employment: Unemployed LEGAL HISTORY: History of CPS involvement, driving without license Mental Status Examination General Appearance: unkempt, hospital scubs/clothing Build: thin Demeanor: hostile, mistrustful, guarded, very figety Eye Contact: intense Activity: anxious, other (initially hostile then agreeable to treatment plan) Behavior: resistant Speech: clear, spontaneous, normal volume Mood: anxious, angry, irritable Mood "I'm depressed" Affect: labile, anxious, hostile Thought Process: logical/linear Thought Content (Delusions): none reported Thought Content (Other): none reported Thought Content (Aggressive): none reported Perception (Hallucinations): none reported Perception (Other): none reported Cognition (Impairment of): none reported Cognition(Intelligence Est.): average Oriented: Awake, Alert, Oriented times three Insight: poor Judgment: Poor Psychosis: Denies Diagnoses Major depressive disorder, versus adjustment disorder Rule out substance-induced mood disorder Methamphetamine use disorder, reportedly in early remission Opioid use disorder, reportedly in early remission Other substance use disorder ("kip") Alcohol use disorder, reportedly in full remission Borderline personality disorder R/o opioid-induced hyperalgesia Tobacco use disorder A-FIB/CHADSVASC A-FIB History Current/History of A-Fib/PAF?: Yes Current PO Anticoag Therapy: No Age/Risk Factor Scoring CHADSVASC: CHADSVASC Response (Comments) Value Age Risk Factor Age < 65 years old 0 Gender Risk Factor Male 0 Hx of CHF No 0 Hx of HTN No 0 Hx of Stroke/TIA/or VTE No 0 Hx of Diabetes No 0 Hx of Vascular Disease No 0 Total 0 Treatment Treatment ordered: NONE Reason Anticoagulant not given: Other (defer to medical team) Other reason anticoagulant not: Defer to hospitalist team Assessment Patient is a 45-year-old female with a history of polysubstance, borderline personality sorter, polysubstance abuse, adjustment disorder, malingering who presents in context of feeling depressed with her living situation and endorses wants to get off drugs and remain drug free, she when she fell 3 days ago, will be evaluated by medical team. Per Istop has been having tramadol for pain control since March 11, was made aware how to find alternatives for pain control apart from controlled medications due to her history of recent polysubstance abuse and risk for relapse. Substance use also poses a risk of w orsening borderline personality disorder and mood symptoms. Patient was agreeable to starting mirtazapine 15 mg nightly for her mood, continue olanzapine 5 mg daily home medication wanted to gain weight was made aware of common rare side effects including elevated lipids and metabolic dysfunction. Patient was made aware of risk of taking SSRIs and other primarily serotonergic drugs in combination with tramadol, which is a risk for serotonin syndrome. Reordered TSH due to low TSH on admission. Increase tramadol to 100 mg 4 times daily due to reported arm pain in context of fall on previously fractured arm. Initial Treatment Plan 1. Patient was admitted on a [9.39] status. 2. Complete history was obtained. 3. With patients permission, family will be contacted and database will be expanded. 4. Patients medication regimen will be reviewed and changed accordingly. 5. Patient will be provided with protected environment. 6. Patient will be treated with individual, group, and milieu therapies. 7. Patient will receive supportive psych-education. 8. Discharge planning will commence immediately. 9. Outpatient follow-up treatment will be strongly recommended. 10. The initial treatment plan will focus initially on: * Depression, substance use * Risk for suicide. ESTIMATED LENGTH OF STAY: 2-7 DAYS. TIME SPENT COUNSELING AND COORDINATING INITIAL CARE: 40 minutes. Tobacco Cessation Screen If Patient is a Smoker yes Tobacco Cessation Tx Ordered?: Yes Ordered/Pending Vital Signs Vital Signs Date Time Temp Pulse Resp B/P (MAP) Pulse Ox O2 Delivery O2 Flow Rate FiO2 03/17/21 06:41 98.2 80 16 90/52 (65) 100 Room Air Laboratory Data 24H Labs Laboratory Tests 2 03/16/21 08:39: Coronavirus (COVID-19)(PCR) NEGATIVE, Influenza Type A (RT-PCR) NEGATIVE, Influenza Type B (RT-PCR) NEGATIVE, Respiratory Syncytial Virus (PCR) NEGATIVE 03/16/21 11:05: Bedside Glucose (Misc Panel) 80 Medications Scheduled Ergocalciferol (Vitamin D2) (Vitamin D2) 50 Mcg (2000 Unit) Tablet, 50 MCG PO DAILY, (Reported) Gabapentin (Gabapentin) 800 Mg Tablet, 800 MG PO TID, (Reported) Melatonin (Melatonin) 10 Mg Capsule, 10 MG PO QHS, (Reported) Metoclopramide HCl (Metoclopramide HCl) 10 Mg Tablet, 10 MG PO AC, (Reported) Olanzapine (Olanzapine) 10 Mg Tablet, 10 MG PO DAILY, (Reported) Sucralfate (Sucralfate) 1 Gm Tablet, 1 GM PO ACHS, (Reported) Scheduled PRN Acetaminophen (Acetaminophen) 500 Mg Tablet, 1,000 MG PO TID PRN for PAIN LEVEL 1-4, (Reported) Tramadol HCl (Tramadol HCl) 50 Mg Tablet, 50 MG PO Q6H PRN for PAIN LEVEL 3-5, (Reported) Allergies Coded Allergies: Contrast Media (Unverified Allergy, Intermediate, RASH/hives, 07/03/19) codeine (Verified Allergy, Mild, RASH, 07/03/19) RASH iodine (Verified Allergy, Unknown, 01/21/19) camphor (Verified Adverse Reaction, Mild, from bengay patch, chemical burn, 07/03/19) menthol (Verified Adverse Reaction, Mild, chemical burn, 07/03/19) methyl salicylate (Verified Adverse Reaction, Mild, chemical burn, 07/03/19) NSAIDS (Non-Steroidal Anti-Inflamma (Unverified Adverse Reaction, Unknown, avoids, gastric bypass, 01/21/19) carboxymethylcellulose sodium (Verified Adverse Reaction, Unknown, carboxymethylcellulose listed as having an adverse reaction, 01/21/19) EDI HUTCHISON MD Mar 17, 2021 08:21
[2021-03-17] MEDS: GABAPENTIN 400MG CAP PO SCH ×3 (08:26→20:49)
[2021-03-17] MEDS: OLANZapine 5 MG TAB PO SCH (08:27)
[2021-03-17] MEDS ORDERED: INFLUENZA QUADRIVALENT PF VACCINE 0.5ML SYRINGE IM ONE (09:00)
[2021-03-17] MEDS: NICOTINE 14 MG/24 HR TRANSDERMAL TD SCH (10:04)
[2021-03-17] MEDS ORDERED: haloperidoL 5 MG TAB PO ONE (12:45)
[2021-03-17] MEDS ORDERED: diphenhydrAMINE 50MG CAP PO ONE (12:45)
[2021-03-17 16:21] VITALS: BP 135/78
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
[2021-03-17] MEDS: traZODone 50 MG TAB PO PRN (20:48)
[2021-03-17] MEDS: MIRTAZAPINE 15 MG TAB PO SCH (20:49)
[2021-03-18] MEDS: traMADol 50 MG TAB PO PRN ×3 (07:02→21:10)
[2021-03-18] MEDS: SUCRALFATE 1 GM TAB PO SCH ×5 (07:30→21:09)
[2021-03-18] MEDS: METOCLOPRAMIDE 10 MG TAB PO SCH ×4 (07:30→16:57)
[2021-03-18 07:44] VITALS: BP 133/78
[2021-03-18] MEDS: GABAPENTIN 400MG CAP PO SCH ×5 (08:46→21:09)
[2021-03-18] MEDS: NICOTINE 14 MG/24 HR TRANSDERMAL TD SCH (08:47)
[2021-03-18] MEDS: OLANZapine 5 MG TAB PO SCH ×3 (08:47→11:00)
[2021-03-18] MEDS ORDERED: NICOTINE 21MG/24HR 1 EA TRANSDERMAL TD SCH (09:00)
[2021-03-18] MEDS: OMEPRAZOLE 20 MG CAP PO SCH (09:00)
--- NOTE | 2021-03-18 14:00 | MHIPNPDOC ---
[facility] Progress Note Progress Note DATE OF SERVICE: 03/18/21 HISTORY:States has fallen 3 times in a week. States she was feeling weak, hadn't eaten since there's no food at her housing in [place], [place]. Was encouraged to eat adequate amounts of food and have available pain medications of tramadol, which was increased to 100 mg 4 times daily, made aware due to substance abuse history could not prescribe opioid pain medications will be evaluated by the medical team.This report was requested by: Edi Hutchison | Reference #: [id number], I stop was reviewed and showed only tramadol prescribed March 11. Per this science writer's consultation report: Patient is a 45-year-old woman with 2 past admissions with [facility], [facility], history of adjustment disorder, malingering, depression, polysubstance abuse, borderline personality disorder, was brought to the ED by EMS following a fall and expressing suicidal ideation with plan to jump out of the window. Patient reports being depressed for months with worsening of mood, states she is unhappy with her housing and the pleasant and in [place], overall states that despite the housing situation overall feels she is unstable on her medications. Was made aware would not be prescribed controlled medications despite still feels her depression is crippling and needs to have treatment. Toxicology screen was negative. Reports heroin use IV, last few months and methamphetamine use in the last few months which is "my drug of choice". Signs of jen or psychosis. Interval: Reports pain that is throbbing and sharp in her right wrist, seen by orthopedist today after consult placed by hospitalist, orthopedist will make a removable brace for nondisplaced fracture, as she refused the cast. Was asking for opiate pain medication, explained the risk in context of her substance abuse and explored alternatives together, agreed to take IM Toradol, has taken before per chart review and patient reports did not have an adverse reaction or allergy when taking this medication previously, and agrees to continue tramadol. States she continues to have suicidal thoughts and labile mood. Reports sleep is poor in context of pain. VITAL SIGNS: See below. NEW TEST RESULTS: CURRENT MEDICATIONS: See below. MENTAL STATUS EXAMINATION: General Appearance: unkempt, hospital scubs/clothing, was holding wrist reporting pain, was later seen at the medication window with her palm resting comfortably on the windowsill. Build: thin Demeanor: hostile, mistrustful, guarded, very fidgety Eye Contact: intense Activity: anxious, other (initially hostile then agreeable to treatment plan) Behavior: resistant Speech: clear, spontaneous, normal volume Mood: anxious, angry, irritable Mood "no change" Affect: labile, anxious, hostile Thought Process: logical/linear Thought Content (Delusions): none reported Thought Content (Other): none reported Thought Content (Aggressive): none reported Perception (Hallucinations): none reported Perception (Other): none reported Cognition (Impairment of): none reported Cognition(Intelligence Est.): average Oriented: Awake, Alert, Oriented times three Insight: poor Judgment: Poor Psychosis: Denies DIAGNOSES: Major depressive disorder, versus adjustment disorder Rule out substance-induced mood disorder Methamphetamine use disorder, reportedly in early remission Opioid use disorder, reportedly in early remission Other substance use disorder ("kip") Alcohol use disorder, reportedly in full remission Borderline personality disorder R/o opioid-induced hyperalgesia Tobacco use disorder ASSESSMENT: Continues to report depression in context of pain with nondisplaced fracture. MANAGEMENT PLAN: We will receive 1 dose of Toradol IM in place of tramadol, which will be continued thereafter for pain management, understands the risk of taking addictive medications such as opioids TIME SPENT: 15 minutes. Vital Signs Vital Signs Date Time Temp Pulse Resp B/P (MAP) Pulse Ox O2 Delivery O2 Flow Rate FiO2 03/18/21 08:47 18 03/18/21 07:44 98.4 84 133/78 (96) 100 Room Air Current Medications Current Medications Medications (Trade) Dose Ordered Sig/Chuckie Route PRN Reason Start Time Stop Time Status Last Admin Dose Admin Acetaminophen (Tylenol Tab) 650 mg Q4HP PRN PO PAIN LEVEL 4-7 03/15/21 16:20 03/16/21 14:41 DC Acetaminophen (Tylenol Tab) 650 mg Q6HP PRN PO HEADACHE or MILD DISCOMFORT 03/16/21 14:30 Al Hydrox/Mg Hydrox/Simethicone (Mylanta) 30 ml Q4HP PRN PO HEARTBURN/INDIGESTION 03/16/21 14:30 Diphenhydramine HCl (Benadryl) 25 mg ONCE PRN IM IF PT REFUSES PO 03/16/21 16:25 03/16/21 18:00 DC Gabapentin (Neurontin) 800 mg TID PO 03/16/21 16:00 03/18/21 10:00 Haloperidol (Haldol) 5 mg ONCE PRN IM IF PT REFUSES PO DOSE 03/16/21 16:25 03/16/21 18:00 DC Home Med (Home Med List Complete!) ASDIRECTED XX 03/16/21 08:30 03/16/21 08:30 DC Lorazepam (Ativan) 1 mg BIDP PRN PO ANXIETY/AGITATION 03/16/21 14:30 03/17/21 08:16 DC 03/16/21 20:08 Lorazepam (Ativan) 1 mg STAT STAT PO 03/15/21 17:36 03/15/21 17:37 DC 03/15/21 17:41 Magnesium Hydroxide (Milk Of Magnesia) 30 ml DAILYPRN PRN PO CONSTIPATION 03/16/21 14:30 Metoclopramide HCl (Reglan) 10 mg AC PO 03/16/21 17:30 03/17/21 12:57 Mirtazapine (Remeron) 15 mg QHS PO 03/17/21 21:00 03/17/21 20:49 Nicotine (Nicoderm Cq 14mg) 1 patch DAILY TD 03/17/21 09:00 03/18/21 08:47 Nicotine (Nicoderm Cq 21mg) 1 patch DAILY TD 03/18/21 09:00 UNV Olanzapine (ZyPREXA) 5 mg DAILY PO 03/17/21 09:00 03/18/21 11:00 Olanzapine (ZyPREXA) 10 mg DAILY PO 03/16/21 09:00 03/17/21 08:16 DC Omeprazole (PriLOSEC) 40 mg DAILY PO 03/18/21 09:00 03/18/21 09:00 Sucralfate (Carafate) 1 gm ACHS PO 03/16/21 17:30 03/17/21 20:49 Tramadol HCl (Ultram) 50 mg Q6H PRN PO PAIN LEVEL 3-5 03/16/21 15:00 03/17/21 08:16 DC 03/17/21 04:26 Tramadol HCl (Ultram) 75 mg Q6H PRN PO PAIN LEVEL 3-5 03/17/21 08:05 03/18/21 07:02 Trazodone HCl (Desyrel) 50 mg QHSP PRN PO INSOMNIA 03/16/21 14:30 03/17/21 20:48 Allergies Coded Allergies: Contrast Media (Unverified Allergy, Intermediate, RASH/hives, 07/03/19) codeine (Verified Allergy, Mild, RASH, 07/03/19) RASH iodine (Verified Allergy, Unknown, 01/21/19) camphor (Verified Adverse Reaction, Mild, from bengay patch, chemical burn, 07/03/19) menthol (Verified Adverse Reaction, Mild, chemical burn, 07/03/19) methyl salicylate (Verified Adverse Reaction, Mild, chemical burn, 07/03/19) NSAIDS (Non-Steroidal Anti-Inflamma (Unverified Adverse Reaction, Unknown, avoids, gastric bypass, 01/21/19) carboxymethylcellulose sodium (Verified Adverse Reaction, Unknown, carboxymethylcellulose listed as having an adverse reaction, 01/21/19) EDI HUTCHISON MD Mar 18, 2021 14:00
[2021-03-18] MEDS ORDERED: KETOROLAC 60MG 2ML VIAL IM ONE (15:00)
[2021-03-18] MEDS: hydrOXYzine 50 MG TAB PO PRN ×2 (16:57→22:36)
[2021-03-18] MEDS ORDERED: hydrOXYzine 50 MG TAB PO SCH (18:00)
[2021-03-18] MEDS: MAALOX 30 ML SUSP *UDC PO PRN (18:27)
[2021-03-18 19:15] VITALS: BP 146/85
[2021-03-18] MEDS: traZODone 50 MG TAB PO PRN (21:09)
[2021-03-18] MEDS: MIRTAZAPINE 15 MG TAB PO SCH (21:09)
[2021-03-18] MEDS: LOPERAMIDE 2 MG CAPLET PO PRN (23:45)
[2021-03-19] MEDS: traMADol 50 MG TAB PO PRN ×4 (06:11→20:31)
[2021-03-19] MEDS: MAALOX 30 ML SUSP *UDC PO PRN ×2 (06:12→23:04)
[2021-03-19] MEDS: ACETAMINOPHEN TAB 650MG DOSE (2X325MG) PO PRN ×2 (06:12→23:05)
[2021-03-19] MEDS: METOCLOPRAMIDE 10 MG TAB PO SCH ×3 (06:54→17:20)
[2021-03-19] MEDS: SUCRALFATE 1 GM TAB PO SCH ×4 (06:54→20:30)
[2021-03-19] MEDS: GABAPENTIN 400MG CAP PO SCH ×3 (07:55→20:30)
[2021-03-19] MEDS: OMEPRAZOLE 20 MG CAP PO SCH (07:55)
[2021-03-19] MEDS: OLANZapine 5 MG TAB PO SCH (07:55)
[2021-03-19] MEDS: NICOTINE 14 MG/24 HR TRANSDERMAL TD SCH (07:55)
[2021-03-19] MEDS: hydrOXYzine 50 MG TAB PO PRN ×3 (08:39→21:18)
[2021-03-19] MEDS ORDERED: NICOTINE 21MG/24HR 1 EA TRANSDERMAL TD SCH (09:00)
--- NOTE | 2021-03-19 12:03 | MHIPNPDOC ---
[facility] Progress Note Progress Note DATE OF SERVICE: 03/19/21 Interval: Patient states she continues to have anxiety and depression, requesting Haldol which is helpful in the past for her anxiety and sleep, and Benadryl for sleep aware of common and rare side effects taking these medications. Continues to report suicidal ideation. No other acute physical complaints apart from wrist pain treated with pain medications, understands I will not be prescribed controlled medications due to history of polysubstance use. VITAL SIGNS: See below. NEW TEST RESULTS: CURRENT MEDICATIONS: See below. MENTAL STATUS EXAMINATION: General Appearance: unkempt, hospital scubs/clothing, lying in bed, seen walking in the hallways, blond hair, appears older than stated age, poor dentition Build: thin Demeanor: hostile, mistrustful, guarded, very fidgety Eye Contact: intense Activity: anxious, other (initially hostile then agreeable to treatment plan) Behavior: resistant Speech: clear, spontaneous, normal volume Mood "still depressed and anxious" Affect: labile, anxious, less hostile, less irritable Thought Process: logical/linear Thought Content (Delusions): none reported Thought Content (Other): Suicidal ideations Thought Content (Aggressive): none reported Perception (Hallucinations): none reported Perception (Other): none reported Cognition (Impairment of): none reported Cognition(Intelligence Est.): average Oriented: Awake, Alert, Oriented times three Insight: poor Judgment: Poor Psychosis: Denies DIAGNOSES: Major depressive disorder, versus adjustment disorder Rule out substance-induced mood disorder Methamphetamine use disorder, reportedly in early remission Opioid use disorder, reportedly in early remission Other substance use disorder ("kip") Alcohol use disorder, reportedly in full remission Borderline personality disorder R/o opioid-induced hyperalgesia Tobacco use disorder ASSESSMENT: No change continues to feel depressed, endorses pain in context of nondisplaced fracture, less irritable than yesterday. Continues to endorse suicidal thoughts and needs continued admission MANAGEMENT PLAN: She agrees to starting Haldol 5 mg nightly for severe anxiety, reports currently also works and this is helped her in the past, also asked for Benadryl for sleep. TIME SPENT: 20 minutes. Vital Signs Vital Signs Date Time Temp Pulse Resp B/P (MAP) Pulse Ox O2 Delivery O2 Flow Rate FiO2 03/19/21 07:10 16 03/18/21 19:15 98.6 94 146/85 (105) 98 Room Air Current Medications Current Medications Medications (Trade) Dose Ordered Sig/Chuckie Route PRN Reason Start Time Stop Time Status Last Admin Dose Admin Acetaminophen (Tylenol Tab) 650 mg Q4HP PRN PO PAIN LEVEL 4-7 03/15/21 16:20 03/16/21 14:41 DC Acetaminophen (Tylenol Tab) 650 mg Q6HP PRN PO HEADACHE or MILD DISCOMFORT 03/16/21 14:30 03/19/21 06:12 Al Hydrox/Mg Hydrox/Simethicone (Mylanta) 30 ml Q4HP PRN PO HEARTBURN/INDIGESTION 03/16/21 14:30 03/19/21 06:12 Diphenhydramine HCl (Benadryl) 25 mg ONCE PRN IM IF PT REFUSES PO 03/16/21 16:25 03/16/21 18:00 DC Gabapentin (Neurontin) 800 mg TID PO 03/16/21 16:00 03/19/21 07:55 Haloperidol (Haldol) 5 mg ONCE PRN IM IF PT REFUSES PO DOSE 03/16/21 16:25 03/16/21 18:00 DC Home Med (Home Med List Complete!) ASDIRECTED XX 03/16/21 08:30 03/16/21 08:30 DC Hydroxyzine HCl (Atarax) 50 mg Q6H PO 03/18/21 18:00 03/18/21 16:47 DC Hydroxyzine HCl (Atarax) 50 mg Q6HP PRN PO ANXIETY/AGITATION 03/18/21 16:45 03/19/21 08:39 Loperamide HCl (Imodium) 2 mg ASDIRECTED PRN PO DIARRHEA 03/18/21 14:55 03/18/21 23:45 Lorazepam (Ativan) 1 mg BIDP PRN PO ANXIETY/AGITATION 03/16/21 14:30 03/17/21 08:16 DC 03/16/21 20:08 Lorazepam (Ativan) 1 mg STAT STAT PO 03/15/21 17:36 03/15/21 17:37 DC 03/15/21 17:41 Magnesium Hydroxide (Milk Of Magnesia) 30 ml DAILYPRN PRN PO CONSTIPATION 03/16/21 14:30 Metoclopramide HCl (Reglan) 10 mg AC PO 03/16/21 17:30 03/19/21 11:46 Mirtazapine (Remeron) 15 mg QHS PO 03/17/21 21:00 03/18/21 21:09 Nicotine (Nicoderm Cq 14mg) 1 patch DAILY TD 03/17/21 09:00 03/19/21 07:55 Nicotine (Nicoderm Cq 21mg) 1 patch DAILY TD 03/18/21 09:00 UNV Olanzapine (ZyPREXA) 5 mg DAILY PO 03/17/21 09:00 03/19/21 07:55 Olanzapine (ZyPREXA) 10 mg DAILY PO 03/16/21 09:00 03/17/21 08:16 DC Omeprazole (PriLOSEC) 40 mg DAILY PO 03/18/21 09:00 03/19/21 07:55 Sucralfate (Carafate) 1 gm ACHS PO 03/16/21 17:30 03/19/21 11:46 Tramadol HCl (Ultram) 50 mg Q6H PRN PO PAIN LEVEL 3-5 03/16/21 15:00 03/17/21 08:16 DC 03/17/21 04:26 Tramadol HCl (Ultram) 50 mg Q6H PRN PO PAIN LEVEL 3-5 03/18/21 20:05 03/19/21 06:11 Tramadol HCl (Ultram) 75 mg Q6H PRN PO PAIN LEVEL 3-5 03/17/21 08:05 03/18/21 15:24 DC 03/18/21 14:42 Trazodone HCl (Desyrel) 50 mg QHSP PRN PO INSOMNIA 03/16/21 14:30 03/18/21 21:09 Allergies Coded Allergies: Contrast Media (Unverified Allergy, Intermediate, RASH/hives, 07/03/19) codeine (Verified Allergy, Mild, RASH, 07/03/19) RASH iodine (Verified Allergy, Unknown, 01/21/19) camphor (Verified Adverse Reaction, Mild, from bengay patch, chemical burn, 07/03/19) menthol (Verified Adverse Reaction, Mild, chemical burn, 07/03/19) methyl salicylate (Verified Adverse Reaction, Mild, chemical burn, 07/03/19) NSAIDS (Non-Steroidal Anti-Inflamma (Unverified Adverse Reaction, Unknown, avoids, gastric bypass, 01/21/19) carboxymethylcellulose sodium (Verified Adverse Reaction, Unknown, car boxymethylcellulose listed as having an adverse reaction, 01/21/19) EDI HUTCHISON MD Mar 19, 2021 12:03
[2021-03-19 16:44] VITALS: BP 115/73
[2021-03-19] MEDS: MIRTAZAPINE 15 MG TAB PO SCH (20:30)
[2021-03-19] MEDS: haloperidoL 5 MG TAB PO SCH (20:30)
[2021-03-19] MEDS: diphenhydrAMINE 50MG CAP PO SCH (20:30)
[2021-03-20] MEDS: LOPERAMIDE 2 MG CAPLET PO PRN (00:41)
[2021-03-20] MEDS: traMADol 50 MG TAB PO PRN ×5 (00:47→20:23)
[2021-03-20] MEDS: hydrOXYzine 50 MG TAB PO PRN ×3 (05:29→18:34)
[2021-03-20 06:36] VITALS: BP 122/76
[2021-03-20] MEDS: SUCRALFATE 1 GM TAB PO SCH ×4 (06:46→20:22)
[2021-03-20] MEDS: METOCLOPRAMIDE 10 MG TAB PO SCH ×3 (06:46→16:48)
[2021-03-20] MEDS: OMEPRAZOLE 20 MG CAP PO SCH (08:05)
[2021-03-20] MEDS: NICOTINE 21MG/24HR 1 EA TRANSDERMAL TD SCH (08:05)
[2021-03-20] MEDS: GABAPENTIN 400MG CAP PO SCH ×3 (08:05→20:22)
[2021-03-20 16:22] VITALS: BP 116/78
[2021-03-20] MEDS: diphenhydrAMINE 50MG CAP PO SCH (20:22)
[2021-03-20] MEDS: MIRTAZAPINE 15 MG TAB PO SCH (20:22)
[2021-03-20] MEDS: haloperidoL 5 MG TAB PO SCH (20:22)
[2021-03-20] MEDS: traZODone 50 MG TAB PO PRN (21:21)
[2021-03-21] MEDS: traMADol 50 MG TAB PO PRN ×5 (03:22→22:06)
[2021-03-21] MEDS: NICOTINE 21MG/24HR 1 EA TRANSDERMAL TD SCH (09:05)
[2021-03-21] MEDS: SUCRALFATE 1 GM TAB PO SCH ×4 (09:06→20:12)
[2021-03-21] MEDS: OMEPRAZOLE 20 MG CAP PO SCH (09:06)
[2021-03-21] MEDS: GABAPENTIN 400MG CAP PO SCH ×3 (09:06→20:13)
[2021-03-21] MEDS: METOCLOPRAMIDE 10 MG TAB PO SCH ×3 (09:06→16:42)
[2021-03-21] MEDS: hydrOXYzine 50 MG TAB PO PRN ×3 (09:11→21:10)
[2021-03-21 16:30] VITALS: BP 121/70
--- NOTE | 2021-03-21 17:31 | MHIPN ---
[facility] PROGRESS NOTE DATE: 03/20/2021 This is a video assessment, she is aware of it, and agrees to it, and its limitations. She is seen in the presence of staff, she is in the inpatient psychiatry unit, I am at home. CHIEF COMPLAINT: Says feels good. SUBJECTIVE: Says feels good, and that she is feeling better, and that she feels ready to go home. Says sleep is good, as is appetite. She says has no suicidal thoughts today, and that she last had them yesterday. MENTAL STATUS EXAMINATION: Neat, cooperative, though possibly somewhat superficially so, coherent, no agitation, no psychomotor retardation, answers questions briefly, affect is restricted but reactive. Denies any suicidal thoughts or intents, no homicidal ideas or intents, currently no evidence of any psychosis. Cognition is grossly intact. Her judgment is improved, insight fair. ASSESSMENT: Major depressive disorder, the differential may include digoxin disorder. Methamphetamine use disorder. Opioid use disorder. Borderline personality disorder. PLAN: Continue current care, observations, she requests nicotine gum rather than the patch, will consider that, but it is preferable not making changes, and keeping things steady, as that helps maintain structure for her. No medication changes at present. She is to be encouraged to participate in activities in the unit. The assessment took 15 minutes.
[2021-03-21] MEDS: MIRTAZAPINE 15 MG TAB PO SCH (20:12)
[2021-03-21] MEDS: diphenhydrAMINE 50MG CAP PO SCH (20:12)
[2021-03-21] MEDS: haloperidoL 5 MG TAB PO SCH (20:13)
[2021-03-21] MEDS: traZODone 50 MG TAB PO PRN (20:13)
[2021-03-22] MEDS: traMADol 50 MG TAB PO PRN ×2 (02:15→08:42)
[2021-03-22] MEDS: hydrOXYzine 50 MG TAB PO PRN ×2 (04:09→10:33)
[2021-03-22] MEDS: METOCLOPRAMIDE 10 MG TAB PO SCH ×2 (06:48→12:00)
[2021-03-22] MEDS: SUCRALFATE 1 GM TAB PO SCH ×2 (06:48→12:00)
[2021-03-22 06:54] VITALS: BP 128/78
[2021-03-22] MEDS: NICOTINE 21MG/24HR 1 EA TRANSDERMAL TD SCH (08:39)
[2021-03-22] MEDS: OMEPRAZOLE 20 MG CAP PO SCH (08:39)
[2021-03-22] MEDS: GABAPENTIN 400MG CAP PO SCH (08:39)
[2021-03-22] MEDS ORDERED: HALO5TA PO (10:41)
[2021-03-22] MEDS ORDERED: METO10TA2 PO (10:41)
[2021-03-22] MEDS ORDERED: OMEP-218 PO (10:41)
[2021-03-22] MEDS ORDERED: MIRT-62 PO (10:41)
[2021-03-22] MEDS ORDERED: SUCR1TA PO (10:41)
[2021-03-22] MEDS ORDERED: NICO21PAT TD (10:41)
[2021-03-22] MEDS ORDERED: DIPH50CA PO (10:41)
[2021-03-22] MEDS ORDERED: TRAZ-252 PO (10:41)
[2021-03-22] MEDS ORDERED: HYDR50TA70 PO (10:41)
--- NOTE | 2021-03-22 15:55 | MHDSPDOC ---
[facility] Discharge Summary Discharge Summary DATE OF ADMISSION: Mar 16, 2021 at 14:30 DATE OF DISCHARGE: Mar 22, 2021 at 13:05 Discharge diagnoses: Major depressive disorder, versus adjustment disorder Methamphetamine use disorder, reportedly in early remission Opioid use disorder, reportedly in early remission Other substance use disorder ("kip") Alcohol use disorder, reportedly in full remission Borderline personality disorder R/o opioid-induced hyperalgesia Tobacco use disorder Reason for admission:States has fallen 3 times in a week. States she was feeling weak, hadn't eaten since there's no food at her housing in [place], [place]. Was encouraged to eat adequate amounts of food and have available pain medications of tramadol, which was increased to 100 mg 4 times daily, made aware due to substance abuse history could not prescribe opioid pain medications will be evaluated by the medical team.This report was requested by: Edi Hutchison | Reference #: [id number], I stop was reviewed and showed only tramadol prescribed March 11. Per this music writer's consultation report: Patient is a 45-year-old woman with 2 past admissions with [facility], history of adjustment disorder, malingering, depression, polysubstance abuse, borderline personality disorder, was brought to the ED by EMS following a fall and expressing suicidal ideation with plan to jump out of the window. Patient reports being depressed for months with worsening of mood, states she is unhappy with her housing and the pleasant and in [place], overall states that despite the housing situation overall feels she is unstable on her medications. Was made aware would not be prescribed controlled medications despite still feels her depression is crippling and needs to have treatment. Toxicology screen was negative. Reports heroin use IV, last few months and methamphetamine use in the last few months which is "my drug of choice". Signs of jen or psychosis. Vital signs: See below Consultants involved: See medical H&P by hospitalist Treatment and progress on the unit: Patient was admitted to the [facility] in a 9.39 legal status and was afforded the following treatment modalities: 1. Individual therapy 2. Group therapy 3. Medication management 4. Milieu therapy 5. Safe environment Hospital course: Patient was admitted to the [facility] on a 9.39 legal status. Was medically cleared prior to coming up to the [facility]. Had a fall and reported pain in R wrist, Was evaluated by hospitalist team and Xray ordered, found per wrist xray "Limited examination. Very subtle nondisplaced fracture of the distal radial metaphysis cannot be excluded. Consider presumptive treatment and re-evaluation in 3-5 days." Hand xray was unremarkable apart from degenerative changes. Chest xray was unremarkable. Istop was reviewed. This report was requested by: Edi Hutchison | Reference #: [id number], I stop was reviewed and showed only tramadol prescribed March 11. Was started on tramadol 50 mg and nsaids for pain. Received once dose of 60 mg IM toradol with reported benefit. Orthopedic consult was ordered, was evaluated. Patient was requesting opioids and controlled medications which were not given due to polysubstance use history. Patient found medications beneficial and tolerated them well. Reported low mood, poor sleep, anhedonia and vague suicidal ideations without plan. Was started on mirtazpaine 15 mg qhs, gabapentin 800 mg tid for anxiety and trazodone 50 mg prn for sleep. Continued to report improvement in mood, but not sleep, request haldol and was given 5 mg qhs, as she reported improvement in mood, anxiety previously on medication. Prior to discharge denies low mood, anxiety or intrusive thoughts which improved with treatment. Patient attended groups over the weekend and today on discharge. Patient symptoms improved with treatment. On day of discharge patient denied depression, anxiety, insomnia, suicidal or homicidal ideations intent or plan, hallucinations, delusions. Patient was discharged home with follow-up. Patient felt safe for discharge. Was offered continued stay on voluntary admission but refused. Discharge assessment: On today's interview patient is alert and oriented, dressed appropriately. Affect is much brighter and no longer spending day lying in bed. Hygiene and grooming is well-kept and significantly improved. Smiles on approach and is more pleasant and engaged on interview. Denies depression and anxiety. Denies suicidal homicidal ideation, intent or planning. Denies and is not observed with jen or psychotic symptoms of delusions, hallucinations, bizarre thinking, obsessions, paranoia, ruminations, illogical thoughts, flight of ideas or having poor insight or judgment. Patient has normal mentation, declines further hospitalization on voluntary status and meets criteria for discharge today, patient encouraged to return the hospital if symptoms worsen or change and encouraged to call unit if they feel they need provider's questions to be answered or help with medications or care. Patient was future oriented, goal directed to f/u with outside provider, safety plan was carried out. Mental status: General Appearance: in no acute distress, good hygiene, wearing splint, hospital scrubs/clothing,siting on bed, seen walking in the hallways, blond hair, appears older than stated age, poor dentition Build: thin Demeanor: no longer hostile, now cooperative Eye Contact: average Activity: anxious, other (initially hostile then agreeable to treatment plan) Behavior: resistant Speech: clear, spontaneous, normal volume Mood "better" Affect: euthymic, full, mood congruent, appropriate Thought Process: logical/linear Thought Content (Delusions): none reported Thought Content (Other): Suicidal ideations Thought Content (Aggressive): none reported Perception (Hallucinations): none reported Perception (Other): none reported Cognition (Impairment of): none reported Cognition(Intelligence Est.): average Oriented: Awake, Alert, Oriented times three Insight: good Judgment: fair, improved Psychosis: Denies Medications on discharge: -see medication reconciliation: CSSRS on discharge: Wish to be : No nonspecific active suicidal thoughts: No lifetime attempts: 1x at age 13 y/o interrupted attempts: 0 aborted attempts: 0 preparatory acts or behavior: None Taking into consideration safety state, status, modifiable, non-modifiable risk factors patient is at low risk on discharge for suicide according to [place] suicide evaluation. PLAN/FOLLOWUP ARRANGEMENTS: Follow Up Care Education Label * Mental Health Appt 1 * Chemical Dependency [facility] * Established With This Provider Yes * Therapist RACHEL * Date Mar 25, 2021 * Time 16:00 * Address of Clinic or Practice [address] [facility] * Follow Up Care Education Label * Medical * Medical Follow Up [facility] * Established With This Provider Yes * Therapist DR. ROJAS * Date Apr 14, 2021 * Time 10:00 * Address of Clinic or Practice [address] [place] [address] * The amount of time spent in the coordination of care for this patient was approximately 40 minutes. ETOH/Disorder Med Rx ETOH/DRUG DISORDER RX: Offrd @ d/c & pt refused Vital Signs/I&Os Vital Signs Date Time Temp Pulse Resp B/P (MAP) Pulse Ox O2 Delivery O2 Flow Rate FiO2 03/22/21 10:28 18 03/22/21 06:54 98.1 76 128/78 (95) 97 Room Air Medications Scheduled Diphenhydramine HCl (Diphenhydramine HCl) 50 Mg Capsule, 50 MG PO QHS for sleep, #7 Ergocalciferol (Vitamin D2) (Vitamin D2) 50 Mcg (2000 Unit) Tablet, 50 MCG PO DAILY, (Reported) Gabapentin (Gabapentin) 800 Mg Tablet, 800 MG PO TID, (Reported) Haloperidol (Haloperidol) 5 Mg Tablet, 5 MG PO QHS for psychosis, #7 Melatonin (Melatonin) 10 Mg Capsule, 10 MG PO QHS, (Reported) Metoclopramide HCl (Metoclopramide HCl) 10 Mg Tablet, 10 MG PO AC for constipation, #7 Mirtazapine (Remeron) 15 Mg Tablet, 15 MG PO QHS for mood, #7 Nicotine (Nicotine Patch) 21 Mg Patch.td24, 1 PATCH TD DAILY for nicotine cravi ngs, #7 Omeprazole (Omeprazole) 20 Mg Capsule.dr, 40 MG PO DAILY for gerd, #14 Sucralfate (Sucralfate) 1 Gm Tablet, 1 GM PO ACHS for ulcers, #7 Scheduled PRN Acetaminophen (Acetaminophen) 500 Mg Tablet, 1,000 MG PO TID PRN for PAIN LEVEL 1-4, (Reported) Hydroxyzine HCl (Hydroxyzine HCl) 50 Mg Tablet, 50 MG PO Q6HP PRN for ANXIETY/AGITATION, #7 Tramadol HCl (Tramadol HCl) 50 Mg Tablet, 50 MG PO Q6H PRN for PAIN LEVEL 3-5, (Reported) Trazodone HCl (Trazodone HCl) 50 Mg Tablet, 50 MG PO QHSP PRN for INSOMNIA, #7 Allergies Coded Allergies: Contrast Media (Unverified Allergy, Intermediate, RASH/hives, 07/03/19) codeine (Verified Allergy, Mild, RASH, 07/03/19) RASH iodine (Verified Allergy, Unknown, 01/21/19) camphor (Verified Adverse Reaction, Mild, from bengay patch, chemical burn, 07/03/19) menthol (Verified Adverse Reaction, Mild, chemical burn, 07/03/19) methyl salicylate (Verified Adverse Reaction, Mild, chemical burn, 07/03/19) NSAIDS (Non-Steroidal Anti-Inflamma (Unverified Adverse Reaction, Unknown, avoids, gastric bypass, 01/21/19) carboxymethylcellulose sodium (Verified Adverse Reaction, Unknown, carboxymethylcellulose listed as having an adverse reaction, 01/21/19) EDI HUTCHISON MD Mar 22, 2021 15:55
== END 2021-03-22 13:05 | disposition home or self-care (01) | DRG 881 ==
LOC: M ED 13:53 → M ED INP 03-16 14:30 → M PSY 03-16 15:25
PROVIDERS: ADMIT Psychiatry & Neurology Psychiatry; ATTEND Student in an Organized Health Care Education/Training Program
DX: F32.9 Major depressive disorder, single episode, unspecified (principal); R45.851 Suicidal ideations; F16.10 Hallucinogen abuse, uncomplicated; F15.10 Other stimulant abuse, uncomplicated; F10.10 Alcohol abuse, uncomplicated; F11.10 Opioid abuse, uncomplicated; F60.3 Borderline personality disorder; F17.210 Nicotine dependence, cigarettes, uncomplicated; F43.20 Adjustment disorder, unspecified; R29.6 Repeated falls; Z20.822 Contact with and (suspected) exposure to COVID-19; Z76.5 Malingerer [conscious simulation]; Z79.899 Other long term (current) drug therapy; Z91.041 Radiographic dye allergy status; Z88.5 Allergy status to narcotic agent; Z88.3 Allergy status to other anti-infective agents; Z88.8 Allergy status to other drugs, medicaments and biological substances; D50.9 Iron deficiency anemia, unspecified; Z98.84 Bariatric surgery status; Z90.49 Acquired absence of other specified parts of digestive tract; M25.531 Pain in right wrist; E07.9 Disorder of thyroid, unspecified

== ENCOUNTER 2021-04-02 11:04 | Inpatient (IN) | payer OTHER, MEDICAID ==
[~2021-04-02] VITALS: Ht 170.2 cm; Wt 59.9 kg
[~2021-04-02 11:04] MED LIST changes: +ACET-683 PO; +DIPH50CA PO; +GABA800T4 PO; +HALO5TA PO; +HYDR50TA70 PO; +MELA10CA2 PO; +METO10TA2 PO; +MIRT-62 PO; +OLAN1TAB20 PO; +TRAM50TA2 PO; +TRAZ-252 PO; +VITA200028 PO
[2021-04-02 11:59] LABS: HEMOGLOBIN 11.5 g/dl (12.0-15.5); MEAN CORPUSCULAR HEMOGLOBIN 24.2 pg (27.0-33.0); MEAN CORPUSCULAR HGB CONC 31.9 g/dl (32.0-36.5); MEAN CORPUSCULAR VOLUME 75.8 fl (80.0-96.0); PLATELET COUNT, AUTOMATED 464 10^3/uL (150-450); RED BLOOD COUNT 4.75 10^6/uL (4.00-5.40); WHITE BLOOD COUNT 5.3 10^3/uL (4.0-10.0)
[2021-04-02 12:26] LABS: ACETAMINOPHEN LEVEL < 2.0 UG/ML (10.0-30.0); ALBUMIN 2.8 GM/DL (3.2-5.2); ALT/SGPT 56 U/L (12-78); BILIRUBIN,DIRECT 0.2 MG/DL (0.0-0.2); BILIRUBIN,TOTAL 0.4 MG/DL (0.2-1.0); BLOOD UREA NITROGEN 6 MG/DL (7-18); CALCIUM LEVEL 8.8 MG/DL (8.5-10.1); CARBON DIOXIDE LEVEL 28 MEQ/L (21-32); CHLORIDE LEVEL 100 MEQ/L (98-107); CREATININE FOR GFR 0.34 MG/DL (0.55-1.30); ETHYL ALCOHOL (ETHANOL) < 0.003 % (0.000-0.010); GLOMERULAR FILTRATION RATE > 60.0 (>58); GLUCOSE, FASTING 116 MG/DL (70-100); POTASSIUM SERUM 4.1 MEQ/L (3.5-5.1); SALICYLATE LEVEL 1.7 MG/DL (5.0-30.0); SODIUM LEVEL 134 MEQ/L (136-145); THYROID STIMULATING HORMONE 0.043 uIU/ML (0.358-3.740); TOTAL PROTEIN 6.6 GM/DL (6.4-8.2)
[2021-04-02 12:32] LABS: HCG, SERUM QUALITATIVE NEGATIVE (NEGATIVE)
[2021-04-02 16:57] LABS: AMPHETAMINES LEVEL URINE NEGATIVE (NEGATIVE); BARBITURATES URINE NEGATIVE (NEGATIVE); BENZODIAZEPINES URINE NEGATIVE (NEGATIVE); CANNABINOIDS URINE NEGATIVE (NEGATIVE); COCAINE METABOLITE URINE NEGATIVE (NEGATIVE); METHADONE URINE NEGATIVE (NEGATIVE); OPIATES URINE NEGATIVE (NEGATIVE); PHENCYCLIDINE URINE NEGATIVE (NEGATIVE)
[2021-04-02 17:06] LABS: RSV AMPLIFICATION NEGATIVE (NEGATIVE)
[2021-04-02] MEDS ORDERED: TRAZ-252 PO (19:53)
[2021-04-02] MEDS ORDERED: OMEP-221 PO (19:53)
[2021-04-02] MEDS ORDERED: MIRT-62 PO (19:53)
[2021-04-02] MEDS ORDERED: HALO5TA PO (19:53)
[2021-04-02] MEDS ORDERED: SUCR1TAB56 PO (19:53)
[2021-04-02] MEDS ORDERED: DIPH50CA PO (19:53)
[2021-04-02] MEDS ORDERED: METO10TA2 PO (19:53)
[2021-04-02] MEDS ORDERED: HYDR50TA70 PO (19:53)
[2021-04-02] MEDS ORDERED: HOME MED LIST COMPLETE! XX SCH (19:55)
[2021-04-02] MEDS ORDERED: MAALOX 30 ML SUSP *UDC PO PRN (20:15)
[2021-04-02] MEDS ORDERED: MOM 30ML SUSPENSION UDC PO PRN (20:15)
[2021-04-02] MEDS ORDERED: ACETAMINOPHEN TAB 650MG DOSE (2X325MG) PO PRN (20:15)
[2021-04-02] MEDS: OLANZapine ORAL DISINTEGRATING TAB 5MG PO PRN (22:04)
[2021-04-02] MEDS: traZODone 50 MG TAB PO PRN (22:04)
[2021-04-03 07:08] VITALS: BP 152/84
[2021-04-03] MEDS: SERTRALINE HCL 50 MG TAB PO SCH (09:00)
[2021-04-03] MEDS: OLANZapine ORAL DISINTEGRATING TAB 5MG PO PRN ×2 (13:03→20:10)
[2021-04-03] MEDS: ONDANSETRON 4 MG TAB PO PRN (17:08)
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
[2021-04-03] MEDS: SUCRALFATE 1 GM TAB PO SCH ×2 (17:51→20:08)
[2021-04-03] MEDS: METOCLOPRAMIDE 10 MG TAB PO SCH (18:09)
--- NOTE | 2021-04-03 19:34 | MHHPEPDOC ---
General Date Of Admission: Apr 02, 2021 Legal Status: 9.39 Chief Complaint The patient stated she wanted to jump off the [employer] bridge into the [place] History of Present Illness HISTORY OF THE PRESENT ILLNESS: Patient is a 45 -year-old , female, who. as per Ed report: "Pt states "I'm very depressed. I'm still homeless and everything else. No kids, family, support system I'm here alone." Met with pt at bedside. Pt refused to sit up for MHE, and had poor eye contact, closing her eyes for the majority of the interview. Pt was agitated with TW and would become frustrated when TW would ask pt questions in the MHE and would often say "Omg yes to all of them" or "omg no to all of them" or would ask if TW was done yet or would answer "I don't know". Pt did report that she has an extensive amount of stressors that have led to her becoming depressed and suicidal which is what she reports brings her to the ED today. Pt reports she is currently homeless, stating her ex caused problems for her at her apartment which led to her being evicted. Pt reports she has been staying in hotels or on the streets, as she states DSS had no placement for her. Pt reports a major lack of support, as she reports she moved to this area because her was in the , but they are no longer together and she doesn't know anyone here or have any friends or family nearby. Pt also reports her family that is in [place], she no longer talks to. Pt reports she also has lost custody of her children and does not get to see them which is very upsetting for her, as well ashaving financial issues as well and reports she has no psychiatric medications and has often had no food. Pt reports she has a hx of substance abuse to include previous opiate abuse, but would not elaborate on this any further. Pt was vague and minimally repsonive to TW's quetions. Pt reports poor sleep, appetite, energy. pt reports labile mood, depression, anxiety, lack of interest and and lack of enjoyment. Pt also reports that she has s/i with a plan to jump off a bridge with intent to act on this. Pt reports several male family members of hers have attempted suicide in the past but reports none have been successful. Pt also reports she has had one prior attempt via overdose at the age of 13. Pt reports she does believe she needs an admission at this time, as she states she "cannot be alone, I would not be safe". Pt reports a hx of admissions to [facility] in this past March, as well as 2 admissions in 2018, and pt states she needs to be admitted again, as she cannot CFS at this time.." Psychiatric Review of Systems Depression (2 or more weeks): depressed mood, insomnia/hypersomnia, feelings of worthlesness, decreased energy, appetite changes, psychomotor changes, suicidal thoughts Lizzette (4 or more days of): other (the patient is refusing to continue with the Initial evaluation, saying she is too tired and is feeling nauseous) Psychosis: other (patient is refusing to cooperae with the Initial Evlauation, saying she is nauseous and very tired) PTSD: other (the patient is refusing to cooperae with the interview, saying she is very tired, feeling nauseous) Anxiety: other (The patient is resusing to cooperate with the interview,saying she is tired and very nauseous) Anxiety/ 6 months or more of: other (patient refusint to cooperate with the interview, saying she is extremely tired and nauseous) Past Psychiatric History The patient is refusing to cooperate with the interview, saying she is very tired and nauseous Previous Psychiatric Diagnosis: . Previous Psychiatric Admissions: . Suicide Attempts: . Psychiatric Follow-up: . Psychiatric medications: . Past Medical History Medical Problems The patient is refusing to cooperate with the interview, saying she is very tired and nauseous Family Medical/Psychiatric HX Medical Problems The patient is refusing to cooperate with the interview, saying she is very tired and nauseous Addiction History other (The patient is refusing to cooperate with the interview, saying she is very tired and nauseous) Social History The patient is refusing to cooperate with the interview, saying she is very tired and nauseous Childhood: . Abuse/Trauma:. Current Living Situation: . Education: . Employment: . Social Support: . Legal: . Marital: . Mental Status Examination General Appearance: unkempt, disheveled, ds/not appear stated age (looks older), hospital scubs/clothing Build: thin Demeanor: preoccupied Eye Contact: avoidant Activity: anxious Behavior: uncooperative, resistant Speech: clear, rapid, spontaneous, normal volume Mood: anxious, irritable Affect: constricted, congruent, anxious Thought Process: logical/linear Thought Content (Delusions): none reported Thought Content (Other): ideas of reference Thought Content (Aggressive): none reported Perception (Hallucinations): none reported Perception (Other): other (the patient refused to answer this question) Cognition (Impairment of): none reported Cognition(Intelligence Est.): average Oriented: Awake, Alert, Oriented times three Insight: poor Judgment: Poor Psychosis: Denies Diagnoses 1. Unspecified Depressive disorder 2. R/O Adjustment Disorder with depressed/anxious mood A-FIB/CHADSVASC A-FIB History Current/History of A-Fib/PAF?: No Current PO Anticoag Therapy: No Age/Risk Factor Scoring CHADSVASC: CHADSVASC Response (Comments) Value Age Risk Factor Age < 65 years old 0 Gender Risk Factor Female 1 Hx of CHF No 0 Hx of HTN No 0 Hx of Stroke/TIA/or VTE No 0 Hx of Diabetes No 0 Hx of Vascular Disease No 0 Total 1 Treatment Treatment ordered: NONE Reason Anticoagulant not given: Not indicated/[id number] Assessment patient is uncooperative with the interview. She has been complaining of having nausea, has been receiving Zophran. She came to the ofice t request her previous medications but she said she has feeling nauseous and tired and would prefer to meet with me tomorrow for the Psychiatric interview Initial Treatment Plan 1. Patient was admitted on a [9.39] status. 2. Complete history was obtained. 3. With patients permission, family will be contacted and database will be expanded. 4. Patients medication regimen will be reviewed and changed accordingly. 5. Patient will be provided with protected environment. 6. Patient will be treated with individual, group, and milieu therapies. 7. Patient will receive supportive psych-education. 8. Discharge planning will commence immediately. 9. Outpatient follow-up treatment will be strongly recommended. 10. The initial treatment plan will focus initially on: * Depression. * Risk for suicide. * Anxiety * Ineffective coping ESTIMATED LENGTH OF STAY: 5-7DAYS. TIME SPENT COUNSELING AND COORDINATING INITIAL CARE: 20 minutes. Tobacco Cessation Screen If Patient is a Smoker no Ordered/Pending Vital Signs Vital Signs Date Time Temp Pulse Resp B/P (MAP) Pulse Ox O2 Delivery O2 Flow Rate FiO2 04/03/21 07:08 99.3 65 18 152/84 (106) 04/02/21 11:13 98 Laboratory Data 24H Labs Laboratory Tests 2 04/02/21 16:18: Urine Opiates Screen NEGATIVE, Urine Methadone Screen NEGATIVE, Urine Barbiturates Screen NEGATIVE, Urine Phencyclidine Screen NEGATIVE, Urine Amphetamines Screen NEGATIVE, Urine Benzodiazepines Screen NEGATIVE, Urine Cocaine Metabolite Screen NEGATIVE, Urine Cannabinoids Screen NEGATIVE, Coronavirus (COVID-19)(PCR) NEGATIVE, Influenza Type A (RT-PCR) NEGATIVE, Influenza Type B (RT-PCR) NEGATIVE, Respiratory Syncytial Virus (PCR) NEGATIVE Medications Scheduled Diphenhydramine HCl (Diphenhydramine HCl) 50 Mg Capsule, 50 MG PO QHS, (Reported) Ergocalciferol (Vitamin D2) (Vitamin D2) 50 Mcg (2000 Unit) Tablet, 50 MCG PO DAILY, (Reported) Gabapentin (Gabapentin) 800 Mg Tablet, 800 MG PO TID, (Reported) Haloperidol (Haloperidol) 5 Mg Tablet, 5 MG PO QHS, (Reported) Melatonin (Melatonin) 10 Mg Capsule, 10 MG PO QHS, (Reported) Metoclopramide HCl (Metoclopramide HCl) 10 Mg Tablet, 10 MG PO AC, (Reported) Mirtazapine (Remeron) 15 Mg Tablet, 15 MG PO QHS, (Reported) Omeprazole (Omeprazole) 40 Mg Capsule.dr, 40 MG PO DAILY, (Reported) Sucralfate (Sucralfate) 1 Gm Tablet, 1 GM PO ACHS, (Reported) Trazodone HCl (Trazodone HCl) 50 Mg Tablet, 50 MG PO QHS, (Reported) Scheduled PRN Acetaminophen (Acetaminophen) 500 Mg Tablet, 1,000 MG PO TID PRN for PAIN LEVEL 1-4, (Reported) Hydroxyzine HCl (Hydroxyzine HCl) 50 Mg Tablet, 50 MG PO QID PRN for ANXIETY/AGITATION, (Reported) Tramadol HCl (Tramadol HCl) 50 Mg Tablet, 50 MG PO Q6H PRN for PAIN LEVEL 3-5, (Reported) Allergies Coded Allergies: Contrast Media (Unverified Allergy, Intermediate, RASH/hives, 07/03/19) codeine (Verified Allergy, Mild, RASH, 07/03/19) RASH iodine (Verified Allergy, Unknown, 01/21/19) camphor (Verified Adverse Reaction, Mild, from bengay patch, chemical burn, 07/03/19) menthol (Verified Adverse Reaction, Mild, chemical burn, 07/03/19) methyl salicylate (Verified Adverse Reaction, Mild, chemical burn, 07/03/19) NSAIDS (Non-Steroidal Anti-Inflamma (Unverified Adverse Reaction, Unknown, avoids, gastric bypass, 01/21/19) carboxymethylcellulose sodium (Verified Adverse Reaction, Unknown, carboxymethylcellulose listed as having an adverse reaction, 01/21/19) BRANDO HOLLAND MD Apr 03, 2021 12:49
[2021-04-03] MEDS: diphenhydrAMINE 25MG CAP PO PRN (20:08)
[2021-04-03] MEDS: GABAPENTIN 400MG CAP PO SCH (20:08)
[2021-04-03] MEDS: OMEPRAZOLE 20 MG CAP PO SCH (20:08)
[2021-04-03] MEDS: traMADol 50 MG TAB PO PRN (20:09)
[2021-04-04] MEDS: ONDANSETRON 4 MG TAB PO PRN ×2 (01:45→20:08)
[2021-04-04] MEDS: traZODone 50 MG TAB PO PRN ×2 (02:07→20:08)
[2021-04-04] MEDS: OLANZapine ORAL DISINTEGRATING TAB 5MG PO PRN ×3 (02:07→23:53)
[2021-04-04] MEDS: traMADol 50 MG TAB PO PRN ×3 (02:10→23:53)
[2021-04-04] MEDS: SUCRALFATE 1 GM TAB PO SCH ×4 (07:39→20:08)
[2021-04-04] MEDS: OMEPRAZOLE 20 MG CAP PO SCH ×2 (07:39→20:08)
[2021-04-04] MEDS: METOCLOPRAMIDE 10 MG TAB PO SCH ×3 (08:11→16:37)
[2021-04-04] MEDS: SERTRALINE HCL 50 MG TAB PO SCH (09:00)
[2021-04-04] MEDS: GABAPENTIN 400MG CAP PO SCH ×3 (09:18→20:08)
--- NOTE | 2021-04-04 15:46 | MHIPNPDOC ---
[facility] Progress Note Progress Note DATE OF SERVICE: 04/04/21 HISTORY: HISTORY OF THE PRESENT ILLNESS: Patient is a 45 -year-old , female, who. as per Ed report: "Pt states "I'm very depressed. I'm still homeless and everything else. No kids, family, support system I'm here alone." Met with pt at bedside. Pt refused to sit up for MHE, and had poor eye contact, closing her eyes for the majority of the interview. Pt was agitated with TW and would become frustrated when TW would ask pt questions in the MHE and would often say "Omg yes to all of them" or "omg no to all of them" or would ask if TW was done yet or would answer "I don't know". Pt did report that she has an extensive amount of stressors that have led to her becoming depressed and suicidal which is what she reports brings her to the ED today. Pt reports she is currently homeless, stating her ex caused problems for her at her apartment which led to her being evicted. Pt reports she has been staying in hotels or on the streets, as she states DSS had no placement for her. Pt reports a major lack of support, as she reports she moved to this area because her was in the , but they are no longer together and she doesn't know anyone here or have any friends or family nearby. Pt also reports her family that is in [place], she no longer talks to. Pt reports she also has lost custody of her children and does not get to see them which is very upsetting for her, as well ashaving financial issues as well and reports she has no psychiatric medications and has often had no food. Pt reports she has a hx of substance abuse to include previous opiate abuse, but would not elaborate on this any further. Pt was vague and minimally repsonive to TW's quetions. Pt reports poor sleep, appetite, energy. pt reports labile mood, depression, anxiety, lack of interest and and lack of enjoyment. Pt also reports that she has s/i with a plan to jump off a bridge with intent to act on this. Pt reports several male family members of hers have attempted suicide in the past but reports none have been successful. Pt also reports she has had one prior attempt via overdose at the age of 13. Pt reports she does believe she needs an admission at this time, as she states she "cannot be alone, I would not be safe". Pt reports a hx of admissions to [facility] in this past March, as well as 2 admissions in 2018, and pt states she needs to be admitted again, as she cannot CFS at this time.." VITAL SIGNS: See below. NEW TEST RESULTS: See below CURRENT MEDICATIONS: See below. MENTAL STATUS EXAMINATION:The patient presents for evaluation dressed in hospital clothes, disheveled, unkempt, complaining about nausea and not feeling well. Reports feeling depressed. Denies TAV hallucinations at this time, she denies SI at this time, denies HI, denies paranoid delusions. Mood and affect are depressed, she is not responding to internal stimuli. Eye contact is poor, insight is poor, judgement is poor. 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 She reports it today, says she has vertigo. She has received Zophran, but still has nausea. I believe this could be attention seeking behavior, but she seems depressed MANAGEMENT PLAN: Continue current treatment plan TIME SPENT: 20 minutes. Vital Signs Vital Signs Date Time Temp Pulse Resp B/P (MAP) Pulse Ox O2 Delivery O2 Flow Rate FiO2 04/04/21 02:51 16 04/03/21 20:42 98 Room Air 04/03/21 07:08 99.3 65 152/84 (106) Current Medications Current Medications Medications (Trade) Dose Ordered Sig/Chuckie Route PRN Reason Start Time Stop Time Status Last Admin Dose Admin Acetaminophen (Tylenol Tab) 650 mg Q6HP PRN PO HEADACHE or MILD DISCOMFORT 04/02/21 20:15 04/03/21 05:01 Al Hydrox/Mg Hydrox/Simethicone (Mylanta) 30 ml Q4HP PRN PO HEARTBURN/INDIGESTION 04/02/21 20:15 04/03/21 00:27 Diphenhydramine HCl (Benadryl) 25 mg QHSP PRN PO INSOMNIA 04/03/21 19:15 04/03/21 20:08 Gabapentin (Neurontin) 800 mg TID PO 04/03/21 21:00 04/04/21 09:18 Home Med (Home Med List Complete!) ASDIRECTED XX 04/02/21 19:55 04/02/21 19:59 DC Magnesium Hydroxide (Milk Of Magnesia) 30 ml DAILYPRN PRN PO CONSTIPATION 04/02/21 20:15 Metoclopramide HCl (Reglan) 10 mg AC PO 04/03/21 17:30 04/04/21 12:00 Olanzapine (ZyPREXA ZYDIS) 5 mg Q4HP PRN PO AGITATION 04/02/21 20:15 04/04/21 02:07 Omeprazole (PriLOSEC) 40 mg BID PO 04/03/21 21:00 04/04/21 07:39 Ondansetron HCl (Zofran) 4 mg Q6HP PRN PO NAUSEA OR VOMITING 04/03/21 13:25 04/04/21 01:45 Sertraline HCl (Zoloft) 50 mg DAILY PO 04/03/21 09:00 Sucralfate (Carafate) 1 gm ACHS PO 04/03/21 17:30 04/04/21 12:00 Tramadol HCl (Ultram) 50 mg Q6H PRN PO PAIN LEVEL 3-5 04/03/21 17:05 04/04/21 02:10 Trazodone HCl (Desyrel) 50 mg QHSP PRN PO INSOMNIA 04/02/21 20:15 04/04/21 02:07 Allergies Coded Allergies: Contrast Media (Unverified Allergy, Intermediate, RASH/hives, 07/03/19) codeine (Verified Allergy, Mild, RASH, 07/03/19) RASH iodine (Verified Allergy, Unknown, 01/21/19) camphor (Verified Adverse Reaction, Mild, from bengay patch, chemical burn, 07/03/19) menthol (Verified Adverse Reaction, Mild, chemical burn, 07/03/19) methyl salicylate (Verified Adverse Reaction, Mild, chemical burn, 07/03/19) NSAIDS (Non-Steroidal Anti-Inflamma (Unverified Adverse Reaction, Unknown, avoids, gastric bypass, 01/21/19) carboxymethylcellulose sodium (Verified Adverse Reaction, Unknown, carboxymethylcellulose listed as having an adverse reaction, 01/21/19) BRANDO HOLLAND MD Apr 04, 2021 12:36
[2021-04-04] MEDS: diphenhydrAMINE 25MG CAP PO PRN (20:08)
[2021-04-05] MEDS: traMADol 50 MG TAB PO PRN ×2 (06:09→15:30)
[2021-04-05] MEDS: OLANZapine ORAL DISINTEGRATING TAB 5MG PO PRN ×2 (06:09→22:59)
[2021-04-05 06:49] VITALS: BP 130/81
[2021-04-05] MEDS: METOCLOPRAMIDE 10 MG TAB PO SCH ×3 (06:58→16:56)
[2021-04-05] MEDS: SUCRALFATE 1 GM TAB PO SCH ×4 (06:58→20:09)
[2021-04-05] MEDS: OMEPRAZOLE 20 MG CAP PO SCH ×2 (08:17→20:09)
[2021-04-05] MEDS: GABAPENTIN 400MG CAP PO SCH ×3 (08:17→20:09)
[2021-04-05] MEDS: SERTRALINE HCL 50 MG TAB PO SCH (08:18)
[2021-04-05] MEDS: ONDANSETRON 4 MG TAB PO PRN (08:18)
[2021-04-05] MEDS ORDERED: NALTREXONE 50 MG TAB PO SCH (09:00)
[2021-04-05] MEDS: DULoxetine 20 MG CAP (CYMBALTA) PO SCH ×2 (11:15→20:09)
[2021-04-05] MEDS: hydrOXYzine 50 MG TAB PO PRN ×2 (11:15→18:14)
[2021-04-05] MEDS: NICOTINE 21MG/24HR 1 EA TRANSDERMAL TD SCH (11:16)
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
[2021-04-05 16:06] VITALS: BP 129/80
[2021-04-05] MEDS: QUEtiapine FUMARATE 100 MG TAB PO SCH (20:09)
[2021-04-05] MEDS: diphenhydrAMINE 25MG CAP PO PRN (20:09)
[2021-04-05] MEDS ORDERED: haloperidoL 5 MG TAB PO SCH (21:00)
[2021-04-06] MEDS: METOCLOPRAMIDE 10 MG TAB PO SCH ×3 (07:03→17:02)
[2021-04-06] MEDS: SUCRALFATE 1 GM TAB PO SCH ×4 (07:03→20:08)
[2021-04-06 07:18] VITALS: BP 113/65
[2021-04-06] MEDS: DULoxetine 20 MG CAP (CYMBALTA) PO SCH ×2 (08:58→21:00)
[2021-04-06] MEDS: NALTREXONE 50 MG TAB PO SCH (08:58)
[2021-04-06] MEDS: NICOTINE 21MG/24HR 1 EA TRANSDERMAL TD SCH (08:58)
[2021-04-06] MEDS: GABAPENTIN 400MG CAP PO SCH ×3 (08:59→20:08)
[2021-04-06] MEDS: OMEPRAZOLE 20 MG CAP PO SCH ×2 (08:59→20:08)
[2021-04-06] MEDS: ONDANSETRON 4 MG TAB PO PRN (09:01)
[2021-04-06] MEDS: traMADol 50 MG TAB PO PRN ×2 (10:23→20:10)
[2021-04-06] MEDS: hydrOXYzine 50 MG TAB PO PRN ×3 (10:23→23:04)
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
[2021-04-06] MEDS ORDERED: PILL CUTTER 1 EACH XX PRN (13:55)
[2021-04-06] MEDS: OLANZapine ORAL DISINTEGRATING TAB 5MG PO PRN ×2 (15:23→23:13)
[2021-04-06 15:40] LABS: ALBUMIN 2.9 GM/DL (3.2-5.2); ALT/SGPT 50 U/L (12-78); BILIRUBIN,TOTAL 0.2 MG/DL (0.2-1.0); BLOOD UREA NITROGEN 11 MG/DL (7-18); CALCIUM LEVEL 8.7 MG/DL (8.5-10.1); CARBON DIOXIDE LEVEL 26 MEQ/L (21-32); CHLORIDE LEVEL 109 MEQ/L (98-107); CREATININE FOR GFR 0.64 MG/DL (0.55-1.30); GLOMERULAR FILTRATION RATE > 60.0 (>58); GLUCOSE, FASTING 133 MG/DL (70-100); POTASSIUM SERUM 4.1 MEQ/L (3.5-5.1); SODIUM LEVEL 141 MEQ/L (136-145); THYROID STIMULATING HORMONE 0.136 uIU/ML (0.358-3.740); TOTAL PROTEIN 6.7 GM/DL (6.4-8.2)
[2021-04-06 19:10] VITALS: BP 130/78
[2021-04-06] MEDS: QUEtiapine FUMARATE 100 MG TAB PO SCH (20:10)
[2021-04-06] MEDS: diphenhydrAMINE 25MG CAP PO PRN (22:32)
[2021-04-07 06:30] VITALS: BP 128/78
[2021-04-07] MEDS: METOCLOPRAMIDE 10 MG TAB PO SCH ×3 (07:17→17:00)
[2021-04-07] MEDS: SUCRALFATE 1 GM TAB PO SCH ×4 (07:17→20:04)
[2021-04-07] MEDS: NICOTINE 21MG/24HR 1 EA TRANSDERMAL TD SCH (08:11)
[2021-04-07] MEDS: OMEPRAZOLE 20 MG CAP PO SCH ×2 (08:11→20:05)
[2021-04-07] MEDS: GABAPENTIN 400MG CAP PO SCH ×3 (08:11→20:04)
[2021-04-07] MEDS: hydrOXYzine 50 MG TAB PO PRN (08:11)
[2021-04-07] MEDS: traMADol 50 MG TAB PO PRN ×2 (08:16→18:13)
[2021-04-07] MEDS: NALTREXONE 50 MG TAB PO SCH ×2 (08:17→11:56)
[2021-04-07] MEDS: DULoxetine 20 MG CAP (CYMBALTA) PO SCH (08:17)
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
[2021-04-07] MEDS: diphenhydrAMINE 50MG CAP PO PRN (15:07)
[2021-04-07 18:52] VITALS: BP 132/72
[2021-04-07] MEDS: QUEtiapine FUMARATE 100 MG TAB PO SCH (20:05)
[2021-04-07] MEDS ORDERED: MIRTAZAPINE 15 MG TAB PO SCH (21:00)
[2021-04-08] MEDS: diphenhydrAMINE 50MG CAP PO PRN (04:41)
[2021-04-08 06:39] VITALS: BP 141/75
[2021-04-08] MEDS: SUCRALFATE 1 GM TAB PO SCH ×2 (06:40→11:47)
[2021-04-08] MEDS: METOCLOPRAMIDE 10 MG TAB PO SCH ×2 (06:40→11:48)
[2021-04-08] MEDS: NALTREXONE 50 MG TAB PO SCH (08:25)
[2021-04-08] MEDS: traMADol 50 MG TAB PO PRN (08:30)
[2021-04-08] MEDS: GABAPENTIN 400MG CAP PO SCH (08:30)
[2021-04-08] MEDS: OMEPRAZOLE 20 MG CAP PO SCH (08:31)
[2021-04-08] MEDS: NICOTINE 21MG/24HR 1 EA TRANSDERMAL TD SCH (08:31)
[2021-04-08] MEDS ORDERED: NALT50TA4 PO (10:38)
[2021-04-08] MEDS ORDERED: QUET100T2 PO (10:38)
[2021-04-08] MEDS ORDERED: MIRT-62 PO (10:38)
[2021-04-08] MEDS ORDERED: TRAZ-252 PO (10:38)
[2021-04-08] MEDS ORDERED: NICO21PAT TD (10:38)
[2021-04-08] MEDS ORDERED: DIPH50CA PO (10:38)
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
[2021-04-08] MEDS ORDERED: GABA-283 PO (12:25)
== END 2021-04-08 12:00 | disposition home or self-care (01) | DRG 881 ==
LOC: M ED 11:04 → M ED INP 20:15 → M PSY 20:57
PROVIDERS: ADMIT Student in an Organized Health Care Education/Training Program; ATTEND Student in an Organized Health Care Education/Training Program
DX: F32.A Depression, unspecified (principal); R45.851 Suicidal ideations; F43.23 Adjustment disorder with mixed anxiety and depressed mood; Z20.822 Contact with and (suspected) exposure to COVID-19; Z79.899 Other long term (current) drug therapy; R11.0 Nausea; Z88.5 Allergy status to narcotic agent; Z88.6 Allergy status to analgesic agent; Z88.8 Allergy status to other drugs, medicaments and biological substances; Z91.041 Radiographic dye allergy status; Z59.00 Homelessness unspecified; Z98.84 Bariatric surgery status; Z90.49 Acquired absence of other specified parts of digestive tract; F17.200 Nicotine dependence, unspecified, uncomplicated; K21.9 Gastro-esophageal reflux disease without esophagitis; F15.11 Other stimulant abuse, in remission; F11.188 Opioid abuse with other opioid-induced disorder; Z76.5 Malingerer [conscious simulation]; F60.3 Borderline personality disorder

== ENCOUNTER 2021-04-26 01:09 | Emergency (ER) | payer OTHER, MEDICAID ==
[~2021-04-26] VITALS: Ht 170.2 cm; Wt 58.6 kg
[~2021-04-26 01:09] MED LIST changes: +GABA-283 PO; +NALT50TA4 PO; +OMEP-221 PO; +QUET100T2 PO
[2021-04-26] MEDS ORDERED: QUET100T2 PO (18:54)
[2021-04-26] MEDS ORDERED: NALT50TA4 PO (18:54)
[2021-04-26] MEDS ORDERED: TRAZ-252 PO (18:54)
[2021-04-26] MEDS ORDERED: MIRT-62 PO (18:54)
[2021-04-26] MEDS ORDERED: NICO1DIS12 TOP (18:54)
== END 2021-04-26 04:51 | disposition left against medical advice (07) ==
LOC: M ED 01:09
DX: Z53.29 Procedure and treatment not carried out because of patient's decision for other reasons (principal)

== ENCOUNTER 2021-04-26 13:56 | Inpatient (IN) | payer OTHER, MEDICAID ==
[~2021-04-26] VITALS: Ht 170.2 cm; Wt 69.5 kg
[2021-04-26] MEDS: ZOSYN 3.375GM VIAL As Ordered ONE (12:00)
[~2021-04-26 13:56] MED LIST changes: -HALO5TA PO; +HALO5TAB33 PO; +OMEP-173 PO; -OMEP-218 PO; -OMEP-221 PO; +OMEP40CA5 PO
[2021-04-26] MEDS ORDERED: NS 1,000 ML IV ONE (15:55)
[2021-04-26] MEDS ORDERED: MORPHINE 4 MG/ML 1ML VIAL/SYRINGE (J2270) IV ONE (17:45)
[2021-04-26] MEDS ORDERED: PIPERACILLIN/TAZOBACTAM SOD 3.375 GM in D5W MINI-BAG PLUS 50 ML IV ONE (18:25)
[2021-04-26] MEDS ORDERED: NS 1,000 ML IV SCH (18:25)
[2021-04-26] MEDS ORDERED: MORPHINE 2 MG/ML 1ML VIAL (J2270) IV ONE (18:50)
[2021-04-26] MEDS ORDERED: MIRT-62 PO (18:54)
[2021-04-26] MEDS ORDERED: NALT50TA4 PO (18:54)
[2021-04-26] MEDS ORDERED: NICO1DIS12 TOP (18:54)
[2021-04-26] MEDS ORDERED: TRAZ-252 PO (18:54)
[2021-04-26] MEDS ORDERED: QUET100T2 PO (18:54)
[2021-04-26 19:01] LABS: RSV AMPLIFICATION NEGATIVE (NEGATIVE)
[2021-04-26] MEDS ORDERED: HOME MED LIST COMPLETE! XX SCH (19:15)
[2021-04-26] MEDS ORDERED: KETOROLAC 30 MG/ML 1ML VIAL IV ONE (19:55)
[2021-04-26] MEDS ORDERED: BUPIVACAINE HCL 0.25% 10ML VIAL As Ordered ONE (20:34)
[2021-04-26] MEDS ORDERED: LIDOCAINE 1% MDV 20ML VIAL As Ordered ONE (20:34)
[2021-04-26] MEDS ORDERED: BUPIVACAINE HCL 0.25% 30ML VIAL As Ordered ONE (20:35)
[2021-04-26] MEDS ORDERED: LIDOCAINE 1% SDV 30ML VIAL As Ordered ONE (20:35)
[2021-04-26] MEDS ORDERED: BUPIVACAINE LIPOSOME/PF 1.3% 20ML VIAL (13.3MG/ML)(EXPAREL)(C9290 PER1MG) As Ordered ONE (20:35)
[2021-04-26] MEDS ORDERED: ONDANSETRON 4MG/2ML VIAL As Ordered ONE (21:46)
[2021-04-26] MEDS ORDERED: fentaNYL 250 MCG/5 ML INJECTION As Ordered ONE (21:46)
[2021-04-26] MEDS ORDERED: dexameTHASONE 4 MG/ML 1ML VIAL (J1100 PER 1MG) As Ordered ONE (21:46)
[2021-04-26] MEDS ORDERED: ROCURONIUM BROMIDE 50 MG/5 ML VIAL As Ordered ONE (21:46)
[2021-04-26] MEDS ORDERED: MIDAZOLAM INJ 2MG/2ML VIAL (J2250 PER 1MG) As Ordered ONE (21:46)
[2021-04-26] MEDS ORDERED: SUGAMMADEX SODIUM 500 MG/5 ML VIAL (BRIDION) As Ordered ONE (21:46)
[2021-04-26] MEDS ORDERED: LIDOCAINE 2% 100MG/5ML SDV (FOR ANES.) As Ordered ONE (21:46)
[2021-04-26] MEDS ORDERED: METOCLOPRAMIDE INJ 10MG/2ML VIAL (J2765 PER 1) As Ordered ONE (21:46)
[2021-04-26] MEDS ORDERED: propofoL 200 MG/20 ML VIAL As Ordered ONE (21:46)
[2021-04-26] MEDS ORDERED: ACETAMINOPHEN 1000MG 100ML IV BTL (OFIRMEV) (J0131 PER 10MG) As Ordered ONE (21:46)
[2021-04-26] MEDS ORDERED: HYDROmorphone HCL 2MG/ML 1ML VIAL As Ordered ONE (21:50)
[2021-04-26 21:51] LABS: HEMATOCRIT 28.8 % (36.0-47.0); HEMOGLOBIN 9.3 g/dl (12.0-15.5); MEAN CORPUSCULAR HGB CONC 32.3 g/dl (32.0-36.5); MEAN CORPUSCULAR VOLUME 71.1 fl (80.0-96.0); PLATELET COUNT, AUTOMATED 344 10^3/uL (150-450); RED BLOOD COUNT 4.05 10^6/uL (4.00-5.40); WHITE BLOOD COUNT 10.2 10^3/uL (4.0-10.0)
[2021-04-26 22:14] LABS: BLOOD UREA NITROGEN 30 MG/DL (7-18); CALCIUM LEVEL 7.4 MG/DL (8.5-10.1); CARBON DIOXIDE LEVEL 25 MEQ/L (21-32); CHLORIDE LEVEL 99 MEQ/L (98-107); CREATININE FOR GFR 0.73 MG/DL (0.55-1.30); GLOMERULAR FILTRATION RATE > 60.0 (>58); GLUCOSE, FASTING 85 MG/DL (70-100); POTASSIUM SERUM 3.6 MEQ/L (3.5-5.1); SODIUM LEVEL 131 MEQ/L (136-145)
[2021-04-26 22:29] LABS: LYMPHOCYTES 8 % (16-44); METAMYELOCYTES 1 % (0-0); MONOCYTES 4 % (0-5); NEUTROPHILS 86 % (28-66)
[2021-04-26 22:32] LABS: PLATELET ESTIMATE NORMAL (NORMAL)
[2021-04-26 22:34] LABS: MICROCYTOSIS 2+; POIKILOCYTOSIS 1+
[2021-04-26 22:38] LABS: ALBUMIN 1.5 GM/DL (3.2-5.2); ALT/SGPT 18 U/L (12-78); BILIRUBIN,DIRECT 0.5 MG/DL (0.0-0.2); BILIRUBIN,TOTAL 0.7 MG/DL (0.2-1.0); LIPASE 526 U/L (73-393)
[2021-04-26] MEDS ORDERED: CALCIUM CHLORIDE 10% 1 GM/10 ML SYR As Ordered ONE (23:00)
[2021-04-26] MEDS ORDERED: PHENYLephrine 500MCG 5ML (100MCG/ML) SYRINGE As Ordered ONE (23:13)
[2021-04-27] VITALS (21 sets, daily range): BP systolic 135–179; BP diastolic 90–105; O2SAT 98–99
[2021-04-27] MEDS: ZOSYN 3.375GM VIAL As Ordered ONE
[2021-04-27] MEDS ORDERED: LABETALOL 100MG/20ML VIAL As Ordered ONE (00:38)
[2021-04-27] MEDS ORDERED: KETOROLAC 30 MG/ML 1ML VIAL IV PRN (01:10)
[2021-04-27] MEDS ORDERED: ONDANSETRON 4MG/2ML VIAL IV PRN ×2 (01:15→01:20)
[2021-04-27] MEDS ORDERED: HYDROMORPHONE HCL 0.5 MG/ 0.5 ML SYRINGE (J1170 PER 1) IV PRN (01:15)
[2021-04-27] MEDS ORDERED: LR 1,000 ML IV SCH (01:15)
[2021-04-27] MEDS ORDERED: fentaNYL 100 MCG/2 ML INJECTION IV PRN (01:15)
[2021-04-27] MEDS ORDERED: oxyCODONE 5MG TAB PO PRN (01:15)
[2021-04-27] MEDS ORDERED: NS 1,000 ML IV SCH (01:20)
[2021-04-27] MEDS ORDERED: ONDANSETRON 4MG/2ML VIAL As Ordered ONE (01:23)
[2021-04-27] MEDS ORDERED: NALOXONE INJ 0.4MG/1ML VIAL (J2310 PER 1MG) IV PRN (01:45)
[2021-04-27] MEDS ORDERED: EPIDURAL/PCA KEYS XX PRN (01:45)
[2021-04-27] MEDS: MORPHINE 1MG/ML IN 0.9% NACL 100ML IV BAG IV PRN (01:55)
[2021-04-27] MEDS: LR 1,000 ML IV SCH ×3 (01:56→17:36)
[2021-04-27] MEDS ORDERED: METOCLOPRAMIDE INJ 10MG/2ML VIAL (J2765 PER 1) IV ONE (02:15)
[2021-04-27] MEDS ORDERED: diphenhydrAMINE 50MG/ML VIAL (J1200) IV PRN (02:15)
[2021-04-27] MEDS: FLUCONAZOLE 100 MG in IV 1 EA IV SCH (02:59)
[2021-04-27 05:32] LABS: HEMOGLOBIN 10.7 g/dl (12.0-15.5); MEAN CORPUSCULAR HEMOGLOBIN 22.7 pg (27.0-33.0); MEAN CORPUSCULAR HGB CONC 31.5 g/dl (32.0-36.5); PLATELET COUNT, AUTOMATED 329 10^3/uL (150-450); RED BLOOD COUNT 4.72 10^6/uL (4.00-5.40); WHITE BLOOD COUNT 7.3 10^3/uL (4.0-10.0)
[2021-04-27] MEDS: PIPERACILLIN/TAZOBACTAM SOD 3.375 GM in D5W MINI-BAG PLUS 50 ML IV SCH ×5 (05:36→17:36)
[2021-04-27 06:22] LABS: BLOOD UREA NITROGEN 29 MG/DL (7-18); CALCIUM LEVEL 7.7 MG/DL (8.5-10.1); CARBON DIOXIDE LEVEL 24 MEQ/L (21-32); CHLORIDE LEVEL 101 MEQ/L (98-107); CREATININE FOR GFR 0.79 MG/DL (0.55-1.30); GLOMERULAR FILTRATION RATE > 60.0 (>58); GLUCOSE, FASTING 71 MG/DL (70-100); LYMPHOCYTES 8 % (16-44); MONOCYTES 9 % (0-5); NEUTROPHILS 70 % (28-66); PLATELET ESTIMATE NORMAL (NORMAL); SODIUM LEVEL 131 MEQ/L (136-145)
[2021-04-27 08:55] LABS: AMYLASE, BODY FLUID 345 U/L (NOT ESTABLISHED); SOURCE, BODY FLUID AMYLASE PERITONEAL
[2021-04-27] MEDS: PANTOPRAZOLE 40MG VIAL (C9113 PER 1) IV SCH ×2 (09:43→20:29)
[2021-04-27] MEDS: ENOXAPARIN 40MG/0.4ML SYRINGE (J1650 PER 10MG) SC SCH (09:43)
[2021-04-28] VITALS (9 sets, daily range): BP systolic 135–178; BP diastolic 82–108; O2SAT 87–100
[2021-04-28] MEDS: PIPERACILLIN/TAZOBACTAM SOD 3.375 GM in D5W MINI-BAG PLUS 50 ML IV SCH ×5 (00:03→23:20)
[2021-04-28] MEDS: LR 1,000 ML IV SCH ×3 (02:18→22:18)
[2021-04-28] MEDS: FLUCONAZOLE 100 MG in IV 1 EA IV SCH (05:20)
[2021-04-28] MEDS: PANTOPRAZOLE 40MG VIAL (C9113 PER 1) IV SCH ×2 (08:25→21:00)
[2021-04-28] MEDS: ENOXAPARIN 40MG/0.4ML SYRINGE (J1650 PER 10MG) SC SCH (08:25)
[2021-04-28] MEDS: MORPHINE 1MG/ML IN 0.9% NACL 100ML IV BAG IV PRN (08:48)
[2021-04-28 09:35] LABS: HEMATOCRIT 24.8 % (36.0-47.0); MEAN CORPUSCULAR HEMOGLOBIN 23.1 pg (27.0-33.0); MEAN CORPUSCULAR HGB CONC 31.9 g/dl (32.0-36.5); MEAN CORPUSCULAR VOLUME 72.5 fl (80.0-96.0); PLATELET COUNT, AUTOMATED 327 10^3/uL (150-450); RED BLOOD COUNT 3.42 10^6/uL (4.00-5.40); WHITE BLOOD COUNT 8.8 10^3/uL (4.0-10.0)
[2021-04-28 09:42] LABS: HEMOGLOBIN 7.9 g/dl (12.0-15.5)
[2021-04-28 09:54] LABS: ALBUMIN 1.3 GM/DL (3.2-5.2); ALT/SGPT 20 U/L (12-78); BILIRUBIN,TOTAL 0.5 MG/DL (0.2-1.0); BLOOD UREA NITROGEN 16 MG/DL (7-18); CALCIUM LEVEL 7.6 MG/DL (8.5-10.1); CARBON DIOXIDE LEVEL 26 MEQ/L (21-32); CHLORIDE LEVEL 101 MEQ/L (98-107); CREATININE FOR GFR 0.42 MG/DL (0.55-1.30); GLOMERULAR FILTRATION RATE > 60.0 (>58); GLUCOSE, FASTING 58 MG/DL (70-100); POTASSIUM SERUM 3.5 MEQ/L (3.5-5.1); SODIUM LEVEL 135 MEQ/L (136-145)
[2021-04-28 10:27] LABS: ANISOCYTOSIS 2+; ATYPICAL LYMPH 2 % (0-5); EOSINOPHILS 3 % (0-3); LYMPHOCYTES 16 % (16-44); MONOCYTES 11 % (0-5); NEUTROPHILS 65 % (28-66); PLATELET ESTIMATE NORMAL (NORMAL)
[2021-04-28 10:28] LABS: MICROCYTOSIS 1+; POIKILOCYTOSIS 2+; POLYCHROMASIA 1+
[2021-04-28 10:29] LABS: HYPOCHROMASIA 1+
[2021-04-28 10:30] LABS: SCHISTOCYTES 1+
[2021-04-28 14:48] LABS: AMYLASE, BODY FLUID 3685 U/L (NOT ESTABLISHED); SOURCE, BODY FLUID AMYLASE PERITONEAL
[2021-04-28] MEDS: OCTREOTIDE ACETATE 100MCG/ML VIAL **IV ADMINISTRATION ONLY IV SCH (16:47)
[2021-04-29] VITALS: BP 159/93
[2021-04-29] MEDS: OCTREOTIDE ACETATE 100MCG/ML VIAL **IV ADMINISTRATION ONLY IV SCH ×3 (00:42→16:46)
[2021-04-29] MEDS: LR 1,000 ML IV SCH (02:06)
[2021-04-29] MEDS: FLUCONAZOLE 100 MG in IV 1 EA IV SCH (02:50)
[2021-04-29 04:00] VITALS: BP 154/81
[2021-04-29] MEDS: PIPERACILLIN/TAZOBACTAM SOD 3.375 GM in D5W MINI-BAG PLUS 50 ML IV SCH ×3 (05:01→16:46)
[2021-04-29 08:00] VITALS: BP 173/88
[2021-04-29] MEDS: PANTOPRAZOLE 40MG VIAL (C9113 PER 1) IV SCH ×2 (08:21→20:46)
[2021-04-29] MEDS: ENOXAPARIN 40MG/0.4ML SYRINGE (J1650 PER 10MG) SC SCH (08:21)
[2021-04-29 12:00] VITALS: BP 142/85
[2021-04-29 12:01] LABS: HEMATOCRIT 24.9 % (36.0-47.0); HEMOGLOBIN 7.7 g/dl (12.0-15.5); MEAN CORPUSCULAR HEMOGLOBIN 22.9 pg (27.0-33.0); MEAN CORPUSCULAR HGB CONC 30.9 g/dl (32.0-36.5); MEAN CORPUSCULAR VOLUME 74.1 fl (80.0-96.0); PLATELET COUNT, AUTOMATED 333 10^3/uL (150-450); RED BLOOD COUNT 3.36 10^6/uL (4.00-5.40); WHITE BLOOD COUNT 8.2 10^3/uL (4.0-10.0)
[2021-04-29 12:39] LABS: BLOOD UREA NITROGEN 7 MG/DL (7-18); CALCIUM LEVEL 7.1 MG/DL (8.5-10.1); CARBON DIOXIDE LEVEL 32 MEQ/L (21-32); CHLORIDE LEVEL 98 MEQ/L (98-107); CREATININE FOR GFR 0.31 MG/DL (0.55-1.30); GLOMERULAR FILTRATION RATE > 60.0 (>58); GLUCOSE, FASTING 96 MG/DL (70-100); POTASSIUM SERUM 3.5 MEQ/L (3.5-5.1); SODIUM LEVEL 135 MEQ/L (136-145)
[2021-04-29 12:56] LABS: ATYPICAL LYMPH 2 % (0-5); EOSINOPHILS 8 % (0-3); LYMPHOCYTES 25 % (16-44); METAMYELOCYTES 1 % (0-0); MONOCYTES 3 % (0-5); MYELOCYTES 1 % (0-0); NEUTROPHILS 55 % (28-66); PLATELET ESTIMATE NORMAL (NORMAL)
[2021-04-29 12:57] LABS: ANISOCYTOSIS 1+; HYPOCHROMASIA 1+; MICROCYTOSIS 1+
[2021-04-29] MEDS: KETOROLAC 30 MG/ML 1ML VIAL IV SCH ×2 (13:03→18:14)
[2021-04-29] MEDS: NS 1,000 ML IV SCH (13:30)
[2021-04-29 16:00] VITALS: BP 145/78
[2021-04-29] MEDS ORDERED: FAT EMULSION IV 20% 500 ML IV SCH (18:00)
[2021-04-29] MEDS: HumaLOG INSULIN (NovoLOG) PER UNIT SC SCH (18:00)
[2021-04-29] MEDS ORDERED: AMINO AC/ELECTROLYTE/DEX/CALC 2,000 ML IV SCH (18:00)
[2021-04-29 20:00] VITALS: BP 156/91
[2021-04-30] VITALS: BP 100/49
[2021-04-30] MEDS: PIPERACILLIN/TAZOBACTAM SOD 3.375 GM in D5W MINI-BAG PLUS 50 ML IV SCH ×5 (00:49→23:27)
[2021-04-30] MEDS: KETOROLAC 30 MG/ML 1ML VIAL IV SCH ×4 (01:36→18:08)
[2021-04-30] MEDS: OCTREOTIDE ACETATE 100MCG/ML VIAL **IV ADMINISTRATION ONLY IV SCH ×3 (01:37→18:34)
[2021-04-30] MEDS: FLUCONAZOLE 100 MG in IV 1 EA IV SCH (03:31)
[2021-04-30 04:00] VITALS: BP 116/75
[2021-04-30] MEDS: HumaLOG INSULIN (NovoLOG) PER UNIT SC SCH ×5 (06:00→23:31)
[2021-04-30] MEDS: MORPHINE 1MG/ML IN 0.9% NACL 100ML IV BAG IV PRN (06:55)
[2021-04-30 08:00] VITALS: BP 162/84
[2021-04-30 08:52] LABS: HEMATOCRIT 26.3 % (36.0-47.0); HEMOGLOBIN 7.9 g/dl (12.0-15.5); MEAN CORPUSCULAR HEMOGLOBIN 22.5 pg (27.0-33.0); MEAN CORPUSCULAR VOLUME 74.9 fl (80.0-96.0); PLATELET COUNT, AUTOMATED 404 10^3/uL (150-450); RED BLOOD COUNT 3.51 10^6/uL (4.00-5.40); WHITE BLOOD COUNT 6.4 10^3/uL (4.0-10.0)
[2021-04-30] MEDS: ENOXAPARIN 40MG/0.4ML SYRINGE (J1650 PER 10MG) SC SCH (09:00)
[2021-04-30] MEDS: PANTOPRAZOLE 40MG VIAL (C9113 PER 1) IV SCH ×2 (09:00→21:11)
[2021-04-30 09:06] LABS: BLOOD UREA NITROGEN 7 MG/DL (7-18); C REACTIVE PROTEIN QUANTITATIV 8.66 MG/DL (0.00-0.30); CALCIUM LEVEL 7.1 MG/DL (8.5-10.1); CARBON DIOXIDE LEVEL 30 MEQ/L (21-32); CHLORIDE LEVEL 100 MEQ/L (98-107); CREATININE FOR GFR 0.46 MG/DL (0.55-1.30); GLOMERULAR FILTRATION RATE > 60.0 (>58); GLUCOSE, FASTING 116 MG/DL (70-100); POTASSIUM SERUM 3.6 MEQ/L (3.5-5.1); SODIUM LEVEL 138 MEQ/L (136-145)
[2021-04-30 09:26] LABS: EOSINOPHILS 5 % (0-3); LYMPHOCYTES 19 % (16-44); METAMYELOCYTES 5 % (0-0); MONOCYTES 1 % (0-5); MYELOCYTES 1 % (0-0); NEUTROPHILS 56 % (28-66)
[2021-04-30 09:27] LABS: ANISOCYTOSIS 1+; HYPOCHROMASIA 2+; MICROCYTOSIS 1+; OVALOCYTES 1+; PLATELET ESTIMATE NORMAL (NORMAL); POIKILOCYTOSIS 1+
[2021-04-30] MEDS ORDERED: MORPHINE 1MG/ML IN 0.9% NACL 100ML IV BAG IV PRN ×3 (09:30→13:55)
[2021-04-30 10:00] LABS: HEMATOCRIT 27.5 % (36.0-47.0); HEMOGLOBIN 8.1 g/dl (12.0-15.5); MEAN CORPUSCULAR HEMOGLOBIN 22.1 pg (27.0-33.0); MEAN CORPUSCULAR HGB CONC 29.5 g/dl (32.0-36.5); MEAN CORPUSCULAR VOLUME 74.9 fl (80.0-96.0); PLATELET COUNT, AUTOMATED 421 10^3/uL (150-450); RED BLOOD COUNT 3.67 10^6/uL (4.00-5.40); WHITE BLOOD COUNT 5.8 10^3/uL (4.0-10.0)
[2021-04-30 12:00] VITALS: BP 112/72
[2021-04-30] MEDS ORDERED: HYDROmorphone HCL 2MG/ML 1ML VIAL IV PRN ×2 (12:55)
[2021-04-30 16:00] VITALS: BP 122/75
[2021-04-30] MEDS ORDERED: FAT EMULSION IV 20% 500 ML IV SCH (18:00)
[2021-04-30] MEDS ORDERED: MULTIVITAMIN -ADULT INJECTION 10 ML, ZINC/COPPER/MANGANESE/SELENIUM 1 ML in AMINO AC/EL... IV SCH (18:00)
[2021-04-30] MEDS: NS 1,000 ML IV SCH (18:10)
[2021-04-30] MEDS: QUEtiapine FUMARATE 100 MG TAB PO SCH (21:11)
[2021-04-30] MEDS: traZODone 50 MG TAB PO SCH (21:11)
[2021-04-30] MEDS: MIRTAZAPINE 15 MG TAB PO SCH (21:11)
[2021-05-01] VITALS: BP 142/78
[2021-05-01] MEDS: OCTREOTIDE ACETATE 100MCG/ML VIAL **IV ADMINISTRATION ONLY IV SCH ×4 (00:41→16:27)
[2021-05-01] MEDS: KETOROLAC 30 MG/ML 1ML VIAL IV SCH ×4 (00:42→18:30)
[2021-05-01] MEDS: FLUCONAZOLE 100 MG in IV 1 EA IV SCH (02:22)
[2021-05-01] MEDS: PIPERACILLIN/TAZOBACTAM SOD 3.375 GM in D5W MINI-BAG PLUS 50 ML IV SCH ×4 (05:30→23:16)
[2021-05-01] MEDS: NS 1,000 ML IV SCH (05:30)
[2021-05-01] MEDS: HumaLOG INSULIN (NovoLOG) PER UNIT SC SCH ×2 (05:39→12:00)
[2021-05-01 08:39] VITALS: BP 115/57
[2021-05-01] MEDS: MORPHINE 1MG/ML IN 0.9% NACL 100ML IV BAG IV PRN (09:14)
[2021-05-01] MEDS: ENOXAPARIN 40MG/0.4ML SYRINGE (J1650 PER 10MG) SC SCH ×2 (09:55→10:04)
[2021-05-01] MEDS: PANTOPRAZOLE 40MG VIAL (C9113 PER 1) IV SCH ×3 (09:56→20:55)
[2021-05-01 12:15] VITALS: BP 117/67
[2021-05-01 16:21] VITALS: BP 127/69
[2021-05-01] MEDS ORDERED: FAT EMULSION IV 20% 500 ML IV SCH (18:00)
[2021-05-01] MEDS ORDERED: AMINO AC/ELECTROLYTE/DEX/CALC 2,000 ML IV SCH (18:00)
[2021-05-01 20:00] VITALS: BP 127/74
[2021-05-01] MEDS: traZODone 50 MG TAB PO SCH (20:55)
[2021-05-01] MEDS: MIRTAZAPINE 15 MG TAB PO SCH (20:55)
[2021-05-01] MEDS: QUEtiapine FUMARATE 100 MG TAB PO SCH (20:55)
[2021-05-02] VITALS: BP 115/57
[2021-05-02] MEDS: OCTREOTIDE ACETATE 100MCG/ML VIAL **IV ADMINISTRATION ONLY IV SCH ×3 (00:48→18:03)
[2021-05-02] MEDS: KETOROLAC 30 MG/ML 1ML VIAL IV SCH ×4 (00:49→18:19)
[2021-05-02] MEDS: READI-CAT 2 PO SCH ×3 (01:41→13:35)
[2021-05-02] MEDS: FLUCONAZOLE 100 MG in IV 1 EA IV SCH (02:13)
[2021-05-02] MEDS: MORPHINE 1MG/ML IN 0.9% NACL 100ML IV BAG IV PRN ×2 (03:45→19:38)
[2021-05-02 04:00] VITALS: BP 126/71
[2021-05-02] MEDS: PIPERACILLIN/TAZOBACTAM SOD 3.375 GM in D5W MINI-BAG PLUS 50 ML IV SCH ×3 (05:28→18:06)
[2021-05-02 05:40] LABS: HEMATOCRIT 23.1 % (36.0-47.0); MEAN CORPUSCULAR HEMOGLOBIN 22.6 pg (27.0-33.0); MEAN CORPUSCULAR HGB CONC 30.3 g/dl (32.0-36.5); MEAN CORPUSCULAR VOLUME 74.5 fl (80.0-96.0); PLATELET COUNT, AUTOMATED 520 10^3/uL (150-450); WHITE BLOOD COUNT 13.8 10^3/uL (4.0-10.0)
[2021-05-02 06:12] LABS: ALBUMIN 1.1 GM/DL (3.2-5.2); ALT/SGPT 14 U/L (12-78); BILIRUBIN,TOTAL 0.3 MG/DL (0.2-1.0); BLOOD UREA NITROGEN 8 MG/DL (7-18); CALCIUM LEVEL 6.8 MG/DL (8.5-10.1); CARBON DIOXIDE LEVEL 31 MEQ/L (21-32); CHLORIDE LEVEL 105 MEQ/L (98-107); CREATININE FOR GFR 0.39 MG/DL (0.55-1.30); GLOMERULAR FILTRATION RATE > 60.0 (>58); GLUCOSE, FASTING 104 MG/DL (70-100); LIPASE 967 U/L (73-393); POTASSIUM SERUM 3.4 MEQ/L (3.5-5.1); SODIUM LEVEL 139 MEQ/L (136-145); TOTAL PROTEIN 4.9 GM/DL (6.4-8.2)
[2021-05-02 07:20] VITALS: BP 121/60
[2021-05-02 07:20] LABS: EOSINOPHILS 3 % (0-3); LYMPHOCYTES 14 % (16-44); METAMYELOCYTES 1 % (0-0); MONOCYTES 7 % (0-5); MYELOCYTES 1 % (0-0); NEUTROPHILS 63 % (28-66)
[2021-05-02 07:21] LABS: ANISOCYTOSIS 1+; MICROCYTOSIS 2+; SCHISTOCYTES 1+
[2021-05-02 07:22] LABS: PLATELET CLUMPS SMALL AMT; PLATELET ESTIMATE INCREASED (NORMAL); POLYCHROMASIA 1+
[2021-05-02 07:24] LABS: OVALOCYTES 1+
[2021-05-02] MEDS: ENOXAPARIN 40MG/0.4ML SYRINGE (J1650 PER 10MG) SC SCH (09:54)
[2021-05-02] MEDS: PANTOPRAZOLE 40MG VIAL (C9113 PER 1) IV SCH ×2 (09:55→21:49)
[2021-05-02] MEDS: NS 1,000 ML IV SCH (10:53)
[2021-05-02 12:33] VITALS: BP 131/74
[2021-05-02] MEDS ORDERED: AMINO AC/ELECTROLYTE/DEX/CALC 2,000 ML IV SCH (18:00)
[2021-05-02] MEDS ORDERED: FAT EMULSION IV 20% 500 ML IV SCH (18:00)
[2021-05-02 20:00] VITALS: BP 110/66
[2021-05-02] MEDS: traZODone 50 MG TAB PO SCH (21:47)
[2021-05-02] MEDS: MIRTAZAPINE 15 MG TAB PO SCH (21:47)
[2021-05-02] MEDS: QUEtiapine FUMARATE 100 MG TAB PO SCH (21:48)
[2021-05-03] VITALS: BP 130/79
[2021-05-03] MEDS: PIPERACILLIN/TAZOBACTAM SOD 3.375 GM in D5W MINI-BAG PLUS 50 ML IV SCH ×4 (00:42→18:38)
[2021-05-03] MEDS: OCTREOTIDE ACETATE 100MCG/ML VIAL **IV ADMINISTRATION ONLY IV SCH (00:43)
[2021-05-03] MEDS: KETOROLAC 30 MG/ML 1ML VIAL IV SCH ×4 (00:43→20:30)
[2021-05-03] MEDS: FLUCONAZOLE 100 MG in IV 1 EA IV SCH (03:07)
[2021-05-03 04:00] VITALS: BP 117/61
[2021-05-03 07:40] VITALS: BP 102/57
[2021-05-03] MEDS: PANTOPRAZOLE 40MG VIAL (C9113 PER 1) IV SCH ×2 (09:00→20:30)
[2021-05-03] MEDS: NS 1,000 ML IV SCH (09:30)
[2021-05-03] MEDS: MORPHINE 1MG/ML IN 0.9% NACL 100ML IV BAG IV PRN (10:07)
[2021-05-03] MEDS: ENOXAPARIN 40MG/0.4ML SYRINGE (J1650 PER 10MG) SC SCH (10:59)
[2021-05-03 11:44] VITALS: BP 117/63
[2021-05-03] MEDS ORDERED: E-Z-PAQUE 96% w/w SUSP 176GM BTL As Ordered ONE (13:26)
[2021-05-03] MEDS ORDERED: E-Z-HD 98% w/w 340GM SUSP BTL As Ordered ONE (13:27)
[2021-05-03] MEDS ORDERED: GASTROGRAFIN SOLUTION 30ML (Q9963) As Ordered ONE (14:04)
[2021-05-03] MEDS ORDERED: FAT EMULSION IV 20% 500 ML IV SCH (18:00)
[2021-05-03] MEDS ORDERED: MULTIVITAMIN -ADULT INJECTION 10 ML, ZINC/COPPER/MANGANESE/SELENIUM 1 ML in AMINO AC/EL... IV SCH (18:00)
[2021-05-03 18:02] VITALS: BP 109/63
[2021-05-03] MEDS: QUEtiapine FUMARATE 100 MG TAB PO SCH (20:30)
[2021-05-03] MEDS: traZODone 50 MG TAB PO SCH (20:30)
[2021-05-03] MEDS: MIRTAZAPINE 15 MG TAB PO SCH (20:31)
[2021-05-03 20:35] VITALS: BP 113/66
[2021-05-04] VITALS (11 sets, daily range): BP systolic 100–118; BP diastolic 59–73
[2021-05-04] MEDS: PIPERACILLIN/TAZOBACTAM SOD 3.375 GM in D5W MINI-BAG PLUS 50 ML IV SCH ×4 (00:53→18:46)
[2021-05-04] MEDS: KETOROLAC 30 MG/ML 1ML VIAL IV SCH ×2 (02:21→07:00)
[2021-05-04] MEDS: FLUCONAZOLE 100 MG in IV 1 EA IV SCH (02:21)
[2021-05-04] MEDS: MORPHINE 1MG/ML IN 0.9% NACL 100ML IV BAG IV PRN ×2 (06:20→18:57)
[2021-05-04] MEDS: ENOXAPARIN 40MG/0.4ML SYRINGE (J1650 PER 10MG) SC SCH (09:00)
[2021-05-04] MEDS: METOCLOPRAMIDE INJ 10MG/2ML VIAL (J2765 PER 1) IV SCH ×2 (09:57→18:45)
[2021-05-04] MEDS: PANTOPRAZOLE 40MG VIAL (C9113 PER 1) IV SCH ×2 (09:57→21:02)
[2021-05-04] MEDS: NS 1,000 ML IV SCH (09:58)
[2021-05-04 10:40] LABS: HEMATOCRIT 21.2 % (36.0-47.0); MEAN CORPUSCULAR HEMOGLOBIN 22.4 pg (27.0-33.0); MEAN CORPUSCULAR HGB CONC 30.2 g/dl (32.0-36.5); MEAN CORPUSCULAR VOLUME 74.1 fl (80.0-96.0); PLATELET COUNT, AUTOMATED 601 10^3/uL (150-450); RED BLOOD COUNT 2.86 10^6/uL (4.00-5.40); WHITE BLOOD COUNT 10.5 10^3/uL (4.0-10.0)
[2021-05-04 10:42] LABS: HEMOGLOBIN 6.4 g/dl (12.0-15.5)
[2021-05-04 11:12] LABS: ALT/SGPT 15 U/L (12-78); BILIRUBIN,TOTAL 0.3 MG/DL (0.2-1.0); BLOOD UREA NITROGEN 10 MG/DL (7-18); CALCIUM LEVEL 6.7 MG/DL (8.5-10.1); CARBON DIOXIDE LEVEL 31 MEQ/L (21-32); CHLORIDE LEVEL 107 MEQ/L (98-107); CREATININE FOR GFR 0.34 MG/DL (0.55-1.30); GLOMERULAR FILTRATION RATE > 60.0 (>58); GLUCOSE, FASTING 124 MG/DL (70-100); LIPASE 590 U/L (73-393); POTASSIUM SERUM 4.3 MEQ/L (3.5-5.1); SODIUM LEVEL 141 MEQ/L (136-145); TOTAL PROTEIN 4.7 GM/DL (6.4-8.2)
[2021-05-04 11:21] LABS: EOSINOPHILS 1 % (0-3); LYMPHOCYTES 15 % (16-44); MONOCYTES 8 % (0-5); NEUTROPHILS 76 % (28-66)
[2021-05-04 11:22] LABS: MICROCYTOSIS 2+; PLATELET ESTIMATE INCREASED (NORMAL)
[2021-05-04] MEDS ORDERED: FAMOTIDINE INJ 20MG/2ML VIAL (S0028 PER 1) IV ONE (12:00)
[2021-05-04] MEDS ORDERED: diphenhydrAMINE 50MG/ML VIAL (J1200) IV ONE (12:00)
[2021-05-04] MEDS ORDERED: methylPREDNISolone 125MG 2ML VIAL IV ONE (12:00)
[2021-05-04] MEDS ORDERED: GASTROGRAFIN SOLUTION 30ML (Q9963) As Ordered ONE (12:57)
[2021-05-04] MEDS ORDERED: ISOVUE-370 76% 100ML VIAL As Ordered ONE (12:58)
[2021-05-04] MEDS ORDERED: AMINO AC/ELECTROLYTE/DEX/CALC 2,000 ML IV SCH (18:00)
[2021-05-04] MEDS ORDERED: FAT EMULSION IV 20% 500 ML IV SCH (18:00)
[2021-05-04] MEDS: traZODone 50 MG TAB PO SCH (21:02)
[2021-05-05] VITALS (7 sets, daily range): BP systolic 112–131; BP diastolic 67–80
[2021-05-05] MEDS: METOCLOPRAMIDE INJ 10MG/2ML VIAL (J2765 PER 1) IV SCH ×3 (00:52→17:58)
[2021-05-05] MEDS: PIPERACILLIN/TAZOBACTAM SOD 3.375 GM in D5W MINI-BAG PLUS 50 ML IV SCH ×4 (00:52→17:58)
[2021-05-05] MEDS: FLUCONAZOLE 100 MG in IV 1 EA IV SCH (02:05)
[2021-05-05 05:30] LABS: BASO % 0.1 % (0.0-1.0); HEMATOCRIT 28.4 % (36.0-47.0); LYMPH # 1.2 10^3/uL (1.5-5.0); LYMPH % 13.1 % (24.0-44.0); MEAN CORPUSCULAR HEMOGLOBIN 24.8 pg (27.0-33.0); MEAN CORPUSCULAR VOLUME 77.4 fl (80.0-96.0); MONO # 0.8 10^3/uL (0.0-0.8); MONO % 8.3 % (2.0-8.0); NEUTROPHILS # 7.3 10^3/uL (1.5-8.5); NEUTROPHILS % 78.1 % (36.0-66.0); PLATELET COUNT, AUTOMATED 636 10^3/uL (150-450); RED BLOOD COUNT 3.67 10^6/uL (4.00-5.40); WHITE BLOOD COUNT 9.3 10^3/uL (4.0-10.0)
[2021-05-05 05:44] LABS: HEMOGLOBIN 9.1 g/dl (12.0-15.5)
[2021-05-05 05:58] LABS: ALBUMIN 1.1 GM/DL (3.2-5.2); ALT/SGPT 16 U/L (12-78); BILIRUBIN,TOTAL 0.4 MG/DL (0.2-1.0); BLOOD UREA NITROGEN 11 MG/DL (7-18); C REACTIVE PROTEIN QUANTITATIV 8.15 MG/DL (0.00-0.30); CALCIUM LEVEL 7.5 MG/DL (8.5-10.1); CARBON DIOXIDE LEVEL 29 MEQ/L (21-32); CHLORIDE LEVEL 106 MEQ/L (98-107); CREATININE FOR GFR 0.34 MG/DL (0.55-1.30); GLOMERULAR FILTRATION RATE > 60.0 (>58); GLUCOSE, FASTING 159 MG/DL (70-100); LIPASE 377 U/L (73-393); POTASSIUM SERUM 4.6 MEQ/L (3.5-5.1); SODIUM LEVEL 140 MEQ/L (136-145); TOTAL PROTEIN 5.1 GM/DL (6.4-8.2)
[2021-05-05] MEDS: MORPHINE 1MG/ML IN 0.9% NACL 100ML IV BAG IV PRN (07:29)
[2021-05-05] MEDS: PANTOPRAZOLE 40MG VIAL (C9113 PER 1) IV SCH ×2 (09:08→19:59)
[2021-05-05] MEDS: ENOXAPARIN 40MG/0.4ML SYRINGE (J1650 PER 10MG) SC SCH (09:08)
[2021-05-05] MEDS: NS 1,000 ML IV SCH (11:52)
[2021-05-05] MEDS ORDERED: LORazepam 2 MG/ML VIAL IV ONE (13:45)
[2021-05-05] MEDS ORDERED: MORPHINE 10 MG/ML 1ML VIAL (J2270) IV ONE (13:45)
[2021-05-05] MEDS ORDERED: LIDOCAINE 1% MDV 20ML VIAL As Ordered ONE (14:32)
[2021-05-05] MEDS ORDERED: FAT EMULSION IV 20% 500 ML IV SCH (18:00)
[2021-05-05] MEDS ORDERED: MULTIVITAMIN -ADULT INJECTION 10 ML, ZINC/COPPER/MANGANESE/SELENIUM 1 ML in AMINO AC/EL... IV SCH (18:00)
[2021-05-05] MEDS: traZODone 50 MG TAB PO SCH (19:59)
[2021-05-05] MEDS ORDERED: MORPHINE 1MG/ML IN 0.9% NACL 100ML IV BAG IV PRN (21:25)
[2021-05-06] VITALS (9 sets, daily range): BP systolic 104–125; BP diastolic 66–76
[2021-05-06] MEDS: PIPERACILLIN/TAZOBACTAM SOD 3.375 GM in D5W MINI-BAG PLUS 50 ML IV SCH ×5 (00:24→23:17)
[2021-05-06] MEDS: METOCLOPRAMIDE INJ 10MG/2ML VIAL (J2765 PER 1) IV SCH ×3 (00:25→17:54)
[2021-05-06] MEDS ORDERED: DEXTROSE 50% 50 ML SYRINGE IV STA (01:23)
[2021-05-06] MEDS: FLUCONAZOLE 100 MG in IV 1 EA IV SCH (03:10)
[2021-05-06 05:25] LABS: HEMATOCRIT 33.9 % (36.0-47.0); HEMOGLOBIN 10.6 g/dl (12.0-15.5); MEAN CORPUSCULAR HEMOGLOBIN 24.5 pg (27.0-33.0); MEAN CORPUSCULAR HGB CONC 31.3 g/dl (32.0-36.5); MEAN CORPUSCULAR VOLUME 78.3 fl (80.0-96.0); RED BLOOD COUNT 4.33 10^6/uL (4.00-5.40); WHITE BLOOD COUNT 12.9 10^3/uL (4.0-10.0)
[2021-05-06 05:34] LABS: PLATELET COUNT, AUTOMATED 774 10^3/uL (150-450)
[2021-05-06 05:52] LABS: ALBUMIN 1.3 GM/DL (3.2-5.2); ALT/SGPT 19 U/L (12-78); BILIRUBIN,TOTAL 0.3 MG/DL (0.2-1.0); BLOOD UREA NITROGEN 14 MG/DL (7-18); CALCIUM LEVEL 7.7 MG/DL (8.5-10.1); CARBON DIOXIDE LEVEL 29 MEQ/L (21-32); CHLORIDE LEVEL 102 MEQ/L (98-107); CREATININE FOR GFR 0.41 MG/DL (0.55-1.30); GLOMERULAR FILTRATION RATE > 60.0 (>58); GLUCOSE, FASTING 75 MG/DL (70-100); LIPASE 786 U/L (73-393); POTASSIUM SERUM 4.9 MEQ/L (3.5-5.1); SODIUM LEVEL 136 MEQ/L (136-145); TOTAL PROTEIN 5.8 GM/DL (6.4-8.2)
[2021-05-06] MEDS ORDERED: MORPHINE 1MG/ML IN 0.9% NACL 100ML IV BAG IV PRN (08:10)
[2021-05-06] MEDS: ENOXAPARIN 40MG/0.4ML SYRINGE (J1650 PER 10MG) SC SCH (09:39)
[2021-05-06] MEDS: PANTOPRAZOLE 40MG VIAL (C9113 PER 1) IV SCH ×2 (09:39→20:01)
[2021-05-06] MEDS: NS 1,000 ML IV SCH (13:13)
[2021-05-06] MEDS: MORPHINE 1MG/ML IN 0.9% NACL 100ML IV BAG IV PRN (13:19)
[2021-05-06] MEDS ORDERED: AMINO AC/ELECTROLYTE/DEX/CALC 2,000 ML IV SCH (18:00)
[2021-05-06] MEDS ORDERED: FAT EMULSION IV 20% 500 ML IV SCH (18:00)
[2021-05-06] MEDS: traZODone 50 MG TAB PO SCH (20:01)
[2021-05-07] VITALS: BP 127/62
[2021-05-07] MEDS: METOCLOPRAMIDE INJ 10MG/2ML VIAL (J2765 PER 1) IV SCH ×3 (00:49→18:40)
[2021-05-07] MEDS: FLUCONAZOLE 100 MG in IV 1 EA IV SCH (03:27)
[2021-05-07] MEDS: PIPERACILLIN/TAZOBACTAM SOD 3.375 GM in D5W MINI-BAG PLUS 50 ML IV SCH ×3 (05:50→18:41)
[2021-05-07 06:00] VITALS: BP 107/61
[2021-05-07 06:15] LABS: HEMATOCRIT 29.1 % (36.0-47.0); HEMOGLOBIN 9.1 g/dl (12.0-15.5); MEAN CORPUSCULAR HEMOGLOBIN 24.6 pg (27.0-33.0); MEAN CORPUSCULAR HGB CONC 31.3 g/dl (32.0-36.5); MEAN CORPUSCULAR VOLUME 78.6 fl (80.0-96.0); PLATELET COUNT, AUTOMATED 640 10^3/uL (150-450); WHITE BLOOD COUNT 7.5 10^3/uL (4.0-10.0)
[2021-05-07 06:23] LABS: ALBUMIN 1.1 GM/DL (3.2-5.2); ALT/SGPT 17 U/L (12-78); BILIRUBIN,TOTAL 0.2 MG/DL (0.2-1.0); BLOOD UREA NITROGEN 11 MG/DL (7-18); CALCIUM LEVEL 7.6 MG/DL (8.5-10.1); CARBON DIOXIDE LEVEL 29 MEQ/L (21-32); CHLORIDE LEVEL 105 MEQ/L (98-107); GLOMERULAR FILTRATION RATE > 60.0 (>58); GLUCOSE, FASTING 84 MG/DL (70-100); LIPASE 747 U/L (73-393); POTASSIUM SERUM 4.5 MEQ/L (3.5-5.1); SODIUM LEVEL 138 MEQ/L (136-145)
[2021-05-07] MEDS: MORPHINE 1MG/ML IN 0.9% NACL 100ML IV BAG IV PRN (06:33)
[2021-05-07 06:51] LABS: ANISOCYTOSIS 1+; BASOPHILS 1 % (0-1); EOSINOPHILS 4 % (0-3); LYMPHOCYTES 44 % (16-44); MONOCYTES 6 % (0-5); NEUTROPHILS 44 % (28-66); PLATELET ESTIMATE INCREASED (NORMAL)
[2021-05-07] MEDS ORDERED: MORPHINE 1MG/ML IN 0.9% NACL 100ML IV BAG IV PRN (08:30)
[2021-05-07] MEDS: ENOXAPARIN 40MG/0.4ML SYRINGE (J1650 PER 10MG) SC SCH (09:00)
[2021-05-07 10:00] VITALS: BP 124/67
[2021-05-07] MEDS: PANTOPRAZOLE 40MG VIAL (C9113 PER 1) IV SCH ×2 (10:32→21:39)
[2021-05-07] MEDS: NS 1,000 ML IV SCH (10:33)
[2021-05-07] MEDS: HumaLOG INSULIN (NovoLOG) PER UNIT SC SCH ×2 (17:19→23:51)
[2021-05-07 18:00] VITALS: BP 119/68
[2021-05-07] MEDS ORDERED: FAT EMULSION IV 20% 500 ML IV SCH (18:00)
[2021-05-07] MEDS ORDERED: MULTIVITAMIN -ADULT INJECTION 10 ML, ZINC/COPPER/MANGANESE/SELENIUM 1 ML in AMINO AC/EL... IV SCH (18:00)
[2021-05-07] MEDS: traZODone 50 MG TAB PO SCH (21:39)
[2021-05-07 22:00] VITALS: BP 118/68
[2021-05-08] MEDS: PIPERACILLIN/TAZOBACTAM SOD 3.375 GM in D5W MINI-BAG PLUS 50 ML IV SCH ×4 (00:13→17:55)
[2021-05-08] MEDS: MORPHINE 1MG/ML IN 0.9% NACL 100ML IV BAG IV PRN ×2 (00:13→17:00)
[2021-05-08] MEDS: METOCLOPRAMIDE INJ 10MG/2ML VIAL (J2765 PER 1) IV SCH ×3 (00:13→17:55)
[2021-05-08] MEDS: FLUCONAZOLE 100 MG in IV 1 EA IV SCH (03:11)
[2021-05-08 06:00] VITALS: BP 99/60
[2021-05-08] MEDS: HumaLOG INSULIN (NovoLOG) PER UNIT SC SCH ×3 (07:11→18:00)
[2021-05-08 07:55] LABS: HEMATOCRIT 29.9 % (36.0-47.0); HEMOGLOBIN 9.3 g/dl (12.0-15.5); MEAN CORPUSCULAR HEMOGLOBIN 24.9 pg (27.0-33.0); MEAN CORPUSCULAR HGB CONC 31.1 g/dl (32.0-36.5); MEAN CORPUSCULAR VOLUME 79.9 fl (80.0-96.0); PLATELET COUNT, AUTOMATED 620 10^3/uL (150-450); RED BLOOD COUNT 3.74 10^6/uL (4.00-5.40); WHITE BLOOD COUNT 6.6 10^3/uL (4.0-10.0)
[2021-05-08 08:15] LABS: BLOOD UREA NITROGEN 11 MG/DL (7-18); C REACTIVE PROTEIN QUANTITATIV 1.73 MG/DL (0.00-0.30); CALCIUM LEVEL 7.6 MG/DL (8.5-10.1); CARBON DIOXIDE LEVEL 28 MEQ/L (21-32); CHLORIDE LEVEL 105 MEQ/L (98-107); CREATININE FOR GFR 0.35 MG/DL (0.55-1.30); GLOMERULAR FILTRATION RATE > 60.0 (>58); GLUCOSE, FASTING 105 MG/DL (70-100); POTASSIUM SERUM 4.5 MEQ/L (3.5-5.1); SODIUM LEVEL 138 MEQ/L (136-145)
[2021-05-08 08:25] LABS: ATYPICAL LYMPH 1 % (0-5); EOSINOPHILS 6 % (0-3); LYMPHOCYTES 34 % (16-44); METAMYELOCYTES 1 % (0-0); MONOCYTES 10 % (0-5); NEUTROPHILS 48 % (28-66)
[2021-05-08 08:27] LABS: ANISOCYTOSIS 3+; PLATELET ESTIMATE INCREASED (NORMAL); SCHISTOCYTES 1+
[2021-05-08 08:28] LABS: TEAR DROP CELLS 1+
[2021-05-08] MEDS: CLINDAMYCIN 600 MG in IV 1 EA IV SCH ×3 (08:47→20:40)
[2021-05-08] MEDS: PANTOPRAZOLE 40MG VIAL (C9113 PER 1) IV SCH ×2 (08:47→21:54)
[2021-05-08] MEDS: ENOXAPARIN 40MG/0.4ML SYRINGE (J1650 PER 10MG) SC SCH (08:48)
[2021-05-08] MEDS: NS 1,000 ML IV SCH (08:55)
[2021-05-08 10:00] VITALS: BP 97/59
[2021-05-08] MEDS: DICYCLOMINE INJ 20MG/2ML (J0500) IM SCH ×3 (10:03→21:00)
[2021-05-08] MEDS: SODIUM CHLORIDE 0.9% INJ 10 ML SYR IV SCH ×2 (13:24→21:54)
[2021-05-08 14:00] VITALS: BP 98/57
[2021-05-08] MEDS: SODIUM CHLORIDE 0.9% INJ 10 ML SYR IV PRN (17:55)
[2021-05-08] MEDS ORDERED: FAT EMULSION IV 20% 500 ML IV SCH (18:00)
[2021-05-08] MEDS ORDERED: AMINO AC/ELECTROLYTE/DEX/CALC 2,000 ML IV SCH (18:00)
[2021-05-08] MEDS: diphenhydrAMINE 50MG/ML VIAL (J1200) IV PRN (18:10)
[2021-05-08] MEDS: traZODone 50 MG TAB PO SCH (21:54)
[2021-05-08 22:00] VITALS: BP 98/56
[2021-05-09] VITALS (8 sets, daily range): BP systolic 78–92; BP diastolic 42–54
[2021-05-09] MEDS ORDERED: KETOROLAC 30 MG/ML 1ML VIAL IV ONE (00:40)
[2021-05-09] MEDS: METOCLOPRAMIDE INJ 10MG/2ML VIAL (J2765 PER 1) IV SCH ×3 (00:50→17:34)
[2021-05-09] MEDS: PIPERACILLIN/TAZOBACTAM SOD 3.375 GM in D5W MINI-BAG PLUS 50 ML IV SCH ×4 (00:51→17:33)
[2021-05-09] MEDS: CLINDAMYCIN 600 MG in IV 1 EA IV SCH ×4 (02:35→21:17)
[2021-05-09] MEDS: FLUCONAZOLE 100 MG in IV 1 EA IV SCH (03:17)
[2021-05-09] MEDS: HumaLOG INSULIN (NovoLOG) PER UNIT SC SCH ×4 (06:00→17:34)
[2021-05-09] MEDS: SODIUM CHLORIDE 0.9% INJ 10 ML SYR IV SCH ×2 (06:50→15:00)
[2021-05-09] MEDS: MORPHINE 1MG/ML IN 0.9% NACL 100ML IV BAG IV PRN (07:40)
[2021-05-09] MEDS: ENOXAPARIN 40MG/0.4ML SYRINGE (J1650 PER 10MG) SC SCH (09:00)
[2021-05-09] MEDS: DICYCLOMINE INJ 20MG/2ML (J0500) IM SCH ×3 (09:00→19:49)
[2021-05-09] MEDS: PANTOPRAZOLE 40MG VIAL (C9113 PER 1) IV SCH ×2 (09:09→21:15)
[2021-05-09] MEDS: KETOROLAC 30 MG/ML 1ML VIAL IV PRN ×3 (09:10→21:17)
[2021-05-09] MEDS: NS 1,000 ML IV SCH (09:10)
[2021-05-09] MEDS: SODIUM CHLORIDE 0.9% INJ 10 ML SYR IV PRN ×2 (09:11→17:33)
[2021-05-09] MEDS ORDERED: NS 1,000 ML IV ONE ×2 (16:05→18:10)
[2021-05-09] MEDS ORDERED: AMINO AC/ELECTROLYTE/DEX/CALC 2,000 ML IV SCH (18:00)
[2021-05-09] MEDS ORDERED: FAT EMULSION IV 20% 500 ML IV SCH (18:00)
[2021-05-09] MEDS: traZODone 50 MG TAB PO SCH (21:15)
[2021-05-10] MEDS: METOCLOPRAMIDE INJ 10MG/2ML VIAL (J2765 PER 1) IV SCH ×3 (00:31→17:30)
[2021-05-10] MEDS: PIPERACILLIN/TAZOBACTAM SOD 3.375 GM in D5W MINI-BAG PLUS 50 ML IV SCH ×5 (00:31→23:38)
[2021-05-10] MEDS: diphenhydrAMINE 50MG/ML VIAL (J1200) IV PRN (00:31)
[2021-05-10 02:00] VITALS: BP 88/48
[2021-05-10] MEDS: CLINDAMYCIN 600 MG in IV 1 EA IV SCH ×4 (02:08→20:38)
[2021-05-10] MEDS: SODIUM CHLORIDE 0.9% INJ 10 ML SYR IV SCH ×4 (02:09→22:00)
[2021-05-10] MEDS: MORPHINE 1MG/ML IN 0.9% NACL 100ML IV BAG IV PRN ×2 (03:19→03:21)
[2021-05-10] MEDS: KETOROLAC 30 MG/ML 1ML VIAL IV PRN ×4 (03:59→22:01)
[2021-05-10] MEDS: FLUCONAZOLE 100 MG in IV 1 EA IV SCH (03:59)
[2021-05-10 06:00] VITALS: BP 82/40
[2021-05-10] MEDS: HumaLOG INSULIN (NovoLOG) PER UNIT SC SCH ×3 (06:00→12:00)
[2021-05-10 08:12] VITALS: BP 86/48
[2021-05-10] MEDS: PANTOPRAZOLE 40MG VIAL (C9113 PER 1) IV SCH ×2 (08:44→20:38)
[2021-05-10] MEDS: ENOXAPARIN 40MG/0.4ML SYRINGE (J1650 PER 10MG) SC SCH (08:50)
[2021-05-10] MEDS: NS 1,000 ML IV SCH (09:13)
[2021-05-10 14:00] VITALS: BP 98/52
[2021-05-10 14:52] LABS: BASO # 0.1 10^3/uL (0.0-0.2); BASO % 0.8 % (0.0-1.0); EOS # 0.3 10^3/uL (0.0-0.5); EOS % 2.9 % (0.0-3.0); HEMATOCRIT 32.2 % (36.0-47.0); HEMOGLOBIN 9.8 g/dl (12.0-15.5); LYMPH # 1.4 10^3/uL (1.5-5.0); LYMPH % 15.4 % (24.0-44.0); MEAN CORPUSCULAR HEMOGLOBIN 24.6 pg (27.0-33.0); MEAN CORPUSCULAR HGB CONC 30.4 g/dl (32.0-36.5); MEAN CORPUSCULAR VOLUME 80.9 fl (80.0-96.0); MONO % 10.9 % (2.0-8.0); NEUTROPHILS # 6.4 10^3/uL (1.5-8.5); NEUTROPHILS % 69.5 % (36.0-66.0); PLATELET COUNT, AUTOMATED 660 10^3/uL (150-450); RED BLOOD COUNT 3.98 10^6/uL (4.00-5.40); WHITE BLOOD COUNT 9.2 10^3/uL (4.0-10.0)
[2021-05-10 15:20] LABS: BLOOD UREA NITROGEN 15 MG/DL (7-18); C REACTIVE PROTEIN QUANTITATIV 1.29 MG/DL (0.00-0.30); CALCIUM LEVEL 8.1 MG/DL (8.5-10.1); CARBON DIOXIDE LEVEL 27 MEQ/L (21-32); CHLORIDE LEVEL 107 MEQ/L (98-107); CREATININE FOR GFR 0.34 MG/DL (0.55-1.30); GLOMERULAR FILTRATION RATE > 60.0 (>58); GLUCOSE, FASTING 105 MG/DL (70-100); POTASSIUM SERUM 4.7 MEQ/L (3.5-5.1); PREALBUMIN 9.8 MG/DL (20.0-40.0); SODIUM LEVEL 137 MEQ/L (136-145)
[2021-05-10] MEDS: SODIUM CHLORIDE 0.9% INJ 10 ML SYR IV PRN (17:43)
[2021-05-10] MEDS: traZODone 50 MG TAB PO SCH (20:38)
[2021-05-10 22:00] VITALS: BP 92/57
[2021-05-11] MEDS: SODIUM CHLORIDE 0.9% INJ 10 ML SYR IV PRN ×4 (01:12→23:50)
[2021-05-11] MEDS: METOCLOPRAMIDE INJ 10MG/2ML VIAL (J2765 PER 1) IV SCH ×4 (02:00→23:49)
[2021-05-11] MEDS: CLINDAMYCIN 600 MG in IV 1 EA IV SCH ×2 (02:01→08:24)
[2021-05-11] MEDS: FLUCONAZOLE 100 MG in IV 1 EA IV SCH (03:03)
[2021-05-11] MEDS: KETOROLAC 30 MG/ML 1ML VIAL IV PRN ×4 (05:29→23:50)
[2021-05-11] MEDS: SODIUM CHLORIDE 0.9% INJ 10 ML SYR IV SCH ×3 (05:30→21:14)
[2021-05-11] MEDS: PIPERACILLIN/TAZOBACTAM SOD 3.375 GM in D5W MINI-BAG PLUS 50 ML IV SCH ×2 (05:32→11:33)
[2021-05-11 05:54] LABS: HEMATOCRIT 26.4 % (36.0-47.0); HEMOGLOBIN 8.2 g/dl (12.0-15.5); MEAN CORPUSCULAR HEMOGLOBIN 25.1 pg (27.0-33.0); MEAN CORPUSCULAR HGB CONC 31.1 g/dl (32.0-36.5); MEAN CORPUSCULAR VOLUME 80.7 fl (80.0-96.0); PLATELET COUNT, AUTOMATED 574 10^3/uL (150-450); RED BLOOD COUNT 3.27 10^6/uL (4.00-5.40); WHITE BLOOD COUNT 5.8 10^3/uL (4.0-10.0)
[2021-05-11 06:12] LABS: BLOOD UREA NITROGEN 14 MG/DL (7-18); C REACTIVE PROTEIN QUANTITATIV 1.45 MG/DL (0.00-0.30); CALCIUM LEVEL 7.2 MG/DL (8.5-10.1); CARBON DIOXIDE LEVEL 29 MEQ/L (21-32); CHLORIDE LEVEL 107 MEQ/L (98-107); GLOMERULAR FILTRATION RATE > 60.0 (>58); GLUCOSE, FASTING 83 MG/DL (70-100); POTASSIUM SERUM 4.5 MEQ/L (3.5-5.1); SODIUM LEVEL 140 MEQ/L (136-145)
[2021-05-11 06:38] LABS: ATYPICAL LYMPH 8 % (0-5); BASOPHILS 3 % (0-1); EOSINOPHILS 3 % (0-3); LYMPHOCYTES 37 % (16-44); METAMYELOCYTES 1 % (0-0); MONOCYTES 13 % (0-5); NEUTROPHILS 34 % (28-66); PLATELET ESTIMATE INCREASED (NORMAL)
[2021-05-11 06:39] LABS: ANISOCYTOSIS 2+; TEAR DROP CELLS 1+
[2021-05-11 06:40] LABS: POIKILOCYTOSIS 1+
[2021-05-11] MEDS: PANTOPRAZOLE 40MG VIAL (C9113 PER 1) IV SCH ×2 (08:23→21:14)
[2021-05-11] MEDS: ENOXAPARIN 40MG/0.4ML SYRINGE (J1650 PER 10MG) SC SCH (08:24)
[2021-05-11] MEDS: NS 1,000 ML IV SCH (08:25)
[2021-05-11] MEDS ORDERED: GASTROGRAFIN SOLUTION 30ML (Q9963) As Ordered ONE (09:35)
[2021-05-11] MEDS: MORPHINE 1MG/ML IN 0.9% NACL 100ML IV BAG IV PRN ×2 (15:27→23:50)
[2021-05-11] MEDS ORDERED: VANCOMYCIN HCL 1,000 MG, VIAL MATE ADAPTER 1 EACH in NS 250 ML IV ONE (16:00)
[2021-05-11] MEDS: MICAFUNGIN SODIUM 100 MG in D5W MINI-BAG PLUS 100 ML IV SCH (16:06)
[2021-05-11] MEDS: SUCRALFATE 1 GM TAB PO SCH ×2 (17:00→21:14)
[2021-05-11] MEDS: ERTAPENEM SODIUM 1 GM in NS MINI-BAG PLUS 50 ML IV SCH (17:32)
[2021-05-11 18:00] VITALS: BP 119/70
[2021-05-11] MEDS ORDERED: VANCOMYCIN HCL 1,000 MG, VIAL MATE ADAPTER 1 EACH in NS 250 ML IV SCH (20:00)
[2021-05-11] MEDS: traZODone 50 MG TAB PO SCH ×3 (21:00→21:52)
[2021-05-11] MEDS: VANCOMYCIN HCL 1,000 MG, VIAL MATE ADAPTER 1 EACH in NS 250 ML IV SCH (21:14)
[2021-05-11 21:43] LABS: CLOSTRIDIUM DIFFICILE PCR POSITIVE (NEGATIVE)
[2021-05-11 22:00] VITALS: BP 105/64
[2021-05-11] MEDS: diphenhydrAMINE 50MG/ML VIAL (J1200) IV PRN (22:08)
[2021-05-11] MEDS: QUEtiapine FUMARATE 100 MG TAB PO SCH (23:07)
[2021-05-12 02:00] VITALS: BP 92/55
[2021-05-12] MEDS: VANCOMYCIN HCL 1,000 MG, VIAL MATE ADAPTER 1 EACH in NS 250 ML IV SCH ×4 (05:30→22:00)
[2021-05-12] MEDS: SODIUM CHLORIDE 0.9% INJ 10 ML SYR IV SCH ×3 (05:30→22:40)
[2021-05-12] MEDS: KETOROLAC 30 MG/ML 1ML VIAL IV PRN ×3 (05:50→18:38)
[2021-05-12 05:53] LABS: HEMATOCRIT 24.1 % (36.0-47.0); HEMOGLOBIN 7.4 g/dl (12.0-15.5); MEAN CORPUSCULAR HEMOGLOBIN 24.6 pg (27.0-33.0); MEAN CORPUSCULAR HGB CONC 30.7 g/dl (32.0-36.5); MEAN CORPUSCULAR VOLUME 80.1 fl (80.0-96.0); PLATELET COUNT, AUTOMATED 510 10^3/uL (150-450); RED BLOOD COUNT 3.01 10^6/uL (4.00-5.40); WHITE BLOOD COUNT 5.4 10^3/uL (4.0-10.0)
[2021-05-12 06:00] VITALS: BP 107/67
[2021-05-12 06:09] LABS: BLOOD UREA NITROGEN 10 MG/DL (7-18); C REACTIVE PROTEIN QUANTITATIV 0.76 MG/DL (0.00-0.30); CALCIUM LEVEL 7.3 MG/DL (8.5-10.1); CARBON DIOXIDE LEVEL 28 MEQ/L (21-32); CHLORIDE LEVEL 109 MEQ/L (98-107); CREATININE FOR GFR 0.29 MG/DL (0.55-1.30); GLOMERULAR FILTRATION RATE > 60.0 (>58); GLUCOSE, FASTING 83 MG/DL (70-100); POTASSIUM SERUM 4.4 MEQ/L (3.5-5.1); SODIUM LEVEL 140 MEQ/L (136-145)
[2021-05-12 06:20] LABS: ANISOCYTOSIS 1+; ATYPICAL LYMPH 4 % (0-5); EOSINOPHILS 5 % (0-3); LYMPHOCYTES 55 % (16-44); MONOCYTES 5 % (0-5); NEUTROPHILS 28 % (28-66); POIKILOCYTOSIS 1+
[2021-05-12 06:26] LABS: PLATELET ESTIMATE INCREASED (NORMAL)
[2021-05-12] MEDS: NS 1,000 ML IV SCH (09:30)
[2021-05-12] MEDS ORDERED: PERCOCET 5MG/325MG TAB PO PRN ×2 (09:55)
[2021-05-12] MEDS: SUCRALFATE 1 GM TAB PO SCH ×4 (10:06→21:00)
[2021-05-12] MEDS: ENOXAPARIN 40MG/0.4ML SYRINGE (J1650 PER 10MG) SC SCH (10:06)
[2021-05-12] MEDS: PANTOPRAZOLE 40MG VIAL (C9113 PER 1) IV SCH ×2 (10:07→22:39)
[2021-05-12] MEDS: SODIUM CHLORIDE 0.9% INJ 10 ML SYR IV PRN ×5 (10:10→18:39)
[2021-05-12] MEDS ORDERED: MORPHINE 4 MG/ML 1ML VIAL/SYRINGE (J2270) IV ONE ×2 (12:40→23:00)
[2021-05-12 14:00] VITALS: BP 103/66
[2021-05-12] MEDS: MICAFUNGIN SODIUM 100 MG in D5W MINI-BAG PLUS 100 ML IV SCH (14:16)
[2021-05-12] MEDS: diphenhydrAMINE 50MG/ML VIAL (J1200) IV PRN (15:27)
[2021-05-12] MEDS ORDERED: MORPHINE 4 MG/ML 1ML VIAL/SYRINGE (J2270) IV PRN (16:15)
[2021-05-12] MEDS: PERCOCET 5MG/325MG TAB PO PRN ×2 (16:35→20:46)
[2021-05-12] MEDS: ERTAPENEM SODIUM 1 GM in NS MINI-BAG PLUS 50 ML IV SCH (17:29)
[2021-05-12] MEDS: VANCOMYCIN ORAL SOL 250MG/5ML ORAL SYRINGE PO SCH ×2 (19:51→23:35)
[2021-05-12 22:00] VITALS: BP 125/69
[2021-05-12] MEDS: traZODone 50 MG TAB PO SCH (22:39)
[2021-05-12] MEDS: QUEtiapine FUMARATE 100 MG TAB PO SCH (22:39)
[2021-05-13] MEDS: PERCOCET 5MG/325MG TAB PO PRN ×6 (01:43→23:32)
[2021-05-13] MEDS: SODIUM CHLORIDE 0.9% INJ 10 ML SYR IV PRN ×3 (01:44→12:19)
[2021-05-13] MEDS: KETOROLAC 30 MG/ML 1ML VIAL IV PRN ×4 (01:44→22:05)
[2021-05-13] MEDS: VANCOMYCIN ORAL SOL 250MG/5ML ORAL SYRINGE PO SCH ×2 (05:49→12:00)
[2021-05-13] MEDS: SODIUM CHLORIDE 0.9% INJ 10 ML SYR IV SCH ×3 (05:50→21:26)
[2021-05-13] MEDS: VANCOMYCIN HCL 1,000 MG, VIAL MATE ADAPTER 1 EACH in NS 250 ML IV SCH ×3 (05:51→23:09)
[2021-05-13] MEDS: MORPHINE 2 MG/ML 1ML VIAL (J2270) IV PRN ×3 (05:51→20:12)
[2021-05-13 06:00] VITALS: BP 122/71
[2021-05-13 06:29] LABS: HEMOGLOBIN 8.4 g/dl (12.0-15.5); MEAN CORPUSCULAR HEMOGLOBIN 24.9 pg (27.0-33.0); MEAN CORPUSCULAR HGB CONC 31.1 g/dl (32.0-36.5); MEAN CORPUSCULAR VOLUME 80.1 fl (80.0-96.0); PLATELET COUNT, AUTOMATED 536 10^3/uL (150-450); RED BLOOD COUNT 3.37 10^6/uL (4.00-5.40); WHITE BLOOD COUNT 4.9 10^3/uL (4.0-10.0)
[2021-05-13 06:46] LABS: BLOOD UREA NITROGEN 8 MG/DL (7-18); C REACTIVE PROTEIN QUANTITATIV 0.49 MG/DL (0.00-0.30); CALCIUM LEVEL 7.6 MG/DL (8.5-10.1); CARBON DIOXIDE LEVEL 28 MEQ/L (21-32); CHLORIDE LEVEL 111 MEQ/L (98-107); CREATININE FOR GFR 0.33 MG/DL (0.55-1.30); GLOMERULAR FILTRATION RATE > 60.0 (>58); GLUCOSE, FASTING 82 MG/DL (70-100); POTASSIUM SERUM 4.2 MEQ/L (3.5-5.1); SODIUM LEVEL 141 MEQ/L (136-145)
[2021-05-13 06:52] LABS: ATYPICAL LYMPH 5 % (0-5); EOSINOPHILS 3 % (0-3); LYMPHOCYTES 52 % (16-44); MONOCYTES 7 % (0-5); MYELOCYTES 1 % (0-0); NEUTROPHILS 32 % (28-66); PLATELET ESTIMATE INCREASED (NORMAL)
[2021-05-13 06:53] LABS: ANISOCYTOSIS 2+; POIKILOCYTOSIS 1+
[2021-05-13] MEDS: PANTOPRAZOLE 40MG VIAL (C9113 PER 1) IV SCH ×2 (08:44→21:26)
[2021-05-13] MEDS: SUCRALFATE 1 GM TAB PO SCH ×4 (09:00→21:00)
[2021-05-13] MEDS: ENOXAPARIN 40MG/0.4ML SYRINGE (J1650 PER 10MG) SC SCH (09:00)
[2021-05-13] MEDS: NS 1,000 ML IV SCH (09:30)
[2021-05-13] MEDS ORDERED: diphenhydrAMINE 50MG/ML VIAL (J1200) IV ONE (10:10)
[2021-05-13] MEDS ORDERED: FAMOTIDINE INJ 20MG/2ML VIAL (S0028 PER 1) IV ONE (10:10)
[2021-05-13] MEDS ORDERED: methylPREDNISolone 125MG 2ML VIAL IV ONE (10:10)
[2021-05-13] MEDS: GASTROGRAFIN SOLUTION 30ML PO SCH ×2 (10:45→12:15)
[2021-05-13] MEDS ORDERED: MORPHINE 4 MG/ML 1ML VIAL/SYRINGE (J2270) IV ONE (11:50)
[2021-05-13 14:31] VITALS: BP 121/81
[2021-05-13] MEDS: MICAFUNGIN SODIUM 100 MG in D5W MINI-BAG PLUS 100 ML IV SCH (15:19)
[2021-05-13] MEDS: ERTAPENEM SODIUM 1 GM in NS MINI-BAG PLUS 50 ML IV SCH (17:32)
[2021-05-13 18:57] LABS: HEPATITIS B SURFACE ANTIGEN NEGATIVE (NEGATIVE)
[2021-05-13 19:26] LABS: HIV 1&2 SCREEN CENTAUR NEGATIVE (NEGATIVE)
[2021-05-13 19:29] LABS: HEPATITIS C VIRUS ABY INDEX > 11.0 INDEX (<0.8)
[2021-05-13] MEDS: FIDAXOMICIN 200 MG TAB (DIFICID) PO SCH (21:26)
[2021-05-13] MEDS: traZODone 50 MG TAB PO SCH (21:26)
[2021-05-13] MEDS: QUEtiapine FUMARATE 100 MG TAB PO SCH (21:26)
[2021-05-13 22:00] VITALS: BP 129/80
[2021-05-14] MEDS: VANCOMYCIN HCL 1,000 MG, VIAL MATE ADAPTER 1 EACH in NS 250 ML IV SCH (05:38)
[2021-05-14] MEDS: SODIUM CHLORIDE 0.9% INJ 10 ML SYR IV SCH ×3 (05:39→21:19)
[2021-05-14] MEDS: PERCOCET 5MG/325MG TAB PO PRN ×5 (05:39→22:19)
[2021-05-14] MEDS: MORPHINE 2 MG/ML 1ML VIAL (J2270) IV PRN ×4 (11:24→23:52)
[2021-05-14] MEDS: SODIUM CHLORIDE 0.9% INJ 10 ML SYR IV PRN (11:27)
[2021-05-14] MEDS: FIDAXOMICIN 200 MG TAB (DIFICID) PO SCH ×2 (11:28→21:18)
[2021-05-14] MEDS: PANTOPRAZOLE 40MG TAB (PROTONIX) PO SCH ×2 (11:28→21:19)
[2021-05-14] MEDS: ENOXAPARIN 40MG/0.4ML SYRINGE (J1650 PER 10MG) SC SCH (11:30)
[2021-05-14 14:00] VITALS: BP 129/80
[2021-05-14] MEDS: BACTRIM 160MG/800MG DS TAB PO SCH ×2 (14:05→21:18)
[2021-05-14] MEDS: SUCRALFATE SUSP 1GM/10ML UD PO SCH ×3 (14:06→21:19)
[2021-05-14] MEDS: MICAFUNGIN SODIUM 100 MG in D5W MINI-BAG PLUS 100 ML IV SCH (14:56)
[2021-05-14] MEDS: ERTAPENEM SODIUM 1 GM in NS MINI-BAG PLUS 50 ML IV SCH (18:11)
[2021-05-14] MEDS: traZODone 50 MG TAB PO SCH (21:18)
[2021-05-14] MEDS: QUEtiapine FUMARATE 100 MG TAB PO SCH (21:19)
[2021-05-14 22:00] VITALS: BP 121/76
[2021-05-15] MEDS: MORPHINE 2 MG/ML 1ML VIAL (J2270) IV PRN ×5 (04:22→22:19)
[2021-05-15] MEDS: SODIUM CHLORIDE 0.9% INJ 10 ML SYR IV SCH ×3 (05:27→22:19)
[2021-05-15 05:41] LABS: HEMATOCRIT 26.6 % (36.0-47.0); HEMOGLOBIN 8.3 g/dl (12.0-15.5); MEAN CORPUSCULAR HEMOGLOBIN 24.6 pg (27.0-33.0); MEAN CORPUSCULAR HGB CONC 31.2 g/dl (32.0-36.5); MEAN CORPUSCULAR VOLUME 78.7 fl (80.0-96.0); PLATELET COUNT, AUTOMATED 454 10^3/uL (150-450); RED BLOOD COUNT 3.38 10^6/uL (4.00-5.40); WHITE BLOOD COUNT 4.9 10^3/uL (4.0-10.0)
[2021-05-15 06:00] VITALS: BP 120/74
[2021-05-15 06:04] LABS: BLOOD UREA NITROGEN 10 MG/DL (7-18); CALCIUM LEVEL 7.8 MG/DL (8.5-10.1); CARBON DIOXIDE LEVEL 28 MEQ/L (21-32); CHLORIDE LEVEL 106 MEQ/L (98-107); CREATININE FOR GFR 0.32 MG/DL (0.55-1.30); GLOMERULAR FILTRATION RATE > 60.0 (>58); GLUCOSE, FASTING 81 MG/DL (70-100); POTASSIUM SERUM 4.2 MEQ/L (3.5-5.1); SODIUM LEVEL 137 MEQ/L (136-145)
[2021-05-15 06:18] LABS: ATYPICAL LYMPH 4 % (0-5); BASOPHILS 6 % (0-1); EOSINOPHILS 3 % (0-3); LYMPHOCYTES 48 % (16-44); MONOCYTES 5 % (0-5); NEUTROPHILS 32 % (28-66); PLATELET ESTIMATE INCREASED (NORMAL)
[2021-05-15 06:19] LABS: ANISOCYTOSIS 1+; MICROCYTOSIS 1+
[2021-05-15] MEDS: PERCOCET 5MG/325MG TAB PO PRN ×4 (06:57→20:19)
[2021-05-15] MEDS: SUCRALFATE SUSP 1GM/10ML UD PO SCH ×4 (09:42→20:19)
[2021-05-15] MEDS: FIDAXOMICIN 200 MG TAB (DIFICID) PO SCH ×2 (09:42→20:18)
[2021-05-15] MEDS: BACTRIM 160MG/800MG DS TAB PO SCH ×2 (09:43→20:19)
[2021-05-15] MEDS: ENOXAPARIN 40MG/0.4ML SYRINGE (J1650 PER 10MG) SC SCH (09:43)
[2021-05-15] MEDS: PANTOPRAZOLE 40MG TAB (PROTONIX) PO SCH ×2 (09:43→20:18)
[2021-05-15 13:56] VITALS: BP 106/66
[2021-05-15] MEDS: MICAFUNGIN SODIUM 100 MG in D5W MINI-BAG PLUS 100 ML IV SCH (15:17)
[2021-05-15] MEDS ORDERED: clonazePAM 0.5 MG TAB PO ONE (17:00)
[2021-05-15] MEDS: ERTAPENEM SODIUM 1 GM in NS MINI-BAG PLUS 50 ML IV SCH (18:15)
[2021-05-15] MEDS: traZODone 50 MG TAB PO SCH (20:18)
[2021-05-15] MEDS: QUEtiapine FUMARATE 100 MG TAB PO SCH (20:18)
[2021-05-15 22:00] VITALS: BP 104/67
[2021-05-16] MEDS: PERCOCET 5MG/325MG TAB PO PRN ×5 (00:29→20:06)
[2021-05-16] MEDS: MORPHINE 2 MG/ML 1ML VIAL (J2270) IV PRN ×5 (02:19→21:21)
[2021-05-16] MEDS: SODIUM CHLORIDE 0.9% INJ 10 ML SYR IV SCH ×3 (05:21→21:22)
[2021-05-16] MEDS: PANTOPRAZOLE 40MG TAB (PROTONIX) PO SCH ×2 (07:59→20:04)
[2021-05-16] MEDS: SUCRALFATE SUSP 1GM/10ML UD PO SCH ×4 (07:59→20:06)
[2021-05-16] MEDS: FIDAXOMICIN 200 MG TAB (DIFICID) PO SCH ×2 (07:59→20:04)
[2021-05-16] MEDS: BACTRIM 160MG/800MG DS TAB PO SCH ×2 (07:59→20:04)
[2021-05-16] MEDS: ENOXAPARIN 40MG/0.4ML SYRINGE (J1650 PER 10MG) SC SCH (07:59)
[2021-05-16] MEDS: SODIUM CHLORIDE 0.9% INJ 10 ML SYR IV PRN ×2 (08:02→12:17)
[2021-05-16] MEDS: NICOTINE POLACRILEX 2 MG GUM PO PRN (12:15)
[2021-05-16] MEDS: clonazePAM 0.5 MG TAB PO PRN (12:15)
[2021-05-16] MEDS: MICAFUNGIN SODIUM 100 MG in D5W MINI-BAG PLUS 100 ML IV SCH (15:16)
[2021-05-16] MEDS: ERTAPENEM SODIUM 1 GM in NS MINI-BAG PLUS 50 ML IV SCH (16:51)
[2021-05-16 18:00] VITALS: BP 106/58
[2021-05-16] MEDS: traZODone 50 MG TAB PO SCH (20:04)
[2021-05-16] MEDS: QUEtiapine FUMARATE 100 MG TAB PO SCH (20:04)
[2021-05-16 21:50] VITALS: BP 97/51
[2021-05-17] MEDS: ONDANSETRON 4MG/2ML VIAL IV PRN (00:07)
[2021-05-17] MEDS: PERCOCET 5MG/325MG TAB PO PRN ×5 (00:07→18:36)
[2021-05-17] MEDS: clonazePAM 0.5 MG TAB PO PRN ×3 (00:12→18:35)
[2021-05-17] MEDS: MORPHINE 2 MG/ML 1ML VIAL (J2270) IV PRN ×2 (01:38→06:03)
[2021-05-17 06:00] VITALS: BP 91/55
[2021-05-17] MEDS: SODIUM CHLORIDE 0.9% INJ 10 ML SYR IV SCH ×3 (06:03→21:18)
[2021-05-17 06:51] VITALS: BP 95/60
[2021-05-17] MEDS: SUCRALFATE SUSP 1GM/10ML UD PO SCH ×4 (07:30→21:18)
[2021-05-17] MEDS: ENOXAPARIN 40MG/0.4ML SYRINGE (J1650 PER 10MG) SC SCH ×2 (09:00→09:24)
[2021-05-17] MEDS: BACTRIM 160MG/800MG DS TAB PO SCH ×2 (09:25→21:19)
[2021-05-17] MEDS: FIDAXOMICIN 200 MG TAB (DIFICID) PO SCH ×2 (09:25→21:18)
[2021-05-17] MEDS: PANTOPRAZOLE 40MG TAB (PROTONIX) PO SCH ×2 (09:25→21:19)
[2021-05-17 09:57] LABS: BASO # 0.1 10^3/uL (0.0-0.2); BASO % 0.9 % (0.0-1.0); EOS # 0.3 10^3/uL (0.0-0.5); EOS % 2.2 % (0.0-3.0); HEMATOCRIT 27.9 % (36.0-47.0); HEMOGLOBIN 8.6 g/dl (12.0-15.5); LYMPH # 1.5 10^3/uL (1.5-5.0); MEAN CORPUSCULAR HGB CONC 30.8 g/dl (32.0-36.5); MEAN CORPUSCULAR VOLUME 81.1 fl (80.0-96.0); MONO # 0.5 10^3/uL (0.0-0.8); MONO % 4.3 % (2.0-8.0); NEUTROPHILS % 80.1 % (36.0-66.0); PLATELET COUNT, AUTOMATED 426 10^3/uL (150-450); RED BLOOD COUNT 3.44 10^6/uL (4.00-5.40); WHITE BLOOD COUNT 12.4 10^3/uL (4.0-10.0)
[2021-05-17 10:15] LABS: ALBUMIN 1.7 GM/DL (3.2-5.2); ALT/SGPT 36 U/L (12-78); BILIRUBIN,TOTAL 0.2 MG/DL (0.2-1.0); BLOOD UREA NITROGEN 9 MG/DL (7-18); C REACTIVE PROTEIN QUANTITATIV 1.53 MG/DL (0.00-0.30); CARBON DIOXIDE LEVEL 28 MEQ/L (21-32); CHLORIDE LEVEL 103 MEQ/L (98-107); CREATININE FOR GFR 0.52 MG/DL (0.55-1.30); GLOMERULAR FILTRATION RATE > 60.0 (>58); GLUCOSE, FASTING 63 MG/DL (70-100); POTASSIUM SERUM 4.5 MEQ/L (3.5-5.1); SODIUM LEVEL 135 MEQ/L (136-145); TOTAL PROTEIN 5.7 GM/DL (6.4-8.2)
[2021-05-17 10:34] LABS: PREALBUMIN 18.4 MG/DL (20.0-40.0)
[2021-05-17] MEDS: MICAFUNGIN SODIUM 100 MG in D5W MINI-BAG PLUS 100 ML IV SCH (13:49)
[2021-05-17] MEDS: ERTAPENEM SODIUM 1 GM in NS MINI-BAG PLUS 50 ML IV SCH (18:00)
[2021-05-17 20:00] VITALS: BP 124/74
[2021-05-17] MEDS ORDERED: KETOROLAC 30 MG/ML 1ML VIAL IV ONE (20:55)
[2021-05-17] MEDS: QUEtiapine FUMARATE 100 MG TAB PO SCH (21:18)
[2021-05-17] MEDS: traZODone 50 MG TAB PO SCH (21:19)
[2021-05-18] MEDS: SODIUM CHLORIDE 0.9% INJ 10 ML SYR IV SCH ×3 (06:00→20:53)
[2021-05-18] MEDS: PERCOCET 5MG/325MG TAB PO PRN ×4 (06:06→20:55)
[2021-05-18] MEDS: SUCRALFATE SUSP 1GM/10ML UD PO SCH ×4 (07:30→20:52)
[2021-05-18] MEDS: GASTROGRAFIN SOLUTION 30ML PO SCH ×2 (07:53→08:32)
[2021-05-18] MEDS: BACTRIM 160MG/800MG DS TAB PO SCH ×2 (10:58→20:52)
[2021-05-18] MEDS: FIDAXOMICIN 200 MG TAB (DIFICID) PO SCH ×2 (10:58→20:52)
[2021-05-18] MEDS: PANTOPRAZOLE 40MG TAB (PROTONIX) PO SCH ×2 (10:59→20:53)
[2021-05-18] MEDS: clonazePAM 0.5 MG TAB PO PRN ×2 (13:05→18:19)
[2021-05-18] MEDS: ONDANSETRON 4MG/2ML VIAL IV PRN (13:10)
[2021-05-18 14:00] VITALS: BP 99/56
[2021-05-18] MEDS: MICAFUNGIN SODIUM 100 MG in D5W MINI-BAG PLUS 100 ML IV SCH (15:00)
[2021-05-18] MEDS: KETOROLAC 30 MG/ML 1ML VIAL IV ONE ×2 (15:58→17:11)
[2021-05-18] MEDS: traZODone 50 MG TAB PO SCH (20:52)
[2021-05-18] MEDS: QUEtiapine FUMARATE 100 MG TAB PO SCH (20:52)
[2021-05-18 21:08] VITALS: BP 115/77
[2021-05-18] MEDS ORDERED: KETOROLAC 30 MG/ML 1ML VIAL IV ONE (23:20)
[2021-05-18] MEDS: ONDANSETRON 4MG/2ML VIAL IV SCH (23:37)
[2021-05-19] MEDS ORDERED: diphenhydrAMINE 50MG/ML VIAL (J1200) IV ONE (00:05)
[2021-05-19 05:31] VITALS: BP 117/71
[2021-05-19] MEDS: SODIUM CHLORIDE 0.9% INJ 10 ML SYR IV SCH (06:00)
[2021-05-19] MEDS: ONDANSETRON 4MG/2ML VIAL IV SCH ×4 (06:00→23:06)
[2021-05-19] MEDS: SUCRALFATE SUSP 1GM/10ML UD PO SCH ×5 (07:30→21:59)
[2021-05-19] MEDS: ENOXAPARIN 40MG/0.4ML SYRINGE (J1650 PER 10MG) SC SCH (09:00)
[2021-05-19] MEDS: FIDAXOMICIN 200 MG TAB (DIFICID) PO SCH ×2 (11:32→21:59)
[2021-05-19] MEDS: PANTOPRAZOLE 40MG TAB (PROTONIX) PO SCH ×2 (11:32→22:00)
[2021-05-19] MEDS: PERCOCET 5MG/325MG TAB PO PRN (11:33)
[2021-05-19] MEDS: clonazePAM 0.5 MG TAB PO PRN ×3 (11:35→21:59)
[2021-05-19 14:00] VITALS: BP 138/78
[2021-05-19] MEDS: MORPHINE 15 MG SA TAB PO PRN ×2 (15:05→21:59)
[2021-05-19] MEDS: oxyCODONE 5MG TAB PO PRN ×2 (18:58→23:07)
[2021-05-19] MEDS: traZODone 50 MG TAB PO SCH (21:59)
[2021-05-19] MEDS: QUEtiapine FUMARATE 100 MG TAB PO SCH (21:59)
[2021-05-19 22:00] VITALS: BP 140/69
[2021-05-20] MEDS: oxyCODONE 5MG TAB PO PRN ×5 (04:03→20:59)
[2021-05-20 06:00] VITALS: BP_SYST 116; BP_SYST 97; BP_DIAS 66; BP_DIAS 72
[2021-05-20] MEDS: ONDANSETRON 4MG/2ML VIAL IV SCH ×3 (06:00→12:46)
[2021-05-20] MEDS: SUCRALFATE SUSP 1GM/10ML UD PO SCH ×5 (07:48→21:00)
[2021-05-20] MEDS: FIDAXOMICIN 200 MG TAB (DIFICID) PO SCH ×2 (07:48→20:29)
[2021-05-20] MEDS: PANTOPRAZOLE 40MG TAB (PROTONIX) PO SCH ×2 (07:49→20:29)
[2021-05-20] MEDS: MORPHINE 15 MG SA TAB PO PRN ×4 (07:49→21:00)
[2021-05-20] MEDS: ENOXAPARIN 40MG/0.4ML SYRINGE (J1650 PER 10MG) SC SCH (07:51)
[2021-05-20] MEDS: clonazePAM 0.5 MG TAB PO PRN ×2 (08:30→20:29)
[2021-05-20 14:00] VITALS: BP 108/69
[2021-05-20 20:00] VITALS: BP 116/72
[2021-05-20] MEDS: traZODone 50 MG TAB PO SCH (20:29)
[2021-05-20] MEDS: QUEtiapine FUMARATE 100 MG TAB PO SCH (20:29)
[2021-05-21] MEDS: ONDANSETRON 4MG/2ML VIAL IV SCH ×2 (01:30→01:35)
[2021-05-21] MEDS: oxyCODONE 5MG TAB PO PRN ×4 (06:29→19:22)
[2021-05-21] MEDS: FIDAXOMICIN 200 MG TAB (DIFICID) PO SCH ×2 (08:03→20:54)
[2021-05-21] MEDS: clonazePAM 0.5 MG TAB PO PRN ×2 (08:03→20:53)
[2021-05-21] MEDS: PANTOPRAZOLE 40MG TAB (PROTONIX) PO SCH ×2 (08:04→20:54)
[2021-05-21] MEDS: MORPHINE 15 MG SA TAB PO PRN (08:04)
[2021-05-21] MEDS: SUCRALFATE SUSP 1GM/10ML UD PO SCH ×4 (08:04→20:53)
[2021-05-21] MEDS: ENOXAPARIN 40MG/0.4ML SYRINGE (J1650 PER 10MG) SC SCH (09:00)
[2021-05-21 09:16] LABS: HEMATOCRIT 33.9 % (36.0-47.0); HEMOGLOBIN 10.6 g/dl (12.0-15.5); MEAN CORPUSCULAR HGB CONC 31.3 g/dl (32.0-36.5); PLATELET COUNT, AUTOMATED 467 10^3/uL (150-450); RED BLOOD COUNT 4.24 10^6/uL (4.00-5.40); WHITE BLOOD COUNT 4.9 10^3/uL (4.0-10.0)
[2021-05-21 09:41] LABS: ATYPICAL LYMPH 5 % (0-5); BASOPHILS 1 % (0-1); EOSINOPHILS 2 % (0-3); LYMPHOCYTES 40 % (16-44); MONOCYTES 9 % (0-5); NEUTROPHILS 43 % (28-66)
[2021-05-21 09:43] LABS: ANISOCYTOSIS 1+; OVALOCYTES 1+
[2021-05-21 09:45] LABS: PLATELET ESTIMATE NORMAL (NORMAL); SCHISTOCYTES 1+
[2021-05-21 09:50] LABS: ALBUMIN 2.1 GM/DL (3.2-5.2); ALT/SGPT 41 U/L (12-78); BILIRUBIN,TOTAL 0.2 MG/DL (0.2-1.0); BLOOD UREA NITROGEN 10 MG/DL (7-18); C REACTIVE PROTEIN QUANTITATIV 0.37 MG/DL (0.00-0.30); CALCIUM LEVEL 8.9 MG/DL (8.5-10.1); CARBON DIOXIDE LEVEL 32 MEQ/L (21-32); CHLORIDE LEVEL 102 MEQ/L (98-107); CREATININE FOR GFR 0.46 MG/DL (0.55-1.30); GLOMERULAR FILTRATION RATE > 60.0 (>58); GLUCOSE, FASTING 91 MG/DL (70-100); POTASSIUM SERUM 4.8 MEQ/L (3.5-5.1); SODIUM LEVEL 138 MEQ/L (136-145); TOTAL PROTEIN 6.7 GM/DL (6.4-8.2)
[2021-05-21] MEDS: ONDANSETRON 4 MG ORAL DISINTEGRATING TAB SL PRN (10:48)
[2021-05-21] MEDS ORDERED: PILL CUTTER 1 EACH XX PRN (13:05)
[2021-05-21] MEDS: MORPHINE 30 MG TAB **MSIR PO PRN ×2 (13:39→20:54)
[2021-05-21 14:00] VITALS: BP 112/79
[2021-05-21] MEDS: traZODone 50 MG TAB PO SCH (20:54)
[2021-05-21] MEDS: QUEtiapine FUMARATE 100 MG TAB PO SCH (20:54)
[2021-05-21] MEDS: NICOTINE POLACRILEX 2 MG GUM PO PRN (21:00)
[2021-05-21 22:00] VITALS: BP 103/78
[2021-05-22] MEDS: oxyCODONE 5MG TAB PO PRN ×5 (00:37→21:02)
[2021-05-22 06:00] VITALS: BP 106/76
[2021-05-22] MEDS: FIDAXOMICIN 200 MG TAB (DIFICID) PO SCH ×2 (08:45→21:02)
[2021-05-22] MEDS: clonazePAM 0.5 MG TAB PO PRN ×2 (08:45→17:44)
[2021-05-22] MEDS: NICOTINE POLACRILEX 2 MG GUM PO PRN (08:45)
[2021-05-22] MEDS: SUCRALFATE SUSP 1GM/10ML UD PO SCH ×4 (08:45→21:02)
[2021-05-22] MEDS: PANTOPRAZOLE 40MG TAB (PROTONIX) PO SCH ×2 (08:45→21:03)
[2021-05-22] MEDS: MORPHINE 30 MG TAB **MSIR PO PRN ×2 (08:46→16:21)
[2021-05-22] MEDS: QUEtiapine FUMARATE 100 MG TAB PO SCH (21:03)
[2021-05-22] MEDS: traZODone 50 MG TAB PO SCH (21:03)
[2021-05-23] MEDS: SUCRALFATE SUSP 1GM/10ML UD PO SCH ×4 (07:30→21:00)
[2021-05-23] MEDS: PANTOPRAZOLE 40MG TAB (PROTONIX) PO SCH ×2 (09:00→21:07)
[2021-05-23] MEDS: FIDAXOMICIN 200 MG TAB (DIFICID) PO SCH ×2 (09:00→21:07)
[2021-05-23] MEDS: oxyCODONE 5MG TAB PO PRN ×2 (13:15→19:56)
[2021-05-23] MEDS: ONDANSETRON 4 MG ORAL DISINTEGRATING TAB SL PRN (15:05)
[2021-05-23] MEDS: traZODone 50 MG TAB PO SCH (21:07)
[2021-05-23] MEDS: clonazePAM 0.5 MG TAB PO PRN (21:08)
[2021-05-23] MEDS: QUEtiapine FUMARATE 100 MG TAB PO SCH (21:08)
[2021-05-24] MEDS: SUCRALFATE SUSP 1GM/10ML UD PO SCH ×2 (07:30→12:00)
[2021-05-24] MEDS: PANTOPRAZOLE 40MG TAB (PROTONIX) PO SCH (08:57)
[2021-05-24] MEDS: FIDAXOMICIN 200 MG TAB (DIFICID) PO SCH (08:58)
[2021-05-24] MEDS: oxyCODONE 5MG TAB PO PRN ×2 (08:58→15:01)
[2021-05-24] MEDS ORDERED: DOCUSATE SODIUM 100MG CAPSULE PO SCH (09:00)
[2021-05-24] MEDS ORDERED: SENNA 8.6 MG TAB (SENOKOT) PO SCH (09:00)
[2021-05-24] MEDS: clonazePAM 0.5 MG TAB PO PRN (10:02)
[2021-05-24] MEDS ORDERED: COLA100C5 PO ×2 (11:57→12:53)
[2021-05-24] MEDS ORDERED: OMEP40CA5 PO ×2 (11:57→12:53)
[2021-05-24] MEDS ORDERED: SENN18TA PO ×2 (11:57→12:53)
[2021-05-24] MEDS ORDERED: OXYC-517 PO ×2 (11:57→12:53)
[2021-05-24] MEDS ORDERED: CLON0.5T2 PO ×2 (11:57→12:53)
[2021-05-24] MEDS ORDERED: ROXI1TAB2 PO (15:53)
[2021-05-25 03:11] LABS: HEPATITIS A IgG TOTAL Negative (Negative); HEPATITIS B CORE ANTIBODY IGG Negative (Negative)
== END 2021-05-24 15:55 | disposition home or self-care (01) | DRG 327 ==
LOC: M ED 13:56 → EDBD 13:56 → M SDC 18:38 → EEVIPCON 04-27 13:19 → M PCU 04-27 13:19 → M MSPAV 05-07 02:34 → M MS5PR 05-16 21:29
PROVIDERS: ADMIT Surgery; ATTEND Internal Medicine Nephrology
PROC: 0W9G4ZX Drainage of Peritoneal Cavity, Percutaneous Endoscopic Approach, Diagnostic (ICD-10-PCS; 2021-04-26)
PROC: 0DQ60ZZ Repair Stomach, Open Approach (ICD-10-PCS; 2021-04-26)
PROC: 02HV33Z Insertion of Infusion Device into Superior Vena Cava, Percutaneous Approach (ICD-10-PCS; principal; 2021-04-26 17:30)
DX: K63.1 Perforation of intestine (nontraumatic) (principal); R18.8 Other ascites; A04.72 Enterocolitis due to Clostridium difficile, not specified as recurrent; Z98.84 Bariatric surgery status; Z91.14 Patient's other noncompliance with medication regimen; Z59.00 Homelessness unspecified; F31.9 Bipolar disorder, unspecified; Z90.49 Acquired absence of other specified parts of digestive tract; Z90.79 Acquired absence of other genital organ(s); F17.210 Nicotine dependence, cigarettes, uncomplicated; E86.0 Dehydration; Z20.822 Contact with and (suspected) exposure to COVID-19; Z79.899 Other long term (current) drug therapy; Z91.041 Radiographic dye allergy status; Z88.5 Allergy status to narcotic agent; Z88.8 Allergy status to other drugs, medicaments and biological substances; Z53.31 Laparoscopic surgical procedure converted to open procedure; K21.9 Gastro-esophageal reflux disease without esophagitis; B19.20 Unspecified viral hepatitis C without hepatic coma; Z91.19 Patient's noncompliance with other medical treatment and regimen

== ENCOUNTER 2021-07-05 10:41 | Inpatient (IN) | payer OTHER, MEDICAID ==
[~2021-07-05 10:41] MED LIST changes: +CLON0.5T2 PO; +NICO1DIS12 TOP; +OXYC-517 PO; +ROXI1TAB2 PO; +SENN18TA PO
[2021-07-05] MEDS ORDERED: ACETAMINOPHEN 500 MG TAB PO ONE (11:25)
[2021-07-05] MEDS ORDERED: ACETAMINOPHEN 325 MG TAB PO ONE (11:30)
[2021-07-05 12:56] LABS: HEMATOCRIT 35.9 % (36.0-47.0); HEMOGLOBIN 11.2 g/dl (12.0-15.5); MEAN CORPUSCULAR HEMOGLOBIN 23.2 pg (27.0-33.0); MEAN CORPUSCULAR HGB CONC 31.2 g/dl (32.0-36.5); MEAN CORPUSCULAR VOLUME 74.5 fl (80.0-96.0); PLATELET COUNT, AUTOMATED 326 10^3/uL (150-450); RED BLOOD COUNT 4.82 10^6/uL (4.00-5.40); WHITE BLOOD COUNT 5.8 10^3/uL (4.0-10.0)
[2021-07-05] MEDS ORDERED: ONDANSETRON 4MG/2ML VIAL IV ONE (13:10)
[2021-07-05 13:17] LABS: AMPHETAMINES LEVEL URINE POSITIVE (NEGATIVE); BARBITURATES URINE NEGATIVE (NEGATIVE); BENZODIAZEPINES URINE NEGATIVE (NEGATIVE); CANNABINOIDS URINE NEGATIVE (NEGATIVE); COCAINE METABOLITE URINE NEGATIVE (NEGATIVE); METHADONE URINE NEGATIVE (NEGATIVE); OPIATES URINE NEGATIVE (NEGATIVE); PHENCYCLIDINE URINE NEGATIVE (NEGATIVE)
[2021-07-05 13:25] LABS: HCG, SERUM QUALITATIVE NEGATIVE (NEGATIVE)
[2021-07-05] MEDS: MORPHINE 4 MG/ML 1ML VIAL/SYRINGE (J2270) IV PRN ×3 (13:25→18:25)
[2021-07-05 14:14] LABS: RSV AMPLIFICATION NEGATIVE (NEGATIVE)
[2021-07-05] MEDS ORDERED: CLON0.5T2 PO (14:24)
[2021-07-05] MEDS ORDERED: OMEP40CA5 PO (14:24)
[2021-07-05] MEDS ORDERED: COLA100C5 PO (14:24)
[2021-07-05] MEDS ORDERED: HOME MED LIST COMPLETE! XX SCH (14:25)
[2021-07-05 14:53] LABS: ACETAMINOPHEN LEVEL < 2.0 UG/ML (10.0-30.0); ALT/SGPT 46 U/L (12-78); BILIRUBIN,DIRECT < 0.1 MG/DL (0.0-0.2); BILIRUBIN,TOTAL 0.4 MG/DL (0.2-1.0); BLOOD UREA NITROGEN 6 MG/DL (7-18); CALCIUM LEVEL 8.6 MG/DL (8.5-10.1); CARBON DIOXIDE LEVEL 26 MEQ/L (21-32); CHLORIDE LEVEL 103 MEQ/L (98-107); ETHYL ALCOHOL (ETHANOL) < 0.003 % (0.000-0.010); GLOMERULAR FILTRATION RATE > 60.0 (>58); GLUCOSE, FASTING 114 MG/DL (70-100); POTASSIUM SERUM 6.2 MEQ/L (3.5-5.1); SALICYLATE LEVEL < 1.7 MG/DL (5.0-30.0); SODIUM LEVEL 134 MEQ/L (136-145); THYROID STIMULATING HORMONE 0.111 uIU/ML (0.358-3.740); TOTAL PROTEIN 7.2 GM/DL (6.4-8.2)
[2021-07-05] MEDS ORDERED: HYDROmorphone 2 MG TAB PO ONE (16:15)
[2021-07-05] MEDS ORDERED: PILL CUTTER 1 EACH XX PRN (16:20)
[2021-07-05] MEDS ORDERED: traMADol 50 MG TAB PO PRN (17:30)
[2021-07-05] MEDS: LORazepam 2 MG TAB PO PRN ×2 (18:29→20:53)
[2021-07-05] MEDS: SUCRALFATE 1 GM TAB PO SCH (20:39)
[2021-07-05] MEDS: traZODone 50 MG TAB PO SCH (20:39)
[2021-07-05] MEDS: SODIUM CHLORIDE 0.9% INJ 10 ML SYR IV SCH (20:40)
[2021-07-05] MEDS: GABAPENTIN 400MG CAP PO SCH (20:40)
[2021-07-05] MEDS: QUEtiapine FUMARATE 100 MG TAB PO SCH (20:40)
[2021-07-05] MEDS: REMDESIVIR 100 MG in NS 250 ML IV SCH (21:31)
[2021-07-06] MEDS: SUCRALFATE 1 GM TAB PO SCH ×5 (07:30→23:36)
[2021-07-06] MEDS: MORPHINE 4 MG/ML 1ML VIAL/SYRINGE (J2270) IV PRN (08:11)
[2021-07-06] MEDS: HEPARIN SOD (PORCINE) 5000UNITS/ML 1ML VIAL/SYRINGE SC SCH ×2 (09:20→23:00)
[2021-07-06] MEDS: OMEPRAZOLE 20MG CAP PO SCH (09:21)
[2021-07-06] MEDS: GABAPENTIN 400MG CAP PO SCH ×4 (09:21→23:36)
[2021-07-06] MEDS ORDERED: NORCO, ANEXSIA 5/325MG TABLET (HYDROcodone/ACETAMINOPHEN) PO PRN (14:20)
[2021-07-06 16:30] LABS: ALBUMIN 3.2 GM/DL (3.2-5.2); ALT/SGPT 40 U/L (12-78); BILIRUBIN,DIRECT 0.2 MG/DL (0.0-0.2); BILIRUBIN,TOTAL 0.4 MG/DL (0.2-1.0); BLOOD UREA NITROGEN 9 MG/DL (7-18); CARBON DIOXIDE LEVEL 27 MEQ/L (21-32); CHLORIDE LEVEL 102 MEQ/L (98-107); CREATININE FOR GFR 0.51 MG/DL (0.55-1.30); GLOMERULAR FILTRATION RATE > 60.0 (>58); GLUCOSE, FASTING 91 MG/DL (70-100); POTASSIUM SERUM 5.3 MEQ/L (3.5-5.1); SODIUM LEVEL 133 MEQ/L (136-145); TOTAL PROTEIN 7.3 GM/DL (6.4-8.2)
[2021-07-06 16:31] LABS: BASO % 0.6 % (0.0-1.0); EOS # 0.1 10^3/uL (0.0-0.5); EOS % 1.9 % (0.0-3.0); HEMATOCRIT 39.9 % (36.0-47.0); HEMOGLOBIN 11.9 g/dl (12.0-15.5); LYMPH # 1.4 10^3/uL (1.5-5.0); LYMPH % 39.1 % (24.0-44.0); MEAN CORPUSCULAR HGB CONC 29.8 g/dl (32.0-36.5); MEAN CORPUSCULAR VOLUME 77.2 fl (80.0-96.0); MONO # 0.3 10^3/uL (0.0-0.8); MONO % 7.7 % (2.0-8.0); NEUTROPHILS # 1.8 10^3/uL (1.5-8.5); NEUTROPHILS % 50.4 % (36.0-66.0); PLATELET COUNT, AUTOMATED 198 10^3/uL (150-450); RED BLOOD COUNT 5.17 10^6/uL (4.00-5.40); WHITE BLOOD COUNT 3.6 10^3/uL (4.0-10.0)
[2021-07-06] MEDS ORDERED: REMDESIVIR 100 MG in NS 250 ML IV SCH (20:00)
[2021-07-06] MEDS: QUEtiapine FUMARATE 100 MG TAB PO SCH (21:41)
[2021-07-06] MEDS: traZODone 50 MG TAB PO SCH ×2 (21:42→23:35)
[2021-07-06 22:45] VITALS: BP 137/73
[2021-07-06] MEDS ORDERED: MORPHINE 4 MG/ML 1ML VIAL/SYRINGE (J2270) IV ONE (23:00)
[2021-07-06] MEDS: REMDESIVIR 100 MG in NS 250 ML IV SCH (23:30)
[2021-07-06] MEDS: NORCO, ANEXSIA 5/325MG TABLET (HYDROcodone/ACETAMINOPHEN) PO PRN (23:35)
[2021-07-07 01:00] VITALS: BP 125/77
[2021-07-07] MEDS: QUEtiapine FUMARATE 100 MG TAB PO SCH ×2 (01:30→21:25)
[2021-07-07] MEDS: SODIUM CHLORIDE 0.9% INJ 10 ML SYR IV SCH ×2 (01:30→21:26)
[2021-07-07] MEDS: LORazepam 2 MG TAB PO PRN (01:46)
[2021-07-07 06:00] VITALS: BP 99/55
[2021-07-07 06:15] LABS: HEMATOCRIT 30.5 % (36.0-47.0); MEAN CORPUSCULAR HEMOGLOBIN 23.4 pg (27.0-33.0); MEAN CORPUSCULAR HGB CONC 30.5 g/dl (32.0-36.5); MEAN CORPUSCULAR VOLUME 76.6 fl (80.0-96.0); RED BLOOD COUNT 3.98 10^6/uL (4.00-5.40); WHITE BLOOD COUNT 4.7 10^3/uL (4.0-10.0)
[2021-07-07 06:26] LABS: HEMOGLOBIN 9.3 g/dl (12.0-15.5); PLATELET COUNT, AUTOMATED 298 10^3/uL (150-450)
[2021-07-07 07:05] LABS: ALBUMIN 2.6 GM/DL (3.2-5.2); ALT/SGPT 32 U/L (12-78); BILIRUBIN,TOTAL 0.3 MG/DL (0.2-1.0); BLOOD UREA NITROGEN 9 MG/DL (7-18); CALCIUM LEVEL 8.5 MG/DL (8.5-10.1); CARBON DIOXIDE LEVEL 30 MEQ/L (21-32); CHLORIDE LEVEL 103 MEQ/L (98-107); GLOMERULAR FILTRATION RATE > 60.0 (>58); GLUCOSE, FASTING 85 MG/DL (70-100); MAGNESIUM LEVEL 1.9 MG/DL (1.8-2.4); SODIUM LEVEL 136 MEQ/L (136-145); TOTAL PROTEIN 6.5 GM/DL (6.4-8.2)
[2021-07-07 07:18] LABS: ANISOCYTOSIS 3+; ATYPICAL LYMPH 3 % (0-5); EOSINOPHILS 3 % (0-3); LYMPHOCYTES 32 % (16-44); MONOCYTES 7 % (0-5); NEUTROPHILS 55 % (28-66); PLATELET ESTIMATE NORMAL (NORMAL)
[2021-07-07 07:19] LABS: MICROCYTOSIS 1+; OVALOCYTES 1+
[2021-07-07] MEDS: HEPARIN SOD (PORCINE) 5000UNITS/ML 1ML VIAL/SYRINGE SC SCH ×3 (09:19→21:28)
[2021-07-07] MEDS: OMEPRAZOLE 20MG CAP PO SCH (09:20)
[2021-07-07] MEDS: SUCRALFATE 1 GM TAB PO SCH ×3 (12:22→21:25)
[2021-07-07 13:58] VITALS: BP 103/55
[2021-07-07] MEDS: NORCO, ANEXSIA 5/325MG TABLET (HYDROcodone/ACETAMINOPHEN) PO PRN (14:19)
[2021-07-07] MEDS: GABAPENTIN 400MG CAP PO SCH ×2 (16:00→21:25)
[2021-07-07] MEDS: MORPHINE 30 MG TAB **MSIR PO PRN (18:04)
[2021-07-07 20:00] VITALS: BP 100/62
[2021-07-08] VITALS (7 sets, daily range): BP systolic 94–120; BP diastolic 56–77
[2021-07-08 07:27] LABS: HEMATOCRIT 31.1 % (36.0-47.0); HEMOGLOBIN 9.4 g/dl (12.0-15.5); MEAN CORPUSCULAR HEMOGLOBIN 23.3 pg (27.0-33.0); MEAN CORPUSCULAR HGB CONC 30.2 g/dl (32.0-36.5); MEAN CORPUSCULAR VOLUME 77.2 fl (80.0-96.0); PLATELET COUNT, AUTOMATED 311 10^3/uL (150-450); RED BLOOD COUNT 4.03 10^6/uL (4.00-5.40); WHITE BLOOD COUNT 4.6 10^3/uL (4.0-10.0)
[2021-07-08 07:51] LABS: ALBUMIN 2.6 GM/DL (3.2-5.2); ALT/SGPT 28 U/L (12-78); BILIRUBIN,TOTAL 0.3 MG/DL (0.2-1.0); BLOOD UREA NITROGEN 8 MG/DL (7-18); CALCIUM LEVEL 8.6 MG/DL (8.5-10.1); CARBON DIOXIDE LEVEL 30 MEQ/L (21-32); CHLORIDE LEVEL 101 MEQ/L (98-107); CREATININE FOR GFR 0.51 MG/DL (0.55-1.30); GLOMERULAR FILTRATION RATE > 60.0 (>58); GLUCOSE, FASTING 124 MG/DL (70-100); POTASSIUM SERUM 3.8 MEQ/L (3.5-5.1); SODIUM LEVEL 135 MEQ/L (136-145); TOTAL PROTEIN 6.7 GM/DL (6.4-8.2)
[2021-07-08] MEDS: OMEPRAZOLE 20MG CAP PO SCH (08:07)
[2021-07-08] MEDS: SUCRALFATE 1 GM TAB PO SCH ×4 (08:07→20:22)
[2021-07-08] MEDS: GABAPENTIN 400MG CAP PO SCH ×3 (08:07→20:22)
[2021-07-08] MEDS: HEPARIN SOD (PORCINE) 5000UNITS/ML 1ML VIAL/SYRINGE SC SCH ×2 (08:07→20:23)
[2021-07-08] MEDS: ACETAMINOPHEN 500 MG TAB PO PRN ×2 (08:08→20:22)
[2021-07-08 08:44] LABS: ATYPICAL LYMPH 7 % (0-5); BASOPHILS 1 % (0-1); EOSINOPHILS 2 % (0-3); LYMPHOCYTES 34 % (16-44); MONOCYTES 7 % (0-5); NEUTROPHILS 49 % (28-66)
[2021-07-08 08:45] LABS: OVALOCYTES 3+
[2021-07-08 08:46] LABS: MICROCYTOSIS 2+; PLATELET ESTIMATE NORMAL (NORMAL)
[2021-07-08 08:47] LABS: TEAR DROP CELLS 1+
[2021-07-08] MEDS: MORPHINE 30 MG TAB **MSIR PO PRN (14:53)
[2021-07-08] MEDS: traZODone 50 MG TAB PO SCH (20:22)
[2021-07-08] MEDS: QUEtiapine FUMARATE 100 MG TAB PO SCH (20:22)
[2021-07-08] MEDS: SODIUM CHLORIDE 0.9% INJ 10 ML SYR IV SCH (20:23)
[2021-07-09 07:51] LABS: BASO % 0.7 % (0.0-1.0); EOS # 0.1 10^3/uL (0.0-0.5); EOS % 2.5 % (0.0-3.0); HEMATOCRIT 32.1 % (36.0-47.0); HEMOGLOBIN 9.9 g/dl (12.0-15.5); LYMPH # 1.9 10^3/uL (1.5-5.0); LYMPH % 43.2 % (24.0-44.0); MEAN CORPUSCULAR HEMOGLOBIN 23.6 pg (27.0-33.0); MEAN CORPUSCULAR HGB CONC 30.8 g/dl (32.0-36.5); MEAN CORPUSCULAR VOLUME 76.6 fl (80.0-96.0); MONO # 0.5 10^3/uL (0.0-0.8); NEUTROPHILS # 1.8 10^3/uL (1.5-8.5); NEUTROPHILS % 41.6 % (36.0-66.0); PLATELET COUNT, AUTOMATED 371 10^3/uL (150-450); RED BLOOD COUNT 4.19 10^6/uL (4.00-5.40); WHITE BLOOD COUNT 4.4 10^3/uL (4.0-10.0)
[2021-07-09 08:15] LABS: ALBUMIN 2.7 GM/DL (3.2-5.2); ALT/SGPT 26 U/L (12-78); BILIRUBIN,TOTAL 0.3 MG/DL (0.2-1.0); BLOOD UREA NITROGEN 7 MG/DL (7-18); CALCIUM LEVEL 8.7 MG/DL (8.5-10.1); CARBON DIOXIDE LEVEL 31 MEQ/L (21-32); CHLORIDE LEVEL 100 MEQ/L (98-107); CREATININE FOR GFR 0.33 MG/DL (0.55-1.30); GLOMERULAR FILTRATION RATE > 60.0 (>58); GLUCOSE, FASTING 93 MG/DL (70-100); POTASSIUM SERUM 3.7 MEQ/L (3.5-5.1); SODIUM LEVEL 137 MEQ/L (136-145); TOTAL PROTEIN 7.1 GM/DL (6.4-8.2)
[2021-07-09] MEDS: HEPARIN SOD (PORCINE) 5000UNITS/ML 1ML VIAL/SYRINGE SC SCH ×2 (08:52→20:49)
[2021-07-09] MEDS: ACETAMINOPHEN 500 MG TAB PO PRN ×2 (08:52→17:53)
[2021-07-09] MEDS: OMEPRAZOLE 20MG CAP PO SCH (08:52)
[2021-07-09] MEDS: GABAPENTIN 400MG CAP PO SCH ×3 (08:52→20:49)
[2021-07-09] MEDS: SUCRALFATE 1 GM TAB PO SCH ×4 (08:53→20:49)
[2021-07-09 13:58] VITALS: BP 118/74
[2021-07-09 14:00] VITALS: BP 118/74
[2021-07-09] MEDS: MORPHINE 30 MG TAB **MSIR PO PRN (18:49)
[2021-07-09] MEDS: QUEtiapine FUMARATE 100 MG TAB PO SCH (20:49)
[2021-07-09] MEDS: traZODone 50 MG TAB PO SCH (20:49)
[2021-07-09 21:00] VITALS: BP 117/71
[2021-07-09] MEDS ORDERED: KETOROLAC 30 MG/ML 1ML VIAL IV ONE (21:10)
[2021-07-10 06:00] VITALS: BP_SYST 107; BP_SYST 140; BP_DIAS 68; BP_DIAS 84
[2021-07-10] MEDS: SUCRALFATE 1 GM TAB PO SCH ×4 (08:09→19:36)
[2021-07-10] MEDS: GABAPENTIN 400MG CAP PO SCH ×3 (08:09→19:36)
[2021-07-10] MEDS: OMEPRAZOLE 20MG CAP PO SCH (08:09)
[2021-07-10] MEDS: HEPARIN SOD (PORCINE) 5000UNITS/ML 1ML VIAL/SYRINGE SC SCH ×3 (08:10→21:00)
[2021-07-10] MEDS: MORPHINE 30 MG TAB **MSIR PO PRN ×2 (08:10→19:38)
[2021-07-10] MEDS: traZODone 50 MG TAB PO SCH (19:36)
[2021-07-10] MEDS: QUEtiapine FUMARATE 100 MG TAB PO SCH (19:36)
[2021-07-11] MEDS: MORPHINE 30 MG TAB **MSIR PO PRN ×4 (05:46→23:16)
[2021-07-11 05:50] VITALS: BP 140/84
[2021-07-11] MEDS: SUCRALFATE 1 GM TAB PO SCH ×4 (07:30→20:40)
[2021-07-11] MEDS: HEPARIN SOD (PORCINE) 5000UNITS/ML 1ML VIAL/SYRINGE SC SCH ×2 (09:00→20:40)
[2021-07-11] MEDS: OMEPRAZOLE 20MG CAP PO SCH (09:48)
[2021-07-11] MEDS: GABAPENTIN 400MG CAP PO SCH ×3 (09:48→20:25)
[2021-07-11 12:25] VITALS: BP 126/64
[2021-07-11] MEDS: QUEtiapine FUMARATE 100 MG TAB PO SCH (20:25)
[2021-07-11] MEDS: DOCUSATE SODIUM 100MG CAPSULE PO PRN (20:25)
[2021-07-11] MEDS: traZODone 50 MG TAB PO SCH (20:25)
[2021-07-12 04:00] VITALS: BP 115/66
[2021-07-12] MEDS: GABAPENTIN 400MG CAP PO SCH ×3 (08:20→20:43)
[2021-07-12] MEDS: SUCRALFATE 1 GM TAB PO SCH ×4 (08:20→20:43)
[2021-07-12] MEDS: OMEPRAZOLE 20MG CAP PO SCH (08:20)
[2021-07-12] MEDS: HEPARIN SOD (PORCINE) 5000UNITS/ML 1ML VIAL/SYRINGE SC SCH ×2 (08:21→19:34)
[2021-07-12] MEDS: MORPHINE 30 MG TAB **MSIR PO PRN ×2 (08:21→16:20)
[2021-07-12] MEDS: QUEtiapine FUMARATE 100 MG TAB PO SCH (20:43)
[2021-07-12] MEDS: traZODone 50 MG TAB PO SCH (20:43)
[2021-07-13] MEDS: MORPHINE 30 MG TAB **MSIR PO PRN ×3 (00:22→16:43)
[2021-07-13 05:36] VITALS: BP 115/72
[2021-07-13] MEDS: GABAPENTIN 400MG CAP PO SCH ×3 (08:28→20:38)
[2021-07-13] MEDS: OMEPRAZOLE 20MG CAP PO SCH (08:28)
[2021-07-13] MEDS: SUCRALFATE 1 GM TAB PO SCH ×4 (08:28→20:38)
[2021-07-13] MEDS: HEPARIN SOD (PORCINE) 5000UNITS/ML 1ML VIAL/SYRINGE SC SCH ×2 (08:29→20:38)
[2021-07-13 17:03] VITALS: BP 110/60
[2021-07-13] MEDS: QUEtiapine FUMARATE 100 MG TAB PO SCH (20:38)
[2021-07-13] MEDS: traZODone 50 MG TAB PO SCH (20:38)
[2021-07-13] MEDS: DOCUSATE SODIUM 100MG CAPSULE PO PRN (20:38)
[2021-07-14] MEDS: MORPHINE 30 MG TAB **MSIR PO PRN ×3 (00:49→19:40)
[2021-07-14 04:04] VITALS: BP 130/73
[2021-07-14] MEDS: SUCRALFATE 1 GM TAB PO SCH ×4 (07:30→19:40)
[2021-07-14 07:54] LABS: EOS # 0.2 10^3/uL (0.0-0.5); EOS % 4.9 % (0.0-3.0); HEMATOCRIT 32.5 % (36.0-47.0); HEMOGLOBIN 9.7 g/dl (12.0-15.5); LYMPH # 1.7 10^3/uL (1.5-5.0); LYMPH % 45.1 % (24.0-44.0); MEAN CORPUSCULAR HEMOGLOBIN 23.2 pg (27.0-33.0); MEAN CORPUSCULAR HGB CONC 29.8 g/dl (32.0-36.5); MEAN CORPUSCULAR VOLUME 77.6 fl (80.0-96.0); MONO # 0.4 10^3/uL (0.0-0.8); MONO % 11.5 % (2.0-8.0); NEUTROPHILS # 1.4 10^3/uL (1.5-8.5); NEUTROPHILS % 37.2 % (36.0-66.0); PLATELET COUNT, AUTOMATED 379 10^3/uL (150-450); RED BLOOD COUNT 4.19 10^6/uL (4.00-5.40); WHITE BLOOD COUNT 3.8 10^3/uL (4.0-10.0)
[2021-07-14 08:18] LABS: ALBUMIN 2.6 GM/DL (3.2-5.2); ALT/SGPT 64 U/L (12-78); BILIRUBIN,TOTAL 0.3 MG/DL (0.2-1.0); BLOOD UREA NITROGEN 9 MG/DL (7-18); CALCIUM LEVEL 8.9 MG/DL (8.5-10.1); CARBON DIOXIDE LEVEL 30 MEQ/L (21-32); CHLORIDE LEVEL 104 MEQ/L (98-107); CREATININE FOR GFR 0.39 MG/DL (0.55-1.30); GLOMERULAR FILTRATION RATE > 60.0 (>58); GLUCOSE, FASTING 94 MG/DL (70-100); POTASSIUM SERUM 4.1 MEQ/L (3.5-5.1); SODIUM LEVEL 141 MEQ/L (136-145); TOTAL PROTEIN 6.5 GM/DL (6.4-8.2)
[2021-07-14] MEDS: HEPARIN SOD (PORCINE) 5000UNITS/ML 1ML VIAL/SYRINGE SC SCH ×2 (09:00→19:38)
[2021-07-14] MEDS: DOCUSATE SODIUM 100MG CAPSULE PO PRN (10:24)
[2021-07-14] MEDS: GABAPENTIN 400MG CAP PO SCH ×3 (10:24→19:40)
[2021-07-14] MEDS: OMEPRAZOLE 20MG CAP PO SCH (10:24)
[2021-07-14 15:07] LABS: MAGNESIUM LEVEL 1.6 MG/DL (1.7-2.2)
[2021-07-14] MEDS: QUEtiapine FUMARATE 100 MG TAB PO SCH (19:40)
[2021-07-14] MEDS: traZODone 50 MG TAB PO SCH (19:40)
[2021-07-15 04:00] VITALS: BP 111/67
[2021-07-15] MEDS: ACETAMINOPHEN 500 MG TAB PO PRN ×2 (04:17→20:27)
[2021-07-15] MEDS: MORPHINE 30 MG TAB **MSIR PO PRN ×3 (04:18→20:28)
[2021-07-15] MEDS ORDERED: MAGNESIUM OXIDE 400MG TAB (MAG-OX) PO ONE (07:25)
[2021-07-15] MEDS: OMEPRAZOLE 20MG CAP PO SCH (08:35)
[2021-07-15] MEDS: SUCRALFATE 1 GM TAB PO SCH ×4 (08:36→20:28)
[2021-07-15] MEDS: HEPARIN SOD (PORCINE) 5000UNITS/ML 1ML VIAL/SYRINGE SC SCH ×3 (08:36→20:17)
[2021-07-15] MEDS: GABAPENTIN 400MG CAP PO SCH ×3 (08:36→20:27)
[2021-07-15] MEDS: traZODone 50 MG TAB PO SCH (20:27)
[2021-07-15] MEDS: QUEtiapine FUMARATE 100 MG TAB PO SCH (20:27)
[2021-07-16 06:00] VITALS: BP 156/71
[2021-07-16] MEDS: HEPARIN SOD (PORCINE) 5000UNITS/ML 1ML VIAL/SYRINGE SC SCH ×2 (07:56→20:17)
[2021-07-16] MEDS: SUCRALFATE 1 GM TAB PO SCH ×4 (07:56→20:15)
[2021-07-16] MEDS: GABAPENTIN 400MG CAP PO SCH ×3 (07:56→20:15)
[2021-07-16] MEDS: MORPHINE 30 MG TAB **MSIR PO PRN ×2 (07:56→16:05)
[2021-07-16] MEDS: OMEPRAZOLE 20MG CAP PO SCH (07:56)
[2021-07-16 17:00] VITALS: BP 131/82
[2021-07-16] MEDS: QUEtiapine FUMARATE 100 MG TAB PO SCH (20:15)
[2021-07-16] MEDS: ACETAMINOPHEN 500 MG TAB PO PRN (20:15)
[2021-07-16] MEDS: traZODone 50 MG TAB PO SCH (20:15)
[2021-07-17] MEDS: MORPHINE 30 MG TAB **MSIR PO PRN ×3 (01:09→17:25)
[2021-07-17 06:14] VITALS: BP 113/76
[2021-07-17] MEDS: HEPARIN SOD (PORCINE) 5000UNITS/ML 1ML VIAL/SYRINGE SC SCH ×2 (09:00→20:54)
[2021-07-17] MEDS: OMEPRAZOLE 20MG CAP PO SCH (09:07)
[2021-07-17] MEDS: GABAPENTIN 400MG CAP PO SCH ×3 (09:08→20:54)
[2021-07-17] MEDS: SUCRALFATE 1 GM TAB PO SCH ×4 (09:08→20:54)
[2021-07-17] MEDS: QUEtiapine FUMARATE 100 MG TAB PO SCH (20:54)
[2021-07-17] MEDS: traZODone 50 MG TAB PO SCH (20:54)
[2021-07-18] MEDS: MORPHINE 30 MG TAB **MSIR PO PRN ×3 (04:32→20:48)
[2021-07-18 06:00] VITALS: BP 127/79
[2021-07-18] MEDS: HEPARIN SOD (PORCINE) 5000UNITS/ML 1ML VIAL/SYRINGE SC SCH ×2 (09:00→20:48)
[2021-07-18] MEDS: OMEPRAZOLE 20MG CAP PO SCH (09:06)
[2021-07-18] MEDS: SUCRALFATE 1 GM TAB PO SCH ×4 (09:07→20:48)
[2021-07-18] MEDS: ACETAMINOPHEN 500 MG TAB PO PRN (09:07)
[2021-07-18] MEDS: GABAPENTIN 400MG CAP PO SCH ×3 (09:08→20:47)
[2021-07-18] MEDS: ONDANSETRON 4 MG TAB PO PRN ×2 (16:41→23:17)
[2021-07-18] MEDS: QUEtiapine FUMARATE 100 MG TAB PO SCH (20:47)
[2021-07-18] MEDS: traZODone 50 MG TAB PO SCH (20:48)
[2021-07-19] MEDS: MORPHINE 30 MG TAB **MSIR PO PRN ×3 (05:07→21:37)
[2021-07-19 06:00] VITALS: BP 107/71
[2021-07-19] MEDS: SUCRALFATE 1 GM TAB PO SCH ×4 (07:30→20:36)
[2021-07-19] MEDS: HEPARIN SOD (PORCINE) 5000UNITS/ML 1ML VIAL/SYRINGE SC SCH ×2 (09:00→20:36)
[2021-07-19] MEDS: GABAPENTIN 400MG CAP PO SCH ×3 (09:00→20:36)
[2021-07-19] MEDS: OMEPRAZOLE 20MG CAP PO SCH (09:00)
[2021-07-19] MEDS: traZODone 50 MG TAB PO SCH (20:35)
[2021-07-19] MEDS: QUEtiapine FUMARATE 100 MG TAB PO SCH (20:36)
[2021-07-20] MEDS: MORPHINE 30 MG TAB **MSIR PO PRN ×3 (05:49→22:14)
[2021-07-20 05:55] VITALS: BP 129/81
[2021-07-20] MEDS: OMEPRAZOLE 20MG CAP PO SCH (08:11)
[2021-07-20] MEDS: SUCRALFATE 1 GM TAB PO SCH ×4 (08:11→22:14)
[2021-07-20] MEDS: GABAPENTIN 400MG CAP PO SCH ×3 (08:11→22:12)
[2021-07-20] MEDS: HEPARIN SOD (PORCINE) 5000UNITS/ML 1ML VIAL/SYRINGE SC SCH ×2 (08:12→22:11)
[2021-07-20] MEDS ORDERED: ANUSOL HC CREAM 30GM TOP PRN (17:25)
[2021-07-20] MEDS: clonazePAM 0.5 MG TAB PO PRN (18:54)
[2021-07-20] MEDS: QUEtiapine FUMARATE 100 MG TAB PO SCH (22:12)
[2021-07-20] MEDS: traZODone 50 MG TAB PO SCH (22:14)
[2021-07-21 06:00] VITALS: BP 105/69
[2021-07-21] MEDS: SUCRALFATE 1 GM TAB PO SCH ×4 (07:53→22:07)
[2021-07-21] MEDS: OMEPRAZOLE 20MG CAP PO SCH (07:54)
[2021-07-21] MEDS: MORPHINE 30 MG TAB **MSIR PO PRN ×3 (07:54→22:09)
[2021-07-21] MEDS: GABAPENTIN 400MG CAP PO SCH ×3 (07:54→22:08)
[2021-07-21] MEDS: HEPARIN SOD (PORCINE) 5000UNITS/ML 1ML VIAL/SYRINGE SC SCH ×2 (09:00→20:00)
[2021-07-21] MEDS: clonazePAM 0.5 MG TAB PO PRN (12:48)
[2021-07-21] MEDS ORDERED: MSIR30TA PO (13:32)
[2021-07-21] MEDS: QUEtiapine FUMARATE 100 MG TAB PO SCH (22:07)
[2021-07-21] MEDS: traZODone 50 MG TAB PO SCH (22:07)
[2021-07-22 06:00] VITALS: BP 109/72
[2021-07-22] MEDS: MORPHINE 30 MG TAB **MSIR PO PRN ×3 (06:16→22:14)
[2021-07-22] MEDS: HEPARIN SOD (PORCINE) 5000UNITS/ML 1ML VIAL/SYRINGE SC SCH ×2 (09:00→20:05)
[2021-07-22] MEDS: GABAPENTIN 400MG CAP PO SCH ×3 (09:23→20:04)
[2021-07-22] MEDS: OMEPRAZOLE 20MG CAP PO SCH (09:23)
[2021-07-22] MEDS: SUCRALFATE 1 GM TAB PO SCH ×4 (09:23→20:04)
[2021-07-22] MEDS: hydrOXYzine 25 MG TAB PO PRN ×2 (12:26→18:53)
[2021-07-22] MEDS: clonazePAM 0.5 MG TAB PO PRN (12:26)
[2021-07-22] MEDS: QUEtiapine FUMARATE 100 MG TAB PO SCH (20:04)
[2021-07-22] MEDS: traZODone 50 MG TAB PO SCH (20:04)
[2021-07-23] MEDS: hydrOXYzine 25 MG TAB PO PRN ×2 (00:59→12:19)
[2021-07-23] MEDS: clonazePAM 0.5 MG TAB PO PRN (02:51)
[2021-07-23 06:44] VITALS: BP 108/70
[2021-07-23] MEDS: OMEPRAZOLE 20MG CAP PO SCH (08:38)
[2021-07-23] MEDS: SUCRALFATE 1 GM TAB PO SCH ×2 (08:38→12:19)
[2021-07-23] MEDS: GABAPENTIN 400MG CAP PO SCH (08:38)
[2021-07-23] MEDS: MORPHINE 30 MG TAB **MSIR PO PRN (08:39)
[2021-07-23] MEDS: HEPARIN SOD (PORCINE) 5000UNITS/ML 1ML VIAL/SYRINGE SC SCH (08:39)
[2021-07-23] MEDS ORDERED: MORP15TA2 PO (11:10)
== END 2021-07-23 12:45 | disposition home health service (06) | DRG 535 ==
LOC: M ED 10:41 → M ED INP 16:19 → M 4MAIN 07-06 22:13 → M MS5PR 07-16 17:05
PROVIDERS: ADMIT Internal Medicine; ATTEND Family Medicine
PROC: XW033E5 Introduction of Remdesivir Anti-infective into Peripheral Vein, Percutaneous Approach, New Technology Group 5 (ICD-10-PCS; principal; 2021-07-05)
DX: S72.114A Nondisplaced fracture of greater trochanter of right femur, initial encounter for closed fracture (principal); U07.1 COVID-19; R45.851 Suicidal ideations; W18.30XA Fall on same level, unspecified, initial encounter; Y92.9 Unspecified place or not applicable; Y93.89 Activity, other specified; Y99.8 Other external cause status; F31.9 Bipolar disorder, unspecified; B18.2 Chronic viral hepatitis C; Z90.49 Acquired absence of other specified parts of digestive tract; Z98.84 Bariatric surgery status; F17.200 Nicotine dependence, unspecified, uncomplicated; F10.10 Alcohol abuse, uncomplicated; F14.10 Cocaine abuse, uncomplicated; R74.01 Elevation of levels of liver transaminase levels; F15.10 Other stimulant abuse, uncomplicated; K59.00 Constipation, unspecified; G89.29 Other chronic pain; Z79.899 Other long term (current) drug therapy; Z88.5 Allergy status to narcotic agent; Z88.8 Allergy status to other drugs, medicaments and biological substances; Z91.041 Radiographic dye allergy status; Z88.6 Allergy status to analgesic agent; K21.9 Gastro-esophageal reflux disease without esophagitis; Z59.01 Sheltered homelessness; Z63.0 Problems in relationship with spouse or partner

== ENCOUNTER 2021-10-21 03:22 | Emergency (ER) | payer OTHER, MEDICAID ==
[~2021-10-21] VITALS: Ht 170.2 cm; Wt 51.8 kg
[~2021-10-21 03:22] MED LIST changes: +MORP15TA2 PO; +MSIR30TA PO
[2021-10-21 04:44] LABS: VENOUS BASE EXCESS 1.6 (-2.0-2.0); VENOUS HCO3 27.6 MEQ/L (23.0-27.0); VENOUS O2 SATURATION 84.4 % (60.0-80.0); VENOUS PARTIAL PRESSURE CO2 49.8 mmHg (38.0-50.0); VENOUS PH 7.361 UNITS (7.330-7.430); VENOUS STANDARD HCO3 25.6 MEQ/L; VENOUS TOTAL CO2 29.1 MEQ/L (24.0-28.0)
[2021-10-21 04:47] LABS: HEMATOCRIT 31.7 % (36.0-47.0); HEMOGLOBIN 9.9 g/dl (12.0-15.5); MEAN CORPUSCULAR HEMOGLOBIN 23.9 pg (27.0-33.0); MEAN CORPUSCULAR HGB CONC 31.2 g/dl (32.0-36.5); MEAN CORPUSCULAR VOLUME 76.4 fl (80.0-96.0); PLATELET COUNT, AUTOMATED 358 10^3/uL (150-450); RED BLOOD COUNT 4.15 10^6/uL (4.00-5.40); WHITE BLOOD COUNT 5.3 10^3/uL (4.0-10.0)
[2021-10-21 05:11] LABS: ERYTHROCYTE SEDIMENTATION RATE 13 mm/hr (0-20)
[2021-10-21 05:14] LABS: HCG, SERUM QUALITATIVE NEGATIVE (NEGATIVE)
[2021-10-21 05:22] LABS: OSMOLALITY SERUM 280 MOSM/KG (275-295)
[2021-10-21 05:23] LABS: ACETAMINOPHEN LEVEL 2.2 UG/ML (10.0-30.0); ALBUMIN 2.8 GM/DL (3.2-5.2); ALT/SGPT 21 U/L (12-78); BILIRUBIN,DIRECT 0.2 MG/DL (0.0-0.2); BILIRUBIN,TOTAL 0.3 MG/DL (0.2-1.0); BLOOD UREA NITROGEN 9 MG/DL (7-18); C REACTIVE PROTEIN QUANTITATIV 0.41 MG/DL (0.00-0.30); CALCIUM LEVEL 8.6 MG/DL (8.5-10.1); CARBON DIOXIDE LEVEL 28 MEQ/L (21-32); CHLORIDE LEVEL 106 MEQ/L (98-107); CREATININE FOR GFR 0.61 MG/DL (0.55-1.30); ETHYL ALCOHOL (ETHANOL) < 0.003 % (0.000-0.010); GLOMERULAR FILTRATION RATE > 60.0 (>58); GLUCOSE, FASTING 76 MG/DL (70-100); POTASSIUM SERUM 3.4 MEQ/L (3.5-5.1); SALICYLATE LEVEL 3.2 MG/DL (5.0-30.0); SODIUM LEVEL 142 MEQ/L (136-145); THYROID STIMULATING HORMONE 0.314 uIU/ML (0.358-3.740); TOTAL PROTEIN 6.6 GM/DL (6.4-8.2)
[2021-10-21 05:26] LABS: ANISOCYTOSIS 2+; ATYPICAL LYMPH 2 % (0-5); LYMPHOCYTES 43 % (16-44); MICROCYTOSIS 1+; MONOCYTES 11 % (0-5); NEUTROPHILS 44 % (28-66); PLATELET ESTIMATE NORMAL (NORMAL)
[2021-10-21 05:27] LABS: OVALOCYTES 2+
[2021-10-21] MEDS ORDERED: QUET100T2 PO (11:29)
[2021-10-21] MEDS ORDERED: SUCR1TAB56 PO (11:29)
[2021-10-21] MEDS ORDERED: OMEP40CA5 PO (11:29)
[2021-10-21 11:30] VITALS: BP 149/85
== END 2021-10-21 11:35 | disposition home or self-care (01) ==
LOC: M ED 03:22 → EDBD 03:22 → M ED 11:35
DX: T40.601A Poisoning by unspecified narcotics, accidental (unintentional), initial encounter (principal); F31.9 Bipolar disorder, unspecified; B19.20 Unspecified viral hepatitis C without hepatic coma; F15.10 Other stimulant abuse, uncomplicated; Z98.84 Bariatric surgery status; Z79.899 Other long term (current) drug therapy; Z88.5 Allergy status to narcotic agent; Z88.8 Allergy status to other drugs, medicaments and biological substances; Z91.041 Radiographic dye allergy status; Z91.018 Allergy to other foods; F17.210 Nicotine dependence, cigarettes, uncomplicated

== ENCOUNTER 2021-11-14 17:57 | Emergency (ER) | payer OTHER, MEDICAID | END 2021-11-14 18:38 | disposition left against medical advice (07) | LOC: EDBD 17:57 → M ED 17:57 | DX: Z53.29 Procedure and treatment not carried out because of patient's decision for other reasons (principal) ==

== ENCOUNTER 2022-05-01 11:55 | Emergency (ER) | payer OTHER, MEDICAID ==
[~2022-05-01] VITALS: Ht 170.2 cm; Wt 44.1 kg
[2022-05-01 12:14] VITALS: BP 156/83
[2022-05-01] MEDS ORDERED: ACETAMINOPHEN 500 MG TAB PO ONE (12:30)
== END 2022-05-01 13:05 | disposition left against medical advice (07) ==
LOC: EDBD 11:55 → M ED 11:55 → EDUNIT# 11:55 → M ED 13:05
DX: R07.9 Chest pain, unspecified (principal); Z53.20 Procedure and treatment not carried out because of patient's decision for unspecified reasons; Z98.84 Bariatric surgery status; F17.200 Nicotine dependence, unspecified, uncomplicated; Z88.5 Allergy status to narcotic agent; Z88.6 Allergy status to analgesic agent; Z91.041 Radiographic dye allergy status; Z88.8 Allergy status to other drugs, medicaments and biological substances; Z79.899 Other long term (current) drug therapy

== ENCOUNTER 2022-06-28 08:13 | Emergency (ER) | payer OTHER, MEDICAID ==
[~2022-06-28] VITALS: Ht 170.2 cm; Wt 40.9 kg
[2022-06-28 09:43] LABS: BASO # 0.1 10^3/uL (0.0-0.2); EOS # 0.1 10^3/uL (0.0-0.5); EOS % 2.1 % (0.0-3.0); HEMATOCRIT 27.2 % (36.0-47.0); HEMOGLOBIN 7.7 g/dl (12.0-15.5); LYMPH # 1.8 10^3/uL (1.5-5.0); LYMPH % 31.8 % (24.0-44.0); MEAN CORPUSCULAR HEMOGLOBIN 19.2 pg (27.0-33.0); MEAN CORPUSCULAR HGB CONC 28.3 g/dl (32.0-36.5); MEAN CORPUSCULAR VOLUME 67.7 fl (80.0-96.0); MONO # 0.6 10^3/uL (0.0-0.8); MONO % 10.5 % (2.0-8.0); NEUTROPHILS # 3.1 10^3/uL (1.5-8.5); NEUTROPHILS % 54.4 % (36.0-66.0); PLATELET COUNT, AUTOMATED 419 10^3/uL (150-450); RED BLOOD COUNT 4.02 10^6/uL (4.00-5.40); WHITE BLOOD COUNT 5.7 10^3/uL (4.0-10.0)
[2022-06-28 10:01] VITALS: BP 147/82
[2022-06-28 10:11] LABS: ETHYL ALCOHOL (ETHANOL) 0.003 % (0.000-0.010)
[2022-06-28 10:13] LABS: ALBUMIN 2.5 G/DL (3.2-5.2); ALKALINE PHOSPHATASE 107 U/L (46-116); ALT/SGPT 18 U/L (7.0-40); AST/SGOT 31 U/L (<34); BILIRUBIN,TOTAL 0.2 MG/DL (0.3-1.2); BLOOD UREA NITROGEN 11 MG/DL (9-23); CARBON DIOXIDE LEVEL 29 MMOL/L (20-31); CHLORIDE LEVEL 103 MMOL/L (98-107); CREATININE FOR GFR 0.37 MG/DL (0.55-1.30); GLOMERULAR FILTRATION RATE > 60.0 (>58); GLUCOSE, FASTING 84 MG/DL (60-100); POTASSIUM SERUM 4.5 MMOL/L (3.5-5.1); SODIUM LEVEL 137 MMOL/L (136-145); TOTAL PROTEIN 5.8 G/DL (5.7-8.2)
== END 2022-06-28 13:15 | disposition left against medical advice (07) ==
LOC: M ED 08:13 → EDBD 08:13 → M ED 13:15
DX: M25.551 Pain in right hip (principal); D64.9 Anemia, unspecified; F17.200 Nicotine dependence, unspecified, uncomplicated; F10.10 Alcohol abuse, uncomplicated; F31.9 Bipolar disorder, unspecified; Z88.6 Allergy status to analgesic agent; Z88.5 Allergy status to narcotic agent; Z88.8 Allergy status to other drugs, medicaments and biological substances; Z91.041 Radiographic dye allergy status; Z53.9 Procedure and treatment not carried out, unspecified reason

== ENCOUNTER 2022-08-05 12:19 | Emergency (ER) | payer OTHER, MEDICAID | END 2022-08-05 14:28 | disposition left against medical advice (07) | LOC: M ED 12:19 | DX: R41.82 Altered mental status, unspecified (principal); Z53.20 Procedure and treatment not carried out because of patient's decision for unspecified reasons; F19.10 Other psychoactive substance abuse, uncomplicated; F31.9 Bipolar disorder, unspecified; B19.20 Unspecified viral hepatitis C without hepatic coma; Z98.84 Bariatric surgery status; Z90.49 Acquired absence of other specified parts of digestive tract; Z90.89 Acquired absence of other organs; F17.200 Nicotine dependence, unspecified, uncomplicated; Z88.8 Allergy status to other drugs, medicaments and biological substances; Z88.6 Allergy status to analgesic agent; Z91.041 Radiographic dye allergy status ==

== ENCOUNTER 2022-08-29 12:35 | Emergency (ER) | payer MEDICAID ==
[~2022-08-29] VITALS: Ht 170.2 cm; Wt 47.6 kg
[2022-08-29 12:36] VITALS: BP 172/108
[2022-08-30] MEDS ORDERED: NYST-38 PO (00:52)
== END 2022-08-29 15:03 | disposition left against medical advice (07) ==
LOC: M ED 12:35
DX: Z53.21 Procedure and treatment not carried out due to patient leaving prior to being seen by health care provider (principal)

== ENCOUNTER 2022-08-29 18:33 | Emergency (ER) | payer MEDICAID ==
[~2022-08-29] VITALS: Ht 170.2 cm; Wt 44.9 kg
[2022-08-29] MEDS ORDERED: HYDROMORPHONE HCL 0.5 MG/ 0.5 ML SYRINGE IM ONE (22:20)
[2022-08-29] MEDS ORDERED: oxyCODONE 5MG TAB PO ONE (22:50)
[2022-08-30] MEDS ORDERED: HYDROMORPHONE HCL 0.5 MG/ 0.5 ML SYRINGE IV ONE (00:15)
[2022-08-30] MEDS ORDERED: OXYCODONE/APAP 5MG/325MG(HOME DOSE PACK) PO ONE (00:15)
[2022-08-30 00:49] VITALS: BP 164/95
[2022-08-30] MEDS ORDERED: NYST-38 PO (00:52)
== END 2022-08-30 01:03 | disposition home or self-care (01) ==
LOC: M ED 18:33
DX: S52.352A Displaced comminuted fracture of shaft of radius, left arm, initial encounter for closed fracture (principal); W19.XXXA Unspecified fall, initial encounter; Y92.410 Unspecified street and highway as the place of occurrence of the external cause; Y93.01 Activity, walking, marching and hiking; Y99.8 Other external cause status; F17.200 Nicotine dependence, unspecified, uncomplicated; Z88.8 Allergy status to other drugs, medicaments and biological substances; Z88.6 Allergy status to analgesic agent
CPT/HCPCS: 96372; 96374; 99284; J1170

== ENCOUNTER 2022-09-02 19:55 | Inpatient (IN) | payer MEDICAID ==
[~2022-09-02] VITALS: Ht 170.2 cm; Wt 39.5 kg
[~2022-09-02 19:55] MED LIST changes: +NYST-38 PO
[2022-09-02] MEDS ORDERED: diphenhydrAMINE 50MG/ML VIAL IM ONE (21:45)
[2022-09-02] MEDS ORDERED: HALOPERIDOL 5MG/ML 1ML VIAL IM ONE (21:45)
[2022-09-02] MEDS ORDERED: MIDAZOLAM INJ 2MG/2ML VIAL IM ONE (21:45)
[2022-09-02] MEDS ORDERED: HOME MED LIST COMPLETE! XX SCH (21:50)
[2022-09-02 22:03] LABS: HEMATOCRIT 25.4 % (36.0-47.0); HEMOGLOBIN 7.1 g/dl (12.0-15.5); MEAN CORPUSCULAR HEMOGLOBIN 18.4 pg (27.0-33.0); MEAN CORPUSCULAR VOLUME 65.8 fl (80.0-96.0); PLATELET COUNT, AUTOMATED 535 10^3/uL (150-450); RED BLOOD COUNT 3.86 10^6/uL (4.00-5.40); WHITE BLOOD COUNT 9.2 10^3/uL (4.0-10.0)
[2022-09-02 22:27] LABS: ETHYL ALCOHOL (ETHANOL) 0.005 % (0.000-0.010)
[2022-09-02 22:29] LABS: ACETAMINOPHEN LEVEL < 2.0 UG/ML (10.0-20.0); ALBUMIN 2.9 G/DL (3.2-5.2); ALKALINE PHOSPHATASE 146 U/L (46-116); ALT/SGPT 24 U/L (7.0-40); AST/SGOT 35 U/L (<34); BILIRUBIN,DIRECT 0.1 MG/DL (<0.4); BILIRUBIN,TOTAL 0.2 MG/DL (0.3-1.2); BLOOD UREA NITROGEN 11 MG/DL (9-23); CARBON DIOXIDE LEVEL 27 MMOL/L (20-31); CHLORIDE LEVEL 104 MMOL/L (98-107); CREATININE FOR GFR 0.35 MG/DL (0.55-1.30); GLOMERULAR FILTRATION RATE > 60.0 (>58); GLUCOSE, FASTING 62 MG/DL (60-100); POTASSIUM SERUM 4.3 MMOL/L (3.5-5.1); SALICYLATE LEVEL < 3.0 MG/DL (<30); SODIUM LEVEL 136 MMOL/L (136-145); TOTAL PROTEIN 6.7 G/DL (5.7-8.2)
[2022-09-02 22:31] LABS: THYROID STIMULATING HORMONE 0.288 uIU/ML (0.55-4.78)
[2022-09-02 22:40] LABS: AMPHETAMINES LEVEL URINE NEGATIVE (NEGATIVE); BARBITURATES URINE NEGATIVE (NEGATIVE); BENZODIAZEPINES URINE NEGATIVE (NEGATIVE); CANNABINOIDS URINE NEGATIVE (NEGATIVE); METHADONE URINE NEGATIVE (NEGATIVE); PHENCYCLIDINE URINE NEGATIVE (NEGATIVE)
[2022-09-02 22:43] LABS: COCAINE METABOLITE URINE POSITIVE (NEGATIVE); OPIATES URINE POSITIVE (NEGATIVE)
[2022-09-05] MEDS ORDERED: NS 1,000 ML IV ONE (15:25)
[2022-09-05 16:13] LABS: ALBUMIN 3.1 G/DL (3.2-5.2); ALKALINE PHOSPHATASE 157 U/L (46-116); ALT/SGPT 22 U/L (7.0-40); AST/SGOT 34 U/L (<34); BILIRUBIN,DIRECT 0.2 MG/DL (<0.4); BILIRUBIN,TOTAL 0.5 MG/DL (0.3-1.2); BLOOD UREA NITROGEN 15 MG/DL (9-23); CALCIUM LEVEL 8.4 MG/DL (8.5-10.1); CARBON DIOXIDE LEVEL 24 MMOL/L (20-31); CHLORIDE LEVEL 108 MMOL/L (98-107); CK-MB VALUE MASS < 1.0 NG/ML (<3.6); CPK CREATINE PHOSPHOKINASE 45 U/L (34-145); CREATININE FOR GFR 0.33 MG/DL (0.55-1.30); GLOMERULAR FILTRATION RATE > 60.0 (>58); GLUCOSE, FASTING 91 MG/DL (60-100); MB/CK RELATIVE INDEX 2.22 (< OR =4); POTASSIUM SERUM 4.6 MMOL/L (3.5-5.1); SODIUM LEVEL 134 MMOL/L (136-145); THYROID STIMULATING HORMONE 0.325 uIU/ML (0.55-4.78)
[2022-09-05 16:15] LABS: RSV AMPLIFICATION NEGATIVE (NEGATIVE)
[2022-09-05 16:29] LABS: BASO # 0.1 10^3/uL (0.0-0.2); BASO % 0.6 % (0.0-1.0); EOS # 0.1 10^3/uL (0.0-0.5); EOS % 0.5 % (0.0-3.0); HEMATOCRIT 33.4 % (36.0-47.0); HEMOGLOBIN 9.2 g/dl (12.0-15.5); LYMPH # 2.6 10^3/uL (1.5-5.0); LYMPH % 25.1 % (24.0-44.0); MEAN CORPUSCULAR HEMOGLOBIN 18.1 pg (27.0-33.0); MEAN CORPUSCULAR HGB CONC 27.5 g/dl (32.0-36.5); MEAN CORPUSCULAR VOLUME 65.9 fl (80.0-96.0); MONO % 21.6 % (2.0-8.0); NEUTROPHILS # 5.4 10^3/uL (1.5-8.5); NEUTROPHILS % 51.9 % (36.0-66.0); PLATELET COUNT, AUTOMATED 803 10^3/uL (150-450); RED BLOOD COUNT 5.07 10^6/uL (4.00-5.40); WHITE BLOOD COUNT 10.3 10^3/uL (4.0-10.0)
[2022-09-05] MEDS ORDERED: LACTULOSE 20GM/30ML SYRUP UDC PO ONE (16:35)
[2022-09-05 17:15] LABS: MONO # 2.2 10^3/uL (0.0-0.8)
[2022-09-05 17:35] LABS: PERCENT SATURATION 2.4 % (13.2-45.0)
[2022-09-05] MEDS ORDERED: MOM 30ML SUSPENSION UDC PO PRN (17:50)
[2022-09-05] MEDS ORDERED: SENOKOT S TAB PO PRN (17:50)
[2022-09-05] MEDS ORDERED: LORazepam 2 MG TAB PO PRN (17:50)
[2022-09-05 18:22] LABS: TOTAL PROTEIN 7.4 G/DL (5.7-8.2)
[2022-09-05 19:01] VITALS: BP 167/89
[2022-09-05] MEDS: SUCRALFATE 1 GM TAB PO SCH (21:01)
[2022-09-05 21:10] VITALS: BP 167/90
[2022-09-05 21:45] LABS: AMPHETAMINES LEVEL URINE NEGATIVE (NEGATIVE); BARBITURATES URINE NEGATIVE (NEGATIVE); BENZODIAZEPINES URINE NEGATIVE (NEGATIVE); COCAINE METABOLITE URINE NEGATIVE (NEGATIVE); METHADONE URINE NEGATIVE (NEGATIVE); OPIATES URINE NEGATIVE (NEGATIVE); PHENCYCLIDINE URINE NEGATIVE (NEGATIVE)
[2022-09-05 21:46] LABS: CANNABINOIDS URINE NEGATIVE (NEGATIVE)
[2022-09-05] MEDS: oxyCODONE 5MG TAB PO PRN (22:39)
[2022-09-06] VITALS (8 sets, daily range): BP systolic 127–178; BP diastolic 85–96
[2022-09-06] MEDS ORDERED: FOSFOMYCIN TROMETHAMINE 3 GM POWDER PACKET (MONUROL) PO ONE (01:00)
[2022-09-06] MEDS ORDERED: diphenhydrAMINE 50MG CAP PO ONE (01:00)
[2022-09-06] MEDS ORDERED: MORPHINE 2 MG/ML 1ML VIAL IV ONE (01:00)
[2022-09-06 06:49] LABS: HEMATOCRIT 27.9 % (36.0-47.0); HEMOGLOBIN 7.7 g/dl (12.0-15.5); MEAN CORPUSCULAR HEMOGLOBIN 18.1 pg (27.0-33.0); MEAN CORPUSCULAR HGB CONC 27.6 g/dl (32.0-36.5); MEAN CORPUSCULAR VOLUME 65.5 fl (80.0-96.0); PLATELET COUNT, AUTOMATED 722 10^3/uL (150-450); RED BLOOD COUNT 4.26 10^6/uL (4.00-5.40); WHITE BLOOD COUNT 9.2 10^3/uL (4.0-10.0)
[2022-09-06 07:07] LABS: THYROID STIMULATING HORMONE 0.659 uIU/ML (0.55-4.78); THYROXINE (T4) 15.6 UG/DL (4.5-10.9)
[2022-09-06 07:08] LABS: FREE THYROXINE INDEX 4.5 % (1.3-4.8); T UPTAKE 28.6 % (22.5-37.0)
[2022-09-06 07:15] LABS: BLOOD UREA NITROGEN 8 MG/DL (9-23); CALCIUM LEVEL 8.1 MG/DL (8.5-10.1); CARBON DIOXIDE LEVEL 23 MMOL/L (20-31); CHLORIDE LEVEL 105 MMOL/L (98-107); CREATININE FOR GFR 0.31 MG/DL (0.55-1.30); GLOMERULAR FILTRATION RATE > 60.0 (>58); GLUCOSE, FASTING 85 MG/DL (60-100); POTASSIUM SERUM 4.4 MMOL/L (3.5-5.1); SODIUM LEVEL 136 MMOL/L (136-145)
[2022-09-06] MEDS: FERROUS SULFATE 325MG TAB PO SCH (08:37)
[2022-09-06] MEDS: SUCRALFATE 1 GM TAB PO SCH ×4 (08:37→21:59)
[2022-09-06] MEDS: ASCORBIC ACID 500 MG TAB PO SCH (08:38)
[2022-09-06] MEDS: MULTIVITAMINS/MINERALS THERAP 1 TAB PO SCH (08:38)
[2022-09-06] MEDS: PANTOPRAZOLE 40MG TAB (PROTONIX) PO SCH (08:38)
[2022-09-06] MEDS: FOLIC ACID 1MG TAB PO SCH (08:38)
[2022-09-06] MEDS: oxyCODONE 5MG TAB PO PRN ×3 (08:38→22:34)
[2022-09-06] MEDS: THIAMINE 100 MG TAB PO SCH (08:38)
[2022-09-06] MEDS ORDERED: IRON SUCROSE 200 MG in NS 100 ML IV ONE (21:00)
[2022-09-06] MEDS: HEPARIN SOD (PORCINE) 5000UNITS/ML 1ML VIAL/SYRINGE SQ SCH (22:00)
[2022-09-06] MEDS ORDERED: diphenhydrAMINE 25MG CAP PO ONE (23:00)
[2022-09-06] MEDS ORDERED: LORazepam 1 MG TAB PO ONE (23:00)
[2022-09-07 04:30] VITALS: BP 147/94
[2022-09-07 04:55] VITALS: BP 136/83
[2022-09-07] MEDS: HEPARIN SOD (PORCINE) 5000UNITS/ML 1ML VIAL/SYRINGE SQ SCH ×2 (05:00→14:00)
[2022-09-07] MEDS ORDERED: NICOTINE 14 MG/24 HR TRANSDERMAL TD PRN (05:15)
[2022-09-07] MEDS ORDERED: ONDANSETRON 4MG 2ML VIAL IV PRN (05:15)
[2022-09-07] MEDS ORDERED: ONDANSETRON 4MG ORAL DISINTEGRATING TAB PO PRN (05:15)
[2022-09-07 05:31] VITALS: BP 125/88
[2022-09-07 07:01] LABS: MEAN CORPUSCULAR HEMOGLOBIN 18.3 pg (27.0-33.0); MEAN CORPUSCULAR HGB CONC 28.6 g/dl (32.0-36.5); MEAN CORPUSCULAR VOLUME 64.2 fl (80.0-96.0); PLATELET COUNT, AUTOMATED 692 10^3/uL (150-450); RED BLOOD COUNT 4.36 10^6/uL (4.00-5.40); WHITE BLOOD COUNT 8.6 10^3/uL (4.0-10.0)
[2022-09-07 07:04] VITALS: BP 139/88
[2022-09-07] MEDS ORDERED: LIDOCAINE 1% MDV 20ML VIAL SC ONE (07:20)
[2022-09-07 07:23] LABS: BLOOD UREA NITROGEN 12 MG/DL (9-23); CALCIUM LEVEL 8.1 MG/DL (8.5-10.1); CARBON DIOXIDE LEVEL 26 MMOL/L (20-31); CHLORIDE LEVEL 98 MMOL/L (98-107); CREATININE FOR GFR 0.34 MG/DL (0.55-1.30); GLOMERULAR FILTRATION RATE > 60.0 (>58); GLUCOSE, FASTING 85 MG/DL (60-100); MAGNESIUM LEVEL 1.6 MG/DL (1.8-2.4); PHOSPHORUS LEVEL 4.2 MG/DL (2.5-4.9); POTASSIUM SERUM 4.9 MMOL/L (3.5-5.1); SODIUM LEVEL 131 MMOL/L (136-145)
[2022-09-07] MEDS: SUCRALFATE 1 GM TAB PO SCH ×2 (07:30→11:59)
[2022-09-07] MEDS ORDERED: CALCIUM/VITAMIN D 500 MG TAB PO SCH (09:00)
[2022-09-07] MEDS: MAG SULF 1GM/100ML (MAG RUN) 1 GM in IV 1 EA IV SCH ×2 (10:23→11:38)
[2022-09-07] MEDS ORDERED: LACTULOSE 20GM/30ML SYRUP UDC PR ONE (11:20)
[2022-09-07] MEDS: PANTOPRAZOLE 40MG TAB (PROTONIX) PO SCH (11:34)
[2022-09-07] MEDS: FERROUS SULFATE 325MG TAB PO SCH (11:34)
[2022-09-07] MEDS: THIAMINE 100 MG TAB PO SCH (11:34)
[2022-09-07] MEDS: ASCORBIC ACID 500 MG TAB PO SCH (11:35)
[2022-09-07] MEDS: FOLIC ACID 1MG TAB PO SCH (11:35)
[2022-09-07] MEDS: MULTIVITAMINS/MINERALS THERAP 1 TAB PO SCH (11:35)
[2022-09-07 11:47] VITALS: BP 122/90
[2022-09-07] MEDS ORDERED: LACTULOSE 20GM/30ML SYRUP UDC PO SCH (12:00)
[2022-09-07] MEDS ORDERED: NS 1,000 ML IV SCH (13:20)
[2022-09-07 13:38] LABS: TOTAL 25(OH) VITAMIN D 23.7 NG/ML (20.0-100.0)
[2022-09-07] MEDS ORDERED: MIRTAZAPINE 7.5MG PER 1/2 TABLET PO SCH (21:00)
== END 2022-09-07 15:02 | disposition left against medical advice (07) | DRG 52 ==
LOC: M ED 19:55 → M ED INP 09-05 16:32 → M MSPAV 09-05 19:10
PROVIDERS: ADMIT General Practice; ATTEND Internal Medicine
PROC: 0PSJXZZ Reposition Left Radius, External Approach (ICD-10-PCS; principal; 2022-09-07)
PROC: 2W3DX2Z Immobilization of Left Lower Arm using Cast (ICD-10-PCS; 2022-09-07)
DX: G93.41 Metabolic encephalopathy (principal); R45.851 Suicidal ideations; E43 Unspecified severe protein-calorie malnutrition; S52.502A Unspecified fracture of the lower end of left radius, initial encounter for closed fracture; F31.9 Bipolar disorder, unspecified; B18.2 Chronic viral hepatitis C; R74.01 Elevation of levels of liver transaminase levels; Z86.16 Personal history of COVID-19; F17.210 Nicotine dependence, cigarettes, uncomplicated; K59.09 Other constipation; E03.9 Hypothyroidism, unspecified; D63.8 Anemia in other chronic diseases classified elsewhere; K21.9 Gastro-esophageal reflux disease without esophagitis; F11.90 Opioid use, unspecified, uncomplicated; E87.1 Hypo-osmolality and hyponatremia; E72.20 Disorder of urea cycle metabolism, unspecified; K76.0 Fatty (change of) liver, not elsewhere classified; R64 Cachexia; E05.90 Thyrotoxicosis, unspecified without thyrotoxic crisis or storm; F41.9 Anxiety disorder, unspecified; Z59.00 Homelessness unspecified; F10.10 Alcohol abuse, uncomplicated; Z90.49 Acquired absence of other specified parts of digestive tract; Z68.1 Body mass index [BMI] 19.9 or less, adult; Z98.84 Bariatric surgery status; Z91.041 Radiographic dye allergy status; Z88.5 Allergy status to narcotic agent; Z88.6 Allergy status to analgesic agent; Z88.8 Allergy status to other drugs, medicaments and biological substances; Z20.822 Contact with and (suspected) exposure to COVID-19; X58.XXXA Exposure to other specified factors, initial encounter; Y92.9 Unspecified place or not applicable

== ENCOUNTER 2022-09-12 20:32 | Emergency (ER) | payer MEDICAID ==
[~2022-09-12] VITALS: Ht 170.2 cm; Wt 44.7 kg
[2022-09-12 20:33] VITALS: BP 134/76
== END 2022-09-12 21:13 | disposition left against medical advice (07) ==
LOC: M ED 20:32
DX: Z53.21 Procedure and treatment not carried out due to patient leaving prior to being seen by health care provider (principal)

== ENCOUNTER → 2022-10-06 | Outpatient (CLI) | payer OTHER, MEDICAID ==
[~2022-10-06] MED LIST changes: +MAGN400T2 PO; +SENN-111 PO; -SENN18TA PO
== END ==
LOC: M SOG 14:24
PROVIDERS: ATTEND Physician Assistant
DX: M25.532 Pain in left wrist (principal); S52.502A Unspecified fracture of the lower end of left radius, initial encounter for closed fracture; S52.615A Nondisplaced fracture of left ulna styloid process, initial encounter for closed fracture; X58.XXXA Exposure to other specified factors, initial encounter; Y92.9 Unspecified place or not applicable; Y93.9 Activity, unspecified; Y99.9 Unspecified external cause status

== ENCOUNTER 2022-10-28 21:38 | Emergency (ER) | payer MEDICAID, OTHER ==
[~2022-10-28] VITALS: Ht 170.2 cm; Wt 43.3 kg
[~2022-10-28 21:38] MED LIST changes: -MAGN400T2 PO; -SENN-111 PO; +SENN18TA PO
[2022-10-29] VITALS: BP 121/69
[2022-10-29] MEDS ORDERED: ONDANSETRON 4MG ORAL DISINTEGRATING TAB PO ONE (03:00)
[2022-10-29 04:05] LABS: BASO # 0.1 10^3/uL (0.0-0.2); EOS # 0.1 10^3/uL (0.0-0.5); EOS % 1.2 % (0.0-3.0); HEMATOCRIT 27.8 % (36.0-47.0); HEMOGLOBIN 7.8 g/dl (12.0-15.5); LYMPH # 1.8 10^3/uL (1.5-5.0); LYMPH % 26.3 % (24.0-44.0); MEAN CORPUSCULAR HEMOGLOBIN 19.6 pg (27.0-33.0); MEAN CORPUSCULAR HGB CONC 28.1 g/dl (32.0-36.5); MONO # 0.4 10^3/uL (0.0-0.8); MONO % 6.1 % (2.0-8.0); NEUTROPHILS # 4.5 10^3/uL (1.5-8.5); NEUTROPHILS % 65.1 % (36.0-66.0); PLATELET COUNT, AUTOMATED 464 10^3/uL (150-450); RED BLOOD COUNT 3.97 10^6/uL (4.00-5.40); WHITE BLOOD COUNT 6.9 10^3/uL (4.0-10.0)
[2022-10-29 04:33] LABS: LIPASE 36 U/L (12-53)
[2022-10-29 04:35] LABS: ALBUMIN 2.5 G/DL (3.2-5.2); ALKALINE PHOSPHATASE 104 U/L (46-116); ALT/SGPT 15 U/L (7.0-40); AST/SGOT 22 U/L (<34); BILIRUBIN,TOTAL 0.2 MG/DL (0.3-1.2); BLOOD UREA NITROGEN 9 MG/DL (9-23); CALCIUM LEVEL 7.4 MG/DL (8.5-10.1); CARBON DIOXIDE LEVEL 28 MMOL/L (20-31); CHLORIDE LEVEL 103 MMOL/L (98-107); CREATININE FOR GFR 0.45 MG/DL (0.55-1.30); GLOMERULAR FILTRATION RATE > 60.0 (>58); GLUCOSE, FASTING 117 MG/DL (60-100); MAGNESIUM LEVEL 1.5 MG/DL (1.8-2.4); POTASSIUM SERUM 3.8 MMOL/L (3.5-5.1); SODIUM LEVEL 136 MMOL/L (136-145); TOTAL PROTEIN 5.7 G/DL (5.7-8.2)
[2022-10-29] MEDS ORDERED: MAGN400T2 PO (05:56)
== END 2022-10-29 06:42 | disposition home or self-care (01) ==
LOC: M ED 21:38
DX: E83.42 Hypomagnesemia (principal); R53.83 Other fatigue; Z59.00 Homelessness unspecified; Z79.899 Other long term (current) drug therapy; Z91.041 Radiographic dye allergy status; Z88.6 Allergy status to analgesic agent; Z88.5 Allergy status to narcotic agent; Z88.8 Allergy status to other drugs, medicaments and biological substances

== ENCOUNTER 2023-02-10 22:27 | Emergency (ER) | payer OTHER, MEDICAID ==
[~2023-02-10] VITALS: Ht 167.6 cm; Wt 45.0 kg
[~2023-02-10 22:27] MED LIST changes: -GABA-283 PO; +GABA-284 PO; +MAGN400T2 PO; -MIRT-62 PO; +MIRT-88 PO; +SENN-111 PO; -SENN18TA PO
[2023-02-10 22:44] VITALS: BP 161/81; TEMP 98; O2SAT 100
[2023-02-10] MEDS ORDERED: NARC1SPR NARES (23:28)
[2023-02-10] MEDS ORDERED: CARA1TAB6 PO (23:28)
[2023-02-10] MEDS ORDERED: PRIL20TA2 PO (23:28)
== END 2023-02-11 00:01 | disposition home or self-care (01) ==
LOC: M ED 22:27
DX: T40.2X1A Poisoning by other opioids, accidental (unintentional), initial encounter (principal); F11.10 Opioid abuse, uncomplicated; K21.9 Gastro-esophageal reflux disease without esophagitis; B19.20 Unspecified viral hepatitis C without hepatic coma; F17.210 Nicotine dependence, cigarettes, uncomplicated; Z88.6 Allergy status to analgesic agent; Z88.8 Allergy status to other drugs, medicaments and biological substances; Z91.041 Radiographic dye allergy status; Z79.899 Other long term (current) drug therapy

== ENCOUNTER 2023-05-16 22:40 | Emergency (ER) | payer OTHER, MEDICAID ==
[~2023-05-16] VITALS: Ht 165.1 cm; Wt 71.8 kg
[2023-05-16 22:40] VITALS: BP 142/78; TEMP 97.4; O2SAT 97
[~2023-05-16 22:40] MED LIST changes: +NARC1SPR NARES; +PRIL20TA2 PO
== END 2023-05-17 01:27 | disposition left against medical advice (07) ==
LOC: M ED 22:40
DX: Z53.21 Procedure and treatment not carried out due to patient leaving prior to being seen by health care provider (principal)

== ENCOUNTER → 2023-08-02 | Outpatient (CLI) | payer OTHER, MEDICAID ==
[~2023-08-02] MED LIST changes: +FERR325T14 PO; -IRON325T9 PO; -KLON0.5T PO; +KLON0.5T8 PO
[2023-08-02 16:24] LABS: HEMATOCRIT 37.3 % (36.0-47.0); HEMOGLOBIN 11.8 g/dl (12.0-15.5); MEAN CORPUSCULAR HEMOGLOBIN 25.7 pg (27.0-33.0); MEAN CORPUSCULAR HGB CONC 31.6 g/dl (32.0-36.5); MEAN CORPUSCULAR VOLUME 81.3 fl (80.0-96.0); PLATELET COUNT, AUTOMATED 275 10^3/uL (150-450); RED BLOOD COUNT 4.59 10^6/uL (4.00-5.40); WHITE BLOOD COUNT 6.7 10^3/uL (4.0-10.0)
[2023-08-02 16:50] LABS: HCG, SERUM QUALITATIVE NEGATIVE (NEGATIVE)
[2023-08-02 17:18] LABS: HIV 1&2 SCREEN NEGATIVE (NEGATIVE)
[2023-08-02 17:38] LABS: ALBUMIN 3.2 G/DL (3.2-5.2); ALKALINE PHOSPHATASE 181 U/L (46-116); ALT/SGPT 23 U/L (7.0-40); AST/SGOT 48 U/L (<34); BILIRUBIN,TOTAL 0.3 MG/DL (0.3-1.2); BLOOD UREA NITROGEN 5 MG/DL (9-23); CALCIUM LEVEL 8.6 MG/DL (8.5-10.1); CARBON DIOXIDE LEVEL 28 MMOL/L (20-31); CHLORIDE LEVEL 103 MMOL/L (98-107); CREATININE FOR GFR 0.41 MG/DL (0.55-1.30); GLOMERULAR FILTRATION RATE > 60.0 (>58); GLUCOSE, FASTING 100 MG/DL (60-100); HEPATITIS C VIRUS ABY INDEX > 11.00 INDEX (<0.8); POTASSIUM SERUM 5.7 MMOL/L (3.5-5.1); SODIUM LEVEL 136 MMOL/L (136-145); TOTAL PROTEIN 6.8 G/DL (5.7-8.2)
[2023-08-02 18:23] LABS: GC DNA AMPLIFICATION NEGATIVE (NEGATIVE)
== END ==
LOC: M LAB 15:19
PROVIDERS: ATTEND Family Medicine
DX: F11.20 Opioid dependence, uncomplicated (principal)

== ENCOUNTER → 2023-08-02 | Outpatient (CLI) | payer OTHER, MEDICAID ==
[2023-08-02 16:25] LABS: BASO % 0.6 % (0.0-1.0); EOS # 0.2 10^3/uL (0.0-0.5); EOS % 2.9 % (0.0-3.0); HEMATOCRIT 37.1 % (36.0-47.0); HEMOGLOBIN 11.7 g/dl (12.0-15.5); LYMPH # 1.4 10^3/uL (1.5-5.0); LYMPH % 22.2 % (24.0-44.0); MEAN CORPUSCULAR HEMOGLOBIN 25.8 pg (27.0-33.0); MEAN CORPUSCULAR HGB CONC 31.5 g/dl (32.0-36.5); MEAN CORPUSCULAR VOLUME 81.9 fl (80.0-96.0); MONO # 0.5 10^3/uL (0.0-0.8); MONO % 6.9 % (2.0-8.0); NEUTROPHILS # 4.4 10^3/uL (1.5-8.5); NEUTROPHILS % 67.2 % (36.0-66.0); PLATELET COUNT, AUTOMATED 309 10^3/uL (150-450); RED BLOOD COUNT 4.53 10^6/uL (4.00-5.40); WHITE BLOOD COUNT 6.5 10^3/uL (4.0-10.0)
[2023-08-02 16:51] LABS: HCG, SERUM QUALITATIVE NEGATIVE (NEGATIVE); HEPATITIS B SURFACE ANTIBODY NEGATIVE (POSITIVE)
[2023-08-02 17:18] LABS: HIV 1&2 SCREEN NEGATIVE (NEGATIVE)
[2023-08-02 17:36] LABS: ALKALINE PHOSPHATASE 172 U/L (46-116); ALT/SGPT 17 U/L (7.0-40); AST/SGOT 31 U/L (<34); BILIRUBIN,TOTAL 0.3 MG/DL (0.3-1.2); BLOOD UREA NITROGEN 6 MG/DL (9-23); CALCIUM LEVEL 8.5 MG/DL (8.5-10.1); CARBON DIOXIDE LEVEL 29 MMOL/L (20-31); CHLORIDE LEVEL 103 MMOL/L (98-107); CREATININE FOR GFR 0.44 MG/DL (0.55-1.30); GLOMERULAR FILTRATION RATE > 60.0 (>58); GLUCOSE, FASTING 131 MG/DL (60-100); POTASSIUM SERUM 4.6 MMOL/L (3.5-5.1); SODIUM LEVEL 136 MMOL/L (136-145); TOTAL PROTEIN 6.3 G/DL (5.7-8.2)
[2023-08-06 23:07] LABS: HEPATITIS A IgG TOTAL Negative (Negative); HEPATITIS C QUANTITATION 1270000 IU/mL (.); HEPATITIS C VIRUS GENOTYPE 1a (.)
== END ==
LOC: M LAB 15:17
PROVIDERS: ATTEND Family Medicine
DX: B18.2 Chronic viral hepatitis C (principal)

== ENCOUNTER → 2023-09-12 | Outpatient (CLI) | payer OTHER, MEDICAID | LOC: M SOG 13:59 | PROVIDERS: ATTEND Physician Assistant | DX: S52.502A Unspecified fracture of the lower end of left radius, initial encounter for closed fracture (principal); S52.612K Displaced fracture of left ulna styloid process, subsequent encounter for closed fracture with nonunion; Y93.9 Activity, unspecified; Y92.9 Unspecified place or not applicable ==

== ENCOUNTER 2023-09-22 18:20 | Emergency (ER) | payer OTHER, MEDICAID ==
[~2023-09-22] VITALS: Ht 167.6 cm; Wt 65.9 kg
[2023-09-22] MEDS: NS 1,000 ML IV ONE (18:40)
[2023-09-22 20:11] LABS: VENOUS BASE EXCESS -2.6 (-2.0-2.0); VENOUS HCO3 23.8 MMOL/L (23.0-27.0); VENOUS O2 SATURATION 96.4 % (60.0-80.0); VENOUS PARTIAL PRESSURE CO2 47.6 mmHg (38.0-50.0); VENOUS PARTIAL PRESSURE O2 93.4 mmHg (30.0-50.0); VENOUS PH 7.316 UNITS (7.330-7.430); VENOUS STANDARD HCO3 22.3 MMOL/L; VENOUS TOTAL CO2 25.2 MMOL/L (24.0-28.0)
[2023-09-22 20:16] LABS: BASO % 0.6 % (0.0-1.0); EOS # 0.2 10^3/uL (0.0-0.5); HEMATOCRIT 34.2 % (36.0-47.0); HEMOGLOBIN 11.1 g/dl (12.0-15.5); LYMPH # 1.2 10^3/uL (1.5-5.0); LYMPH % 39.1 % (24.0-44.0); MEAN CORPUSCULAR HEMOGLOBIN 27.3 pg (27.0-33.0); MEAN CORPUSCULAR HGB CONC 32.5 g/dl (32.0-36.5); MEAN CORPUSCULAR VOLUME 84.2 fl (80.0-96.0); MONO # 0.3 10^3/uL (0.0-0.8); MONO % 10.7 % (2.0-8.0); NEUTROPHILS # 1.4 10^3/uL (1.5-8.5); NEUTROPHILS % 44.3 % (36.0-66.0); PLATELET COUNT, AUTOMATED 230 10^3/uL (150-450); RED BLOOD COUNT 4.06 10^6/uL (4.00-5.40); WHITE BLOOD COUNT 3.2 10^3/uL (4.0-10.0)
[2023-09-22 20:24] LABS: INR 1.13; PARTIAL THROMBOPLASTIN TIME 29.1 SECONDS (24.8-34.2); PROTHROMBIN TIME 14.1 SECONDS (12.5-14.5)
[2023-09-22 20:30] VITALS: TEMP 98.6
[2023-09-22 20:45] VITALS: BP 106/59; O2SAT 97
[2023-09-22 20:55] LABS: CK-MB VALUE MASS 2.5 NG/ML (<3.6); LIPASE 33 U/L (12-53)
[2023-09-22 20:56] LABS: C REACTIVE PROTEIN QUANTITATIV < 0.40 MG/DL (<1.0); ETHYL ALCOHOL (ETHANOL) 0.004 % (0.000-0.010)
[2023-09-22 20:57] LABS: CPK CREATINE PHOSPHOKINASE 183 U/L (34-145); MB/CK RELATIVE INDEX 1.36 (< OR =4)
[2023-09-22 21:00] LABS: FREE T4 0.96 NG/DL (0.89-1.76); THYROID STIMULATING HORMONE 0.592 uIU/ML (0.55-4.78)
[2023-09-22 21:04] LABS: PROCALCITONIN 0.04 ng/ml
[2023-09-22] MEDS ORDERED: NS 1,000 ML IV ONE (21:15)
[2023-09-22 21:37] LABS: ALBUMIN 2.7 G/DL (3.2-5.2); ALKALINE PHOSPHATASE 135 U/L (46-116); ALT/SGPT 25 U/L (7.0-40); AST/SGOT 47 U/L (<34); BILIRUBIN,DIRECT 0.1 MG/DL (<0.4); BILIRUBIN,TOTAL 0.2 MG/DL (0.3-1.2); BLOOD UREA NITROGEN 7 MG/DL (9-23); CALCIUM LEVEL 7.9 MG/DL (8.5-10.1); CARBON DIOXIDE LEVEL 28 MMOL/L (20-31); CHLORIDE LEVEL 105 MMOL/L (98-107); GLOMERULAR FILTRATION RATE > 60.0 (>58); GLUCOSE, FASTING 161 MG/DL (60-100); MAGNESIUM LEVEL 1.6 MG/DL (1.8-2.4); SODIUM LEVEL 140 MMOL/L (136-145); TOTAL PROTEIN 5.9 G/DL (5.7-8.2)
[2023-09-22 21:49] LABS: HCG, SERUM QUALITATIVE NEGATIVE (NEGATIVE)
== END 2023-09-22 22:19 | disposition home or self-care (01) ==
LOC: EDBD 18:20 → M ED 18:20
DX: R55 Syncope and collapse (principal); Z53.9 Procedure and treatment not carried out, unspecified reason; Z86.19 Personal history of other infectious and parasitic diseases; F19.10 Other psychoactive substance abuse, uncomplicated; N18.9 Chronic kidney disease, unspecified; K74.60 Unspecified cirrhosis of liver; Z79.899 Other long term (current) drug therapy; Z91.041 Radiographic dye allergy status; Z88.6 Allergy status to analgesic agent; Z88.5 Allergy status to narcotic agent; Z88.3 Allergy status to other anti-infective agents; Z88.8 Allergy status to other drugs, medicaments and biological substances

== ENCOUNTER 2023-09-25 04:12 | Emergency (ER) | payer OTHER, MEDICAID ==
[~2023-09-25] VITALS: Ht 167.6 cm; Wt 61.4 kg
[2023-09-25 04:37] VITALS: BP 117/84; TEMP 98.3; O2SAT 96
== END 2023-09-25 05:23 | disposition left against medical advice (07) ==
LOC: M ED 04:12
DX: Z53.21 Procedure and treatment not carried out due to patient leaving prior to being seen by health care provider (principal)

== ENCOUNTER 2023-10-04 07:27 | Day surgery (SDC) | payer OTHER, MEDICAID ==
[~2023-10-04] VITALS: Ht 167.6 cm; Wt 63.2 kg
[~2023-10-04 07:27] MED LIST changes: +METH5TA PO
[2023-10-04] MEDS: LR 1,000 ML IV SCH (08:00)
[2023-10-04] MEDS: MIDAZOLAM INJ 2MG/2ML VIAL IV ONE (09:08)
[2023-10-04] MEDS ORDERED: propofoL 200 MG/20 ML VIAL As Ordered ONE (10:02)
[2023-10-04] MEDS ORDERED: ONDANSETRON 4MG 2ML VIAL As Ordered ONE (10:02)
[2023-10-04] MEDS ORDERED: MIDAZOLAM INJ 2MG/2ML VIAL As Ordered ONE (10:02)
[2023-10-04] MEDS ORDERED: ACETAMINOPHEN 1000MG 100ML IV BAG As Ordered ONE (10:02)
[2023-10-04] MEDS ORDERED: fentaNYL 100 MCG/2 ML INJECTION As Ordered ONE (10:02)
[2023-10-04] MEDS ORDERED: dexmedeTOMIDine (4MCG/ML)200MCG/50ML BTL (PRECEDEX) As Ordered ONE (10:02)
[2023-10-04] MEDS ORDERED: LIDOCAINE 2% 100MG/5ML SDV (FOR ANES.) As Ordered ONE (10:02)
[2023-10-04] MEDS ORDERED: traMADol 50 MG TAB PO ONE (10:50)
[2023-10-04] MEDS ORDERED: METOCLOPRAMIDE INJ 10MG/2ML VIAL IV PRN (10:50)
[2023-10-04] MEDS ORDERED: LR 1,000 ML IV SCH (10:50)
[2023-10-04] MEDS ORDERED: fentaNYL 100 MCG/2 ML INJECTION IV PRN (10:50)
[2023-10-04] MEDS ORDERED: ONDANSETRON 4MG 2ML VIAL IV PRN (10:50)
[2023-10-04 10:56] VITALS: BP 169/85; O2SAT 99
== END 2023-10-04 11:49 | disposition home or self-care (01) ==
LOC: M SDC 07:27
PROVIDERS: ATTEND Orthopaedic Surgery Hand Surgery
DX: G56.02 Carpal tunnel syndrome, left upper limb (principal); E05.90 Thyrotoxicosis, unspecified without thyrotoxic crisis or storm; B18.2 Chronic viral hepatitis C; D64.9 Anemia, unspecified; F32.9 Major depressive disorder, single episode, unspecified; F41.9 Anxiety disorder, unspecified; Z98.84 Bariatric surgery status; F17.290 Nicotine dependence, other tobacco product, uncomplicated; Z79.899 Other long term (current) drug therapy
CPT/HCPCS: 29848; J0131; J0665; J1100; J2250; J2405; J3010

== ENCOUNTER 2024-08-30 10:26 | Emergency (ER) | payer MEDICAID, OTHER ==
[~2024-08-30] VITALS: Ht 167.6 cm; Wt 73.0 kg
[~2024-08-30 10:26] MED LIST changes: +GABA-1172 PO; +GABA-1490 PO; +GABA-1635 PO; -GABA-282 PO; -GABA600T4 PO; -GABA800T4 PO; -SENN-111 PO; +SENN-165 PO
[2024-08-30 12:06] LABS: BASO % 0.5 % (0.0-1.0); EOS % 0.1 % (0.0-3.0); HEMATOCRIT 43.9 % (36.0-47.0); HEMOGLOBIN 14.8 g/dl (12.0-15.5); LYMPH # 1.2 10^3/uL (1.5-5.0); LYMPH % 15.7 % (24.0-44.0); MEAN CORPUSCULAR HEMOGLOBIN 29.1 pg (27.0-33.0); MEAN CORPUSCULAR HGB CONC 33.7 g/dl (32.0-36.5); MEAN CORPUSCULAR VOLUME 86.2 fl (80.0-96.0); MONO # 0.7 10^3/uL (0.0-0.8); MONO % 9.3 % (2.0-8.0); NEUTROPHILS # 5.8 10^3/uL (1.5-8.5); PLATELET COUNT, AUTOMATED 239 10^3/uL (150-450); RED BLOOD COUNT 5.09 10^6/uL (4.00-5.40); WHITE BLOOD COUNT 7.9 10^3/uL (4.0-10.0)
[2024-08-30 12:24] LABS: ETHYL ALCOHOL (ETHANOL) 0.048 % (0.000-0.010)
[2024-08-30 12:26] LABS: SALICYLATE LEVEL < 3.0 MG/DL (<30)
[2024-08-30 12:27] LABS: ALBUMIN 4.4 G/DL (3.2-5.2); ALKALINE PHOSPHATASE 117 U/L (35-104); ALT/SGPT 30 U/L (7.0-40); AST/SGOT 52 U/L (<34); BILIRUBIN,DIRECT 0.1 MG/DL (<0.4); BILIRUBIN,TOTAL 0.4 MG/DL (0.3-1.2); BLOOD UREA NITROGEN 6 MG/DL (9-23); CALCIUM LEVEL 8.9 MG/DL (8.5-10.1); CARBON DIOXIDE LEVEL 29 MMOL/L (20-31); CHLORIDE LEVEL 99 MMOL/L (98-107); CK-MB VALUE MASS < 1.0 NG/ML (<3.6); CREATININE FOR GFR 0.61 MG/DL (0.55-1.30); GLOMERULAR FILTRATION RATE > 60.0 (>51); GLUCOSE, FASTING 125 MG/DL (60-100); SODIUM LEVEL 141 MMOL/L (136-145); TOTAL PROTEIN 7.7 G/DL (5.7-8.2)
[2024-08-30 12:32] LABS: CPK CREATINE PHOSPHOKINASE 88 U/L (34-145); MB/CK RELATIVE INDEX 1.13 (< OR =4)
[2024-08-30 12:41] VITALS: TEMP 97.2
[2024-08-30 13:03] VITALS: BP 136/72
[2024-08-30 13:11] VITALS: O2SAT 100
[2024-08-30 13:45] LABS: CK-MB VALUE MASS < 1.0 NG/ML (<3.6)
[2024-08-30 13:46] LABS: CPK CREATINE PHOSPHOKINASE 68 U/L (34-145); MB/CK RELATIVE INDEX 1.47 (< OR =4)
== END 2024-08-30 13:30 | disposition left against medical advice (07) ==
LOC: M ED 10:26 → EDBD 10:26 → M ED 13:30
DX: F19.10 Other psychoactive substance abuse, uncomplicated (principal); Z53.9 Procedure and treatment not carried out, unspecified reason; K21.9 Gastro-esophageal reflux disease without esophagitis; F31.9 Bipolar disorder, unspecified; Z86.19 Personal history of other infectious and parasitic diseases; F17.200 Nicotine dependence, unspecified, uncomplicated; Z79.899 Other long term (current) drug therapy; Z91.041 Radiographic dye allergy status; Z88.6 Allergy status to analgesic agent; Z88.8 Allergy status to other drugs, medicaments and biological substances; Z88.5 Allergy status to narcotic agent; Z88.3 Allergy status to other anti-infective agents

== ENCOUNTER 2024-09-14 09:15 | Emergency (ER) | payer OTHER ==
[~2024-09-14] VITALS: Ht 167.6 cm; Wt 72.2 kg
[2024-09-14 10:09] LABS: HEMOGLOBIN 12.1 g/dl (12.0-15.5); RED BLOOD COUNT 4.14 10^6/uL (4.00-5.40); WHITE BLOOD COUNT 5.6 10^3/uL (4.0-10.0)
[2024-09-14 10:10] LABS: BASO % 0.4 % (0.0-1.0); EOS # 0.1 10^3/uL (0.0-0.5); EOS % 1.4 % (0.0-3.0); HEMATOCRIT 35.9 % (36.0-47.0); LYMPH # 1.3 10^3/uL (1.5-5.0); LYMPH % 22.2 % (24.0-44.0); MEAN CORPUSCULAR HEMOGLOBIN 29.2 pg (27.0-33.0); MEAN CORPUSCULAR HGB CONC 33.7 g/dl (32.0-36.5); MEAN CORPUSCULAR VOLUME 86.7 fl (80.0-96.0); MONO # 0.6 10^3/uL (0.0-0.8); NEUTROPHILS # 3.7 10^3/uL (1.5-8.5); NEUTROPHILS % 64.6 % (36.0-66.0); PLATELET COUNT, AUTOMATED 459 10^3/uL (150-450)
[2024-09-14 10:36] LABS: LIPASE 28 U/L (12-53)
[2024-09-14 10:37] LABS: AMYLASE 50 U/L (30-118)
[2024-09-14 10:38] LABS: ALBUMIN 3.4 G/DL (3.2-5.2); ALKALINE PHOSPHATASE 140 U/L (35-104); ALT/SGPT 18 U/L (7.0-40); AST/SGOT 21 U/L (<34); BILIRUBIN,DIRECT < 0.1 MG/DL (<0.4); BILIRUBIN,TOTAL 0.2 MG/DL (0.3-1.2); BLOOD UREA NITROGEN 13 MG/DL (9-23); CALCIUM LEVEL 8.5 MG/DL (8.5-10.1); CARBON DIOXIDE LEVEL 26 MMOL/L (20-31); CHLORIDE LEVEL 102 MMOL/L (98-107); CK-MB VALUE MASS < 1.0 NG/ML (<3.6); CREATININE FOR GFR 0.49 MG/DL (0.55-1.30); GLOMERULAR FILTRATION RATE > 90.0 (>51); GLUCOSE, FASTING 86 MG/DL (60-100); POTASSIUM SERUM 4.4 MMOL/L (3.5-5.1); SODIUM LEVEL 136 MMOL/L (136-145); TOTAL PROTEIN 6.8 G/DL (5.7-8.2)
[2024-09-14] MEDS: NS (Normal Saline) 0.9% 1,000 ML IV ONE ×2 (10:39→10:41)
[2024-09-14] MEDS: ONDANSETRON 4MG 2ML VIAL IV ONE (10:39)
[2024-09-14 10:40] LABS: CPK CREATINE PHOSPHOKINASE 43 U/L (34-145); MB/CK RELATIVE INDEX 2.32 (< OR =4)
[2024-09-14 11:29] LABS: BASO % 0.3 % (0.0-1.0); EOS # 0.1 10^3/uL (0.0-0.5); EOS % 1.4 % (0.0-3.0); HEMATOCRIT 33.4 % (36.0-47.0); HEMOGLOBIN 10.9 g/dl (12.0-15.5); MEAN CORPUSCULAR HGB CONC 32.6 g/dl (32.0-36.5); MEAN CORPUSCULAR VOLUME 88.8 fl (80.0-96.0); MONO # 0.6 10^3/uL (0.0-0.8); MONO % 10.5 % (2.0-8.0); NEUTROPHILS # 4.1 10^3/uL (1.5-8.5); NEUTROPHILS % 70.5 % (36.0-66.0); PLATELET COUNT, AUTOMATED 413 10^3/uL (150-450); RED BLOOD COUNT 3.76 10^6/uL (4.00-5.40); WHITE BLOOD COUNT 5.8 10^3/uL (4.0-10.0)
[2024-09-14 11:53] LABS: CK-MB VALUE MASS < 1.0 NG/ML (<3.6)
[2024-09-14 12:01] LABS: CPK CREATINE PHOSPHOKINASE 41 U/L (34-145); MB/CK RELATIVE INDEX 2.43 (< OR =4)
[2024-09-14] MEDS ORDERED: KETOROLAC 30 MG/ML 1ML VIAL IV ONE (12:40)
[2024-09-14 12:47] LABS: KETONE, URINE AUTO RFX NEGATIVE (NEGATIVE); MUCUS, URINE RFX SMALL (NEGATIVE); NITRITE, URINE AUTO RFX NEGATIVE (NEGATIVE); RBC, URINE AUTO RFX 23 /HPF (0-3); SQUAM EPITHELIAL CELL UR AURFX 0 /HPF (0-6); WBC, URINE AUTO RFX 7 /HPF (0-3)
[2024-09-14 12:48] LABS: LEUKOCYTE ESTERASE UR AUTO RFX TRACE (NEGATIVE)
[2024-09-14] MEDS: ACETAMINOPHEN *IV* 1,000 MG in IV 1 EA IV ONE (12:59)
[2024-09-14] MEDS: FAMOTIDINE 20MG/2ML VIAL IVP ONE (12:59)
[2024-09-14] MEDS ORDERED: ISOVUE-370 76% 100ML VIAL As Ordered ONE (13:09)
[2024-09-14] MEDS: diphenhydrAMINE 50MG/ML VIAL IV STA (13:18)
[2024-09-14] MEDS: methylPREDNISolone 125MG 2ML VIAL IV ONE (13:18)
[2024-09-14] MEDS ORDERED: READI-CAT 2 PO SCH (13:45)
[2024-09-14 14:30] VITALS: BP 150/81; TEMP 98; O2SAT 97
[2024-09-14] MEDS ORDERED: SUCR1SS PO (14:50)
[2024-09-14] MEDS ORDERED: PRIL20TA2 PO (14:53)
[2024-09-14] MEDS: SUCRALFATE SUSP 1GM/10ML UD PO ONE (15:11)
== END 2024-09-14 15:31 | disposition home or self-care (01) ==
LOC: M ED 09:15
DX: R10.9 Unspecified abdominal pain (principal); Z76.0 Encounter for issue of repeat prescription; R16.2 Hepatomegaly with splenomegaly, not elsewhere classified; F60.3 Borderline personality disorder; F11.10 Opioid abuse, uncomplicated; E05.90 Thyrotoxicosis, unspecified without thyrotoxic crisis or storm; F17.200 Nicotine dependence, unspecified, uncomplicated; Z98.84 Bariatric surgery status; Z87.19 Personal history of other diseases of the digestive system; Z87.448 Personal history of other diseases of urinary system; Z86.19 Personal history of other infectious and parasitic diseases; Z79.899 Other long term (current) drug therapy; Z91.041 Radiographic dye allergy status; Z88.6 Allergy status to analgesic agent; Z88.8 Allergy status to other drugs, medicaments and biological substances; Z88.5 Allergy status to narcotic agent
CPT/HCPCS: 36415; 74021; 74177; 80047; 80048; 80076; 81001; 82150; 82550; 82553; 83605; 83690; 84484; 85025; 87040; 87086; 93005; 93041; 96374; 96375; 99285; J0131; J1200; J1308; J2405; J2919; Q9967